=== PATIENT | female | born 1940 | race Caucasian/White ===

== ENCOUNTER 2019-08-03 05:24 | Emergency (ER) | payer OTHER ==
[2019-08-03 06:11] LABS: Absolute Lymphocytes (CBC) 0.9 K/uL (0.7-4.9); Basophils % 0.3 % (0-1.3); Hematocrit 34.4 % (36.0-45.0); Lymphocytes % 7.3 % (15.3-44.8); MPV 7.8 fL (7.6-11.3); RBC Red Blood Cell Count 3.55 M/uL (3.86-4.86)
[2019-08-03 06:25] LABS: ALT/SGPT 27 U/L (12-78); AST/SGOT 25 U/L (15-37); Albumin 3.3 g/dL (3.4-5.0); Alkaline Phosphatase 126 U/L (45-117); BUN Blood Urea Nitrogen 29 mg/dL (7-18); Bicarbonate 21 mmol/L (21-32); Bilirubin Direct < 0.1 mg/dL (0-0.2); Bilirubin Total 0.2 mg/dL (0.2-1.0); Glucose Level 163 mg/dL (74-106); Lipase 136 U/L (73-393); Potassium 4.7 mmol/L (3.5-5.1); Sodium Level 140 mmol/L (136-145)
[2019-08-03] MEDS ORDERED: FENTANYL CITR 100 MCG/2 ML ONE (06:35)
--- NOTE | 2019-08-03 07:41 | RAD REPORT ---
EXAM DESCRIPTION: CT - Abdomen Pelvis W Contrast - 08/03/2019 7:03 am CLINICAL HISTORY: ABD PAIN COMPARISON: CT ABD PELVIS W CONTRAST dated 02/18/2013 TECHNIQUE: Biphasic, helical CT imaging of the abdomen and pelvis was performed following 100 ml non -ionic IV contrast. No oral contrast given. All CT scans are performed using dose optimization technique as appropriate and may include automated exposure control or mA/KV adjustment according to patient size. FINDINGS: No suspicious findings in the lung bases. Liver shows a mild diffuse fatty infiltration pattern. No solid mass lesions seen. Multiple thin-wall ed homogeneous fluid attenuation cysts are scattered in the liver. These are similar to slightly larg er than 2013. No abnormal enhancement pattern. These are not regarded as suspicious. Spleen shows no suspicious finding. Small accessory splenic nodule present. Pancreatic tissue is homo geneous in attenuation and enhancement. Slightly lobulated contour in the body has not change from 20 13. A 16 millimeter gallstone is present near the neck. Additional smaller stones are also suspected. No wall thickening or edema. No biliary tree dilatation. No CT findings for active gallbladder disease. Symmetric renal function is seen with no hydronephrosis or suspicious renal mass. No pyelonephritis o r acute parenchymal process. No bladder abnormalities. No adrenal abnormalities. Uterus is absent. Ov cherie are absent or atrophic. No adnexal mass. A 5 centimeter diameter hiatal hernia is present. No acute stomach finding seen. No acute small bowel abnormality. Terminal ileum is normal. Appendix is not well visualized. No appendicitis findings. No dilation of the colon seen. Low-level mild enhancement of the colon carrion noted. No free air, free fluid or inflammatory stranding. No hernia, mass or bulky lymphadenopathy. Disc and bone degenerative changes are present. Hemangioma is present in the L3 body. Report was delayed due to technical delay in transfer of images to the PACs system. IMPRESSION: Mild nonspecific colitis pattern. No mass, free air, obstruction or other surgically yaa rgent finding. Fatty infiltration of the liver put multiple benign liver cysts identified.
[2019-08-03 08:13] LABS: Blood Morphology Comment NOT SEEN (NOT SEEN); Platelet Estimate ADEQ; Urine White Blood Cell Casts OK
[2019-08-03] MEDS ORDERED: CIPROFLOXACIN 400mg IV 400 MG/200 ML BAG IV ONE (08:20)
--- NOTE | 2019-08-03 08:59 | ER ---
Nurse's Notes [facility] Name: Maxine Elias Age: 79 yrs Sex: Female : 1940 Arrival Date: 08/03/2019 Time: 05:26 Bed 7 Private MD: Diagnosis: Infectious gastroenteritis and colitis, unspecified;Generalized abdominal pain Presentation: 08/02 05:40 Chief complaint: Patient states: she started having abdominal pain and diarrhea last bb night then this morning she noticed about 1/2 cup of bright red blood with her bowel movement abdominal pain is currently 9/10. Coronavirus screen: Proceed with normal triage. Ebola Screen: No symptoms or risks identified at this time. Initial Sepsis Screen: Does the patient meet any 2 criteria? No. Patient's initial sepsis screen is negative. Does the patient have a suspected source of infection? No. Patient's initial sepsis screen is negative. Risk Assessment: Do you want to hurt yourself or someone else? Patient reports no desire to harm self or others. Onset of symptoms was August 02, 2019. 05:40 Method Of Arrival: Wheelchair bb 05:40 Acuity: SWAPNIL 3 bb Historical: - Allergies: 05:44 No Known Allergies; bb - Home Meds: 05:44 Unable to obtain [Active]; bb - PMHx: 05:44 Bipolar disorder; Hypertension; bb - PSHx: 05:44 Hysterectomy; WRIST SURGERY; RIGHT KNEE SURGERY; Appendectomy; bb - Immunization history:: Adult Immunizations up to date. - Social history:: Smoking status: Patient denies any tobacco usage or history of. Patient/guardian denies using alcohol, street drugs. Screenin:42 Abuse screen: Denies threats or abuse. Nutritional screening: No deficits noted. jd3 Tuberculosis screening: No symptoms or risk factors identified. Fall Risk Ambulatory Aid- None/Bed Rest/Nurse Assist (0 pts). Gait- Normal/Bed Rest/Wheelchair (0 pts) Mental Status- Oriented to own ability (0 pts). Total Rodriguez Fall Scale indicates No Risk (0-24 pts). Assessment: 05:40 General: Appears uncomfortable, Behavior is calm, cooperative, appropriate for age. jd3 Pain: Complains of pain in right upper quadrant, left upper quadrant and left lower quadrant Quality of pain is described as sharp, tender. Neuro: Level of Consciousness is awake, alert, obeys commands, Oriented to person, place, time, situation. Cardiovascular: Denies chest pain, Capillary refill < 3 seconds Patient's skin is warm and dry. Respiratory: Airway is patent Respiratory effort is even, unlabored, Respiratory pattern is regular, symmetrical, Denies cough, shortness of breath. GI: Abdomen is round Bowel sounds present X 4 quads. Abd is soft X 4 quads Abdomen is tender to palpation in right upper quadrant, left upper quadrant and left lower quadrant Reports lower abdominal pain, upper abdominal pain, diarrhea, rectal bleeding, nausea. : No signs and/or symptoms were reported regarding the genitourinary system. EENT: No signs and/or symptoms were reported regarding the EENT system. Derm: Skin is intact, Skin is dry, Skin is normal, Skin temperature is warm. Musculoskeletal: Circulation, motion, and sensation intact. Range of motion: intact in all extremities. 06:38 Reassessment: No changes from previously documented assessment. Patient and/or family jd3 updated on plan of care and expected duration. Pain level reassessed. Patient is alert, oriented x 3, equal unlabored respirations, skin warm/dry/pink. 07:08 Reassessment: Report received from MARIAELENA Hdz. Awaiting CT results prior to ss disposition. 07:27 General: Appears in no apparent distress. uncomfortable, Behavior is calm, cooperative, ss appropriate for age, Denies fever, fatigue, chills. Pain: Complains of pain in left lower quadrant and left upper quadrant and right upper quadrant Pain currently is 2 out of 10 on a pain scale. Is continuous. Neuro: Level of Consciousness is awake, alert, obeys commands, Oriented to person, place, time, situation. Respiratory: Airway is patent Respiratory effort is even, unlabored, Respiratory pattern is regular, symmetrical, Breath sounds are clear bilaterally. Respiratory: Denies cough, shortness of breath. Derm: Skin is intact, is healthy with good turgor, Skin is dry, Skin is pink, warm \T\ dry. normal. Derm: Skin is intact, is healthy with good turgor, Skin is dry, Skin is pink, warm \T\ dry. normal. 08:26 Reassessment: Patient appears in no apparent distress at this time. Patient and/or ss family updated on plan of care and expected duration. Pain level reassessed. awaiting disposition. Vital Signs: 05:40 BP 153 / 74; Pulse 96; Resp 16 S; Temp 97.4(O); Pulse Ox 100% on R/A; Weight 92.99 kg bb (R); Height 5 ft. 6 in. (167.64 cm) (R); Pain 9/10; 05:58 BP 134 / 53 Supine; Pulse 93; Resp 18; Pulse Ox 99% on R/A; mg2 05:58 BP 112 / 96 Sitting; Pulse 95; Resp 18; Pulse Ox 99% on R/A; mg2 05:58 BP 116 / 53 Standing; Pulse 100; Resp 18; Pulse Ox 100% on R/A; mg2 06:38 BP 126 / 56; Pulse 93; Resp 17 S; Pulse Ox 99% on R/A; Pain 6/10; jd3 07:26 BP 123 / 42; Pulse 93; Resp 15; Pulse Ox 99% on R/A; Pain 2/10; ss 08:26 BP 150 / 81; Pulse 92; Resp 16; Pulse Ox 99% on R/A; Pain 4/10; ss 05:40 Body Mass Index 33.09 (92.99 kg, 167.64 cm) bb ED Course: 05:26 Patient arrived in ED. ds1 05:39 Spencer Rios MD is Attending Physician. tw4 05:40 Jaxson Loza, RN is Primary Nurse. jd3 05:40 Warm blanket given. jd3 05:42 Triage completed. bb 05:42 Patient has correct armband on for positive identification. Placed in gown. Bed in low jd3 position. Call light in reach. Side rails up X 1. Pulse ox on. NIBP on. 05:44 Arm band placed on Patient placed in an exam room, on a stretcher, on pulse oximetry. bb 05:48 Inserted saline lock: 20 gauge in right forearm, using aseptic technique. placed by cecil [facility]. 05:49 Initial lab(s) drawn, by ED staff, sent to lab. jd3 05:55 Type And Screen Sent. ds4 05:55 Ptt, Activated Sent. ds4 05:55 PT-INR Sent. ds4 05:55 Basic Metabolic Panel Sent. ds4 05:55 Lipase Sent. ds4 05:55 CBC with Diff Sent. ds4 05:56 Creatinine for Radiology Sent. ds4 05:56 Hepatic Function Sent. ds4 06:23 Gracy Kingston FNP-C [facility]. snw 06:23 Spencer Rios MD is Attending Physician. snw 07:04 CT Abd/Pelvis - IV Contrast Only In Process Unspecified. EDMS 08:17 Inserted saline lock: 18 gauge in right antecubital area, using aseptic technique. 3 Blood collected. 10:21 No provider procedures requiring assistance completed. IV discontinued, intact, ah bleeding controlled, No redness/swelling at site. Pressure dressing applied. Administered Medications: 06:37 Drug: fentaNYL (PF) 25 mcg Route: IVP; Site: right forearm; jd3 08:13 Follow up: Response: No adverse reaction; Pain is decreased 08:25 Drug: Cipro 400 mg Volume: 200 ml; Route: IVPB; Infused Over: 60 mins; Site: right ss forearm; Outcome: 08:59 Discharge ordered by . sn 10:21 Discharged to home via wheelchair. 10:21 Condition: good 10:21 Discharge instructions given to patient, Instructed on discharge instructions, follow up and referral plans. medication usage, Demonstrated understanding of instructions, follow-up care, medications. 10:21 Prescriptions given X 2. 10:21 Patient left the ED. Signatures: Dispatcher [employer] EDIN Gracy Kingston FNP-C PLANNING FEEDER-Csnw Miriam Contreras ds1 Brianne Brandon RN RN bb Lore Ramos RN RN Sherif Urban ds4 Rosalva Gonzalez 3 Jaxson Loza RN RN jd3 Wadley, Terrence, MD MD tw4 Pb Peralta RN RN mg2 Ashley Amado RN RN Corrections: (The following items were deleted from the chart) 06:07 05:40 GI: Abdomen is round Bowel sounds present X 4 quads. Abd is soft X 4 quads Abd is jd3 rigid in right upper quadrant, left upper quadrant and left lower quadrant Reports lower abdominal pain, upper abdominal pain, diarrhea, rectal bleeding, nausea, jd3 08:26 08:05 Reassessment: [facility]
--- NOTE | 2019-08-03 08:59 | EDPHYS ---
Physician Documentation [facility] Name: Maxine Elias Age: 79 yrs Sex: Female : 1940 Arrival Date: 08/03/2019 Time: 05:26 Bed 7 Private MD: ED Physician Spencer Rios HPI: 08/02 06:53 This 79 yrs old Female presents to ER via Wheelchair with complaints of snw Bloody Stools. 06:53 Onset: The symptoms/episode began/occurred acutely, 10 day(s) ago, and became worse snw this morning. Associated signs and symptoms: Pertinent positives: abdominal pain. Modifying factors: The patient symptoms are alleviated by nothing, the patient symptoms are aggravated by pressure. It is unknown whether or not the patient has had similar symptoms in the past. It is unknown whether or not the patient has recently seen a physician. Historical: - Allergies: 05:44 No Known Allergies; bb - Home Meds: 05:44 Unable to obtain [Active]; bb - PMHx: 05:44 Bipolar disorder; Hypertension; bb - PSHx: 05:44 Hysterectomy; WRIST SURGERY; RIGHT KNEE SURGERY; Appendectomy; bb - Immunization history:: Adult Immunizations up to date. - Social history:: Smoking status: Patient denies any tobacco usage or history of. Patient/guardian denies using alcohol, street drugs. ROS: 06:53 Constitutional: Negative for fever, chills, and weight loss, Eyes: Negative for injury, snw pain, redness, and discharge, ENT: Negative for injury, pain, and discharge, Neck: Negative for injury, pain, and swelling, Cardiovascular: Negative for chest pain, palpitations, and edema, Respiratory: Negative for shortness of breath, cough, wheezing, and pleuritic chest pain, Back: Negative for injury and pain, : Negative for injury, bleeding, discharge, and swelling, MS/Extremity: Negative for injury and deformity, Skin: Negative for injury, rash, and discoloration, Neuro: Negative for headache, weakness, numbness, tingling, and seizure, Psych: Negative for depression, anxiety, suicide ideation, homicidal ideation, and hallucinations. 06:53 Abdomen/GI: Positive for abdominal pain, of the right upper quadrant and left upper quadrant, pt states diarrhea today with 1/2-3/4 bright red blood in toilet.. Exam: 06:48 Head/Face: Normocephalic, atraumatic. Eyes: Pupils equal round and reactive to light, snw extra-ocular motions intact. Lids and lashes normal. Conjunctiva and sclera are non-icteric and not injected. Cornea within normal limits. Periorbital areas with no swelling, redness, or edema. ENT: Nares patent. No nasal discharge, no septal abnormalities noted. Tympanic membranes are normal and external auditory canals are clear. Oropharynx with no redness, swelling, or masses, exudates, or evidence of obstruction, uvula midline. Mucous membranes moist. Neck: Trachea midline, no thyromegaly or masses palpated, and no cervical lymphadenopathy. Supple, full range of motion without nuchal rigidity, or vertebral point tenderness. No Meningismus. Chest/axilla: Normal chest wall appearance and motion. Nontender with no deformity. No lesions are appreciated. Cardiovascular: Regular rate and rhythm with a normal S1 and S2. No gallops, murmurs, or rubs. Normal PMI, no JVD. No pulse deficits. Respiratory: Lungs have equal breath sounds bilaterally, clear to auscultation and percussion. No rales, rhonchi or wheezes noted. No increased work of breathing, no retractions or nasal flaring. Back: No spinal tenderness. No costovertebral tenderness. Full range of motion. MS/ Extremity: Pulses equal, no cyanosis. Neurovascular intact. Full, normal range of motion. Neuro: Awake and alert, GCS 15, oriented to person, place, time, and situation. Cranial nerves II-XII grossly intact. Motor strength 5/5 in all extremities. Sensory grossly intact. Cerebellar exam normal. Normal gait. Psych: Awake, alert, with orientation to person, place and time. Behavior, mood, and affect are within normal limits. 06:48 Constitutional: The patient appears alert, awake, pale. 06:48 Abdomen/GI: Inspection: abdomen appears normal, Bowel sounds: normal, Palpation: moderate abdominal tenderness, in the right upper quadrant and left upper quadrant, Rectal exam: rectal tone normal, Stool: reddish flecks but guaiac negative, hemorrhoid(s), are not appreciated. 06:48 Skin: Appearance: Color: pale, Temperature: normal temperature, Moisture: dry, contact dermatitis, dry, patchy, scabbed appearing almost petechiae like lesions to extremities, scaling at bony prominences of feet. Vital Signs: 05:40 BP 153 / 74; Pulse 96; Resp 16 S; Temp 97.4(O); Pulse Ox 100% on R/A; Weight 92.99 kg bb (R); Height 5 ft. 6 in. (167.64 cm) (R); Pain 9/10; 05:58 BP 134 / 53 Supine; Pulse 93; Resp 18; Pulse Ox 99% on R/A; mg2 05:58 BP 112 / 96 Sitting; Pulse 95; Resp 18; Pulse Ox 99% on R/A; mg2 05:58 BP 116 / 53 Standing; Pulse 100; Resp 18; Pulse Ox 100% on R/A; mg2 06:38 BP 126 / 56; Pulse 93; Resp 17 S; Pulse Ox 99% on R/A; Pain 6/10; jd3 07:26 BP 123 / 42; Pulse 93; Resp 15; Pulse Ox 99% on R/A; Pain 2/10; ss 08:26 BP 150 / 81; Pulse 92; Resp 16; Pulse Ox 99% on R/A; Pain 4/10; ss 05:40 Body Mass Index 33.09 (92.99 kg, 167.64 cm) bb MDM: 05:39 Patient medically screened. tw4 09:01 Data reviewed: vital signs, nurses notes. Data interpreted: Pulse oximetry: on room air snw is 99 %. Interpretation: normal. Counseling: I had a detailed discussion with the patient and/or guardian regarding: the historical points, exam findings, and any diagnostic results supporting the discharge/admit diagnosis, the presence of at least one elevated blood pressure reading (>120/80) during this emergency department visit, lab results, radiology results, the need for outpatient follow up, for definitive care, to return to the emergency department if symptoms worsen or persist or if there are any questions or concerns that arise at home. Special discussion: Based on the patient's Hx, exam, and Dx evaluation, there is no indication for emergent surgery or inpatient Tx. It is understood by the patient/guardian that if the Sx's persist or worsen they need to return immediately for re-evaluation. Based on the history and exam findings, there is no indication for further emergent testing or inpatient evaluation. I discussed with the patient/guardian the need to see the supervisor photoengraving for further evaluation of the symptoms. I discussed with the patient/guardian the need to see the primary care provider for further evaluation of the symptoms. 08/02 05:40 Order name: Basic Metabolic Panel; Complete Time: 06:26 tw4 08/02 05:40 Order name: CBC with Diff; Complete Time: 08:16 tw4 08/02 05:40 Order name: Creatinine for Radiology; Complete Time: 06:24 tw4 08/02 05:40 Order name: Hepatic Function; Complete Time: 06:26 tw4 08/02 05:40 Order name: Lipase; Complete Time: 06:26 tw4 08/02 05:40 Order name: PT-INR; Complete Time: 06:38 tw4 08/02 05:40 Order name: Ptt, Activated; Complete Time: 06:38 tw4 08/02 05:43 Order name: Type And Screen; Complete Time: 07:36 tw4 08/02 06:25 Order name: CT Abd/Pelvis - IV Contrast Only; Complete Time: 08:11 snw 08/02 06:39 Order name: Tegretol Level; Complete Time: 07:36 ar5 08/02 08:13 Order name: CBC Smear Scan; Complete Time: 08:16 EDMS 08/02 05:40 Order name: IV Saline Lock; Complete Time: 05:49 tw4 08/02 05:40 Order name: Labs collected and sent; Complete Time: 05:50 tw4 08/02 05:43 Order name: Orthostatics; Complete Time: 05:57 tw4 08/02 06:26 Order name: NPO; Complete Time: 06:28 snw Administered Medications: 06:37 Drug: fentaNYL (PF) 25 mcg Route: IVP; Site: right forearm; jd3 08:13 Follow up: Response: No adverse reaction; Pain is decreased ss 08:25 Drug: Cipro 400 mg Volume: 200 ml; Route: IVPB; Infused Over: 60 mins; Site: right ss forearm; Disposition: 08/03 10:04 Co-signature as Attending Physician, Spencer Rios MD I agree with the assessment and plan of care. Disposition: 08/03/19 08:59 Discharged to Home. Impression: Infectious gastroenteritis and colitis, unspecified, Generalized abdominal pain. - Condition is Stable. - Discharge Instructions: Abdominal Pain, Adult, Food Choices to Help Relieve Diarrhea, Adult, Rehydration, Elderly, Colitis. - Prescriptions for Cipro 500 mg Oral Tablet - take 1 tablet by ORAL route every 12 hours for 7 days; 14 tablet. promethazine 25 mg Oral Tablet - take 1 tablet by ORAL route every 8-12 hours As needed; 10 tablet. - Medication Reconciliation Form, Thank You Letter, Antibiotic Education, Prescription Opioid Use form. - Follow up: Private Physician; When: 1 - 2 days; Reason: Recheck today's complaints, Continuance of care, Re-evaluation by your physician. Follow up: Emergency Department; When: As needed; Reason: Worsening of condition. - Notes: Hold Tegretol x one day. Signatures: Dispatcher [employer] EDMS Gracy Kingston, BUD-C FORM BUILDER HELPER-Csnw Brianne Brandon RN RN bb Lore Ramos RN RN ss Jaxson Loza RN RN jd3 Spencer Rios MD MD tw4 Ashley Amado RN RN ah Corrections: (The following items were deleted from the chart) 08/02 10:21 08:59 08/03/2019 08:59 Discharged to Home. Impression: Infectious gastroenteritis and ah colitis, unspecified; Generalized abdominal pain. Condition is Stable. Discharge Instructions: Abdominal Pain, Adult, Food Choices to Help Relieve Diarrhea, Adult, Rehydration, Elderly, Colitis. Prescriptions for Cipro 500 mg Oral Tablet - take 1 tablet by ORAL route every 12 hours for 7 days; 14 tablet, promethazine 25 mg Oral Tablet - take 1 tablet by ORAL route every 8-12 hours As needed; 10 tablet. and Forms are Medication Reconciliation Form, Thank You Letter, Antibiotic Education, Prescription Opioid Use. Follow up: Private Physician; When: 1 - 2 days; Reason: Recheck today's complaints, Continuance of care, Re-evaluation by your physician. Follow up: Emergency Department; When: As needed; Reason: Worsening of condition. snw
[2019-08-03 10:30] VITALS: TEMP 97.4
[2019-08-03 10:34] VITALS: O2SAT 99
[2019-08-03 10:37] VITALS: BP 150/81
== END 2019-08-03 10:21 | disposition home or self-care (01) ==
LOC: ER 05:24
DX: A09 Infectious gastroenteritis and colitis, unspecified (principal); I10 Essential (primary) hypertension
CPT/HCPCS: 85025; 80048; 36415; 86900; 86850; 80156; 85610; 86901; 80076; 85730; 83690; 74177; Q9967; J3010; J0744

== ENCOUNTER 2019-10-05 19:48 | Inpatient (IN) | payer OTHER ==
[2019-10-05] MEDS ORDERED: ACETAMINOPHEN 500 MG TAB PO PRN (20:56)
[2019-10-05 21:19] LABS: Absolute Lymphocytes (CBC) 1.1 K/uL (0.7-4.9); Basophils % 0.3 % (0-1.3); Hematocrit 26.3 % (36.0-45.0); Lymphocytes % 12.1 % (15.3-44.8); MPV 6.9 fL (7.6-11.3); RBC Red Blood Cell Count 2.78 M/uL (3.86-4.86)
[2019-10-05 21:41] LABS: Albumin 3.2 g/dL (3.4-5.0); Bilirubin Total 0.2 mg/dL (0.2-1.0); Magnesium 2.2 mg/dL (1.8-2.4); Protein, Total 6.7 g/dL (6.4-8.2)
[2019-10-05 21:43] LABS: Thyroid Stimulating Hormone 7.6 uIU/mL (0.360-3.740)
[2019-10-05] MEDS: PIPER/TAZO/NS 3.375gm 3.375 GM/100 ML BAG IVPB SCH ×2 (22:00→23:52)
[2019-10-05 22:03] VITALS: BMI 37.0
--- NOTE | 2019-10-05 22:20 | RAD REPORT ---
EXAM DESCRIPTION: US - Extrem Venous W Compress Tomer - 10/05/2019 10:12 pm CLINICAL HISTORY: leg edema, r/o DVT Bilateral leg edema and swelling. COMPARISON: <Comparisons> TECHNIQUE: Real-time sonographic interrogation of the left and right lower extremity deep venous sys tems was performed. FINDINGS: Normal compressibility, flow augmentation, phasic flow and spontaneous flow is identified in both the left and right lower extremity deep venous systems. IMPRESSION: No sonographic evidence of left or right lower extremity deep venous thrombosis.
[2019-10-05] MEDS ORDERED: PIPER/TAZO/NS 3.375gm 6.750 GM/200 ML BAG ONE (23:34)
[2019-10-05] MEDS: carBAMazepine 200 MG TAB PO SCH (23:59)
[2019-10-06] MEDS ORDERED: NA CHLORIDE 0.9% 250 ML ONE
[2019-10-06] MEDS: QUETIAPINE 100MG TAB PO SCH ×2 (00:01→20:22)
[2019-10-06] MEDS: DIPHENHYDRAMINE 25 MG TAB/CAP PO PRN ×5 (00:02→20:24)
[2019-10-06] MEDS: lisinopriL 10 MG TAB PO SCH ×3 (00:03→20:23)
[2019-10-06] MEDS: METOPROLOL XL 50 MG TAB PO SCH ×2 (00:04→08:57)
[2019-10-06] MEDS: LORAZEPAM 1 MG TABLET PO SCH ×4 (00:37→20:22)
--- NOTE | 2019-10-06 03:02 | HP ---
Date of Admission: 10/05/2019 Chief Complaint: Leg swelling. History Of Present Illness: This is a 79-year-old female patient, who lives at home by herself, was brought in by her daughter today to office with almost 2 months history of worsening leg swelling. Patient did not seek any medical attention in last 2 months for this problem. Daughter brought her to my office today and after she was evaluated, she was admitted to the hospital. She has extensive swelling of both legs. She has rash over both lower extremity and also reports that she has rash over her multiple other body region, which obviously all examined when she is at the hospital in the [facility]. We also noted that she has cellulitis of both lower extremity and what she has is extensive area of dry skin on both lower extremity, worse on the left leg than right leg and what I am afraid of that this dry skin is probably covering underlying open wound on her both lower extremities. Skin is pink, warm. She has some [id number] colored purulent drainage coming out of her lower extremity, which was noted when she was sitting in wheelchair at the office. After she was evaluated, decision was made to admit her to the hospital. She has some pain and discomfort in her legs, but denied any fever or chills. Allergies: NEOMYCIN CAUSING RASH. Medications: 1. Amlodipine 5 mg daily. 2. Carbamazepine. 3. Escitalopram. 4. Fluticasone nasal spray. 5. Levothyroxine 112 mcg p.o. daily. 6. Lisinopril 10 mg p.o. 2 times a day. 7. Lorazepam. 8. Metoprolol tartrate 50 mg, takes 1-1/2 tablet by mouth 2 times a day. 9. Seroquel. Review of Systems: Musculoskeletal: As mentioned above. Dermatology: As mentioned above. Psychiatry: Has significant problem with anxiety and depression and she is under care of psychiatrist. All other systems reviewed and negative. Past Medical History: Seizure, allergic rhinitis, hypothyroidism, hypertension, hyperlipidemia, gastroesophageal reflux disease, depression, bipolar disorder. Past Surgical History: Exploratory laparotomy and hysterectomy, knee surgery. Family History: Father had coronary artery disease. Mother had colon cancer. Social History: Negative for smoking. Negative for alcohol use. Physical Examination: Vital Signs: Blood pressure 161/77, pulse 98, temperature 97.9, respiratory rate 16, height 66 inches. General: Awake, alert, oriented, not in distress. HEENT: Head atraumatic, normocephalic. Conjunctivae nonerythematous. Sclerae white. Mouth, no thrush or edema noted. Ears/Nose, no mass, lesion, discharge noted. Neck: Supple. No JVD, lymph nodes, bruit, thyromegaly noted. Lungs: Bilateral good equal air entry. Clear to auscultation. No rhonchi. No rales. Heart: Normal heart sounds, no murmur or gallop. Abdomen: Soft, bowel sounds normal. No guarding, rigidity, tenderness, mass, hepatosplenomegaly, distention, or bruit noted. Extremities: Patient has extensive bilateral leg edema about grade 3 to grade 4 involving entire both lower extremities. Skin: She has dry pink-colored rash over both lower extremities involving almost entire lower extremity, worse in the lateral thigh region and both lower leg region. Skin over both lower extremity is dry. Has some large area of dry skin with what appears to be underlying superficial open wound, worse on the left leg than the right leg, draining yellow to green colored purulent drainage. Lymphatics: No lymph node enlargement in neck, supraclavicular, infraclavicular region. Neuro: No focal neurological deficit. Chest: Unremarkable. External Genitalia: Deferred. Rectal: Deferred. Diagnostic Data: Chest x-ray no acute cardiopulmonary changes. WBC 9, hemoglobin 8.9, platelets 279. Sodium 140, potassium 4, chloride 107, bicarb 27, BUN 27, creatinine 0.93, glucose 148. Liver function tests unremarkable. Impression: 1. Cellulitis, bilateral legs. 2. Leg edema, bilateral. 3. Dermatitis. 4. Hypertension. 5. Hyperlipidemia. 6. Hypothyroidism. 7. Gastroesophageal reflux disease. 8. Bipolar disorder. 9. Depression. 10. Allergic rhinitis. 11. Seizure. Plan: We will admit patient to hospital for further evaluation and management of this problem. Patient is appropriate for inpatient and is expected to spend 2 midnights in the hospital. Details of plan of treatment discussed with the patient and her daughter. We will start empiric IV antibiotics Zosyn. We will go ahead and get a wound culture done. Venous Doppler of lower extremity will be done to rule out DVT. Home medications will be continued. I will see her tomorrow for followup. We will consult Dr. Marvin as she may need some debridement. Patient will likely need some wound care management and I will see her tomorrow for followup. Details of plan of treatment discussed with the patient and her daughter. SIMONE/JACKLYN Voice ID: [id number] MTDD
[2019-10-06] MEDS: PIPER/TAZO/NS 3.375gm 3.375 GM/100 ML BAG IVPB SCH ×3 (05:54→17:04)
[2019-10-06] MEDS: LEVOTHYROXINE SOD 0.112 MG TAB PO SCH (05:54)
--- NOTE | 2019-10-06 11:43 | CON ---
Date of Consultation: 10/06/2019 Reason For Consultation: Wounds, lower leg. History Of Present Illness: The patient is a 79-year-old female, presents with some bilateral swelli ng of her legs acutely. This problem has been getting worse for the last 2 months. She did not seek any medical attention during this time. Her daughter saw it yesterday and brought her to Dr. Ramos's office and he admitted her with cellulitis and wounds of the lower leg with acute swelling. She had a lot of skin on both lower extremities which was scrubbed last night by the nurses and some ye llowish to greenish purulent discharge. Cultures were done already. Noted no fever or chills. No so re throat, runny nose, cough, headaches, or dizziness. No chest pain. Review of Systems: Otherwise unremarkable. Past Medical History: Significant for bipolar depression, seizure disorder, hypothyroidism, hyperten raciel, hyperlipidemia, and GERD. Past Surgical History: Significant for knee surgery, hysterectomy, exploratory laparotomy. Allergies: INCLUDE NEOMYCIN. Social History: She does not smoke or drink. Family History: Significant for coronary artery disease in the father and mother with colon cancer. Physical Examination: Vital Signs: Stable. She is slightly tachycardic. She is afebrile. Neurological: She is awake, alert, orient x3. Head and Neck: Cranial nerves 2 through 12 grossly within normal limits. No neck masses. No JVD. Throat clear. Neck supple. Chest: Clear. Heart: S1 and S2. Abdomen: Soft, slightly distended. No tenderness. Positive bowel sounds. No discrete masses palpa pankaj. Extremities: Diminished dorsalis pedis and posterior tibialis artery present. There is a bark like s kin on both lower extremities, but easily come off with gentle manipulation. The dressing that was c hanged last night, does not have any bleeding, drainage this morning. Actually, there is very minima l drainage. There is erythema and marked swelling present, however, in both lower extremities. Laboratory Data: White count was 9.0 on admission with slight left shift. Her lactic acid is 1.9. Procalcitonin is less than 0.05. She had an extremity venous study for clots which is negative. Assessment: Lymphedema, cellulitis, wounds, lower extremity lymphedema being acute. Recommendation: The source of the swelling of the leg needs to be further elucidated with the echoca rdiogram and CT of the abdomen and pelvis. Empiric antibiotics right now and change the antibiotics b ased on the culture reports. For the dressing, we will do Lidex with gauze, Kerlix, and Jamey and elev ation of the extremities. We will follow this patient. The wounds may need to be eventually debride d, but it appears that was just a surgical brush last night. Majority of the skin was removed a nd hopefully the Lidex will help with that and I advised the nurses to go ahead and use a surgical br ush with every dressing changes to debride the flaky skin that is present. The plan of care discusse d in detail with the patient as well as Dr. Ramos. IVETTE/JACKLYN Voice ID: [id number] Report ID: [id number]
[2019-10-06] MEDS ORDERED: LORAZEPAM 1 MG TABLET PO SCH ×2 (14:00→20:00)
--- NOTE | 2019-10-06 14:41 | RAD REPORT ---
EXAM DESCRIPTION: CT - Abdomen Pelvis W Contrast - 10/06/2019 2:17 pm CLINICAL HISTORY: Abdominal pain. swelling COMPARISON: 07/2019 and 2012 TECHNIQUE: Computed axial tomography of the abdomen and pelvis was obtained. 100 cc Isovue-300 is ad ministered intravenously. Oral contrast was given. All CT scans are performed using dose optimization technique as appropriate and may include automated exposure control or mA/KV adjustment according to patient size. FINDINGS: Hepatic cysts are unchanged Small to moderate hiatal hernia. The Spleen, pancreas, adrenals and kidneys appear unremarkable. Cholelithiasis. Gallbladder wall thickening is not noted. There is no evidence of diverticulitis No abdominal mass visualized 23 millimeter low-density stippled lesion within the L3 vertebral body is unchanged from July 2019. It has developed since 2012 IMPRESSION: Cholelithiasis without evidence cholecystitis 23 millimeter lesion within the L3 vertebral body has the appearance of a hemangioma. It has develope d since 2012. It is unchanged from July 2019. A followup unenhanced MRI of the lumbar spine in 3 sat ths is recommended to assess stability
[2019-10-06] MEDS ORDERED: LORAZEPAM 2 MG PO SCH (20:00)
[2019-10-06] MEDS: carBAMazepine 200 MG TAB PO SCH (20:22)
[2019-10-06] MEDS: METOPROLOL TAR 50 MG TAB PO SCH (20:23)
[2019-10-06] MEDS ORDERED: lisinopriL 10 MG TAB PO SCH (21:00)
[2019-10-06] MEDS ORDERED: HOME MED 1 EA UNK (Quetiapine Fumarate [Seroquel] 600 MG) PO SCH (21:00)
[2019-10-06] MEDS ORDERED: carBAMazepine 200 MG TAB PO SCH (21:00)
[2019-10-07] MEDS: PIPER/TAZO/NS 3.375gm 3.375 GM/100 ML BAG IVPB SCH ×3 (00:04→16:08)
--- NOTE | 2019-10-07 00:22 | PN ---
Date of Progress Note: 10/06/2019 Subjective: Patient was seen this morning for followup. No new complaints or problems reported by patient. Lying in bed, not in distress. Objective: Vital Signs: Reviewed. HEENT: Unremarkable. Lungs: Clear to auscultation. Heart: Sounds normal. Abdomen: Soft. Bowel sounds normal. Abdomen appears to be obese. No definite mass, guarding, rigidity, tenderness. Extremities: Bilateral leg edema present, slightly better today than yesterday. Skin: Extensive area of rash over abdominal wall and both lower extremities. Impression: 1. Cellulitis, both legs. 2. Dermatophytosis. 3. Hypertension. 4. Bilateral leg edema. Plan: We will go ahead and continue current antibiotics. Details were discussed with Dr. Marvin. 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 I will see her tomorrow for followup. SIMONE/MODL Voice ID: [id number] Report ID: [id number] MTDMina
[2019-10-07] MEDS: DIPHENHYDRAMINE 25 MG TAB/CAP PO PRN ×5 (02:33→20:33)
[2019-10-07] MEDS ORDERED: LORAZEPAM 1 MG TABLET PO SCH (04:00)
[2019-10-07] MEDS: LORAZEPAM 1 MG TABLET PO SCH ×3 (04:00→20:00)
[2019-10-07 04:23] LABS: Absolute Lymphocytes (CBC) 1.3 K/uL (0.7-4.9); Basophils % 0.8 % (0-1.3); Hematocrit 24.5 % (36.0-45.0); Lymphocytes % 23.4 % (15.3-44.8)
[2019-10-07 05:01] LABS: Ferritin 11.5 ng/mL (8-388); Magnesium 2.3 mg/dL (1.8-2.4); Potassium 4.2 mmol/L (3.5-5.1)
[2019-10-07] MEDS: LEVOTHYROXINE SOD 0.112 MG TAB PO SCH (06:13)
[2019-10-07] MEDS ORDERED: LEVOTHYROXINE SOD 0.112 MG TAB PO SCH (06:30)
--- NOTE | 2019-10-07 07:55 | ECHO ---
HEIGHT: 5 ft 6 in WEIGHT: 229 lb 8 oz DATE OF STUDY: 10/06/[address]: Nick Ramos MD 2-DIMENSIONAL: YES M.MODE: YES DOPPLER: YES COLOR FLOW: YES TDS: NO PORTABLE: NO DEFINITY: NO BUBBLE STUDY: NO DIAGNOSIS: LEG EDEMA/ EVALUATE LEFT VENTRICULAR EJECTION FRACTION CARDIAC HISTORY: CATHERIZATION: NO SURGERY: NO PROSTHETIC VALVE: NO PACEMAKER: NO MEASUREMENTS (cm) DIASTOLIC (NORMALS) SYSTOLIC (NORMALS) IVSd 1.0 (0.6-1.2) LA Diam 4.1 (1.9-4.0) LVEF 66% LVIDd 4.5 (3.5-5.7) LVIDs 2.9 (2.0-3.5) %FS 36% LVPWd 1.0 (0.6-1.2) Ao Diam 2.7 (2.0-3.7) 2 DIMENSIONAL ASSESSMENT: RIGHT ATRIUM: NORMAL LEFT ATRIUM: NORMAL RIGHT VENTRICLE: NORMAL LEFT VENTRICLE: NORMAL TRICUSPID VALVE: NORMAL MITRAL VALVE: NORMAL PULMONIC VALVE: NORMAL AORTIC VALVE: NORMAL PERICARDIAL EFFUSION: NORMAL AORTIC ROOT: NORMAL LEFT VENTRICULAR WALL MOTION: NORMAL. DOPPLER/COLOR FLOW: NORMAL. COMMENTS: NORMAL LEFT VENTRICULAR SIZE AND FUNCTION. EJECTION FRACTION 66%. NO WALL MOTION ABNORMALITY. NO EFFUSION. TECHNOLOGIST: SHERIE HILL
[2019-10-07] MEDS: METOPROLOL TAR 50 MG TAB PO SCH ×2 (08:03→20:26)
[2019-10-07] MEDS: ESCITALOPRAM 20 MG TAB PO SCH (08:04)
[2019-10-07] MEDS: lisinopriL 10 MG TAB PO SCH ×2 (08:04→20:26)
[2019-10-07] MEDS ORDERED: FLUOCINONIDE 0.05% CREAM 30GM TOP SCH (09:00)
[2019-10-07] MEDS: CLOTRIMAZ/BETAMETH CREAM 15GM TOP SCH ×3 (09:00→21:00)
--- NOTE | 2019-10-07 12:05 | PN ---
Date of Progress Note: 10/07/2019 History: Patient is awake, alert. No new complaints. Bowel stable, afebrile. Physical Examination: Physical examination reveals still some redness and swelling of the feet. The redness in the leg has improved, there is some scaly skin, which easily is pulled off, , a lot of it was pulled o ut by me and the nurse will remove as much as they can with a scrub brush. The CT of the abdomen and pelvis shows gallstones, otherwise, unremarkable. An echo was within alpesh l limits. Assessment: Cellulitis and lymphedema in lower extremities. Recommendations: Continue IV antibiotics. Check cultures. Adjust antibiotics accordingly. Wound c are is ordered. Follow up in the wound healing center upon discharge. IVETTE/JACKLYN Voice ID: [id number] Report ID: [id number]
--- NOTE | 2019-10-07 14:13 | RAD REPORT ---
EXAM DESCRIPTION: RAD - Chest Single View - 10/05/2019 10:20 pm CLINICAL HISTORY: Cellulitis COMPARISON: None FINDINGS: Cardiac silhouette is within normal limits. There is no focal parenchymal or pleural disea se. There is no acute osseous process visualized. IMPRESSION: No evidence of acute cardiopulmonary disease. Electronically signed by: Chance Reyna MD 10/05/2019 10:28 PM CDT Due to temporary technical issues with the PACS/Fluency reporting system, reports are being signed by the in house radiologist without review as a courtesy to ensure prompt reporting. The interpreting r adiologist is fully responsible for the content of the report.
[2019-10-07] MEDS: carBAMazepine 200 MG TAB PO SCH (20:26)
[2019-10-07] MEDS: QUETIAPINE 100MG TAB PO SCH (21:30)
[2019-10-08] MEDS: PIPER/TAZO/NS 3.375gm 3.375 GM/100 ML BAG IVPB SCH ×3 (00:06→16:17)
[2019-10-08] MEDS: DIPHENHYDRAMINE 25 MG TAB/CAP PO PRN ×5 (00:17→21:44)
--- NOTE | 2019-10-08 00:24 | PN ---
Date of Progress Note: 10/07/2019 Subjective: Patient was seen this morning for followup. Sitting at bedside, not in distress. No ne w complaints, problems reported. Still continues to have generalized rash with itching. Objective: HEENT: Unremarkable. Lungs: Clear to auscultation. Cardiac: Heart sounds normal. Abdomen: Soft, bowel sounds normal. No guarding, rigidity, tenderness, or distention Extremities: Bilateral leg edema present better compared to what it was before, but still has edema involving both lower extremities. Skin: Diffuse generalized rash all over body which was unchanged. Laboratory Data: White count 5.4, hemoglobin 8, platelets 273. Sodium 141, potassium 4.2, chloride 110, bicarb 28, BUN 22, creatinine 1.09, glucose 106, ferritin 11.5, B12 478. Folic acid level pendi ng, serum iron 34, TIBC 326. Impression: 1.Cellulitis, bilateral legs. 2.Leg edema, bilateral legs. 3.Iron-deficiency anemia. 4.Hypertension. 5.Dermatitis. Plan: We will go ahead and apply Lotrisone cream 3 times a day and also start her on IV Diflucan as I am concerned that this could be due to fungus infection. In any case, we will continue her other c urrent antibiotics for cellulitis of leg. So far, cultures remains negative. We will follow iron de ficiency anemia. She will need to follow up with [facility] for [facility] workup to rule out any un derlying GI cause of blood loss and iron deficiency anemia. I will see her tomorrow for followup. SIMONE/MODL Voice ID: [id number] Report ID: [id number]
[2019-10-08] MEDS: LORAZEPAM 1 MG TABLET PO SCH ×3 (04:00→20:00)
[2019-10-08] MEDS: LEVOTHYROXINE SOD 0.112 MG TAB PO SCH (06:03)
[2019-10-08] MEDS: METOPROLOL TAR 50 MG TAB PO SCH ×2 (08:43→19:59)
[2019-10-08] MEDS: lisinopriL 10 MG TAB PO SCH ×2 (08:43→20:00)
[2019-10-08] MEDS: ESCITALOPRAM 20 MG TAB PO SCH (08:43)
[2019-10-08] MEDS: CLOTRIMAZ/BETAMETH CREAM 15GM TOP SCH ×3 (08:44→20:01)
[2019-10-08] MEDS: FUROSEMIDE 20 MG/ 2ML VIAL IV SCH (11:34)
--- NOTE | 2019-10-08 15:43 | PN ---
Date of Progress Note: 10/08/2019 Subjective: Patient is awake and alert. No new complaint. Still itching. Objective: Vital Signs: Stable. Afebrile. Integumentary: Cultures grew out normal skin luanne. Examination of both feet reveals still with red ness. The swelling is decreased. There is less dry skin present. The erythema is about the same as yesterday. Assessment: Bilateral lower extremity cellulitis, etiology may be fungal and secondary lymphedema. Recommendations: Patient is going to be started on diuretics. Continue antibiotics and antifungal. Benadryl for the itching. Discharge planning. Patient may need long-term antibiotics. /MODL Voice ID: [id number] Report ID: [id number]
[2019-10-08] MEDS: carBAMazepine 200 MG TAB PO SCH (19:59)
[2019-10-08] MEDS: QUETIAPINE 100MG TAB PO SCH (21:44)
[2019-10-09] MEDS: PIPER/TAZO/NS 3.375gm 3.375 GM/100 ML BAG IVPB SCH ×3 (00:15→17:11)
[2019-10-09] MEDS: DIPHENHYDRAMINE 25 MG TAB/CAP PO PRN ×5 (01:39→23:55)
[2019-10-09] MEDS: LORAZEPAM 1 MG TABLET PO SCH ×3 (03:46→21:02)
[2019-10-09] MEDS: LEVOTHYROXINE SOD 0.112 MG TAB PO SCH (05:38)
[2019-10-09] MEDS: lisinopriL 10 MG TAB PO SCH ×2 (08:54→21:04)
[2019-10-09] MEDS: ESCITALOPRAM 20 MG TAB PO SCH (08:54)
[2019-10-09] MEDS: FUROSEMIDE 20 MG/ 2ML VIAL IV SCH (08:54)
[2019-10-09] MEDS: METOPROLOL TAR 50 MG TAB PO SCH ×2 (08:54→21:03)
[2019-10-09] MEDS: CLOTRIMAZ/BETAMETH CREAM 15GM TOP SCH ×3 (08:55→21:05)
--- NOTE | 2019-10-09 15:01 | PN ---
Date of Progress Note: 10/09/2019 Subjective: Patient is awake, alert. No complaints. Objective: Vital Signs: Stable, afebrile. Skin: Decrease in the erythema and edema. There is present. Assessment: Bilateral lower extremity cellulitis with possible fungal infection, improving. Recommendations: Patient is cleared from surgical standpoint. Discharged on antibiotics. May benef it from couple of weeks of IV antibiotics. Wound care is ordered. Follow up with me as an outpatien t on a p.r.n. basis. /MODL Voice ID: [id number] Report ID: [id number]
--- NOTE | 2019-10-09 19:07 | PN ---
Date of Progress Note: 10/08/2019 Subjective: Patient was seen for followup. Denied any new complaints. Continues to have leg swelli ng, rash, and itching. No new complaints reported. Physical Examination: Vital Signs: Reviewed. HEENT: Unremarkable. Lungs: Clear to auscultation. Heart: Sounds normal. Abdomen: Soft. Bowel sounds normal. No guarding, rigidity, tenderness, distention. Extremities: Leg edema remains unchanged. Skin: Extensive area of rash remains unchanged. Laboratory Data: Reviewed. Impression: 1.Cellulitis, bilateral lower extremities. 2.Leg edema. 3.Dermatitis. 4.Bipolar disorder. 5.Depression. Plan: We will continue current medication. Continue IV Zosyn. Continue topical cream, which is donovan roid and antifungal cream. We will go ahead and start the patient on IV Lasix per order. I will see her tomorrow for followup. Continue to follow with Dr. Marvin. SIMONE/MODL Voice ID: [id number] Report ID: [id number]
--- NOTE | 2019-10-09 19:16 | PN ---
Date of Progress Note: 10/09/2019 Subjective: Patient was seen this morning for followup. She was lying in bed and soon as I walked into her room, she told me that she is not feeling good. Her bipolar disorder has started acting up. She continues to get her medications as she normally takes at home. Denies any new complaints. Rash and itching continues, but it is little bit better itching augustine, but she still requires Benadryl about every 3 to 4 hours. Rash has improved with use of medication as prescribed. Leg swelling has also improved once we started Lasix. Objective: Vital Signs: Reviewed. HEENT: Unremarkable. Lungs: Clear to auscultation. Heart: Sounds normal. Abdomen: Soft. Bowel sounds normal. No guarding, rigidity, tenderness, or distention. Extremities: Bilateral leg edema present, but it is better compared to what it was yesterday. Skin: Shows extensive area of rash all over body, but rash has started to show improvement now. Her extensive dermatitis changes on both lower legs and dorsum foot also shows improvement compared to before. Impression: 1. Cellulitis, bilateral legs. 2. Dermatitis. 3. Hypertension. 4. Bipolar disorder. 5. Leg edema. Plan: We will go ahead and continue current medications including antibiotics, topical steroid as well as antifungal and IV Lasix. We will see her tomorrow for follow up, extensive area of dermatitis, especially both lower legs is still present. There is no discharge or bleeding. Still some cellulitis in the both lower extremities. SIMONE/MODL Voice ID: [id number] Report ID: [id number] BROWN
[2019-10-09] MEDS: carBAMazepine 200 MG TAB PO SCH (21:03)
[2019-10-09] MEDS: QUETIAPINE 100MG TAB PO SCH (21:04)
[2019-10-10] MEDS: PIPER/TAZO/NS 3.375gm 3.375 GM/100 ML BAG IVPB SCH ×3 (00:09→17:27)
[2019-10-10] MEDS: DIPHENHYDRAMINE 25 MG TAB/CAP PO PRN ×4 (04:03→20:51)
[2019-10-10] MEDS: LORAZEPAM 1 MG TABLET PO SCH ×3 (04:03→20:49)
[2019-10-10] MEDS: LEVOTHYROXINE SOD 0.112 MG TAB PO SCH (05:31)
[2019-10-10] MEDS: lisinopriL 10 MG TAB PO SCH ×2 (09:45→20:49)
[2019-10-10] MEDS: FUROSEMIDE 20 MG/ 2ML VIAL IV SCH (09:45)
[2019-10-10] MEDS: METOPROLOL TAR 50 MG TAB PO SCH ×2 (09:45→20:48)
[2019-10-10] MEDS: ESCITALOPRAM 20 MG TAB PO SCH (09:45)
[2019-10-10] MEDS: CLOTRIMAZ/BETAMETH CREAM 15GM TOP SCH ×3 (09:47→20:52)
[2019-10-10 10:07] LABS: Absolute Lymphocytes (CBC) 1.5 K/uL (0.7-4.9); Basophils % 0.8 % (0-1.3); Hematocrit 27.6 % (36.0-45.0); Lymphocytes % 22.6 % (15.3-44.8); MPV 6.5 fL (7.6-11.3)
[2019-10-10 10:18] LABS: Magnesium 2.6 mg/dL (1.8-2.4); Potassium 3.7 mmol/L (3.5-5.1)
[2019-10-10] MEDS: POTASSIUM CL SA 10 MEQ TAB PO ONE ×2 (11:15→11:57)
[2019-10-10] MEDS ORDERED: POTASSIUM CL SA 10 MEQ TAB PO ONE (12:03)
--- NOTE | 2019-10-10 17:48 | PN ---
Date of Progress Note: 10/10/2019 Subjective: The patient was seen this morning for followup. No new complaints or problems reported by her except is having diarrhea. She still continues to have extensive area of rash, itching, and dry scaly skin unchanged. Objective: HEENT: Unremarkable. Lungs: Clear to auscultation. Heart: Sounds normal. Abdomen: Soft. Bowel sounds normal. No guarding, rigidity, tenderness, or distention. Extremities: Trace leg edema. Overall leg edema problem has improved significantly. Skin: She has significant area of rash in both lower extremities involving almost entire lower extremities. Has dry skin and lot of scaly skin, especially in the lower legs with some area of cellulitis type of pink warm skin around it. Lower leg skin does not appear much better in last 24-48 hours compared to before. Laboratory Data: Sodium 140, potassium 3.7, chloride 104, bicarb 30, BUN 14, creatinine 0.94, glucose 112, magnesium 2.6. White count 6.7, hemoglobin 9, platelets 310. Impression: 1. Cellulitis, legs. 2. Dermatitis. 3. Hypertension. 4. Bipolar disorder. 5. Depression. Plan: We will order stool test for C diff and culture, likely reason for diarrhea is her current antibiotics that she is taking. We will give her antidiarrheal medication and continue topical steroid and antifungal medication. We did entertain possibility of using IV Diflucan, but because of interaction with her citalopram, Seroquel, and Tegretol, it will not be safe to use it and this was discussed with her. Continue IV Lasix. Oral potassium will be given. Leg swelling is improving well. We may consider using prednisone to help with the dermatitis. I will be making that decision over this weekend. SIMONE/MODL Voice ID: [id number] Report ID: [id number] BROWN
[2019-10-10] MEDS: QUETIAPINE 100MG TAB PO SCH (20:49)
[2019-10-10] MEDS: carBAMazepine 200 MG TAB PO SCH (20:49)
[2019-10-10 22:37] VITALS: O2SAT 98
[2019-10-11] MEDS: DIPHENHYDRAMINE 25 MG TAB/CAP PO PRN ×6 (00:55→21:28)
[2019-10-11] MEDS: PIPER/TAZO/NS 3.375gm 3.375 GM/100 ML BAG IVPB SCH ×3 (00:55→17:33)
[2019-10-11] MEDS: LORAZEPAM 1 MG TABLET PO SCH ×3 (04:32→21:21)
[2019-10-11] MEDS: LEVOTHYROXINE SOD 0.112 MG TAB PO SCH (06:02)
[2019-10-11 06:12] LABS: Potassium 4.1 mmol/L (3.5-5.1)
[2019-10-11] MEDS: CLOTRIMAZ/BETAMETH CREAM 15GM TOP SCH ×3 (09:00→21:00)
[2019-10-11] MEDS: ESCITALOPRAM 20 MG TAB PO SCH (09:46)
[2019-10-11] MEDS: METOPROLOL TAR 50 MG TAB PO SCH ×2 (09:46→21:22)
[2019-10-11] MEDS: FUROSEMIDE 20 MG/ 2ML VIAL IV SCH (09:47)
[2019-10-11] MEDS: lisinopriL 10 MG TAB PO SCH ×2 (09:47→21:21)
[2019-10-11] MEDS: LOPERAMIDE HCL 2 MG CAPSULE PO PRN ×2 (10:13→17:27)
[2019-10-11 12:20] LABS: C.diff Antigen/Toxin Ag neg : Tox neg (NEG : NEG)
--- NOTE | 2019-10-11 17:31 | PN ---
Date of Progress Note: 10/11/2019 Subjective: The patient was seen this morning for followup. No new complaints or problems reported by patient. Lying in bed, reported that she slept very well last night, feels better today. She still has extensive rash all over her body, mostly both lower extremities, overall that also looks better today. Vital signs reviewed. Her diarrhea has improved. Has not had any diarrhea during nighttime or this morning. Objective: HEENT: Unremarkable. Lungs: Clear to auscultation. Heart: Sounds normal. Abdomen: Soft. Bowel sounds normal. No guarding, rigidity, tenderness, or distention. Extremities: Leg edema present, but trace leg edema, which is much better compared to before. Skin: Has an extensive rash involving both lower extremities, but it is less intense compared to how it was before. Area of cellulitis from both lower legs, but better as well. Laboratory Data: Labs done today: Sodium 141, potassium 4.1, chloride 107, bicarb 28, BUN 18, creatinine 0.92, glucose 93. Impression: 1. Cellulitis, legs. 2. Diarrhea, rule out Clostridium difficile colitis. 3. Dermatitis. 4. Hypertension. 5. Leg edema. Plan: We will continue current medications. Continue topical steroid and topical antifungal medication. Continue current antibiotics. Stool C diff result pending. I will see her tomorrow for followup. Possible discharge to go home tomorrow. Details were discussed with the patient. SIMONE/MODL Voice ID: [id number] Report ID: [id number] MTDMina
--- NOTE | 2019-10-11 17:52 | PN ---
SIMONE/JACKLYN Voice ID: [id number] Report ID: [id number] MTDMina
[2019-10-11] MEDS: QUETIAPINE 100MG TAB PO SCH (21:20)
[2019-10-11] MEDS: carBAMazepine 200 MG TAB PO SCH (21:21)
[2019-10-12] MEDS: PIPER/TAZO/NS 3.375gm 3.375 GM/100 ML BAG IVPB SCH ×2 (00:04→09:00)
[2019-10-12] MEDS: DIPHENHYDRAMINE 25 MG TAB/CAP PO PRN ×3 (01:00→13:26)
[2019-10-12] MEDS: LORAZEPAM 1 MG TABLET PO SCH ×2 (04:31→13:26)
[2019-10-12] MEDS: LEVOTHYROXINE SOD 0.112 MG TAB PO SCH (04:33)
[2019-10-12] MEDS: FUROSEMIDE 20 MG/ 2ML VIAL IV SCH (09:37)
[2019-10-12] MEDS: ESCITALOPRAM 20 MG TAB PO SCH (09:37)
[2019-10-12] MEDS: METOPROLOL TAR 50 MG TAB PO SCH (09:37)
[2019-10-12] MEDS: LOPERAMIDE HCL 2 MG CAPSULE PO PRN ×2 (09:38→13:26)
[2019-10-12] MEDS: CLOTRIMAZ/BETAMETH CREAM 15GM TOP SCH ×2 (09:38→13:50)
[2019-10-12] MEDS: lisinopriL 10 MG TAB PO SCH (09:38)
[2019-10-12 13:16] VITALS: BP 112/54; TEMP 97.8
--- NOTE | 2019-10-13 07:30 | DS ---
Date of Discharge: 10/12/2019 Patient was seen this morning for followup. No new complaints or problems reported by the patient, cliff aldrich in bed not in distress Physical Examination: Vital Signs: Reviewed. HEENT: Unremarkable. Lungs: Clear to auscultation. Cardiac: Heart sounds normal. Abdomen: Soft, bowel sounds normal. No guarding, rigidity, tenderness, distention. Extremities: Trace leg edema overall significantly better than before. Skin: Area of dry skin. Most of the rash from lower extremity has significantly improved compared t o before, but still has some dry skin. Very, very faint pink to brownish discoloration from the rash , but significantly better than before. Discharge Medications And Instructions: 1.Continue all prior home medications. 2.Take new medication as prescribed: a.Folbic 1 tablet by mouth daily. b.Augmentin 875 mg 2 times a day with food for 5 days. c.Lotrisone cream apply to affected body area or rash 3 times a day. d.Furosemide 20 mg p.o. daily for 1 week. 3.Follow up at my office in 1 week. Laboratory Data: Labs done during this hospitalization. Echocardiogram showed normal ejection fract ion of 55%, showed some aortic sclerosis without stenosis. WBC count up on 10/05/2019 was 9, hemoglo bin 8.9, platelets 279. On 10/10/2019, white count 6.7, hemoglobin 9, and platelets 310. Her vitami n B12 level normal at 478. Folate acid level low at 233. Procalcitonin less than 0.05. Last chemis try on 10/11/2019, sodium 141, potassium 4.1, chloride 107, bicarb 28, BUN 18, creatinine 0.92, gluco se 93. Ferritin level was 11.5, serum iron 34. Hospital Course: This is a 79-year-old female patient who came into my office with problem with her legs. Please see dictated H and P for more information. Patient had extensive bilateral leg swellin g and bilateral lower leg rash with dry skin and this was a dried skin coloring large area of lower l egs. Patient had some yellowish to greenish colored liquid draining from her lower legs. She was ad mitted to the hospital. After she was admitted, she was started on IV antibiotic, which was Zosyn. Dr. Marvin from General Surgery was consulted. Patient did not require any surgical debridement. The skin that she had over lower extremity area fell off over period of time. There was no open wou nd. She has extensive area of dermatitis involving both lower extremity and I believe it is combinat ion of fungus infection and allergic dermatitis idiopathic. She was started on Lotrisone cream 2-3 t imes a day and that has actually provided significant improvement. We entertain possibility of using IV Diflucan, but because of possible drug interaction, this medication was not prescribed and stacy jeffrey was made aware of that. She had some diarrhea and stool for C diff came back negative. She was gi ary IV Lasix for her leg swelling and that has actually helped to resolve the problem. Her bilateral venous doppler of leg did not show any DVT and echocardiogram showed normal ejection. 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 Overall, patient's condition has improved and now she is being discharged to go [facility] in stable condition with above-mentioned medication instructions. Final Diagnoses: 1.Cellulitis, bilateral legs. 2.Leg edema, bilateral. 3.Dermatitis. 4.Hypertension. 5.Hyperlipidemia. 6.Hypothyroidism. 7.Gastroesophageal reflux disease. 8.Bipolar disorder. 9.Depression. 10.Allergic rhinitis. 11.Seizure disorder. SIMONE/MODL Voice ID: [id number] Report ID: [id number]
== END 2019-10-12 15:45 | disposition home or self-care (01) | DRG 603 ==
LOC: 2ND 19:48
PROVIDERS: ADMIT Internal Medicine; ATTEND Internal Medicine
DX: L03.116 Cellulitis of left lower limb (principal); B49 Unspecified mycosis; L03.115 Cellulitis of right lower limb; F41.9 Anxiety disorder, unspecified; E03.9 Hypothyroidism, unspecified; I10 Essential (primary) hypertension; E78.5 Hyperlipidemia, unspecified; K21.9 Gastro-esophageal reflux disease without esophagitis; R60.9 Edema, unspecified; F31.9 Bipolar disorder, unspecified; J30.9 Allergic rhinitis, unspecified; R56.9 Unspecified convulsions; I89.0 Lymphedema, not elsewhere classified; D50.9 Iron deficiency anemia, unspecified; L23.9 Allergic contact dermatitis, unspecified cause; R19.7 Diarrhea, unspecified; Z20.828 Contact with and (suspected) exposure to other viral communicable diseases; Z60.2 Problems related to living alone; Z90.710 Acquired absence of both cervix and uterus; Z79.890 Hormone replacement therapy; Z79.899 Other long term (current) drug therapy; Z88.1 Allergy status to other antibiotic agents
CPT/HCPCS: 36415; 71045; 74177; 80048; 80053; 82607; 82728; 82747; 83540; 83605; 83735; 84145; 84439; 84443; 84466; 85025; 87045; 87046; 87070; 87205; 87324; 87449; 93306; 93970; J1940; J2543; J7030; Q9967; U0002

== ENCOUNTER 2021-05-07 16:51 | Emergency (ER) | payer OTHER ==
--- OUTSIDE RECORDS SUMMARY | 2021-05-07 16:54 | XMS REPORT | Continuity of Care Document ---
:1940 Author Organization [facility] Address [address] [place] [address] Care Team Providers Name Role Phone No Primary Care Physician Unavailable SANDY Attending Clinician Unavailable Vick FERRELL Attending Clinician Unavailable Payers Payer Name Policy Type Policy Number Effective Date Expiration Date S poli MEDICARE PART A [id number] 2007 AND B 00:00:00 Problems Condition Condition Condition Status Onset Resolution Last Treating Co mments Source Name Details Category Date Date Treatment Clinician Date Bipolar 1 Bipolar 1 Disease Active [facility] disorder disorder 05-13 [facility] 00:00: 00 Bipolar Bipolar Disease Active [facility] disorder disorder 11-05 Health current current 00:00: episode episode 00 depressed depressed Bipolar 1 Bipolar 1 Disease Active [facility] disorder, disorder, 5-21 [facility]al th manic, manic, 00:00: mild mild 00 Generalize Generalize Disease Active [facility] T d anxiety d anxiety 5-21 [facility]al th disorder disorder 00:00: 00 Sleep Sleep Disease Active [facility] disorder disorder 5-21 Health not due to not due to 00:00: a a 00 substance substance or known or known physiologi physiologi avery avery condition, condition, unspecifie unspecifie d d Hypothyroi Hypothyroi Disease Active 2016-04 U T dism dism 0-04 Health 00:00: 00 Allergies, Adverse Reactions, Alerts This patient has no known allergies or adverse reactions. Social History Social Habit Start Date Stop Date Quantity Comments Source Sex Assigned At [birth year] [place] [facility] 00:00:00 00:00:00 Smoking Status Start Date Stop Date Source Tobacco smoking consumption unknown [facility] Medications Ordered Filled Start Stop Current Ordering Indication Dosage Frequency Signature Comments Components Source Medication Medication Date Date Medication? Clinician (SIG) Name Name carBAMazepi 2020-04- Yes [id number] 600mg Take 3 UT ne 1-12 12-13 tablets Health (TEGretol) 00:00: 05:59 (600 mg 200 MG 00 :00 total) by tablet mouth every night. QUEtiapine 2020-04- Yes [id number] 600mg Take 1.5 UT (SEROquel) 04-26 tablets Healt h 400 MG 00:00: 05:59 (600 mg tablet 00 :00 total) by mouth every night. TAKE 1 AND 1/2 TABLETS BY MOUTH AT BEDTIME busPIRone 2020-04- Yes [id number] 30mg Q.5D Take 1 U T (Buspar) 30 04-26 tablet (30 H ealth MG tablet 00:00: 05:59 mg total) 00 :00 by mouth 2 (two) times a day. escitalopra 2020-04- Yes [id number] 20mg QD Take 1 UT m (Lexapro) 04-26 tablet (20 H ealth 20 MG 00:00: 05:59 mg total) tablet 00 :00 by mouth 1 (one) time each day. TAKE 1 TABLET BY MOUTH EVERY DAY LORazepam Yes [id number] Take 1/2 UT (Ativan) 2 9-13 tablet by Heal th MG tablet 00:00: mouth once 00 daily and I tablet every night at bed time busPIRone Yes [id number] 15mg Q.5D Take 1 UT (Buspar) 15 9-10 tablet (15 He alth MG tablet 00:00: mg total) 00 by mouth 2 (two) times a day. levothyroxi Yes 125ug QD Take 125 U T ne 5-20 mcg by Health (Synthroid, 00:00: mouth 1 Levoxyl) 00 (one) time 125 MCG each day. tablet Folbic Yes 1{tbl} QD Take 1 UT 2.5-25-2 MG 2-23 tablet by Hea lth tablet 00:00: mouth 1 00 (one) time each day. promethazin Yes 25mg Q.[id number] Take 25 mg UT e 2-23 [id number] by mouth 3 Hea lth (Phenergan) 00:00: 3D (three) 25 MG 00 times a tablet day if needed. gabapentin 2020-0 Yes UT (Neurontin) 2-04 Health 300 MG 00:00: capsule 00 triamcinolo 2019- Yes UT ne 2-01 Health (Kenalog) 00:00: 0.1 % cream 00 predniSONE 2019- Yes UT (Deltasone) 1-03 Health 10 MG 00:00: tablet 00 furosemide 2019- Yes TK 1 T PO UT (Lasix) 40 0-24 D Health MG tablet 00:00: 00 fluocinonid 2019-0 Yes MIKA TO UT e (Lidex) 8-21 AFFECTED Health 0.05 % 00:00: AREA OF cream 00 SKIN BID PRN famciclovir 2019-0 Yes TK 1 T PO U T (Famvir) 7- TID Health 500 MG 00:00: tablet 00 gabapentin 2019-0 Yes TK 1 C PO UT (Neurontin) 7-31 TID Health 100 MG 00:00: capsule 00 predniSONE 2019-0 Yes TK 1 T PO UT (Deltasone) 7-31 D WF Health 20 MG 00:00: tablet 00 furosemide 2019-0 Yes TK 1 T PO UT (Lasix) 20 7-15 D Health MG tablet 00:00: 00 amoxicillin 2020-0 Yes 1{each} 1 each. UT -clavulanat 6- Health e 00:00: (Augmentin) 00 875-125 MG tablet clotrimazol 2019-0 Yes THREE UT e-betametha 6-29 TIMES A Healt h sone 00:00: DAY (Lotrisone) 00 cream folic 2020-0 Yes 1{tbl} 1 tablet. UT acid-pyrido 6- Health xine-cyanoc 00:00: obalamin 00 (Folbic) 2.5-25-2 MG tablet furosemide 2019-0 Yes 20mg 20 mg. UT (Lasix) 20 6-29 Health MG tablet 00:00: 00 amLODIPine 2020-0 Yes 5mg 5 mg. UT (Norvasc) 5 6-22 Health MG tablet 00:00: 00 cholecalcif 2020-0 Yes 3000U 3,000 UT arun 6-22 Units. Health (Vitamin 00:00: D-3) 25 MCG 00 (1000 UT) capsule Coenzyme 2020-0 Yes 2000mg 2,000 mg. UT Q10 400 MG 6-22 Health capsule 00:00: 00 cyanocobala 2019-0 Yes 2000mg 2,000 mg. UT min 10-04 Health (Vitamin 00:00: B-12) 1000 00 MCG/ML injection diphenhydrA 0 Yes 25mg 25 mg. UT MINE 10-04 [facility] (Sominex) 00:00: 25 MG 00 tablet naproxen 0 Yes 2{capsu 2 UT sodium 10-04 le} capsules. Health (Aleve) 220 00:00: MG tablet 00 Cetirizine Yes UT HCl (ZyrTEC 09-24 [facility] ALLERGY) 10 00:00: MG capsule 00 fluticasone 0 Yes UT (Flonase 09-24 [facility] Allergy 00:00: Relief) 50 00 MCG/ACT nasal spray levothyroxi Yes TAKE 1 UT ne (Levo-T) 09-24 TABLET Health 112 MCG 00:00: DAILY tablet 00 DIRECTED. lisinopril Yes UT 10 MG 09-24 [facility] tablet 00:00: 00 metoprolol Yes UT tartrate 09-24 [facility] (Lopressor) 00:00: 50 MG 00 tablet Procedures This patient has no known procedures. Encounters Start End Encounter Admission Attending Care Care Encounter Source Date/Time Date/Time Type Type Clinicians Facility Department ID 2021-02-24 Outpatient SANDY [facility] [id number] [place] 16:40:48 [facility] 2021-01-27 Outpatient SANDY [facility] [id number] [place] 16:28:44 [facility] 2020-10-24 Outpatient SANDY [facility] [id number] [place] 15:29:38 [facility] 2020-10-21 Outpatient SANDY [facility] [id number] [place] 16:30:14 [facility] 2020-09-09 Outpatient SANDY [facility] [id number] [place] 16:40:45 [facility] 2020-08-20 Outpatient SANDY [facility] [id number] [place] 02:51:59 [facility] 2021-02-24 2021-02-24 Telephone Jessica Hickman [id number] [place] 00:00:00 00:00:00 Jessica Hickman [id number] [facility] [id number] [place] [id number] Results This patient has no known results.
[2021-05-07] MEDS ORDERED: NA CHLORIDE 0.9% 500 ML ONE (17:57)
[2021-05-07] MEDS ORDERED: KETOROLAC 30 MG/ML INJ ONE (17:57)
[2021-05-07] MEDS ORDERED: METOCLOPRAMIDE 10 MG/2mL INJ ONE (17:57)
[2021-05-07] MEDS ORDERED: DIPHENHYDRAMINE 50 MG/ML VIAL ONE (17:57)
[2021-05-07 18:44] LABS: Absolute Lymphocytes (CBC) 0.9 K/uL (0.7-4.9); Hematocrit 34.7 % (36.0-45.0); Lymphocytes % 18.6 % (15.3-44.8); MPV 6.9 fL (7.6-11.3); RBC Red Blood Cell Count 3.56 M/uL (3.86-4.86)
[2021-05-07 19:06] LABS: Thyroid Stimulating Hormone 1.88 uIU/mL (0.360-3.740)
[2021-05-07 19:47] LABS: SARS-COV-2 RT PCR NEGATIVE (NEGATIVE)
--- NOTE | 2021-05-07 20:35 | ER ---
Nurse's Notes [facility] Name: Maxine Elias Age: 81 yrs Sex: Female : 1940 Arrival Date: 05/07/2021 Time: 16:55 Bed 17 Private MD: Diagnosis: Headache Presentation: 05/07 16:59 Chief complaint: Patient states: multiple complaints sent by PCP dr. Ramos. headaches, stone vomiting , chills, no energy. Coronavirus screen: Vaccine status: Patient reports receiving the 2nd dose of the covid vaccine. Ebola Screen: Patient denies travel to an Ebola-affected area in the 21 days before illness onset. Initial Sepsis Screen: Does the patient meet any 2 criteria? No. Patient's initial sepsis screen is negative. Does the patient have a suspected source of infection? No. Patient's initial sepsis screen is negative. Risk Assessment: Do you want to hurt yourself or someone else? Patient reports no desire to harm self or others. Onset of symptoms was April 08, 2021. 16:59 Method Of Arrival: Ambulatory stone 16:59 Acuity: SWAPNIL 3 stone Triage Assessment: 17:07 General: Appears in no apparent distress. uncomfortable, Behavior is cooperative, bp appropriate for age, anxious. Pain: Complains of pain in head. EENT: No deficits noted. Neuro: Reports headache. Cardiovascular: No deficits noted. Respiratory: No deficits noted. GI: Reports nausea. : No signs and/or symptoms were reported regarding the genitourinary system. Derm: No deficits noted. Musculoskeletal: No deficits noted. Historical: - Allergies: 17:03 Neosporin ([id number]); stone - PMHx: 17:03 Bipolar disorder; Hypertension; stone - PSHx: 17:03 None; stone - Immunization history:: Adult Immunizations up to date. - Social history:: Smoking status: Patient denies any tobacco usage or history of. Screenin:07 Abuse screen: Denies threats or abuse. Denies injuries from another. Nutritional bp screening: No deficits noted. Tuberculosis screening: No symptoms or risk factors identified. Fall Risk None identified. Assessment: 17:07 General: SEE TRIAGE NOTE. bp 18:00 Reassessment: No changes from previously documented assessment. Patient and/or family bp updated on plan of care and expected duration. Pain level reassessed. ALL CURRENT ORDERS COMPLETE, RESULTS PENDING. 19:08 Reassessment: Patient appears in no apparent distress at this time. No changes from lg3 previously documented assessment. Patient and/or family updated on plan of care and expected duration. Pain level reassessed. Patient is alert, oriented x 3, equal unlabored respirations, skin warm/dry/pink. General: Appears in no apparent distress. comfortable, Behavior is calm, cooperative. Neuro: Level of Consciousness is awake, alert, obeys commands, Oriented to person, place, time. Cardiovascular: Capillary refill Patient's skin is warm and dry. Respiratory: Airway is patent Trachea midline Respiratory effort is even, unlabored, Respiratory pattern is regular, symmetrical. Vital Signs: 16:59 BP 166 / 73; Pulse 81; Resp 18; Temp 97.9; Pulse Ox 96% on R/A; Weight 102.06 kg; stone Height 5 ft. 6 in. (167.64 cm); 18:00 BP 154 / 72; Pulse 72; Resp 17; Pulse Ox 100% ; bp 20:08 BP 146 / 79; Pulse 73; Resp 14 S; Temp 98.1(O); Pulse Ox 99% on R/A; sv1 16:59 Body Mass Index 36.32 (102.06 kg, 167.64 cm) stone ED Course: 16:55 Patient arrived in ED. as 17:03 Triage completed. stone 17:04 Maximino Sue, MARIAELENA is Primary Nurse. bp 17:06 Suhas Mcgowan NP is PHCP. pm1 17:06 Francisco Rivera MD is Attending Physician. pm1 17:07 Arm band placed on. bp 17:07 Patient has correct armband on for positive identification. Bed in low position. Call bp light in reach. Side rails up X2. Adult w/ patient. 18:00 Inserted saline lock: 22 gauge in right antecubital area, using aseptic technique. bp Blood collected. 21:11 No provider procedures requiring assistance completed. IV discontinued. sv1 Administered Medications: 18:00 Drug: NS 0.9% 500 ml Route: IV; Rate: bolus; Site: right antecubital; bp 18:00 Drug: Ketorolac 15 mg Route: IVP; Site: right antecubital; bp 18:00 Drug: Reglan (metoCLOPramide) 10 mg Route: IVP; Site: right antecubital; bp 18:00 Drug: Benadryl (diphenhydrAMINE) 12.5 mg Route: IVP; Site: right antecubital; bp Outcome: 20:35 Discharge ordered by . pm1 21:11 Discharged to home via wheelchair, with family. sv1 21:11 Condition: good 21:11 Discharge instructions given to patient, family. 21:13 Patient left the ED. sv1 Signatures: Katia Meyer Patrick, NP HEEL BUILDER MACHINE pm1 Maximino Sue, MARIAELENA RN bp Rasheeda Camara RN RN lg3 Tommy De Jesus RN RN sv1 Elaine Ny RN RN stone
--- NOTE | 2021-05-07 20:35 | EDPHYS ---
Physician Documentation [facility] Name: Maxine Elias Age: 81 yrs Sex: Female : 1940 Arrival Date: 05/07/2021 Time: 16:55 Bed 17 Private MD: ED Physician Francisco Rivera HPI: 05/07 17:29 This 81 yrs old Female presents to ER via Ambulatory with complaints of Headache, pm1 Chills, Low energy. 17:29 The patient or guardian reports Headache, vomiting, chills, and low energy. Onset: The pm1 symptoms/episode began/occurred 04/08/2021. Severity of symptoms: in the emergency department the symptoms are unchanged. Modifying factors: The symptoms are alleviated by nothing, the symptoms are aggravated by nothing. Associated signs and symptoms: Pertinent positives: diarrhea, on and off for the past 1 month that has resolved, Pertinent negatives: chest pain, fever, cough, shortness of breath. The patient has not experienced similar symptoms in the past. The patient has been recently seen by a physician: the patient's primary care provider, Dr. Ramos 2 day(s) ago, with similar presenting complaints, and was sent to the [facility] Emergency Department for further evaluation, after telemedicine visit. 81-year-old female is presenting to the ER with multiple complaints over the past month. Possibly started due to stress related to holiday. Historical: - Allergies: 17:03 Neosporin ([id number]-[id number]); stone - PMHx: 17:03 Bipolar disorder; Hypertension; stone - PSHx: 17:03 None; stone - Immunization history:: Adult Immunizations up to date. - Social history:: Smoking status: Patient denies any tobacco usage or history of. ROS: 17:29 Eyes: Negative for injury, pain, redness, and discharge, ENT: Negative for injury, pm1 pain, and discharge, Cardiovascular: Negative for chest pain, palpitations, and edema, Respiratory: Negative for shortness of breath, cough, wheezing, and pleuritic chest pain. 17:29 Back: Negative for injury and pain, : Negative for injury, bleeding, discharge, and swelling. 17:29 Skin: Negative for injury, rash, and discoloration. 17:29 Constitutional: Positive for chills, poor PO intake, Negative for fever. 17:29 Abdomen/GI: Positive for nausea, vomiting, and diarrhea, Negative for abdominal pain, constipation. 17:29 MS/extremity: Positive for bilateral thigh cramps, Negative for decreased range of motion, deformity. 17:29 Neuro: Positive for headache, Negative for numbness, tingling, weakness. 17:29 All other systems are negative. Exam: 17:29 Constitutional: This is a well developed, well nourished patient who is awake, alert, pm1 and in no acute distress. Head/Face: Normocephalic, atraumatic. 17:29 Back: No spinal tenderness. No costovertebral tenderness. Full range of motion. Skin: Warm, dry with normal turgor. Normal color with no rashes, no lesions, and no evidence of cellulitis. MS/ Extremity: Pulses equal, no cyanosis. Neurovascular intact. Full, normal range of motion. 17:29 Eyes: Exam is negative for acute changes, Periorbital structures: no acute changes, Pupils: no acute changes, Extraocular movements: no acute changes, Conjunctiva: no acute changes, no injection, Sclera: no acute changes, icterus, is not appreciated. 17:29 ENT: Exam is negative for acute changes, Mouth: no acute changes, Lips: normal, moist, Oral mucosa: normal, pink and intact, moist. 17:29 Cardiovascular: Exam negative for acute changes, Rate: normal, Rhythm: regular, Pulses: no pulse deficits are appreciated, Heart sounds: normal, normal S1and S2. 17:29 Respiratory: Exam negative for acute changes, respiratory distress, shortness of breath, Breath sounds: are clear throughout. 17:29 Abdomen/GI: Inspection: obese Palpation: abdomen is soft and non-tender, in all quadrants. 17:29 Neuro: Exam negative for acute changes, Orientation: is normal, Mentation: is normal, Motor: is normal, moves all fours. Vital Signs: 16:59 BP 166 / 73; Pulse 81; Resp 18; Temp 97.9; Pulse Ox 96% on R/A; Weight 102.06 kg; stone Height 5 ft. 6 in. (167.64 cm); 18:00 BP 154 / 72; Pulse 72; Resp 17; Pulse Ox 100% ; bp 20:08 BP 146 / 79; Pulse 73; Resp 14 S; Temp 98.1(O); Pulse Ox 99% on R/A; sv1 16:59 Body Mass Index 36.32 (102.06 kg, 167.64 cm) stone MDM: 17:27 Patient medically screened. pm1 19:19 Data reviewed: vital signs. Data interpreted: Pulse oximetry: on room air is 100 %. pm1 Interpretation: normal. 19:19 ED course: Patient's headache relieved with medication given in the ER. 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 05/07 17:27 Order name: CBC with Diff; Complete Time: 18:54 pm1 05/07 17:27 Order name: BMP; Complete Time: 19:09 pm1 05/07 17:27 Order name: TSH; Complete Time: 19:09 pm1 05/07 17:27 Order name: COVID-19/FLU A+B (Document "Date of Onset" if Symptomatic); Complete Time: pm1 19:52 05/07 17:27 Order name: Strep; Complete Time: 19:05 pm1 05/07 19:03 Order name: Throat Culture [facility] 05/07 17:27 Order name: IV Saline Lock; Complete Time: 18:36 pm1 Administered Medications: 18:00 Drug: NS 0.9% 500 ml Route: IV; Rate: bolus; Site: right antecubital; bp 18:00 Drug: Ketorolac 15 mg Route: IVP; Site: right antecubital; bp 18:00 Drug: Reglan (metoCLOPramide) 10 mg Route: IVP; Site: right antecubital; bp 18:00 Drug: Benadryl (diphenhydrAMINE) 12.5 mg Route: IVP; Site: right antecubital; bp Disposition Summary: 05/07/21 20:35 Discharge Ordered Location: Home pm1 Problem: new pm1 Symptoms: have improved pm1 Condition: Stable pm1 Diagnosis - Headache pm1 Followup: pm1 - With: Emergency Department - When: As needed - Reason: Worsening of condition Followup: pm1 - With: Private Physician - When: 2 - 3 days - Reason: Recheck today's complaints, Continuance of care, Re-evaluation by your physician Discharge Instructions: - Discharge Summary Sheet pm1 - General Headache Without Cause pm1 - Managing Stress, Adult pm1 Forms: - Medication Reconciliation Form pm1 - Thank You Letter pm1 - Antibiotic Education pm1 - Prescription Opioid Use pm1 Addendum: 05/09/2021 19:02 Co-signature as Attending Physician, Francisco Rivera MD. r n Signatures: Dispatcher [employer] EDMS Francisco Rivera MD MD rn Suhas Mcgowan, PAYMENT ANALYST PAYMENT ANALYST pm1 Maximino Sue RN RN Elaine Ny RN RN stone
[2021-05-08 03:41] VITALS: BP 146/79; TEMP 98.1; O2SAT 99
== END 2021-05-07 21:13 | disposition home or self-care (01) ==
LOC: ER 16:51
DX: R51.9 Headache, unspecified (principal); I10 Essential (primary) hypertension; Z20.822 Contact with and (suspected) exposure to COVID-19
CPT/HCPCS: 87070; 85025; 80048; 36415; 87081; 84443; 0240U; J2765; J1200; J7040; 96374; 96375; 99283

== ENCOUNTER 2022-12-04 19:58 | Emergency (ER) | payer OTHER ==
--- OUTSIDE RECORDS SUMMARY | 2022-12-04 20:37 | XMS REPORT | Continuity of Care Document ---
:[address] [facility] t Address [address] [facility] [place] [address] Care Team Providers Name Role Phone No MD, Pcp Primary Care Physician Unavailable AUDIE DELGADO Attending Clinician Unavailable LANDON BULL Attending Clinician Unavailable VELASQUEZ NESS Attending Clinician Unavailable ERICH GARY Attending Clinician Unavailable ANDI GRAFF Attending Clinician Unavailable Vick RN, Jessica Attending Clinician Unavailable Payers Payer Name Policy Type Policy Number Effective Date Expiration Date S poli MEDICARE PART A [id number] 2007 AND B 00:00:00 Problems Condition Condition Condition Status Onset Resolution Last Treating Co mments Source Name Details Category Date Date Treatment Clinician Date Bipolar 1 Bipolar 1 Disease Active [facility] disorder disorder - [facility] 00:00: 00 Bipolar Bipolar Disease Active [facility] disorder disorder -24 [facility] current current 00:00: episode episode 00 [...] Comments Source Sex Assigned At [birth year] [facility] 00:00:00 00:00:00 Smoking Status Start Date Stop Date Source Tobacco smoking consumption unknown [facility] Medications Ordered Filled Start Stop Current Ordering Indication Dosage Frequency Signature Comments Components Source Medication Medication Date Date Medication? Clinician (SIG) Name Name Nadirazepi 2020-04- No [id number] 600mg Take 3 UT ne 04-26 tablets Health (TEGretol) 00:00: 05:59 (600 mg 200 MG 00 :00 total) by tablet mouth every night. QUEtiapine 2020-04- No [id number] 600mg Take 1.5 UT (SEROquel) 04-26 tablets Healt h 400 MG 00:00: 05:59 (600 mg tablet 00 :00 total) by mouth every night. TAKE 1 AND 1/2 TABLETS BY MOUTH AT BEDTIME busPIRone 2020-04- No [id number] 30mg Q.5D Take 1 U T (Buspar) 30 04-26 tablet (30 H ealth MG tablet 00:00: 05:59 mg total) 00 :00 by mouth 2 (two) times a day. escitalopra 2020-04- No [id number] 20mg QD Take 1 UT m (Lexapro) 04-26 tablet (20 H ealth 20 MG 00:00: 05:59 mg total) tablet 00 :00 by mouth 1 (one) time each day. TAKE 1 TABLET BY MOUTH EVERY DAY LORazepam Yes [id number] Take 1/2 UT (Ativan) 2 9-13 tablet by Heal th MG tablet 00:00: mouth once 00 daily and I tablet every night at bed time busPIRone Yes [id number] 15mg Q.5D Take 1 UT (Buspar) 15 9-10 tablet (15 He alth MG tablet 00:00: mg total) 00 by mouth 2 (two) times a day. levothyroxi Yes 125ug QD Take 125 U T ne 5-20 mcg [address] [facility] (Synthroid, 00:00: mouth 1 Levoxyl) 00 (one) time 125 MCG each day. tablet Folbic Yes 1{tbl} QD Take 1 UT 2.5-25-2 MG 2-23 tablet by a lth tablet 00:00: mouth 1 00 (one) time each day. promethazin Yes 25mg Q.[id number] Take 25 mg UT e 2 [id number] by mouth 3 Hea lth (Phenergan) 00:00: 3D (three) 25 MG 00 times a tablet day if needed. gabapentin Yes UT (Neurontin) 2-04 Health 300 MG 00:00: capsule 00 triamcinolo 2019-04 Yes UT ne 2- Health (Kenalog) 00:00: 0.1 % cream 00 predniSONE 2019-04 Yes UT (Deltasone) 1-03 Health 10 MG 00:00: tablet 00 furosemide 2019-04 Yes TK 1 T PO UT (Lasix) 40 0-24 D Health MG tablet 00:00: 00 fluocinonid 2019- Yes MIKA TO UT e (Lidex) 8-21 AFFECTED Health 0.05 % 00:00: AREA OF cream 00 SKIN BID PRN famciclovir 2019-0 Yes TK 1 T PO U T (Famvir) 7 TID Health 500 MG 00:00: tablet 00 [...] 00:00: (Augmentin) 00 875-125 MG tablet clotrimazol 2020-0 Yes THREE UT e-betametha 6-29 TIMES A Healt h sone 00:00: DAY (Lotrisone) 00 cream folic 2020-0 Yes 1{tbl} 1 tablet. UT acid-pyrido 6-29 Health xine-cyanoc 00:00: obalamin 00 (Folbic) 2.5-25-2 MG tablet furosemide 2019-0 Yes 20mg 20 mg. UT (Lasix) 20 6-29 Health MG tablet 00:00: 00 amLODIPine 2019-0 Yes 5mg 5 mg. UT (Norvasc) 5 6-22 Health MG tablet 00:00: 00 cholecalcif 2019-0 Yes 3000U 3,000 UT arun 10-04 Units. Health (Vitamin 00:00: D-3) 25 MCG 00 (1000 UT) capsule Coenzyme 2019-0 Yes 2000mg 2,000 mg. UT Q10 400 MG 10-04 Health capsule 00:00: 00 cyanocobala 2019-0 Yes 2000mg 2,000 mg. UT min 10-04 Health (Vitamin 00:00: B-12) 1000 00 MCG/ML injection diphenhydrA 2019-0 Yes 25mg 25 mg. UT MINE 10-04 Health (Sominex) 00:00: 25 MG 00 tablet naproxen 2019-0 Yes 2{capsu 2 UT sodium 10-04 le} capsules. Health (Aleve) 220 00:00: MG tablet 00 Cetirizine Yes UT HCl (ZyrTEC 09-24 Health ALLERGY) 10 00:00: MG capsule 00 fluticasone Yes UT (Flonase 09-[address] [facility] Allergy 00:00: Relief) 50 00 MCG/ACT nasal spray levothyroxi Yes TAKE 1 UT ne (Levo-T) 09-24 TABLET Health 112 MCG 00:00: DAILY tablet 00 DIRECTED. lisinopril Yes UT 10 MG 09-24 Health tablet 00:00: 00 metoprolol Yes UT tartrate 09-[address] [facility] (Lopressor) 00:00: 50 MG 00 tablet Procedures This patient has no known procedures. Encounters Start End Encounter Admission Attending Care Care Encounter Source Date/Time Date/Time Type Type Clinicians Facility Department ID 2022-11-14 Outpatient [facility] [id number] [place] 14:53:[id number] [facility] 2022-10-31 Outpatient [facility] [id number] 10:14:[id number] [facility] 2022-10-30 Outpatient [facility] [id number] 07:52:[id number] [facility] 2022-10-17 Outpatient [facility] [id number] 09:34:[id number] [facility] 2022-09-11 Outpatient [facility] [id number] UT 13:05:[id number] [facility] 2022-08-01 Outpatient [facility] [id number] UT 10:44:[id number] [facility] 2022-07-31 Outpatient [facility] [id number] 12:51:[id number] [facility] 2022-06-20 Outpatient [facility] [id number] UT 12:17:[id number] [facility] 2022-06-18 Outpatient [facility] [id number] UT 10:29:[id number] [facility] 2022-02-13 Outpatient [facility] [id number] 09:40:[id number] [facility] 2021-12-19 Outpatient [facility] [id number] UT 11:12:[id number] [facility] 2021-10-06 Outpatient SANDY [facility] [id number] UT 16:06:[id number] [facility] 2021-10-05 Outpatient [facility] [id number] 10:11:[id number] [facility] 2021-07-14 Outpatient SANDY [facility] [id number] UT 15:17:36 AUDIE [id number] [facility] 2021-07-13 Outpatient [facility] [id number] UT 08:58:[id number] [facility] 2021-06-29 Outpatient [facility] [id number] [facility] [id number] [facility] [id number] [facility]24 [facility] [id number] [facility]10[facility]21 [facility] [id number] [facility]-09 [facility] [id number] [facility]08-20 [facility] [id number] [facility]-02 2023-01-02 Outpatient REDDY DE LA [facility] [id number] UT 11:00:00 11:00:[address] [facility] LANDON 2022-11-21 2022-11-21 Outpatient REDDY DE LA [facility] [id number] UT 10:15:00 13:15:38 BUITRAGO, Health LANDON 2022-10-31 2022-10-31 Outpatient GROVER [facility] [id number] UT 10:15:00 10:15:00 VELASQUEZ Health 2022-10-31 2022-10-31 Outpatient REDDY DE ARMANI [facility] [id number] UT 10:15:00 10:15:00 BUITRAGO, Health LANDON 2022-09-12 2022-09-12 Outpatient ERICH GARY [facility] [id number] UT 11:00:00 11:52:50 Health 2022-08-01 2022-08-01 Outpatient ERICH GARY [facility] [id number] UT 11:00:00 14:49:47 Health 2022-06-20 2022-06-20 Outpatient ERICH GARY [facility] [id number] UT 11:00:00 12:53:01 Health 2022-05-16 2022-05-16 Outpatient ERICH GARY [facility] [id number] UT 10:15:00 14:46:57 Health 2022-04-18 2022-04-18 Outpatient ERICH GARY [facility] [id number] UT 11:00:00 11:00:23 Health 2022-04-11 2022-04-11 Outpatient ERICH GARY [facility] [id number] UT 11:00:00 11:00:00 Health 2022-02-14 2022-02-14 Outpatient ERICH GARY [facility] [id number] UT 11:00:00 15:07:30 Health 2021-12-20 2021-12-20 Outpatient PRERNA [facility] [id number] UT 11:00:00 14:26:09 ANDI Health 2021-02-24 2021-02-24 Telephone Jessica Hickman [id number] [place] 00:00:00 00:00:00 Jessica Hickman [id number] [facility] [id number] [place] [id number] 2016-05-21 2016-05-21 Outpatient MHIE MHIE [id number] [facility]oria 16:00:00 16:00:00 11 cliff Davis 2016-02-20 2016-02-20 Outpatient MHIE [facility] [id number] Memoria 16:00:00 16:00:00 10 cliff Davis 2015-10-31 2015-10-31 Outpatient MHIE MHIE [id number] [facility] 14:00:00 14:00:00 09 cliff Davis 2015-09-19 2015-09-19 Outpatient MHIE MHIE [id number] [facility] 15:00:00 15:00:00 08 cliff Davis 2015-09-19 2015-09-19 Outpatient MHIE MHIE [id number] [facility] 14:00:00 14:00:00 07 cliff Davis 2015-08-08 2015-08-08 Outpatient MHIE MHIE [id number] [facility] 16:30:00 16:30:00 06 cliff Davis 2015-06-06 2015-06-06 Outpatient MHIE MHIE [id number] [facility] 16:30:00 16:30:00 05 cliff Davis 2015-05-16 2015-05-16 Outpatient MHIE MHIE [id number] [facility] 16:30:00 16:30:00 04 cliff Davis 2015-04-04 2015-04-04 Outpatient MHIE MHIE [id number] [facility] 14:00:00 14:00:00 03 cliff Davis 2015-01-24 2015-01-24 Outpatient MHIE MHIE [id number] [facility] 16:30:00 16:30:00 02 cliff Davis 2014-11-22 2014-11-22 Outpatient MHIE MHIE [id number] [facility] 14:00:00 14:00:00 01 cliff Davis 2014-09-30 2014-09-30 Outpatient MHIE [facility]IE [id number] [facility] 14:00:00 14:00:00 00 cliff Davis Results This patient has no known results.
--- NOTE | 2022-12-04 20:46 | RAD REPORT ---
EXAM DESCRIPTION: CT - Head Brain Wo Cont - 12/04/2022 8:40 pm CLINICAL HISTORY: VISUAL DISTURBANCES Headache, drowsiness COMPARISON: No comparisons TECHNIQUE: All CT scans are performed using dose optimization technique as appropriate and may inclu de automated exposure control or mA/KV adjustment according to patient size. FINDINGS: No intracranial hemorrhage, hydrocephalus or extra-axial fluid collection.Moderate general ized brain atrophy is present with mild periventricular and deep white matter chronic microvascular i schemic changes.No areas of brain edema or evidence of midline shift. Chronic right maxillary sinusitis. The calvarium is intact. IMPRESSION: No acute intracranial abnormality.
--- NOTE | 2022-12-04 20:51 | RAD REPORT ---
EXAM DESCRIPTION: RAD - Chest Single View - 12/04/2022 8:46 pm CLINICAL HISTORY: MALAISE Chest pain. COMPARISON: <Comparisons> FINDINGS: Portable technique limits examination quality. Mild interstitial pulmonary edema. The heart is moderately enlarged. No displaced fractures. IMPRESSION: Mild CHF.
[2022-12-04 21:24] LABS: Specific Gravity 1.005 (1.005-1.030); Urine Bilirubin NEGATIVE (Negative); Urine Blood Negative (Negative); Urine Clarity Clear (Clear); Urine Color Colorless (Yellow); Urine Glucose NEGATIVE (Negative); Urine Protein NEGATIVE (Negative); Urine Urobilinogen Normal (Normal)
[2022-12-04 21:31] LABS: Protime INR 0.93
[2022-12-04 21:32] LABS: Absolute Lymphocytes (CBC) 1.6 K/uL (0.7-4.9); Hematocrit 35.5 % (36.0-45.0); MCV 108.4 fL (80-100); MPV 7.3 fL (7.6-11.3); Platelets 237 thou/uL (152-406); RBC Red Blood Cell Count 3.28 M/uL (3.86-4.86)
[2022-12-04 21:39] LABS: Albumin 3.8 g/dL (3.4-5.0); Bilirubin Direct 0.1 mg/dL (0-0.2); Bilirubin Indirect, Calculated 0.3 mg/dL (0.2-0.8); Bilirubin Total 0.4 mg/dL (0.2-1.0); Magnesium 2.4 mg/dL (1.6-2.4); Protein, Total 7.6 g/dL (6.4-8.2); Troponin High Sensitivity 11.7 pg/mL (<58.9)
--- NOTE | 2022-12-04 22:06 | EDPHYS ---
Physician Documentation [facility] Name: aMxine Elias Age: 82 yrs Sex: Female : 1940 Arrival Date: 12/04/2022 Time: 19:58 Bed 4 Private MD: ED Physician Nadeen Marie HPI: 12/04 20:48 This 82 yrs old Female presents to ER via Wheelchair with complaints of Blurred Vision, sp3 Urinary Incontinence. 20:48 82-year-old female with history of bipolar disease, hypertension, hypothyroidism, sp3 depression who now sees Dr. Kahn and was a prior patient of Dr. Ramos now presents to the ED with chief complaint urinary incontinence and secondary complaints of generalized malaise, episodic blurry vision, sinus pressure and general fatigue. Patient denies any fever, cough, congestion, shortness of breath, chest pain, abdominal pain, nausea, vomiting, diarrhea, back pain, new skin rash, urinary frequency, dysuria, gross hematuria, or any other signs or symptoms on ROS at this time. She also denies any travel history or known sick contacts.. Historical: - Allergies: 20:27 Neosporin ([id number]); nj1 - PMHx: 20:27 Bipolar disorder; Hypertension; Hypothyroidism; Depressive disorder; Anxiety; nj1 Hypercholesterolemia; - Immunization history:: Client reports receiving the 2nd dose of the Covid vaccine. - Social history:: Smoking status: Patient denies any tobacco usage or history of. ROS: 20:50 Eyes: Negative for injury, pain, redness, and discharge, Neck: Negative for injury, sp3 pain, and swelling, Cardiovascular: Negative for chest pain, palpitations, and edema, Respiratory: Negative for shortness of breath, cough, wheezing, and pleuritic chest pain, Abdomen/GI: Negative for abdominal pain, nausea, vomiting, diarrhea, and constipation, Back: Negative for injury and pain, MS/Extremity: Negative for injury and deformity, Skin: Negative for injury, rash, and discoloration, Neuro: Negative for headache, weakness, numbness, tingling, and seizure. 20:50 All other systems are negative. Exam: 20:50 Constitutional: This is a well developed, well nourished patient who is awake, alert, sp3 and in no acute distress. Head/Face: Normocephalic, atraumatic. Eyes: Pupils equal round and reactive to light, extra-ocular motions intact. Lids and lashes normal. Conjunctiva and sclera are non-icteric and not injected. Cornea within normal limits. Periorbital areas with no swelling, redness, or edema. ENT: Nares patent. No nasal discharge, no septal abnormalities noted. External auditory canals are clear. Oropharynx with no redness, swelling, or masses, exudates, or evidence of obstruction, uvula midline. Mucous membranes moist. Neck: Trachea midline, no thyromegaly or masses palpated, and no cervical lymphadenopathy. Supple, full range of motion without nuchal rigidity, or vertebral point tenderness. No Meningismus. Chest/axilla: Normal chest wall appearance and motion. Nontender with no deformity. No lesions are appreciated. Cardiovascular: Regular rate and rhythm with a normal S1 and S2. No gallops, murmurs, or rubs. Normal PMI, no JVD. No pulse deficits. Respiratory: Lungs have equal breath sounds bilaterally, clear to auscultation and percussion. No rales, rhonchi or wheezes noted. No increased work of breathing, no retractions or nasal flaring. Abdomen/GI: Soft, non-tender, with normal bowel sounds. No distension or tympany. No guarding or rebound. No evidence of tenderness throughout. Neuro: Awake and alert, GCS 15, oriented to person, place, time, and situation. Cranial nerves II-XII grossly intact. Motor strength 5/5 in all extremities. Sensory grossly intact. Cerebellar exam normal. Normal gait. Psych: Awake, alert, with orientation to person, place and time. Behavior, mood, and affect are within normal limits. 21:03 ECG was reviewed by the Attending Physician. EKG demonstrates normal sinus rhythm at 79 sp3 bpm with first-degree AV block with a CO interval of 208 and an incomplete left bundle branch block nonspecific diffuse ST/T changes without evidence of acute ischemia. Vital Signs: 20:23 BP 166 / 100; Pulse 81; Resp 16; Temp 98.4(O); Pulse Ox 98% on R/A; Weight 92.53 kg; nj1 Height 5 ft. 6 in. ; 21:41 BP 165 / 82; Pulse 77; Resp 18; Pulse Ox 98% on R/A; kd3 21:45 BP 172 / 77 Supine; Pulse 77; Resp 17; Pulse Ox 97% on R/A; rv 21:50 BP 172 / 76 Sitting; Pulse 77; Resp 19; Pulse Ox 97% ; rv 22:00 BP 158 / 83 Standing; Pulse 77; Resp 17; Pulse Ox 97% on R/A; rv 20:23 Body Mass Index 32.93 (92.53 kg, 167.64 cm) nj1 MDM: 20:35 Patient medically screened. sp3 20:50 Data reviewed: vital signs, nurses notes, lab test result(s), EKG, radiologic studies. sp3 ED course: 82-year-old female with multiple medical problems not here for urinary incontinence and generalized fatigue. Differential is broad and includes idiopathic urinary retention, UTI, pyelonephritis, viral syndrome, COVID-19, influenza, acute coronary syndrome, orthostatic hypotension, near syncope, among others. Will obtain EKG, CT scan of the head, laboratory values including troponin and urine analysis and general observation. Disposition pending work-up and patient course. Patient appears nontoxic and clinically is not septic or having any other critical findings at this time.. 22:04 ED course: All swabs and laboratory values are within normal limits. Potassium mildly sp3 decreased at 3.0. Patient is able to void and CT scan and other work-up is negative as well. We will safely discharge home with PCP follow-up with Dr. Kahn.. 12/04 20:26 Order name: Basic Metabolic Panel; Complete Time: 21:40 3 12/04 20:26 Order name: CBC with Diff; Complete Time: 21:53 3 12/04 20:26 Order name: Hepatic Function; Complete Time: 21:40 sp3 12/04 20:26 Order name: Magnesium; Complete Time: 21:40 3 12/04 20:26 Order name: Protime (+inr); Complete Time: 21:39 3 12/04 20:26 Order name: Troponin High Sensitivity; Complete Time: 21:40 3 12/04 20:26 Order name: Urinalysis w/ reflexes; Complete Time: 21:39 3 12/04 20:26 Order name: Troponin High Sensitivity 3 12/04 20:50 Order name: Flu; Complete Time: 22:03 3 12/04 20:50 Order name: SARS-COV-2 RT PCR; Complete Time: 21:53 sp3 12/04 20:26 Order name: CT Head Brain wo Cont; Complete Time: 21:02 sp3 12/04 20:26 Order name: Chest Single View XRAY; Complete Time: 21:02 sp3 12/04 20:26 Order name: EKG; Complete Time: 20:27 sp3 12/04 20:26 Order name: Cardiac monitoring; Complete Time: 21: sp3 12/04 20:26 Order name: EKG - Nurse/Tech; Complete Time: 21: sp3 12/04 20:26 Order name: IV Saline Lock; Complete Time: 21:16 sp3 12/04 20:26 Order name: Labs collected and sent; Complete Time: : sp3 12/04 20:26 Order name: NPO; Complete Time: 21:16 sp3 12/04 20:26 Order name: O2 Per Protocol; Complete Time: 21:16 sp3 12/04 20:26 Order name: O2 Sat Monitoring; Complete Time: : sp3 12/04 20:26 Order name: Orthostatics; Complete Time: 22:02 sp3 Administered Medications: 22:08 Drug: Potassium Chloride PO 40 mEq Route: PO; kd3 Disposition Summary: 12/04/22 22:05 Discharge Ordered Location: Home sp3 Condition: Stable sp3 Diagnosis - Hypokalemia, urinary retention now resolved, malaise sp3 Followup: sp3 - With: Private Physician - When: Upon discharge from the Emergency Department - Reason: Continuance of care Discharge Instructions: - Discharge Summary Sheet sp3 - Acute Urinary Retention, Female sp3 - Hypokalemia sp3 Forms: - Medication Reconciliation Form sp3 - Thank You Letter sp3 - Antibiotic Education sp3 - Prescription Opioid Use sp3 - Patient Portal Instructions sp3 - Leadership Thank You Letter sp3 Signatures: Dispatcher [employer] EDNadeen Kirkland MD MD sp3 Cherri Nelson RN RN kd3 Sherry Sanches RN RN nj1 Corrections: (The following items were deleted from the chart) 21:16 20:47 Salguero ordered. sp3 rv
--- NOTE | 2022-12-04 22:06 | ER ---
Nurse's Notes [facility] Name: Maxine Elias Age: 82 yrs Sex: Female : 1940 Arrival Date: 12/04/2022 Time: 19:58 Bed 4 Private MD: Diagnosis: Hypokalemia, urinary retention now resolved, malaise Presentation: 12/04 20:23 Chief complaint: Patient's son or daughter states: call her today to check on her and nj1 told her that she has not urinated in 4 days. Concerned about her feet. Generalized weakness and blurry vision on both eyes for about a week. Coronavirus screen: Vaccine status:. Ebola Screen: Patient denies travel to an Ebola-affected area in the 21 days before illness onset. Initial Sepsis Screen: Does the patient meet any 2 criteria? No. Patient's initial sepsis screen is negative. Does the patient have a suspected source of infection? No. Patient's initial sepsis screen is negative. Risk Assessment: Do you want to hurt yourself or someone else? Patient reports no desire to harm self or others. Onset of symptoms was November 27, 2022. 20:23 Method Of Arrival: Wheelchair nj 20:23 Acuity: SWAPNIL 3 nj1 Triage Assessment: 22:18 General: Behavior is calm, cooperative. rv Historical: - Allergies: 20:27 Neosporin ([id number]); nj1 - PMHx: 20:27 Bipolar disorder; Hypertension; Hypothyroidism; Depressive disorder; Anxiety; nj1 Hypercholesterolemia; - Immunization history:: Client reports receiving the 2nd dose of the Covid vaccine. - Social history:: Smoking status: Patient denies any tobacco usage or history of. Screenin:17 [facility] ED Fall Risk Assessment (Adult) History of falling in the last 3 months, rv including since admission No falls in past 3 months (0 pts) Confusion or Disorientation Yes (5 pts) Intoxicated or Sedated No (0 pts) Impaired Gait Yes (1 pt) Mobility Assist Device Used Yes (1 pt) Altered Elimination Yes (1 pt) Score/Fall Risk Level 3 or more points = High Risk Oriented to surroundings, Maintained a safe environment, Educated pt \T\ family on fall prevention, incl call for assistance when getting out of bed, Assessed \T\ reinforced patient's understanding of fall precautions, Provided non-skid footwear, Hourly rounding (assess needs \T\ fall precautionary measures) done, Used ambulatory aids as needed (educated on \T\ assisted with), Used gait belt as appropriate Implemented a Fall Risk Plan of Care, Apply high fall risk patient identification: yellow non skid footwear/ fall signage, Placed fall mat w/ non beveled edge next to bed, Activated bed/chair alarm, Remained w/in arm's length of patient and in sight while toileting, Offered frequent toileting (1:1 observation), Remained with patient while ambulating, Utilized family, sitter, or virtual nail sticker as indicated. Abuse screen: Denies threats or abuse. Denies injuries from another. Nutritional screening: No deficits noted. Tuberculosis screening: No symptoms or risk factors identified. Assessment: 21:16 General: Appears in no apparent distress. Pain: Denies pain. Neuro: Level of rv Consciousness is awake, alert, obeys commands, Oriented to person, place, time, situation. Cardiovascular: Capillary refill < 3 seconds Patient's skin is warm and dry. Respiratory: Airway is patent Respiratory effort is even, unlabored. Derm: Skin is intact. 22:18 Reassessment: PT IS ABLE TO URINATE ON HER OWN. rv Vital Signs: 20:23 BP 166 / 100; Pulse 81; Resp 16; Temp 98.4(O); Pulse Ox 98% on R/A; Weight 92.53 kg; nj1 Height 5 ft. 6 in. ; 21:41 BP 165 / 82; Pulse 77; Resp 18; Pulse Ox 98% on R/A; kd3 21:45 BP 172 / 77 Supine; Pulse 77; Resp 17; Pulse Ox 97% on R/A; rv 21:50 BP 172 / 76 Sitting; Pulse 77; Resp 19; Pulse Ox 97% ; rv 22:00 BP 158 / 83 Standing; Pulse 77; Resp 17; Pulse Ox 97% on R/A; rv 20:23 Body Mass Index 32.93 (92.53 kg, 167.64 cm) nj1 ED Course: 20:06 Patient arrived in ED. kj1 20:12 Nadeen Marie MD is Attending Physician. sp3 20:27 Triage completed. nj1 20:32 Arm band placed on right wrist. nj1 20:42 CT Head Brain wo Cont In Process Unspecified. EDMS 20:48 Chest Single View XRAY In Process Unspecified. EDMS 21:16 Inserted saline lock: 20 gauge in right antecubital area, using aseptic technique. rv Blood collected. Inserted saline lock: 20 gauge in right hand, using aseptic technique. Inserted saline lock: 22 gauge forearm, using aseptic technique. 21:17 Patient has correct armband on for positive identification. Placed in gown. Bed in low rv position. Call light in reach. Side rails up X 1. Adult w/ patient. Client placed on continuous cardiac and pulse oximetry monitoring. NIBP monitoring applied. school bus monitor on. 21:18 No provider procedures requiring assistance completed. rv 21:41 Rui Andres, RN is Primary Nurse. rv 22:18 IV discontinued, intact, bleeding controlled, No redness/swelling at site. Pressure rv dressing applied. 22:19 Provided Education on: BLADDER INFECTION. rv Administered Medications: 22:08 Drug: Potassium Chloride PO 40 mEq Route: PO; kd3 Medication: 22:18 VIS not applicable for this client. rv Outcome: 22:05 Discharge ordered by . sp3 22:18 Discharged to home ambulatory, with family. rv 22:18 Condition: improved 22:18 Discharge instructions given to patient, Instructed on discharge instructions, follow up and referral plans. Demonstrated understanding of instructions, follow-up care. 22:19 Patient left the ED. rv Signatures: Dispatcher [employer] EDGA Rui Andres, RN RN rv Shelia Freeman kj1 Nadeen Marie MD MD sp3 Cherri Nelson RN RN kd3 Sherry Sanches RN RN nj1 Corrections: (The following items were deleted from the chart) 20:32 20:23 Chief complaint: Patient's son or daughter states: call her today to check on her nj1 and told her that she has not urinated in 4 days. nj1
[2022-12-04] MEDS ORDERED: POTASSIUM CL SA 10 MEQ TAB PO ONE (22:16)
[2022-12-04 23:17] VITALS: TEMP 98.4
[2022-12-04 23:21] VITALS: O2SAT 97
[2022-12-04 23:25] VITALS: BP 158/83
--- NOTE | 2022-12-05 12:57 | EKG ---
Test Date: 2022-12-04 Test Time: 20:55:08 [facility] [employer]cker: RV MEASUREMENT RESULTS: Intervals: Rate: 79 VA: 208 QRSD: 128 QT: 404 QTc: 463 [place]: P: 53 VA: 208 QRS: -68 T: 86 INTERPRETIVE STATEMENTS: Sinus rhythm with occasional premature ventricular complexes Left axis deviation Nonspecific intraventricular block Cannot rule out Septal infarct, age undetermined Abnormal ECG Compared to ECG 02/18/2013 15:35:43 Ventricular premature complex(es) now present Myocardial infarct finding now present Left ventricular hypertrophy no longer present Electronically Signed On 12-05-22 12:55:46 CDT by Shar lAejo
== END 2022-12-04 22:19 | disposition home or self-care (01) ==
LOC: ER 19:58
DX: E87.6 Hypokalemia (principal); H53.8 Other visual disturbances; I10 Essential (primary) hypertension; F31.9 Bipolar disorder, unspecified; Z88.3 Allergy status to other anti-infective agents; Z20.822 Contact with and (suspected) exposure to COVID-19
CPT/HCPCS: 36415; 70450; 71045; 80048; 80076; 81003; 83735; 84484; 85025; 85610; 87635; 87804; 93005; 99284

== ENCOUNTER 2023-03-04 15:18 | Inpatient (IN) | payer OTHER ==
--- OUTSIDE RECORDS SUMMARY | 2023-03-04 15:21 | XMS REPORT | Continuity of Care Document ---
:1940 Author Organization [facility] t Address [address] [place] [address] Care Team Providers Name Role Phone No MD, Pcp Primary Care Physician Unavailable AUDIE DELGADO Attending Clinician Unavailable VELASQUEZ NESS Attending Clinician Unavailable LANDON BULL Attending Clinician Unavailable ERICH GARY Attending Clinician Unavailable ANDI GRAFF Attending Clinician Unavailable Vick RN, Jessica Attending Clinician Unavailable Payers Payer Name Policy Type Policy Number Effective Date Expiration Date S amaurice MEDICARE PART A [id number] 2007 AND B 00:00:00 Problems Condition Condition Condition Status Onset Resolution Last Treating Co mments Source Name Details Category Date Date Treatment Clinician Date Bipolar 1 Bipolar 1 Disease Active [facility] disorder disorder - [facility] 00:00: 00 Bipolar Bipolar Disease Active [facility] disorder disorder -24 [facility] current current 00:00: episode episode 00 depressed depressed Bipolar 1 Bipolar 1 Disease Active [facility] disorder, disorder, 5- Heal manic, manic, 00:00: mild mild 00 Generalize [...] Comments Source Sex Assigned At [birth year] [facility] 00:[facility] 00:00:00 Smoking Status Start Date Stop Date Source Tobacco smoking consumption unknown [place] [facility] Medications Ordered Filled Start Stop Current Ordering Indication Dosage Frequency Signature Comments Components Source Medication Medication Date Date Medication? Clinician (SIG) Name Name Nadirazepi 2020-04- No [id number] 600mg Take 3 [facility] ne 04-26 tablets Health (TEGretol) 00:00: 05:59 (600 mg 200 MG 00 :00 total) by tablet mouth every night. QUEtiapine 2020-04- No [id number] 600mg Take 1.5 [facility] (SEROquel) 04-26 tablets Healt h 400 MG 00:00: 05:59 (600 mg tablet 00 :00 total) by mouth every night. TAKE 1 AND 1/2 TABLETS BY MOUTH AT BEDTIME busPIRone 2020-04- No [id number] 30mg Q.5D Take 1 U T (Buspar) 30 04-26 tablet (30 H ealth MG tablet 00:00: 05:59 mg total) 00 :00 by mouth 2 (two) times a day. escitalopra 2020-04- No [id number] 20mg QD Take 1 UT m (Lexapro) 04-26 tablet (20 H ealth 20 MG 00:00: 05:59 mg total) tablet 00 :00 by mouth 1 (one) time each day. TAKE 1 TABLET BY MOUTH EVERY DAY LORazepam Yes [id number] Take 1/2 UT (Ativan) 2 9-13 tablet by Heal th MG tablet 00:00: mouth once 00 daily and I tablet every night at bed time busPIRone Yes [id number] 15mg Q.5D Take 1 [facility] (Buspar) 15 9-10 tablet (15 He alth MG tablet 00:00: mg total) 00 by mouth 2 (two) times a day. levothyroxi Yes 125ug QD Take 125 U T ne 5-20 mcg by [facility] (Synthroid, 00:00: mouth 1 Levoxyl) 00 (one) time 125 MCG each day. tablet Folbic Yes 1{tbl} QD Take 1 UT 2.5-25-2 MG 2-23 tablet by a lth tablet 00:00: mouth 1 00 (one) time each day. promethazin Yes 25mg Q.[id number] Take 25 mg UT e 2 [id number] by mouth 3 Hea lth (Phenergan) 00:00: 3D (three) 25 MG 00 times a tablet day if needed. gabapentin Yes [facility] (Neurontin) 2-04 Health 300 MG 00:00: capsule 00 triamcinolo 2019- Yes UT ne 2- Health (Kenalog) 00:00: [...] capsule 00 fluticasone Yes [facility] (Flonase 09-24 [facility] Allergy 00:00: Relief) 50 00 MCG/ACT nasal spray levothyroxi Yes TAKE 1 UT ne (Levo-T) 09-24 TABLET Health 112 MCG 00:00: DAILY tablet 00 DIRECTED. lisinopril Yes UT 10 MG 09-24 Health tablet 00:00: 00 metoprolol Yes UT tartrate 09-24 [facility] (Lopressor) 00:00: 50 MG 00 tablet Procedures This patient has no known procedures. Encounters Start End Encounter Admission Attending Care Care Encounter Source Date/Time Date/Time Type Type Clinicians Facility Department ID 2022-11-14 Outpatient [facility] [id number] [place] 14:53:54 [id number] [facility] 2022-10-31 Outpatient [facility] [id number] [place] 10:14:32 [id number] [facility] 2022-10-30 Outpatient [facility] [id number] [place] 07:52:33 [id number] [facility] 2022-10-17 Outpatient [facility] [id number] [place] 09:34:49 [id number] [facility] 2022-09-11 Outpatient [facility] [id number] [place] 13:05:42 [id number] [facility] 2022-08-01 Outpatient [facility] [id number] [place] 10:44:15 [id number] [facility] 2022-07-31 Outpatient [facility] [id number] [place] 12:51:57 [id number] [facility] 2022-06-20 Outpatient [facility] [id number] [place] 12:17:44 [id number] [facility] 2022-06-18 Outpatient [facility] [id number] [place] 10:29:57 [id number] [facility] 2022-02-13 Outpatient [facility] [id number] [place] 09:40:18 [id number] [facility] 2021-12-19 Outpatient [facility] [id number] [place] 11:12:11 [id number] [facility] 2021-10-06 Outpatient SANDY [facility] [id number] [place] 16:06:12 AUDIE [id number] [facility] 2021-10-05 Outpatient [facility] [id number] [place] 10:11:08 [id number] [facility] 2021-07-14 Outpatient SANDY [facility] [id number] [place] 15:17:36 AUDIE [id number] [facility] 2021-07-13 Outpatient [facility] [id number] [place] 08:58:09 [id number] [facility] 2021-06-29 Outpatient SANDY [facility] [id number] [place] [facility] [id number] [place] [facility]Y [facility] [id number] [place] [facility] [id number] [place] [facility] S[facility]Y [facility] [id number] [place] [facility]Y [facility] [id number] [place] [facility]Y [facility] [id number] [place] 02:[facility]23-[facility]13 2023-03-13 Outpatient GROVER, [facility] [id number] [place] 11:00:00 11:00:00 [facility] 2023-02-06 2023-02-06 Outpatient GROVER, [facility] [id number] [place] 11:00:00 11:00:00 [facility] 2023-01-02 2023-01-02 Outpatient GROVER, [facility] [id number] [place] 11:00:00 14:31:32 [facility] 2023-01-02 2023-01-02 Outpatient REDDY DE LA [facility] [id number] [place] 11:00:00 11:00:00 [facility], Health LANDON 2022-11-21 2022-11-21 Outpatient REDDY DE LA [facility] [id number] [place] 10:15:00 13:15:38 [facility]RAGO, Health LANDON 2022-10-31 2022-10-31 Outpatient GR[place], [facility] [id number] [place] 10:15:00 10:15:00 [facility] 2022-10-31 2022-10-31 Outpatient REDDY DE LA [facility] [id number] [place] 10:15:00 10:15:00 [facility]RAGO, Health L[place]ON 2022-09-12 2022-09-12 Outpatient ERICH GARY [facility] [id number] [place] 11:00:00 11:52:50 Health 2022-08-01 2022-08-01 Outpatient ERICH GARY [facility] [id number] [place] 11:00:00 14:49:47 Health 2022-06-20 2022-06-20 Outpatient ERICH GARY [facility] [id number] [place] 11:00:00 12:53:01 Health 2022-05-16 2022-05-16 Outpatient ERICH GARY [facility] [id number] [place] 10:15:00 14:46:57 Health 2022-04-18 2022-04-18 Outpatient ERICH GARY [facility] [id number] [place] 11:00:00 11:00:23 Health 2022-04-11 2022-04-11 Outpatient ERICH GARY [facility] [id number] [place] 11:00:00 11:00:00 Health 2022-02-14 2022-02-14 Outpatient ERICH GARY [facility] [id number] [place] 11:00:00 15:07:30 Health 2021-12-20 2021-12-20 Outpatient ACTOR, [facility] [id number] [place] 11:00:00 14:26:09 [facility] 2021-02-24 2021-02-24 Telephone Jessica Hickman [id number] [place] 00:00:00 00:00:00 Jessica Hickman [id number] [facility] [place] [id number] PERRY [id number] 2016-05-21 2016-05-21 Outpatient MHIE MHIE [id number] [facility] 16:00:00 16:00:00 11 cliff Davis 2016-05-21 2016-05-21 Outpatient MHIE MHIE [id number] [facility] 16:00:00 16:00:00 11 cliff Davis 2016-02-20 2016-02-20 Outpatient MHIE MHIE [id number] [facility] 16:00:00 16:00:00 10 cliff Davis 2016-02-20 2016-02-20 Outpatient MHIE MHIE [id number] [facility] 16:00:00 16:00:00 10 cliff Davis 2015-10-31 2015-10-31 Outpatient MHIE MHIE [id number] [facility] 14:00:00 14:00:00 09 cliff Davis 2015-10-31 2015-10-31 Outpatient MHIE MHIE [id number] [facility] 14:00:00 14:00:00 09 cliff Davis 2015-09-19 2015-09-19 Outpatient MHIE MHIE [id number] [facility] 15:00:00 15:00:00 08 cliff Davis 2015-09-19 2015-09-19 Outpatient MHIE MHIE [id number] [facility] 15:00:00 15:00:00 08 cliff Davis 2015-09-19 2015-09-19 Outpatient MHIE MHIE [id number] [facility] 14:00:00 14:00:00 07 cliff Davis 2015-09-19 2015-09-19 Outpatient MHIE MHIE [id number] [facility] 14:00:00 14:00:00 07 cliff Davis 2015-08-08 2015-08-08 Outpatient MHIE MHIE [id number] [facility] 16:30:00 16:30:00 06 cliff Davis 2015-08-08 2015-08-08 Outpatient MHIE MHIE [id number] [facility] 16:30:00 16:30:00 06 cliff Davis 2015-06-06 2015-06-06 Outpatient MHIE MHIE [id number] [facility] 16:30:00 16:30:00 05 cliff Davis 2015-06-06 2015-06-06 Outpatient MHIE MHIE [id number] [facility] 16:30:00 16:30:00 05 cliff Davis 2015-05-16 2015-05-16 Outpatient MHIE MHIE [id number] [facility] 16:30:00 16:30:00 04 cliff Davis 2015-05-16 2015-05-16 Outpatient MHIE MHIE [id number] [facility] 16:30:00 16:30:00 04 cliff Davis 2015-04-04 2015-04-04 Outpatient MHIE MHIE [id number] [facility] 14:00:00 14:00:00 03 cliff Davis 2015-04-04 2015-04-04 Outpatient MHIE MHIE [id number] [facility] 14:00:00 14:00:00 03 cliff Davis 2015-01-24 2015-01-24 Outpatient MHIE MHIE [id number] [facility] 16:30:00 16:30:00 02 cliff Davis 2015-01-24 2015-01-24 Outpatient MHIE MHIE [id number] [facility] 16:30:00 16:30:00 02 cliff Davis 2014-11-22 2014-11-22 Outpatient MHIE MHIE [id number] [facility] 14:00:00 14:00:00 01 cliff Davis 2014-11-22 2014-11-22 Outpatient MHIE MHIE [id number] [facility] 14:00:00 14:00:00 01 cliff Davis 2014-09-30 2014-09-30 Outpatient MHIE MHIE [id number] [facility] 14:00:00 14:00:00 00 cliff Davis 2014-09-30 2014-09-30 Outpatient MHIE MHIE [id number] [facility] 14:00:00 14:00:00 00 cliff Davis Results This patient has no known results.
[2023-03-04 17:04] LABS: SARS-CoV-2 Antigen Rapid Res Negative (Negative)
[2023-03-04] MEDS ORDERED: HEPARIN 5000 UNIT/ML 1 ML VIAL ONE (17:28)
[2023-03-04] MEDS ORDERED: HEPARIN/D5W 25,000 UNIT/500 ML BAG IV ONE (17:28)
[2023-03-04 17:29] LABS: Absolute Lymphocytes (CBC) 1.4 K/uL (0.7-4.9); Hematocrit 35.3 % (36.0-45.0); Lymphocytes % 29.1 % (15.3-44.8); MCV 109.1 fL (80-100); Platelets 260 thou/uL (152-406); RBC Red Blood Cell Count 3.24 M/uL (3.86-4.86)
[2023-03-04 17:50] LABS: Protime INR 0.99
[2023-03-04] MEDS ORDERED: MORPHINE 4 MG/ML SYR ONE (18:00)
[2023-03-04] MEDS ORDERED: PANTOPRAZOLE 40 MG INJ ONE (18:00)
--- NOTE | 2023-03-04 18:00 | RAD REPORT ---
EXAM DESCRIPTION: RAD - Chest Single View - 03/04/2023 5:40 pm CLINICAL HISTORY: CONGESTION Chest pain. COMPARISON: Chest Single View dated 12/04/2022; Chest Single View dated 10/05/2019; CHEST PA AND LAT 2 VIEW dated 01/21/2014; CHEST PA AND LAT 2 VIEW dated 02/18/2013 FINDINGS: Portable technique limits examination quality. Mild interstitial pulmonary edema. The heart is moderately enlarged in size. No displaced fractures. IMPRESSION: Mild CHF.
[2023-03-04 18:04] LABS: ALT/SGPT 36 U/L (13-56); AST/SGOT 41 U/L (15-37); Albumin 4.1 g/dL (3.4-5.0); Alkaline Phosphatase 88 U/L (45-117); BUN Blood Urea Nitrogen 11 mg/dL (7-18); Bicarbonate 27 mEq/L (21-32); Bilirubin Total 0.5 mg/dL (0.2-1.0); Glomerular Filtration Rate 52 ml/min (=/>90); Glucose Level 107 mg/dL (74-106); Magnesium 2.2 mg/dL (1.6-2.4); Phosphorus 2.8 mg/dL (2.5-4.9); Potassium 3.6 mEq/L (3.5-5.1); Protein, Total 7.6 g/dL (6.4-8.2); Sodium Level 138 mEq/L (136-145); Troponin High Sensitivity 12.3 pg/mL (<58.9); Uric Acid 4.4 mg/dL (2.6-6.0)
[2023-03-04 18:05] LABS: T3 Free < 0.50 pg/mL (2.18-3.98)
[2023-03-04] MEDS ORDERED: NA CHLORIDE 0.9% 500 ML ONE (18:14)
--- NOTE | 2023-03-04 18:32 | ER ---
Nurse's Notes [facility] Name: Maxine Elias Age: 83 yrs Sex: Female : 1940 Arrival Date: 03/04/2023 Time: 15:18 Bed 5 Private MD: Diagnosis: Myxedema coma Presentation: 03/04 15:56 Chief complaint: Chief complaint: Doesn't feel right. Pain all over, decreased hearing, hb and dizziness. Coronavirus screen: At this time, the client does not indicate any symptoms associated with coronavirus-19. Ebola Screen: No symptoms or risks identified at this time. Risk Assessment: Do you want to hurt yourself or someone else? Patient reports no desire to harm self or others. Onset of symptoms is unknown. 15:56 Method Of Arrival: Wheelchair hb 15:56 Acuity: SWAPNIL 2 hb 16:00 Initial Sepsis Screen: Does the patient meet any 2 criteria? No. Patient's initial rs5 sepsis screen is negative. Does the patient have a suspected source of infection? No. Patient's initial sepsis screen is negative. 16:06 Initial Sepsis Screen: Does the patient meet any 2 criteria?. rs5 Historical: - Allergies: 15:55 Neosporin ([id number]); hb - Home Meds: 17:41 quetiapine 400 mg oral tablet 1.5 tab once [Active]; carbamazepine 200 mg Oral tablet 3 aa5 tabs at bedtime [Active]; lorazepam 2 mg Oral tablet take 0.5 tab and 1 tab at bedtime [Active]; quetiapine 100 mg oral tablet 2 tabs every day at bedtime [Active]; buspirone 30 mg Oral tablet every evening [Active]; - PMHx: 15:55 Anxiety; Bipolar disorder; depressive disorder; Hypercholesterolemia; Hypertension; hb Hypothyroidism; - Immunization history:: Adult Immunizations unknown. - Social history:: Smoking status: Patient denies any tobacco usage or history of. Screenin:00 [facility] ED Fall Risk Assessment (Adult) History of falling in the last 3 months, rs5 including since admission No falls in past 3 months (0 pts) Confusion or Disorientation No (0 pts) Intoxicated or Sedated No (0 pts) Impaired Gait No (0 pts) Mobility Assist Device Used No (0 pt) Altered Elimination No (0 pt) Score/Fall Risk Level 0 - 2 = Low Risk Oriented to surroundings, Maintained a safe environment. Abuse screen: Denies threats or abuse. Nutritional screening: No deficits noted. Tuberculosis screening: No symptoms or risk factors identified. Assessment: 16:00 General: Appears in no apparent distress. uncomfortable, Behavior is calm, cooperative. rs5 Pain: Complains of pain in chest Pain does not radiate. Pain currently is 3 out of 10 on a pain scale. Quality of pain is described as aching, Pain began 2-3 days ago. Is continuous. 16:00 Neuro: Level of Consciousness is awake, alert, obeys commands, Oriented to person, rs5 place, time, situation, Body Care Manager are weak bilaterally Weakness Speech is normal, Facial symmetry appears normal, Pupils are PERRLA, Pupil Size: 3 mm Intact. Cardiovascular: Reports Heart tones S1 S2 present Rhythm is regular. Respiratory: Airway is patent Respiratory effort is even, unlabored, Respiratory pattern is regular, symmetrical, Breath sounds are clear bilaterally. GI: Bowel sounds present X 4 quads. Abd is soft and non tender X 4 quads. Reports upper abdominal pain, nausea. : No signs and/or symptoms were reported regarding the genitourinary system. EENT: No signs and/or symptoms were reported regarding the EENT system. Derm: Skin is intact, Skin is dry, Skin is pale, dry, flakey skin noted to lower extremities bilat, pt states "my legs have been like this for a very long time now, months proabably". Musculoskeletal: Range of motion: limited in all extremities, Pt can move all extremities but states "I just feel really weak". 16:35 Reassessment: Nurse at bedside for blood draw. rs5 17:30 Reassessment: Pt states "I have to pee" purwick applied, set to suction, 650 ml clear, rs5 yellow urine noted in urine collection container. Container emptied and new urine container applied. 17:34 Pain: Complains of pain in pelvis Pain does not radiate. Pain currently is 8 out of 10 rs5 on a pain scale. Quality of pain is described as aching, Pain began gradually, Pt states "pain comes and goes, it feels like I have to pee but I don't, also I'm having burning pain 8/10 below my sternum" provider notified. 17:50 Reassessment: To bedside for med adm. rs5 18:20 Reassessment: Provider notified pt is experiencing pain. Pt states "the burning pain rs5 that I was feeling below my sternum is gone". Pain: Complains of pain in pelvis Pain does not radiate. Pain currently is 7 out of 10 on a pain scale. Quality of pain is described as aching. 18:24 Reassessment: Patient and/or family updated on plan of care and expected duration. Pain rs5 level reassessed. Patient is alert, oriented x 3, equal unlabored respirations, skin warm/dry/pink. 18:45 Reassessment: 550 ml clear, yellow urine noted in urine collection container. Total rs5 output since arrival 1200 ml, pt states "I don't usually pee this much, I feel like I'm peeing a lot" Provider notified. 20:30 Reassessment: Pt states pain in bladder area and states that she feels a constant urge nw1 to urinate, even after urinating. Pt request bain catheter. Spoke with physician in regards to previous order of core temp bain. Per physician jacklyn Manuel to place core temp bain. 21:07 Reassessment: Unable to locate bladder scanner on unit. 16 FR core temp bain placed nw1 using sterile technique and pkaced to gravity. Patient tolerated well and stated immediate relief. Noted clear urine and 1000cc immediately drained out. 21:41 Reassessment: Report attempted. Nurse unavailable and was told she will call back in 5 nw1 min. Vital Signs: 15:56 BP 156 / 79; Pulse 77; Resp 16; Temp 97.4(TE); Pulse Ox 98% on R/A; hb 16:05 BP 159 / 82; Pulse 76; Resp 17; Temp 97.5(O); Pulse Ox 99% on R/A; rs5 17:06 Weight 97.98 kg (M); rs5 17:30 BP 178 / 89; Pulse 81; Resp 18; Pulse Ox 98% on R/A; rs5 18:26 BP 175 / 90; Pulse 80; Resp 18; Pulse Ox 99% on R/A; rs5 18:30 Temp 99.4(R); rs5 22:22 BP 148 / 83; Pulse 93; Pulse Ox 100% ; nw1 [place] Coma Score: 21:58 Eye Response: spontaneous(4). Motor Response: obeys commands(6). Verbal Response: nw1 confused(4). Total: 14. ED Course: 15:21 Patient arrived in ED. mg5 15:49 Gracy Manuel FNP-C is [facility]. snw 15:49 Cem Del Rosario MD is Attending Physician. snw 15:57 Ezequiel Preciado RN is Primary Nurse. rs5 15:58 Triage completed. hb 16:00 Patient has correct armband on for positive identification. Bed in low position. Call rs5 light in reach. Side rails up X2. 16:05 Inserted saline lock: 20 gauge in right hand, using aseptic technique. ,using aseptic rs5 technique. IV flushes well but does not draw blood. 16:05 Arm band placed on left wrist. rs5 16:15 Missed attempt(s): 22 gauge in right antecubital area. Bleeding controlled, band aid rs5 applied, catheter tip intact. 17:37 Initial lab(s) drawn, by me, sent to lab. Inserted saline lock: 24 gauge in left hand, iw using aseptic technique. Blood collected. 17:42 Chest Single View XRAY In Process Unspecified. EDMS 18:31 Suly Payne MD is Hospitalizing Provider. snw 18:32 No provider procedures requiring assistance completed. rs5 19:56 CT Head Brain wo Cont In Process Unspecified. EDMS 20:35 Hospitalizing Provider role handed off by Suly Payne MD snw 20:35 Krish Mayorga MD is Hospitalizing Provider. snw 21:10 Bain cath inserted, using sterile technique, 16 Fr., by me, balloon inflated, to nw1 gravity drainage, returned clear yellow urine. Patient tolerated well. Inserted saline lock: 20 gauge in right forearm, using aseptic technique. Blood collected. 21:52 Provided Education on: POC. nw1 22:24 Patient admitted, IV remains in place. nw1 Administered Medications: 19:43 Discontinued: Heparin (MT Drip) - ([id number] units, [id number] ml) 12 units/kg/hr IV at kl calculated rate Per protocol; Max initial rate 1000 units/hr 17:35 Drug: Heparin (MT-Bolus No thrombolytic) - HEParin IVP 60 units/kg IVP once; Max 5000 rs5 units {Co-Signature: justino (Lydia Bahena RN).} Route: IVP; Site: right hand; 17:50 Follow up: Response: No adverse reaction rs5 17:35 Drug: Heparin (MT Drip) 12 units/kg/[place] - ([place] [address] units, D5W IV 500 ml) IV at rs5 calculated rate Per protocol; Max initial rate 1000 units/hr {Co-Signature: aa5 (Lydia Bahena RN).} Route: IV; Rate: calculated rate; Site: right hand; 17:50 Follow up: Response: No adverse reaction rs5 19:43 Follow up: IV Status: Order to discontinue infusion kl 17:50 Drug: Pantoprazole IVP 40 mg IVP once Route: IVP; Site: left wrist; rs5 18:15 Follow up: Response: No adverse reaction; Pain is decreased rs5 17:50 Drug: morphine IVP or IV 4 mg IVP once over 4 mins Route: IVP; Infused Over: 4 mins; rs5 Site: left wrist; 18:15 Follow up: Response: No adverse reaction rs5 17:55 Drug: NS 0.9% IV 500 ml IV at bolus bolus Route: IV; Rate: bolus; Site: left wrist; rs5 18:15 Follow up: Response: No adverse reaction rs5 19:42 Drug: levothyroxine 150 mcg IV at calculated rate once Route: IV; Rate: calculated kl rate; Site: right forearm; Medication: 16:01 VIS not applicable for this client. rs5 Point of Care Testing: Blood Glucose: 17:50 Blood Glucose: 94 mg/dL; rs5 Ranges: Intake: 20:30 external catheter nw1 Output: 20:30 Urine: 800ml; Total: 800ml. nw1 22:15 Urine: 400ml (Bain); Total: 1200ml. nw1 20:30 external catheter nw1 Outcome: 18:32 Decision to Hospitalize by Provider. snw 21:52 Admitted to Med/surg accompanied by destinee, via stretcher, room 205, Report called to fox Coffman RN 21:52 Condition: stable nw1 21:52 Instructed on the need for admit, 22:53 Patient left the ED. nw1 Signatures: Dispatcher [facility] EDMS Cinthia Kirk, RN Gracy Ybarra, SENIOR PYTHON DEVELOPER-C SENIOR PYTHON DEVELOPER-Csnw Joi Davila, MARIAELENA RN Lydia Bahena RN RN aa5 Elaine Lewis RN RN Ezequiel Preciado, RN RN rs5 Lucila Delgado mg5 Sari Davila RN RN nw1 Lydia Bahena RN aa5 Corrections: (The following items were deleted from the chart) 15:58 15:55 Chief complaint: hb hb 15:58 15:56 Chief complaint: hb hb 18:31 17:34 Pain: Complains of pain in pelvis Pain does not radiate. Pain currently is 8 out rs5 of 10 on a pain scale. Quality of pain is described as aching, Pain began gradually, Pt states "pain comes and goes, it feels like I have to pee but I don't, also I'm having burning pain 8/10 below my sternum" provider notified Is intermittent, rs5 18:32 18:20 Reassessment: Provider notified pt is experiencing pain . rs5 rs5 18:32 18:31 Pain: rs5 rs5 19:14 17:30 Reassessment: Pt states "I have to pee" purwick applied, set to suction, 650 ml rs5 clear, yellow urine noted in urine collection container. rs5 22:24 22:22 Admitted to Med/surg accompanied by destinee, via stretcher, room 205, Report called nw1 to MARIAELENA Coffman nw1 : 22:23 Condition: stable nw nw1 :24 22:23 Instructed on the need for admit, nw1 nw1
--- NOTE | 2023-03-04 18:32 | EDPHYS ---
Physician Documentation [facility] Name: Maxine Elias Age: 83 yrs Sex: Female : 1940 Arrival Date: 03/04/2023 Time: 15:18 Bed 5 Private MD: ED Physician Cem Del Rosario HPI: 03/04 16:23 This 83 yrs old Female presents to ER via Wheelchair with complaints of Doesn't Feel snw Right. 16:23 Pt has not been taking her medications, not taking care of herself, getting out of bed snw or eating. Most history obtained by Daughter. PCP Dr. Kahn.. 18:22 Onset: The symptoms/episode began/occurred gradually. snw Historical: - Allergies: 15:55 Neosporin ([id number]); hb - Home Meds: 17:41 quetiapine 400 mg oral tablet 1.5 tab once [Active]; carbamazepine 200 mg Oral tablet 3 aa5 tabs at bedtime [Active]; lorazepam 2 mg Oral tablet take 0.5 tab and 1 tab at bedtime [Active]; quetiapine 100 mg oral tablet 2 tabs every day at bedtime [Active]; buspirone 30 mg Oral tablet every evening [Active]; - PMHx: 15:55 Anxiety; Bipolar disorder; depressive disorder; Hypercholesterolemia; Hypertension; hb Hypothyroidism; - Immunization history:: Adult Immunizations unknown. - Social history:: Smoking status: Patient denies any tobacco usage or history of. ROS: 16:22 Eyes: Negative for injury, pain, redness, and discharge, ENT: Negative for injury, snw pain, and discharge, Neck: Negative for injury, pain, and swelling, Cardiovascular: Negative for chest pain, palpitations, and edema, Respiratory: Negative for shortness of breath, cough, wheezing, and pleuritic chest pain, Back: Negative for injury and pain, 16:22 : Negative for injury, bleeding, discharge, and swelling, MS/Extremity: Negative for injury and deformity, Skin: Negative for injury, rash, and discoloration, Neuro: Negative for headache, weakness, numbness, tingling, and seizure, Psych: Negative for depression, anxiety, suicide ideation, homicidal ideation, and hallucinations, 16:22 Constitutional: Positive for body aches, fatigue, malaise, poor PO intake, 16:22 Abdomen/GI: Positive for abdominal pain, Exam: 16:14 Head/Face: Normocephalic, atraumatic. Eyes: Pupils equal round and reactive to light, snw extra-ocular motions intact. Lids and lashes normal. Conjunctiva and sclera are non-icteric and not injected. Cornea within normal limits. Periorbital areas with no swelling, redness, or edema. ENT: Nares patent. No nasal discharge, no septal abnormalities noted. Tympanic membranes are normal and external auditory canals are clear. Oropharynx with no redness, swelling, or masses, exudates, or evidence of obstruction, uvula midline. Mucous membranes moist. Neck: Trachea midline, no thyromegaly or masses palpated, and no cervical lymphadenopathy. Supple, full range of motion without nuchal rigidity, or vertebral point tenderness. No Meningismus. Chest/axilla: Normal chest wall appearance and motion. Nontender with no deformity. No lesions are appreciated. Cardiovascular: Regular rate and rhythm with a normal S1 and S2. No gallops, murmurs, or rubs. Normal PMI, no JVD. No pulse deficits. Respiratory: Lungs have equal breath sounds bilaterally, clear to auscultation and percussion. No rales, rhonchi or wheezes noted. No increased work of breathing, no retractions or nasal flaring. Abdomen/GI: Soft, non-tender, with normal bowel sounds. No distension or tympany. No guarding or rebound. No evidence of tenderness throughout. Back: No spinal tenderness. No costovertebral tenderness. Full range of motion. 16:14 MS/ Extremity: Pulses equal, no cyanosis. Neurovascular intact. Full, normal range of motion. Psych: Awake, alert, with orientation to person, place and time. Behavior, mood, and affect are within normal limits. 16:14 Constitutional: The patient appears lethargic, obese, uncomfortable, 16:14 Skin: Appearance: thickened, dry, cracked, white skin over dorsum of bilateral feet, 16:14 Neuro: Orientation: is normal, Mentation: slow to respond, Motor: slumped in wheelchair with eyes closed, answers questions, Vital Signs: 15:56 BP 156 / 79; Pulse 77; Resp 16; Temp 97.4(TE); Pulse Ox 98% on R/A; hb 16:05 BP 159 / 82; Pulse 76; Resp 17; Temp 97.5(O); Pulse Ox 99% on R/A; rs5 17:06 Weight 97.98 kg (M); rs5 17:30 BP 178 / 89; Pulse 81; Resp 18; Pulse Ox 98% on R/A; rs5 18:26 BP 175 / 90; Pulse 80; Resp 18; Pulse Ox 99% on R/A; rs5 18:30 Temp 99.4(R); rs5 22:22 BP 148 / 83; Pulse 93; Pulse Ox 100% ; nw1 [place] Coma Score: 21:58 Eye Response: spontaneous(4). Motor Response: obeys commands(6). Verbal Response: nw1 confused(4). Total: 14. MDM: 15:49 Patient medically screened. snw 17:01 ED course: EKG with new Left BBB, previous EKG 02/18/2013, will start heparin and await snw further lab results. 18:20 Differential Diagnosis altered mental status, sepsis, Myxedema coma, elect derangement. snw Data reviewed: vital signs, nurses notes, lab test result(s), EKG, radiologic studies. Management of patient was discussed with the following: Master Automotive Technician: Dr. Alejo. Historians other than the Patient: Daughter/Son: Daughter. Counseling: I had a detailed discussion with the patient and/or guardian regarding the historical points, exam findings, and any diagnostic results supporting the discharge/admit diagnosis, the presence of at least one elevated blood pressure reading (>120/80) during this emergency department visit, lab results, radiology results, the need for further work-up and treatment in the hospital. Response to treatment: There is no appreciated change of the patient's symptoms at this time. 19:26 ED course: no source for sepsis, IV fluids of 500ml given for lactate 2.2, pt with CHF snw and myxedema coma so will not give copious IVF. 20:35 Management of patient was discussed with the following: Hospitalist: Discussed case snw with Dr. Payne, Levothyroxine 150mcg IV given and heparin stopped per recommendations. 03/04 15:53 Order name: Urine W/Microscopic (UAM) snw 03/04 16:03 Order name: Blood Culture Adult (2) snw 03/04 16:03 Order name: CBC with Diff; Complete Time: 19:52 snw 03/04 18:24 Interpretation: Abnormal: H/H 12.1/35.3. snw 03/04 16:03 Order name: CMP; Complete Time: 18:11 snw 03/04 16:03 Order name: Lactate w/ 2H reflex if indic.; Complete Time: 17:51 snw 03/04 16:03 Order name: Protime (+inr); Complete Time: 17:51 snw 03/04 16:03 Order name: Ptt, Activated; Complete Time: 17:51 snw 03/04 16:03 Order name: Troponin High Sensitivity; Complete Time: 18:11 snw 03/04 16:03 Order name: TSH; Complete Time: 18:11 snw 03/04 16:03 Order name: T4 Free; Complete Time: 18:11 snw 03/04 16:03 Order name: T3 Free; Complete Time: 18:11 snw 03/04 16:03 Order name: Uric Acid; Complete Time: 18:11 snw 03/04 16:03 Order name: Phosphorus; Complete Time: 18:11 snw 03/04 16:03 Order name: Magnesium; Complete Time: 18:11 snw 03/04 16:03 Order name: Carbamazepine (tegretol); Complete Time: 18:11 snw 03/04 16:03 Order name: Urine Osmolality; Complete Time: 16:54 snw 03/04 16:03 Order name: Urine Sodium Random; Complete Time: 16:42 snw 03/04 16:03 Order name: Urine Potassium Random; Complete Time: 16:42 snw 03/04 16:03 Order name: Osmolality, Serum; Complete Time: 18:22 snw 03/04 18:22 Interpretation: Within normal limits. snw 03/04 16:03 Order name: Flu; Complete Time: 17:05 snw 03/04 16:03 Order name: SARS RAPID; Complete Time: 17:05 snw 03/04 16:23 Order name: Lipase; Complete Time: 18:11 snw 03/04 18:18 Order name: Glucose, Ancillary Testing; Complete Time: 18:22 EDMS 03/04 18:23 Interpretation: Within normal limits. snw 03/04 19:28 Order name: Troponin High Sensitivity; Complete Time: 21:14 snw 03/04 19:48 Order name: CBC Smear Scan; Complete Time: 19:52 EDMS 03/04 21:07 Order name: Lactate Sepsis 2 HR Follow-up; Complete Time: 21:14 EDMS 03/04 21:21 Order name: Urinalysis w/ reflexes EDMS 03/04 16:03 Order name: Chest Single View XRAY; Complete Time: 18:11 snw 03/04 18:59 Order name: CT Head Brain wo Cont; Complete Time: 20:17 snw 03/04 16:03 Order name: EKG; Complete Time: 16:04 snw 03/04 16:03 Order name: Salguero: criticore; Complete Time: 21:34 snw 03/04 16:03 Order name: Accucheck; Complete Time: 21:34 snw 03/04 16:03 Order name: Cardiac monitoring; Complete Time: 21:33 snw 03/04 16:03 Order name: EKG - Nurse/Tech snw 03/04 16:03 Order name: IV Saline Lock - Large Bore; Complete Time: 17:37 snw 03/04 16:03 Order name: Labs collected and sent; Complete Time: 17:37 snw 03/04 16:03 Order name: O2 Per Protocol; Complete Time: 16:31 snw 03/04 16:03 Order name: O2 Sat Monitoring; Complete Time: 16:31 snw 03/04 16:03 Order name: Vital Signs; Complete Time: 16:31 snw 03/04 17:10 Order name: FSBS; Complete Time: 18:10 snw 03/04 19:28 Order name: Misc. Order: dc heparin snw EC:56 Rate is 78 beats/min. Rhythm is regular. Left axis deviation noted. QRS is negative in snw leads II, III, aVF, V4, V5, V6. QRS interval is prolonged. Clinical impression: new LBBB. Administered Medications: 19:43 Discontinued: Heparin (IN Drip) - ([id number] units, [id number] ml) 12 units/kg/hr IV at kl calculated rate Per protocol; Max initial rate 1000 units/hr 17:35 Drug: Heparin (IN-Bolus No thrombolytic) - HEParin IVP 60 units/kg IVP once; Max 5000 rs5 units {Co-Signature: justino (Lydia Bahena RN).} Route: IVP; Site: right hand; 17:50 Follow up: Response: No adverse reaction rs5 17:35 Drug: Heparin (IN Drip) 12 units/kg/[place] - ([place] [address] units, D5W IV 500 ml) IV at rs5 calculated rate Per protocol; Max initial rate 1000 units/hr {Co-Signature: [email or web address] (Lydia Bahena RN).} Route: IV; Rate: calculated rate; Site: right hand; 17:50 Follow up: Response: No adverse reaction rs5 19:43 Follow up: IV Status: Order to discontinue infusion kl 17:50 Drug: Pantoprazole IVP 40 mg IVP once Route: IVP; Site: left wrist; rs5 18:15 Follow up: Response: No adverse reaction; Pain is decreased rs5 17:50 Drug: morphine IVP or IV 4 mg IVP once over 4 mins Route: IVP; Infused Over: 4 mins; rs5 Site: left wrist; 18:15 Follow up: Response: No adverse reaction rs5 17:55 Drug: NS 0.9% IV 500 ml IV at bolus bolus Route: IV; Rate: bolus; Site: left wrist; rs5 18:15 Follow up: Response: No adverse reaction rs5 19:42 Drug: levothyroxine 150 mcg IV at calculated rate once Route: IV; Rate: calculated kl rate; Site: right forearm; Point of Care Testing: Blood Glucose: 17:50 Blood Glucose: 94 mg/dL; rs5 Ranges: Critical Glucose Levels:Adult <50 mg/dl or >400 mg/dl <40 mg/dl or >180 mg/dl Disposition: 20:55 Co-signature as Attending Physician, Cem Del Rosario MD I reviewed the patient's care rt provided by the Advanced Practice Provider and agree with the diagnosis and treatment plan. Disposition Summary: 03/04/23 18:32 Hospitalization Ordered Notes: Hospitalization Status: Inpatient Admission snw [facility] snw Condition: Fair snw Problem: new snw Symptoms: are unchanged snw Bed/Room Type: Standard snw Provider: Krish Mayorga(03/04/23 20:35) snw Room Assignment: [facility](03/04/23 21:22) cg Diagnosis - Myxedema coma snw Forms: - Medication Reconciliation Form snw - SBAR form snw - Leadership Thank You Letter snw Signatures: Dispatcher [employer] Cinthia Schaeffer, Gracy Ybarra RN, ELECTRIC MOTOR TESTER ASSEMBLER-C ELECTRIC MOTOR TESTER ASSEMBLER-Csnw Lydia Bahena RN RN aa5 Keerthi Moreno RN RN cg Elaine Lewis RN RN Cem Del Rosario MD MD rt Ezequiel Preciado RN RN rs5 Lydia Bahena RN aa5 Corrections: (The following items were deleted from the chart) 20:35 18:32 Suly Payne snw snw 21:22 18:32 snw cg
[2023-03-04] MEDS ORDERED: LEVOTHYROXINE SODIUM 100 MCG VIAL IV ONE (19:41)
[2023-03-04 19:47] LABS: Platelet Estimate ADEQ; White Blood Cell Scan OK (OK)
[2023-03-04 19:48] LABS: Anisocytosis 1+; Blood Morphology Comment NOTED (NOT SEEN); Poikilocytosis 1+
--- NOTE | 2023-03-04 20:05 | RAD REPORT ---
EXAM DESCRIPTION: CT - Head Brain Wo Cont - 03/04/2023 7:54 pm CLINICAL HISTORY: DECLINING STATE Headache, drowsiness COMPARISON: Head Brain Wo Cont dated 12/04/2022 TECHNIQUE: All CT scans are performed using dose optimization technique as appropriate and may inclu de automated exposure control or mA/KV adjustment according to patient size. FINDINGS: No intracranial hemorrhage, hydrocephalus or extra-axial fluid collection.Mild generalized brain atrophy is present with mild periventricular and deep white matter chronic microvascular [place] changes.No areas of brain edema or evidence of midline shift. Chronic right maxillary sinusitis. The paranasal sinuses and mastoids are otherwise clear. The calvar ium is intact. IMPRESSION: No acute intracranial abnormality.
[2023-03-04] MEDS ORDERED: CEFTRIAXONE 1,000 MG in NA CHLORIDE 0.9% 50 ML IVPB ONE (21:27)
[2023-03-04] MEDS ORDERED: ACETAMINOPHEN 500 MG TAB PO PRN (21:29)
[2023-03-04] MEDS ORDERED: ONDANSETRON 4 MG/2 ML VIAL IV PRN (21:29)
--- NOTE | 2023-03-04 21:38 | P.HP ---
Certification for Inpatient Patient admitted to: Inpatient With expected LOS: <2 Midnights <Gold Castillo - Last Filed: 03/04/23 21:58> Patient History Date of Service: 03/04/23 Reason for admission: Myxedema coma, weakness, depression History of Present Illness: 83 year-old female with a history of anxiety, bipolar disorder, depressive disorder, hyperlipidemia, hypertension, hypothyroidism presented to ER via wheelchair with complaints of not feeling right. Patient has not been taking her home medications, not taking care of herself, not eating well. Patient is alert and oriented at this time. Patient denies any chest pain, palpitation or chest discomfort. Patient denies abdominal pain, nausea or vomiting. Patient denies fever chills or weight loss. Patient reports that she stopped her medications as she wanted to . Patient reports she do not have any suicidal thoughts or ideas at this time. ED course Vital signs BP 156/79, pulse 77, respirations 16, temperature 97.4, pulse ox 98% on room air EKG shows normal sinus rhythm. Initial lab works are significant for elevated TSH 106, T40.10, elevated lactic acid 2.4. Patient was given levothyroxine 200 mics IV x1 in the ER. We will admit the patient for the management of myxedema coma and depression. - Past Medical/Surgical History Diabetic: No -: seizure, HTN, Depression, Ulcers, anxiety, asthma, chronic diarrhea -: heart rhythm disorder. -: total hysterectomy -: Left knee sx -: left wrist tendon removed, - Social History Smoking Status: Never smoker Alcohol use: No CD- Drugs: No Caffeine use: Yes Place of Residence: Home <Gold Castillo - Last Filed: 03/04/23 21:58> Date of Service: 03/05/23 <Suly Payne - Last Filed: 03/05/23 06:43> Allergies neomycin [Neomycin] Allergy (Severe, Verified 10/05/19 21:19) swelling of ear latex Allergy (Intermediate, Verified 10/05/19 21:19) Hives Latex, Natural Rubber Allergy (Intermediate, Verified 10/05/19 21:19) Itching gluten Allergy (Verified 10/05/19 21:19) diarrhea Home Medications: Carbamazepine [Tegretol] 400 mg PO BEDTIME 10/05/19 Diphenhydramine HCl [Benadryl Allergy] 25 mg PO Q4H PRN 10/05/19 LORazepam [Lorazepam] 2 mg PO 2200 10/05/19 Buspirone HCl [Buspar] 30 mg PO BID 03/04/23 Quetiapine Fumarate [Seroquel] 400 mg PO BEDTIME 03/05/23 Review of Systems 10-point ROS is otherwise unremarkable <Gold Castillo - Last Filed: 03/04/23 21:58> Physical Examination - Physical Exam General: Alert, Oriented x3 HEENT: Atraumatic, Normocephalic Neck: Supple, 2+ carotid pulse no bruit Respiratory: Clear to auscultation bilaterally, Normal air movement Capillary refill: <2 Seconds Gastrointestinal: Normal bowel sounds, Soft and benign Musculoskeletal: No clubbing, No swelling Integumentary: Other (Extremely dry skin) Neurological: Normal speech, Normal tone, Normal affect - Studies Laboratory Data (last 24 hrs) 03/04/23 03/04/23 03/04/23 17:29 17:15 17:10 WBC 4.80 Hgb 12.1 Hct 35.3 L Plt Count 260 PT 10.9 INR 0.99 APTT 26.6 Sodium Potassium BUN Creatinine Glucose Uric Acid Phosphorus Magnesium Total Bilirubin AST ALT Alkaline Phosphatase Lipase 47 03/04/23 17:10 WBC Hgb Hct Plt Count PT INR APTT Sodium 138 Potassium 3.6 BUN 11 Creatinine 1.08 H Glucose 107 H Uric Acid 4.4 Phosphorus 2.8 Magnesium 2.2 Total Bilirubin 0.5 AST 41 H ALT 36 Alkaline Phosphatase 88 Lipase Microbiology Data (last 24 hrs): 03/04/23 16:23 Nasopharnyx Influenza Type A Antigen Screen - Final 03/04/23 16:23 Nasopharnyx Influenza Type B Antigen Screen - Final <Gold Castillo - Last Filed: 03/04/23 21:58> - Studies Laboratory Data (last 24 hrs) 03/04/23 03/04/23 03/04/23 17:29 17:15 17:10 WBC 4.80 Hgb 12.1 Hct 35.3 L Plt Count 260 PT 10.9 INR 0.99 APTT 26.6 Sodium Potassium BUN Creatinine Glucose Uric Acid Phosphorus Magnesium Total Bilirubin AST ALT Alkaline Phosphatase Lipase 47 03/04/23 17:10 WBC Hgb Hct Plt Count PT INR APTT Sodium 138 Potassium 3.6 BUN 11 Creatinine 1.08 H Glucose 107 H Uric Acid 4.4 Phosphorus 2.8 Magnesium 2.2 Total Bilirubin 0.5 AST 41 H ALT 36 Alkaline Phosphatase 88 Lipase Microbiology Data (last 24 hrs): 03/04/23 17:29 Blood - Blood Anaerobic Blood Culture - Final 03/04/23 16:23 Nasopharnyx Influenza Type A Antigen Screen - Final 03/04/23 16:23 Nasopharnyx Influenza Type B Antigen Screen - Final <Suly Payne - Last Filed: 03/05/23 06:43> Assessment and Plan - Problems (Diagnosis) (1) Myxedema Current Visit: Yes Status: Acute (2) Myxedema coma Current Visit: Yes Status: Acute (3) Hypothyroid Current Visit: Yes Status: Acute Qualifiers: Hypothyroidism type: acquired Qualified Code(s): E03.9 - Hypothyroidism, unspecified (4) Depression Current Visit: Yes Status: Chronic Qualifiers: Depression Type: major depressive disorder Major depression recurrence: recurrent Active/Remission status: currently active Major depression episode severity: severe Psychotic features: without psychotic features Qualified Code(s): F33.2 - Major depressive disorder, recurrent severe without psychotic features (5) Anxiety Current Visit: Yes Status: Chronic (6) Bipolar 1 disorder, depressed, moderate Current Visit: Yes Status: Chronic (7) HTN (hypertension) Current Visit: Yes Status: Chronic Qualifiers: Hypertension type: primary hypertension Qualified Code(s): I10 - Essential (primary) hypertension - Plan (1) Myxedema (2) Myxedema coma (3) Hypothyroid Current Visit: Yes Status: Acute * Patient came in with complaining of not feeling well, patient has not been taking her medication, not taking care of herself, getting out of the bed for eating or drinking. * TSH 106, T40.10. Admit the patient in the hospital for further management . levothyroxine 200 mcg IV x1 given in the ER, we will continue 200 mg p.o. daily and monitor TSH * Patient is alert and oriented x3, vital signs are stable no apparent distress at this time (4) Depression (5) Bipolar 1 disorder, depressed, moderate Current Visit: Yes Status: Chronic * Chronic, worsening. Patient reports that she stopped taking the medication because she wanted to * Patient denies any suicidal thoughts or ideas at this time * Will resume her home medications after reconciliation * Will continue to monitor her for worsening depression (6) Anxiety * Chronic, on Ativan scheduled * Will continue current anxiety anxiety medications * Closely monitoring for worsening symptoms (7) HTN (hypertension) Current Visit: Yes Status: Chronic * Chronic, controlled * Will continue to monitor closely and resume all the home meds CODE STATUS Full code full code DVT prophylaxis Heparin Diet Regular diet Discharge Plan: Home Plan to discharge in: 48 Hours - Advance Directives Does patient have a Living Will: No Does patient have a Durable POA for Healthcare: No - Code Status/Comfort Care Code Status Assessed: Yes (full code) Code Status: Full Code Physician Review: Patient Assessed, Agree with Above Assessment and Plan Critical Care: No Time Spent Managing Pts Care (In Minutes): 55 (minutes) <Gold Castillo - Last Filed: 03/04/23 21:58> Date of Service: 03/04/23 Spoke to nursing staff regarding patient's current clinical condition. TSH was elevated and T4 is low. However, patient is awake and alert and responsive. Patient's body temperature is normal. Patient's heart rate is stable. There was concern for a new left bundle branch block; however, on review of record patient has as in the past. Advised nursing staff to go ahead and give IV Synthroid. Patient was post to be given 200 mcg of IV Synthroid; however, on reviewing the records in the medication reconciliation this was not given. Patient has been started on oral Synthroid. We will continue monitoring closely. We will repeat troponins. Increased coagulopathy and severe hypothyroidism so I have advised the nursing staff since patient is not having chest pain or any new EKG findings to hold off on the heparin. Patient will be admitted to the hospital for further treatment. Echocardiogram pending. We will continue with Synthroid and will discuss with patient regarding why she has not been compliant. If she is severely depressed she may need eventual transfe r to [facility]. <Suly Payne - Last Filed: 03/05/23 06:43>
[2023-03-04] MEDS ORDERED: MAGNESIUM HYDROXIDE 8% 30 ML PO PRN (22:19)
[2023-03-04] MEDS ORDERED: DIPHENHYDRAMINE 25 MG TAB/CAP PO PRN (23:49)
[2023-03-05] MEDS: LORAZEPAM 1 MG TABLET PO SCH ×2 (00:41→22:07)
[2023-03-05] MEDS: carBAMazepine 200 MG TAB PO SCH ×2 (00:56→22:06)
[2023-03-05] MEDS: HEPARIN 5000 UNIT/ML 1 ML VIAL SQ SCH ×3 (01:08→16:44)
[2023-03-05 02:08] LABS: Absolute Lymphocytes (CBC) 1.5 K/uL (0.7-4.9); Hematocrit 34.5 % (36.0-45.0); Lymphocytes % 29.9 % (15.3-44.8); Platelets 229 thou/uL (152-406); RBC Red Blood Cell Count 3.15 M/uL (3.86-4.86)
[2023-03-05 02:19] LABS: MCV 109.5 fL (80-100)
[2023-03-05 02:22] LABS: Magnesium 2.3 mg/dL (1.6-2.4); Phosphorus 2.7 mg/dL (2.5-4.9); Potassium 2.8 mEq/L (3.5-5.1)
[2023-03-05] MEDS ORDERED: LORAZEPAM 1 MG TABLET PO SCH ×2 (04:00→14:00)
[2023-03-05] MEDS: LEVOTHYROXINE SOD 0.1 MG TAB PO SCH (06:14)
[2023-03-05] MEDS ORDERED: POTASSIUM 25 MEQ EFFERV TAB PO ONE (06:20)
[2023-03-05] MEDS: ONDANSETRON 4 MG/2 ML VIAL IV PRN ×3 (06:51→18:40)
[2023-03-05 07:16] LABS: Specific Gravity 1.027 (1.005-1.030); Urine Bacteria None Seen /HPF (<20); Urine Bilirubin NEGATIVE (Negative); Urine Blood Negative (Negative); Urine Clarity Clear (Clear); Urine Color Yellow (Yellow); Urine Glucose NEGATIVE (Negative); Urine Mucus 4+ /HPF (None Seen); Urine Protein 1+ (Negative); Urine RBC <5 /HPF (None Seen); Urine Urobilinogen Normal (Normal)
[2023-03-05] MEDS ORDERED: INFLUENZA VACCINE (for 6+ mo) 0.5 ML DOSE IMVAC ONE (08:00)
[2023-03-05] MEDS ORDERED: ENOXAPARIN 40 MG/0.4 ML SQ SCH (09:00)
[2023-03-05] MEDS ORDERED: BUSPIRONE HCL 15 MG TABLET PO SCH (09:00)
[2023-03-05] MEDS: ESCITALOPRAM 20 MG TAB PO SCH (09:19)
[2023-03-05] MEDS: BUSPIRONE HCL 15 MG TABLET PO SCH ×2 (09:19→22:06)
[2023-03-05] MEDS: PHENAZOPYRIDINE 100MG TAB PO PRN ×2 (11:40→18:45)
[2023-03-05] MEDS: HYDROCORTISONE SUC 100 MG INJ IV SCH ×2 (11:40→20:38)
--- NOTE | 2023-03-05 16:41 | P.PN ---
Subjective Date of Service: 03/05/23 Chief Complaint: Myxedema coma, weakness, depression Subjective: No new changes, Improving Physical Examination - Vital Signs Temperature: 98.3 F Blood Pressure: 159/81 Pulse: 71 Respirations: 16 Pulse Ox (%): 93 - Physical Exam General: Alert, Oriented x3 HEENT: Atraumatic, Normocephalic Neck: Supple Respiratory: Normal air movement Cardiovascular: Regular rate/rhythm, Normal S1 S2 Gastrointestinal: Soft and benign Musculoskeletal: No swelling Neurological: Normal speech - Studies Laboratory Data (last 24 hrs) 03/04/23 03/04/23 03/04/23 17:29 17:15 17:10 WBC 4.80 Hgb 12.1 Hct 35.3 L Plt Count 260 PT 10.9 INR 0.99 APTT 26.6 Sodium Potassium BUN Creatinine Glucose Uric Acid Phosphorus Magnesium Total Bilirubin AST ALT Alkaline Phosphatase Lipase 47 03/04/23 17:10 WBC Hgb Hct Plt Count PT INR APTT Sodium 138 Potassium 3.6 BUN 11 Creatinine 1.08 H Glucose 107 H Uric Acid 4.4 Phosphorus 2.8 Magnesium 2.2 Total Bilirubin 0.5 AST 41 H ALT 36 Alkaline Phosphatase 88 Lipase Microbiology Data (last 24 hrs): 03/04/23 17:29 Blood - Blood Anaerobic Blood Culture - Final 03/04/23 16:23 Nasopharnyx Influenza Type A Antigen Screen - Final 03/04/23 16:23 Nasopharnyx Influenza Type B Antigen Screen - Final Assessment And Plan - Plan Assessment and Plan - Problems (Diagnosis) (1) Myxedema Current Visit: Yes Status: Acute (2) Myxedema coma Current Visit: Yes Status: Acute (3) Hypothyroid Current Visit: Yes Status: Acute Qualifiers: Hypothyroidism type: acquired Qualified Code(s): E03.9 - Hypothyroidism, unspecified (4) Depression Current Visit: Yes Status: Chronic Qualifiers: Depression Type: major depressive disorder Major depression recurrence: recurrent Active/Remission status: currently active Major depression episode severity: severe Psychotic features: without psychotic features Qualified Code(s): F33.2 - Major depressive disorder, recurrent severe without psychotic features (5) Anxiety Current Visit: Yes Status: Chronic (6) Bipolar 1 disorder, depressed, moderate Current Visit: Yes Status: Chronic (7) HTN (hypertension) Current Visit: Yes Status: Chronic Qualifiers: Hypertension type: primary hypertension Qualified Code(s): I10 - Essential (primary) hypertension - Plan (1) Myxedema (2) Myxedema coma (3) Hypothyroid Current Visit: Yes Status: Acute No new development. Tolerating p.o. levothyroxine well. More alert and communicative. Has been severely noncompliant with levothyroxine dose. We will follow clinical symptoms and start patient on IV hydrocortisone for further management. (4) Depression (5) Bipolar 1 disorder, depressed, moderate Current Visit: Yes Status: Chronic We will continue on antidepressant medication and monitor response (6) Anxiety * Chronic, on Ativan as needed while admitted. * Will continue current anxiety anxiety medications * Closely monitoring for worsening symptoms (7) HTN (hypertension) Current Visit: Yes Status: Chronic * Chronic, controlled. We will follow vitals per unit protocol * Will continue home antihypertensive medications. CODE STATUS Full code full code DVT prophylaxis Heparin for DVT. Diet Regular diet. Discharge Plan: Home Plan to discharge in: 48 Hours - Advance Directives Does patient have a Living Will: No Does patient have a Durable POA for Healthcare: No - Code Status/Comfort Care Code Status Assessed: Yes (full code) Code Status: Full Code Critical Care: No Time Spent Managing Pts Care (In Minutes): 35 (minutes) Physician Review: Patient Assessed, Agree with Above Assessment and Plan
[2023-03-05] MEDS ORDERED: POTASSIUM CL SA 10 MEQ TAB PO ONE (21:00)
[2023-03-05] MEDS ORDERED: HOME MED 1 EA UNK (Quetiapine Fumarate [Seroquel] 300 MG Tablet) PO SCH (21:00)
[2023-03-06] MEDS: QUETIAPINE 100MG TAB PO SCH (00:06)
[2023-03-06] MEDS: HEPARIN 5000 UNIT/ML 1 ML VIAL SQ SCH ×3 (00:09→15:59)
[2023-03-06 02:47] LABS: Absolute Lymphocytes (CBC) 0.8 K/uL (0.7-4.9); Hematocrit 32.2 % (36.0-45.0); Lymphocytes % 15.2 % (15.3-44.8); MPV 6.9 fL (7.6-11.3); Platelets 239 thou/uL (152-406); RBC Red Blood Cell Count 2.92 M/uL (3.86-4.86)
[2023-03-06 03:05] LABS: Magnesium 2.1 mg/dL (1.6-2.4); Phosphorus 3.5 mg/dL (2.5-4.9); Potassium 3.2 mEq/L (3.5-5.1)
[2023-03-06] MEDS ORDERED: POTASSIUM 25 MEQ EFFERV TAB PO ONE ×3 (06:00→16:00)
[2023-03-06] MEDS: LEVOTHYROXINE SOD 0.1 MG TAB PO SCH (06:26)
[2023-03-06] MEDS: ESCITALOPRAM 20 MG TAB PO SCH (09:18)
[2023-03-06] MEDS: BUSPIRONE HCL 15 MG TABLET PO SCH ×2 (09:18→22:08)
[2023-03-06] MEDS: HYDROCORTISONE SUC 100 MG INJ IV SCH ×2 (09:23→22:07)
[2023-03-06 14:32] LABS: Potassium 3.5 mEq/L (3.5-5.1)
[2023-03-06] MEDS: ACETAMINOPHEN 500 MG TAB PO PRN ×2 (16:01→21:36)
[2023-03-06] MEDS: ONDANSETRON 4 MG/2 ML VIAL IV PRN (16:02)
--- NOTE | 2023-03-06 16:14 | P.PN ---
Subjective Date of Service: 03/06/23 Chief Complaint: Myxedema coma, weakness, depression Subjective: No new changes, Improving Physical Examination - Vital Signs Temperature: 98.2 F Blood Pressure: 163/82 Pulse: 76 Respirations: 16 Pulse Ox (%): 92 - Physical Exam General: Alert HEENT: Atraumatic Neck: Supple Respiratory: Normal air movement Cardiovascular: Regular rate/rhythm, Normal S1 S2 Gastrointestinal: Soft and benign Musculoskeletal: No swelling Neurological: Normal speech - Studies Microbiology Data (last 24 hrs): 03/04/23 17:29 Blood - Blood Anaerobic Blood Culture - Final Assessment And Plan - Plan Assessment and Plan - Problems (Diagnosis) (1) Myxedema Current Visit: Yes Status: Acute (2) Myxedema coma Current Visit: Yes Status: Acute (3) Hypothyroid Current Visit: Yes Status: Acute Qualifiers: Hypothyroidism type: acquired Qualified Code(s): E03.9 - Hypothyroidism, unspecified (4) Depression Current Visit: Yes Status: Chronic Qualifiers: Depression Type: major depressive disorder Major depression recurrence: recurrent Active/Remission status: currently active Major depression episode severity: severe Psychotic features: without psychotic features Qualified Code(s): F33.2 - Major depressive disorder, recurrent severe without psychotic features (5) Anxiety Current Visit: Yes Status: Chronic (6) Bipolar 1 disorder, depressed, moderate Current Visit: Yes Status: Chronic (7) HTN (hypertension) Current Visit: Yes Status: Chronic Qualifiers: Hypertension type: primary hypertension Qualified Code(s): I10 - Essential (primary) hypertension - Plan (1) Myxedema (2) Myxedema coma (3) Hypothyroid Current Visit: Yes Status: Acute No new development. Tolerating p.o. levothyroxine well. More alert and communicative. Has been severely noncompliant with levothyroxine dose. We will follow clinical symptoms and continue patient on IV hydrocortisone for further management. (4) Depression (5) Bipolar 1 disorder, depressed, moderate Current Visit: Yes Status: Chronic We will continue on antidepressant medication and monitor response (6) Anxiety * Chronic, on Ativan as needed while admitted. * Will continue current anxiety anxiety medications * Closely monitoring for worsening symptoms (7) HTN (hypertension) Current Visit: Yes Status: Chronic * Chronic, controlled. We will follow vitals per unit protocol * Will continue home antihypertensive medications. CODE STATUS Full code full code DVT prophylaxis Heparin for DVT. Diet Regular diet. Discharge Plan: Home Plan to discharge in: 24 Hours - Advance Directives Does patient have a Living Will: No Does patient have a Durable POA for Healthcare: No - Code Status/Comfort Care Code Status Assessed: Yes (full code) Code Status: Full Code Critical Care: No Time Spent Managing Pts Care (In Minutes): 35 (minutes) Physician Review: Patient Assessed, Agree with Above Assessment and Plan
[2023-03-06] MEDS: ATORVASTATIN 40 MG TAB PO SCH (20:03)
[2023-03-06] MEDS ORDERED: QUETIAPINE 100MG TAB PO SCH (21:00)
[2023-03-06] MEDS: carBAMazepine 200 MG TAB PO SCH (22:08)
[2023-03-06] MEDS: LORAZEPAM 1 MG TABLET PO SCH (22:08)
[2023-03-07] MEDS: QUETIAPINE 100MG TAB PO SCH ×2 (00:01→21:30)
[2023-03-07] MEDS: HEPARIN 5000 UNIT/ML 1 ML VIAL SQ SCH ×3 (00:05→16:18)
[2023-03-07 03:34] LABS: Absolute Lymphocytes (CBC) 0.9 K/uL (0.7-4.9); Hematocrit 31.3 % (36.0-45.0); Lymphocytes % 16.7 % (15.3-44.8); MPV 6.9 fL (7.6-11.3); Platelets 224 thou/uL (152-406); RBC Red Blood Cell Count 2.81 M/uL (3.86-4.86)
[2023-03-07 04:01] LABS: MCV 111.3 fL (80-100)
[2023-03-07 04:10] LABS: Magnesium 2.4 mg/dL (1.6-2.4); Phosphorus 3.3 mg/dL (2.5-4.9); Potassium 3.6 mEq/L (3.5-5.1)
[2023-03-07] MEDS: LEVOTHYROXINE SOD 0.1 MG TAB PO SCH (05:36)
[2023-03-07] MEDS ORDERED: POTASSIUM CL SA 10 MEQ TAB PO ONE (06:30)
[2023-03-07] MEDS: ESCITALOPRAM 20 MG TAB PO SCH (08:55)
[2023-03-07] MEDS: BUSPIRONE HCL 15 MG TABLET PO SCH ×2 (08:56→21:30)
[2023-03-07] MEDS: HYDROCORTISONE SUC 100 MG INJ IV SCH ×2 (09:03→21:29)
--- NOTE | 2023-03-07 12:18 | P.DS ---
Admission Date: 03/04/23 Discharge Date: 03/07/23 Disposition: ROUTINE DISCHARGE Discharge Condition: GOOD Reason for Admission: Myxedema coma, weakness, depression Brief History of Present Illness: 83 year-old female with a history of anxiety, bipolar disorder, depressive disorder, hyperlipidemia, hypertension, hypothyroidism presented to ER via wheelchair with complaints of not feeling right. Patient has not been taking her home medications, not taking care of herself, not eating well. Patient is alert and oriented at this time. Patient denies any chest pain, palpitation or chest discomfort. Patient denies abdominal pain, nausea or vomiting. Patient denies fever chills or weight loss. Patient reports that she stopped her medications as she wanted to . Patient reports she do not have any suicidal thoughts or ideas at this time. ED course Vital signs BP 156/79, pulse 77, respirations 16, temperature 97.4, pulse ox 98% on room air EKG shows normal sinus rhythm. Initial lab works are significant for elevated TSH 106, T40.10, elevated lactic acid 2.4. Patient was given levothyroxine 200 mics IV x1 in the ER. We will admit the patient for the management of myxedema coma and depression. Hospital Course: She was found to have severely depleted thyroid status with free T4 level of 0.1. Her TSH was elevated and she was found to have significant myxedema. She was started on oral levothyroxine with improvement in symptoms and was given hydrocortisone doses. She was deemed stable for discharge as her symptoms improved and she was sent home with a prescription of levothyroxine lipid panel was done which showed elevated cholesterol for which she was given atorvastatin and she was discharged and to follow-up with commissioned sales associate Dr. Mcguire within 2 weeks of hospital disch arge. Vital Signs/Physical Exam: Temp Pulse Resp BP Pulse Ox 99.4 F 79 17 168/74 H 92 03/07/23 11:59 03/07/23 11:59 03/07/23 11:59 03/07/23 11:59 03/07/23 11:59 General: Alert HEENT: Atraumatic, Normocephalic Neck: Supple Respiratory: Normal air movement Cardiovascular: Regular rate/rhythm, Normal S1 S2 Gastrointestinal: Soft and benign Musculoskeletal: No swelling Neurological: Normal speech Laboratory Data at Discharge: WBC 5.20 thou/uL (4.3-10.9) 03/07/23 03:09 Hgb 10.8 g/dL (12.0-15.0) L 03/07/23 03:09 Hct 31.3 % (36.0-45.0) L 03/07/23 03:09 Plt Count 224 thou/uL (152-406) 03/07/23 03:09 PT 10.9 SECONDS (9.5-12.5) 03/04/23 17:29 INR 0.99 03/04/23 17:29 APTT 26.6 SECONDS (24.3-36.9) 03/04/23 17:29 Sodium Cancelled 03/07/23 Unknown Potassium Cancelled 03/07/23 Unknown BUN Cancelled 03/07/23 Unknown Creatinine Cancelled 03/07/23 Unknown Glucose Cancelled 03/07/23 Unknown Uric Acid 4.4 mg/dL (2.6-6.0) 03/04/23 17:10 Phosphorus 3.3 mg/dL (2.5-4.9) 03/07/23 03:09 Magnesium 2.4 mg/dL (1.6-2.4) 03/07/23 03:09 Total Bilirubin 0.5 mg/dL (0.2-1.0) 03/04/23 17:10 AST 41 U/L (15-37) H 03/04/23 17:10 ALT 36 U/L (13-56) 03/04/23 17:10 Alkaline Phosphatase 88 U/L (45-117) 03/04/23 17:10 Triglycerides 275 mg/dL (<150) H 03/05/23 01:27 Cholesterol 330 mg/dL (<200) H 03/05/23 01:27 HDL Cholesterol 63 mg/dL (40-60) H 03/05/23 01:27 Cholesterol/HDL Ratio 5.24 03/05/23 01:27 Lipase 47 U/L (13-75) 03/04/23 17:10 Home Medications: Carbamazepine [Tegretol] 400 mg PO BEDTIME 10/05/19 Diphenhydramine HCl [Benadryl Allergy] 25 mg PO Q4H PRN 10/05/19 LORazepam [Lorazepam] 2 mg PO 2200 10/05/19 Buspirone HCl [Buspar] 30 mg PO BID 03/04/23 Quetiapine Fumarate [Seroquel] 400 mg PO BEDTIME 03/05/23 Atorvastatin Calcium [Lipitor] 40 mg PO BEDTIME #30 tab 03/07/23 Escitalopram [Lexapro*] 10 mg PO DAILY #30 tab 03/07/23 Levothyroxine [Synthroid*] 0.2 mg PO DAILYAC #60 tab 03/07/23 New Medications: Escitalopram [Lexapro*] 10 mg PO DAILY #30 tab Atorvastatin Calcium [Lipitor] 40 mg PO BEDTIME #30 tab Levothyroxine [Synthroid*] 0.2 mg PO DAILYAC #60 tab Diet: AHA Followup: Ray Kahn MD [Primary Care Provider] -
[2023-03-07] MEDS: ONDANSETRON 4 MG/2 ML VIAL IV PRN (16:12)
[2023-03-07] MEDS: ATORVASTATIN 40 MG TAB PO SCH (21:29)
[2023-03-07] MEDS: carBAMazepine 200 MG TAB PO SCH (21:29)
[2023-03-07] MEDS: LORAZEPAM 1 MG TABLET PO SCH (21:30)
[2023-03-08 00:43] VITALS: BMI 35.6
[2023-03-08] MEDS: HEPARIN 5000 UNIT/ML 1 ML VIAL SQ SCH ×3 (02:08→16:57)
[2023-03-08] MEDS: LEVOTHYROXINE SOD 0.1 MG TAB PO SCH (06:44)
[2023-03-08] MEDS: ESCITALOPRAM 20 MG TAB PO SCH (10:17)
[2023-03-08] MEDS: HYDROCORTISONE SUC 100 MG INJ IV SCH ×2 (10:18→20:30)
[2023-03-08 10:59] LABS: Potassium 3.6 mEq/L (3.5-5.1)
[2023-03-08] MEDS: BUSPIRONE HCL 15 MG TABLET PO SCH ×2 (12:39→20:26)
[2023-03-08] MEDS ORDERED: POTASSIUM CL SA 10 MEQ TAB PO ONE (13:00)
[2023-03-08] MEDS ORDERED: CETIRIZINE HCL 5 MG TABLET PO PRN (15:19)
--- NOTE | 2023-03-08 15:24 | P.PN ---
Subjective Date of Service: 03/08/23 Chief Complaint: Myxedema coma, weakness, depression Subjective: No new changes, Improving Physical Examination - Vital Signs Temperature: 97.3 F Blood Pressure: 144/69 Pulse: 78 Respirations: 18 Pulse Ox (%): 96 - Physical Exam General: Alert HEENT: Atraumatic Neck: Supple Respiratory: Normal air movement Cardiovascular: Regular rate/rhythm, Normal S1 S2 Gastrointestinal: Soft and benign Neurological: Normal speech Assessment And Plan - Plan Assessment and Plan - Problems (Diagnosis) (1) Myxedema Current Visit: Yes Status: Acute (2) Myxedema coma Current Visit: Yes Status: Acute (3) Hypothyroid Current Visit: Yes Status: Acute Qualifiers: Hypothyroidism type: acquired Qualified Code(s): E03.9 - Hypothyroidism, unspecified (4) Depression Current Visit: Yes Status: Chronic Qualifiers: Depression Type: major depressive disorder Major depression recurrence: recurrent Active/Remission status: currently active Major depression episode severity: severe Psychotic features: without psychotic features Qualified Code(s): F33.2 - Major depressive disorder, recurrent severe without psychotic features (5) Anxiety Current Visit: Yes Status: Chronic (6) Bipolar 1 disorder, depressed, moderate Current Visit: Yes Status: Chronic (7) HTN (hypertension) Current Visit: Yes Status: Chronic Qualifiers: Hypertension type: primary hypertension Qualified Code(s): I10 - Essential (primary) hypertension - Plan (1) Myxedema (2) Myxedema coma (3) Hypothyroid Current Visit: Yes Status: Acute No new development. Tolerating p.o. levothyroxine well. More alert and communicative. Has been severely noncompliant with levothyroxine dose. We will follow clinical symptoms and continue patient on IV hydrocortisone for further management. (4) Depression (5) Bipolar 1 disorder, depressed, moderate Current Visit: Yes Status: Chronic We will continue on antidepressant medication and monitor response (6) Anxiety * Chronic, on Ativan as needed while admitted. * Will continue current anxiety anxiety medications * Closely monitoring for worsening symptoms (7) HTN (hypertension) Current Visit: Yes Status: Chronic * Chronic, controlled. We will follow vitals per unit protocol * Will continue home antihypertensive medications. CODE STATUS Full code full code DVT prophylaxis Heparin for DVT. Diet Regular diet. Discharge Plan: Home Plan to discharge in: 24 Hours - Advance Directives Does patient have a Living Will: No Does patient have a Durable POA for Healthcare: No - Code Status/Comfort Care Code Status Assessed: Yes (full code) Code Status: Full Code Critical Care: No Time Spent Managing Pts Care (In Minutes): 35 (minutes) Physician Review: Patient Assessed, Agree with Above Assessment and Plan
[2023-03-08] MEDS: ACETAMINOPHEN 500 MG TAB PO PRN (16:57)
[2023-03-08] MEDS: ONDANSETRON 4 MG/2 ML VIAL IV PRN (16:57)
[2023-03-08] MEDS: ATORVASTATIN 40 MG TAB PO SCH (20:28)
[2023-03-08] MEDS: QUETIAPINE 100MG TAB PO SCH (20:29)
[2023-03-08] MEDS: carBAMazepine 200 MG TAB PO SCH (20:29)
[2023-03-08] MEDS: LORAZEPAM 1 MG TABLET PO SCH (22:24)
[2023-03-09] MEDS: HEPARIN 5000 UNIT/ML 1 ML VIAL SQ SCH ×3 (00:30→17:12)
[2023-03-09] MEDS: LEVOTHYROXINE SOD 0.1 MG TAB PO SCH (05:40)
--- NOTE | 2023-03-09 08:09 | RAD REPORT ---
EXAM DESCRIPTION: RAD - Chest Single View - 03/09/2023 6:46 am CLINICAL HISTORY: eval of sob. Chest pain. COMPARISON: Chest Single View dated 03/04/2023; Chest Single View dated 12/04/2022; Chest Single View dated 10/05/2019; CHEST PA AND LAT 2 VIEW dated 01/21/2014 FINDINGS: Portable technique limits examination quality. Mild bilateral pulmonary opacities are noted favored to represent mild interstitial pulmonary edema. The heart is moderately enlarged in size. Mild atelectasis suspected medial right lung base.No fractu re seen. IMPRESSION: Mild CHF is suspected.
[2023-03-09] MEDS: HYDROCORTISONE SUC 100 MG INJ IV SCH ×2 (08:10→20:23)
[2023-03-09] MEDS: ESCITALOPRAM 20 MG TAB PO SCH (08:10)
[2023-03-09] MEDS: BUSPIRONE HCL 15 MG TABLET PO SCH ×2 (08:14→20:23)
--- NOTE | 2023-03-09 13:25 | P.PN ---
Subjective Date of Service: 03/09/23 Chief Complaint: Myxedema coma, weakness, depression Subjective: Improving Patient seen at bedside. Patient denies any signs and symptoms of distress. Continue supportive care. Review of Systems General: Weakness Eyes: Unremarkable ENT: Unremarkable Respiratory: SOB with Excertion Cardiovascular: Unremarkable Gastrointestinal: Unremarkable Genitourinary: Unremarkable Musculoskeletal: Unremarkable Integumentary: Unremarkable Neurological: Weakness Lymphatics: Unremarkable Physical Examination - Vital Signs Temperature: 97.9 F Blood Pressure: 175/80 Pulse: 76 Respirations: 14 Pulse Ox (%): 94 - Physical Exam General: Alert, In no apparent distress, Oriented x3, Cooperative HEENT: Atraumatic, PERRLA, EOMI Neck: Supple, JVD not distended Respiratory: Normal air movement, Diminished Cardiovascular: Regular rate/rhythm, Normal S1 S2, Edema Capillary refill: <2 Seconds Gastrointestinal: Normal bowel sounds, No tenderness Musculoskeletal: No tenderness Integumentary: No rashes Neurological: Normal speech, Normal tone, Normal affect Lymphatics: No axilla or inguinal lymphadenopathy Assessment And Plan - Plan Interval history. 03/09/2023. Patient seen at bedside. Patient tolerating physical therapy. Patient reports improvement in generalized weakness. Nurse instructed to start voiding trials with the hope of discontinue Salguero catheter. Patient on O2 therapy. We will try to wean patient off O2. Continue supportive care. (1) Myxedema (2) Myxedema coma (3) Hypothyroid Current Visit: Yes Status: Acute No new development. Tolerating p.o. levothyroxine well. More alert and communicative. Has been severely noncompliant with levothyroxine dose. We will follow clinical symptoms and continue patient on IV hydrocortisone for further management. (4) Depression (5) Bipolar 1 disorder, depressed, moderate Current Visit: Yes Status: Chronic We will continue on antidepressant medication and monitor response (6) Anxiety * Chronic, on Ativan as needed while admitted. * Will continue current anxiety anxiety medications * Closely monitoring for worsening symptoms (7) HTN (hypertension) Current Visit: Yes Status: Chronic * Chronic, controlled. We will follow vitals per unit protocol * Will continue home antihypertensive medications. CODE STATUS Full code full code DVT prophylaxis Heparin for DVT. Discharge Plan: Home Plan to discharge in: 48 Hours - Code Status/Comfort Care Code Status Assessed: Yes Physician Review: Patient Assessed, Agree with Above Assessment and Plan Critical Care: No
[2023-03-09] MEDS: carBAMazepine 200 MG TAB PO SCH (20:23)
[2023-03-09] MEDS: QUETIAPINE 100MG TAB PO SCH (20:23)
[2023-03-09] MEDS: ATORVASTATIN 40 MG TAB PO SCH (20:23)
[2023-03-09] MEDS: LORAZEPAM 1 MG TABLET PO SCH (22:15)
[2023-03-10] MEDS: HEPARIN 5000 UNIT/ML 1 ML VIAL SQ SCH ×3 (00:04→17:53)
[2023-03-10 02:41] LABS: Absolute Lymphocytes (CBC) 0.8 K/uL (0.7-4.9); Lymphocytes % 11.6 % (15.3-44.8); MCV 110.6 fL (80-100); MPV 7.2 fL (7.6-11.3); Platelets 250 thou/uL (152-406)
[2023-03-10 03:05] LABS: Potassium 3.5 mEq/L (3.5-5.1)
[2023-03-10] MEDS: LEVOTHYROXINE SOD 0.1 MG TAB PO SCH (06:09)
--- NOTE | 2023-03-10 08:04 | P.PN ---
Subjective Date of Service: 03/10/23 (Hospitalist) Chief Complaint: Hypothyroidism Subjective: Improving (Patient is improving no complaints alert responsive cooperative) Review of Systems Unremarkable Physical Examination - Vital Signs Temperature: 97.5 F Blood Pressure: 135/65 Pulse: 75 Respirations: 16 Pulse Ox (%): 96 - Physical Exam General: Alert, Oriented x3 Respiratory: Clear to auscultation bilaterally Cardiovascular: No edema, Regular rate/rhythm, Normal S1 S2 Gastrointestinal: Normal bowel sounds, Soft and benign - Studies Microbiology Data (last 24 hrs): 03/04/23 17:29 Blood - Blood Aerobic Blood Culture - Final No growth in 5 days. 03/04/23 17:29 Blood - Blood Anaerobic Blood Culture - Final Assessment And Plan - Current Problems (Diagnosis) (1) Hypothyroid Current Visit: Yes Status: Acute Plan: Patient is 83 years of age admitted with severe hypothyroidism elevated TSH she is doing much better vital signs are stable plan to ambulate discharge planning DC steroid CT scan shows chronic maxillary sinusitis oxygenation satisfactory Qualifiers: Hypothyroidism type: acquired Qualified Code(s): E03.9 - Hypothyroidism, unspecified Physician Review: Patient Assessed, Agree with Above Assessment and Plan
[2023-03-10] MEDS ORDERED: POTASSIUM 25 MEQ EFFERV TAB PO ONE (09:00)
[2023-03-10] MEDS: ESCITALOPRAM 20 MG TAB PO SCH (09:57)
[2023-03-10] MEDS: HYDROCORTISONE SUC 100 MG INJ IV SCH ×2 (09:57→20:50)
[2023-03-10] MEDS: BUSPIRONE HCL 15 MG TABLET PO SCH ×2 (09:58→20:50)
[2023-03-10] MEDS: PHENAZOPYRIDINE 100MG TAB PO PRN (11:36)
[2023-03-10] MEDS: ONDANSETRON 4 MG/2 ML VIAL IV PRN (17:25)
[2023-03-10] MEDS: QUETIAPINE 100MG TAB PO SCH (20:49)
[2023-03-10] MEDS: carBAMazepine 200 MG TAB PO SCH (20:50)
[2023-03-10] MEDS: ATORVASTATIN 40 MG TAB PO SCH (20:50)
[2023-03-10] MEDS: LORAZEPAM 1 MG TABLET PO SCH (22:19)
[2023-03-11 00:26] VITALS: O2SAT 94
[2023-03-11] MEDS: HEPARIN 5000 UNIT/ML 1 ML VIAL SQ SCH ×2 (00:34→09:44)
[2023-03-11] MEDS: LEVOTHYROXINE SOD 0.1 MG TAB PO SCH (05:34)
--- NOTE | 2023-03-11 05:45 | P.PN ---
Date of Service: 03/11/23 Subjective: Physical Exam: Vitals: reviewed GEN: Alert, oriented, NAD HEENT: Normal conjunctiva, sclera anicteric CV: Regular rate & rhythm, no edema Pulm: Nonlabored respiraitons, clear bilaterally ABD: Soft, nontender, nondistended MSK: No joint tenderness Integumentary: No rashes Neuro: Normal speech, normal affect Problem List: Myxedema myxedema coma Hypothyroidism Depression Bipolar disorder Depression / anxiety Hypertension Plan: Tolerating p.o. levothyroxine well. More alert and communicative. Has been severely noncompliant with levothyroxine dose. continue IV hydrocortisone Continue antidepressants continue ativan at bedtime DVT prophylaxis with heparin sq
[2023-03-11 06:48] LABS: Potassium 3.4 mEq/L (3.5-5.1)
--- NOTE | 2023-03-11 07:11 | ECHO ---
HEIGHT: 5 ft 6 in WEIGHT: 221 lb 0 oz DATE OF STUDY: 03/06/[address]: Gold Castillo NP 2-DIMENSIONAL: YES M.MODE: YES DOPPLER: YES COLOR FLOW: YES TDS: NO PORTABLE: YES DEFINITY: NO BUBBLE STUDY: NO DIAGNOSIS: HYPERTENSION CARDIAC HISTORY: CATHERIZATION: NO SURGERY: NO PROSTHETIC VALVE: NO PACEMAKER: NO MEASUREMENTS (cm) DIASTOLIC (NORMALS) SYSTOLIC (NORMALS) IVSd 1.4 (0.6-1.2) LA Diam 2.7 (1.9-4.0) LVEF 57% LVIDd 4.0 (3.5-5.7) LVIDs 2.9 (2.0-3.5) %FS 29% LVPWd 1.4 (0.6-1.2) Ao Diam 2.2 (2.0-3.7) 2 DIMENSIONAL ASSESSMENT: RIGHT ATRIUM: NORMAL LEFT ATRIUM: NORMAL RIGHT VENTRICLE: NORMAL LEFT VENTRICLE: LEFT VENTRICULAR HYPERTROPHY TRICUSPID VALVE: NORMAL MITRAL VALVE: MILD MITRAL REGURGITATION PULMONIC VALVE: NORMAL AORTIC VALVE: MILD AORTIC REGURGITATION PERICARDIAL EFFUSION: TRACE AORTIC ROOT: NORMAL LEFT VENTRICULAR WALL MOTION: NORMAL DOPPLER/COLOR FLOW: SEE BELOW. COMMENTS: 1. NORMAL LEFT VENTRICULAR EJECTION FRACTION 55-60%. 2. NORMAL WALL MOTION. 3. GRADE I DIASTOLIC DYSFUNCTION. 4. MILD TO MODERATE CONCENTRIC LEFT VENTRICULAR HYPERTROPHY. 5. MILD AORTIC REGURGITATION. 6. MILD MITRAL REGURGITATION. TECHNOLOGIST: Yuniel ROJAS
[2023-03-11] MEDS ORDERED: POTASSIUM 25 MEQ EFFERV TAB PO ONE (09:00)
[2023-03-11] MEDS: HYDROCORTISONE SUC 100 MG INJ IV SCH (09:43)
[2023-03-11] MEDS: BUSPIRONE HCL 15 MG TABLET PO SCH (09:44)
[2023-03-11] MEDS: ESCITALOPRAM 20 MG TAB PO SCH (09:44)
[2023-03-11 12:47] VITALS: BP 170/77; TEMP 99.9
--- NOTE | 2023-03-11 17:01 | EKG ---
Test Date: 2023-03-04 Test Time: 16:37:21 Last Dipper: SETH MEASUREMENT RESULTS: Intervals: Rate: 78 VT: QRSD: 132 QT: 406 QTc: 462 Sandwich: P: VT: QRS: -68 T: 72 INTERPRETIVE STATEMENTS: Sinus rhythm Left axis deviation Left bundle branch block Abnormal ECG Compared to ECG 12/04/2022 20:55:08 Left bundle-branch block now present Ventricular premature complex(es) no longer present Myocardial infarct finding no longer present Electronically Signed On 03-11-23 16:54:58 [employer] by Shar Alejo
== END 2023-03-11 17:30 | disposition home or self-care (01) | DRG 81 ==
LOC: ER 15:18 → ERHOLD 21:17 → 2ND 22:02
PROVIDERS: ADMIT Internal Medicine Nephrology; ATTEND Hospitalist
DX: E03.5 Myxedema coma (principal); F33.2 Major depressive disorder, recurrent severe without psychotic features; I10 Essential (primary) hypertension; F41.9 Anxiety disorder, unspecified; E03.9 Hypothyroidism, unspecified; E78.00 Pure hypercholesterolemia, unspecified; Z23 Encounter for immunization; Z88.8 Allergy status to other drugs, medicaments and biological substances; Z11.52 Encounter for screening for COVID-19; Z91.148 Patient's other noncompliance with medication regimen for other reason; Z79.899 Other long term (current) drug therapy; Z79.890 Hormone replacement therapy; Z90.710 Acquired absence of both cervix and uterus; Z91.040 Latex allergy status
CPT/HCPCS: 36415; 51702; 70450; 71045; 80048; 80053; 80061; 80156; 81001; 82533; 82947; 83605; 83690; 83735; 83930; 83935; 84100; 84132; 84300; 84439; 84443; 84481; 84484; 84550; 85025; 85610; 85730; 87040; 87804; 87811; 90471; 93005; 93306; 97116; 97161; 97530; 99285; C9113; J0696; J1644; J1720; J2405; J7040; Q2035

== ENCOUNTER 2023-03-14 17:23 | Inpatient (IN) | payer OTHER ==
--- OUTSIDE RECORDS SUMMARY | 2023-03-14 17:26 | XMS REPORT | Continuity of Care Document ---
:[address] [facility] t Address [address] [place] [address] Care Team Providers Name Role Phone No MD, Pcp Primary Care Physician Unavailable AUDIE DELGADO Attending Clinician Unavailable VELASQUEZ NESS Attending Clinician Unavailable LANDON BULL Attending Clinician Unavailable ERICH GARY Attending Clinician Unavailable ANDI GRAFF Attending Clinician Unavailable Vick RN, Jessica Attending Clinician Unavailable Payers Payer Name Policy Type Policy Number Effective Date Expiration Date S amaurice MEDICARE PART A [id number] 2007 AND B 00:00:00 Problems Condition Condition Condition Status Onset Resolution Last Treating Co mments Source Name Details Category Date Date Treatment Clinician Date Bipolar 1 Bipolar 1 Disease Active [facility] disorder disorder 1- Health 00:00: 00 Bipolar Bipolar Disease Active [...] Stop Date Source Tobacco smoking consumption unknown IN Health Medications Ordered Filled Start Stop Current Ordering Indication Dosage Frequency Signature Comments Components Source Medication Medication Date Date Medication? Clinician (SIG) Name Name Nadriazepi 2020-04- No [id number] 600mg Take 3 UT ne 04-26 tablets Health (TEGretol) 00:00: 05:59 (600 mg 200 MG 00 :00 total) by tablet mouth every night. QUEtiapine 2020-04- No [id number] 600mg Take 1.5 [facility] (SEROquel) 04-26 tablets Healt h 400 MG 00:00: 05:59 (600 mg tablet 00 :00 total) by mouth every night. TAKE 1 AND 1/2 TABLETS BY MOUTH AT BEDTIME busPIRone 2020-04- No [id number] 30mg Q.5D Take 1 U T (Buspar) 30 04-26 tablet (30 H ealth MG tablet 00:00: 05:59 mg total) 00 :00 by mouth 2 (two) times a day. escitalopra 2020-04- No [id number] 20mg QD Take 1 UT m (Lexapro) 04-26 tablet (20 H ealth 20 MG 00:00: 05:59 mg total) tablet 00 :00 by mouth 1 (one) time each day. TAKE 1 TABLET BY MOUTH EVERY DAY LORazepam Yes [id number] Take 1/2 UT (Ativan) 2 9-13 tablet by Heal th MG tablet 00:00: mouth once 00 daily and I tablet every night at bed time busPIRone Yes [id number] 15mg Q.5D Take 1 UT (Buspar) 15 9-10 tablet (15 He alth MG tablet 00:00: mg total) 00 by mouth 2 (two) times a day. levothyroxi Yes 125ug QD Take 125 U T ne 5-20 mcg by [facility] (Synthroid, 00:00: mouth 1 Levoxyl) 00 (one) time 125 MCG each day. tablet Folbic Yes 1{tbl} QD Take 1 UT 2.5-25-2 MG 2-23 tablet by a lth tablet 00:00: mouth 1 00 (one) time each day. promethazin Yes 25mg Q.[id number] Take 25 mg UT e 2 [id number] by mouth 3 Hea lth (Phenergan) 00:00: [...] capsule 00 fluticasone Yes UT (Flonase 09-24 [facility] Allergy 00:00: Relief) 50 00 MCG/ACT nasal spray levothyroxi Yes TAKE 1 UT ne (Levo-T) 09-24 TABLET Health 112 MCG 00:00: DAILY tablet 00 DIRECTED. lisinopril Yes UT 10 MG 09-24 Health tablet 00:00: 00 metoprolol Yes UT tartrate 09-24 [facility] (Lopressor) 00:00: 50 MG 00 tablet Procedures This patient has no known procedures. Encounters Start End Encounter Admission Attending Care Care Encounter Source Date/Time Date/Time Type Type Clinicians Facility Department ID 2022-11-14 Outpatient [facility] [id number] [place] 14:53:54 [id number] [facility] 2022-10-31 Outpatient [facility] [id number] [place] 10:14:32 [id number] [facility] 2022-10-30 Outpatient [facility] [id number] [place] 07:52:33 [id number] [facility] 2022-10-17 Outpatient [facility] [id number] [place] 09:34:49 [id number] [facility] 2022-09-11 Outpatient [facility] [id number] [place] 13:05:42 [id number] [facility] 2022-08-01 Outpatient [facility] [id number] [place] 10:44:15 [id number] [facility] 2022-07-31 Outpatient [facility] [id number] [place] 12:51:57 [id number] [facility] 2022-06-20 Outpatient [facility] [id number] [place] 12:17:44 [id number] [facility] 2022-06-18 Outpatient [facility] [id number] [place] 10:29:57 [id number] [facility] 2022-02-13 Outpatient [facility] [id number] [place] 09:40:18 [id number] [facility] 2021-12-19 Outpatient [facility] [id number] 11:12:11 [id number] [facility] 2021-10-06 Outpatient SANDY [facility] [id number] [place] 16:06:12 AUDIE [id number] [facility] 2021-10-05 Outpatient [facility] [id number] [place] 10:11:08 [id number] [facility] 2021-07-14 Outpatient SANDY [facility] [id number] [place] 15:17:36 AUDIE [id number] [facility] 2021-07-13 Outpatient [facility] [id number] [place] 08:58:09 [id number] [facility] 2021-06-29 Outpatient SANDY [facility] [id number] [facility] [id number] [place] [facility]01[facility]Y [facility] [id number] [place] [facility]10[facility] S[facility]Y [facility] [id number] [place] [facility]10[facility] [id number] [place] [facility]09[facility]Y [facility] [id number] [place] [facility]08[facility] [id number] [place] [facility]23-03-13 2023-03-13 Outpatient GROVER, [facility] [id number] [place] 11:00:00 11:00:00 [facility] 2023-02-06 2023-02-06 Outpatient GROVER, [facility] [id number] [place] 11:00:00 11:00:00 [facility] 2023-01-02 2023-01-02 Outpatient GROVER, [facility] [id number] [place] 11:00:00 14:31:32 [facility] 2023-01-02 2023-01-02 Outpatient REDDY DE LA [facility] [id number] [place] 11:00:00 11:00:00 BUITRAGO, Health LANDON 2022-11-21 2022-11-21 Outpatient REDDY DE LA [facility] [id number] [place] 10:15:00 13:15:38 BUITRAGO, Health LANDON 2022-10-31 2022-10-31 Outpatient GROVER, [facility] [id number] [place] 10:15:00 10:15:00 [facility] 2022-10-31 2022-10-31 Outpatient REDDY DE LA [facility] [id number] [place] 10:15:00 10:15:00 BUITRAGO, Health LANDON 2022-09-12 2022-09-12 Outpatient ERICH GARY [facility] [id number] [place] 11:00:00 11:52:50 Health 2022-08-01 2022-08-01 Outpatient ERICH GARY [facility] [id number] [place] 11:00:00 14:49:47 Health 2022-06-20 2022-06-20 Outpatient ERICH GARY [facility] [id number] [place] 11:00:00 12:53:01 Health 2022-05-16 2022-05-16 Outpatient ERICH GARY [facility] [id number] [place] 10:15:00 14:46:57 Health 2022-04-18 2022-04-18 Outpatient ERICH GARY [facility] [id number] 11:00:00 11:00:23 Health 2022-04-11 2022-04-11 Outpatient ERICH GARY [facility] [id number] [place] 11:00:00 11:00:00 Health 2022-02-14 2022-02-14 Outpatient ERICH GARY [facility] [id number] [place] 11:00:00 15:07:30 Health 2021-12-20 2021-12-20 Outpatient ACTOR, [facility] [id number] [place] 11:00:00 14:26:09 [facility] 2021-02-24 2021-02-24 Telephone Jessica Hickman [id number] [place] 00:00:00 00:00:00 Jessica Hickman [id number] [facility] [id number] [place] [id number] 2016-05-21 2016-05-21 Outpatient MHIE MHIE [id number] [facility] 16:00:00 16:00:00 11 cliff Davis 2016-05-21 2016-05-21 Outpatient MHIE MHIE [id number] [facility] 16:00:00 16:00:00 11 cliff Davis 2016-02-20 2016-02-20 Outpatient MHIE MHIE [id number] [facility] 16:00:00 16:00:00 10 cliff Davis 2016-02-20 2016-02-20 Outpatient MHIE MHIE [id number] [facility] 16:00:00 16:00:00 10 cliff Davis 2015-10-31 2015-10-31 Outpatient MHIE MHIE [id number] [facility] 14:00:00 14:00:00 09 cliff Davis 2015-10-31 2015-10-31 Outpatient MHIE MHIE [id number] [facility] 14:00:00 14:00:00 09 cliff Davsi 2015-09-19 2015-09-19 Outpatient MHIE MHIE [id number] [facility] 15:00:00 15:00:00 08 cliff Davis 2015-09-19 2015-09-19 Outpatient MHIE MHIE [id number] [facility] 15:00:00 15:00:00 08 cliff Davis 2015-09-19 2015-09-19 Outpatient MHIE MHIE [id number] [facility] 14:00:00 14:00:00 07 cliff Davis 2015-09-19 2015-09-19 Outpatient MHIE MHIE [id number] [facility] 14:00:00 14:00:00 07 cliff Davis 2015-08-08 2015-08-08 Outpatient MHIE MHIE [id number] [facility] 16:30:00 16:30:00 06 cliff Davis 2015-08-08 2015-08-08 Outpatient MHIE MHIE [id number] [facility] 16:30:00 16:30:00 06 cliff Davis 2015-06-06 2015-06-06 Outpatient MHIE MHIE [id number] [facility] 16:30:00 16:30:00 05 cliff Davis 2015-06-06 2015-06-06 Outpatient MHIE MHIE [id number] [facility] 16:30:00 16:30:00 05 cliff Davis 2015-05-16 2015-05-16 Outpatient MHIE MHIE [id number] [facility] 16:30:00 16:30:00 04 cliff Davis 2015-05-16 2015-05-16 Outpatient MHIE MHIE [id number] [facility] 16:30:00 16:30:00 04 cliff Davis 2015-04-04 2015-04-04 Outpatient MHIE MHIE [id number] [facility] 14:00:00 14:00:00 03 cliff Davis 2015-04-04 2015-04-04 Outpatient MHIE MHIE [id number] [facility] 14:00:00 14:00:00 03 cliff Davis 2015-01-24 2015-01-24 Outpatient MHIE MHIE [id number] [facility] 16:30:00 16:30:00 02 cliff Davis 2015-01-24 2015-01-24 Outpatient MHIE MHIE [id number] [facility] 16:30:00 16:30:00 02 cliff Davis 2014-11-22 2014-11-22 Outpatient MHIE MHIE [id number] [facility] 14:00:00 14:00:00 01 cliff Davis 2014-11-22 2014-11-22 Outpatient MHIE MHIE [id number] [facility] 14:00:00 14:00:00 01 cliff Davis 2014-09-30 2014-09-30 Outpatient MHIE MHIE [id number] [facility] 14:00:00 14:00:00 00 cliff Davis 2014-09-30 2014-09-30 Outpatient MHIE MHIE [id number] [facility] 14:00:00 14:00:00 00 cliff Davis Results This patient has no known results.
[2023-03-14] MEDS ORDERED: HYDROCORTISONE SUC 100 MG INJ ONE (18:12)
[2023-03-14] MEDS ORDERED: CEFTRIAXONE 1000 MG/VIAL ONE (18:12)
[2023-03-14] MEDS ORDERED: NA CHLORIDE 0.9% 1,000 ML ONE (18:13)
[2023-03-14] MEDS ORDERED: FAMOTIDINE 20 MG/2 ML VIAL IV ONE (18:13)
[2023-03-14] MEDS ORDERED: NA CHLORIDE 0.9% 500 ML ONE (18:13)
--- NOTE | 2023-03-14 18:25 | RAD REPORT ---
EXAM DESCRIPTION: CT - Head C Spine Cap Wo Con - 03/14/2023 6:07 pm CLINICAL HISTORY: Trauma, head and neck injury. Chest, abdomen and pelvis pain. DIZZINESS COMPARISON: <Comparisons> TECHNIQUE: CT head without contrast. CT cervical spine without contrast with coronal and sagittal reformatted images. CT chest, abdomen and pelvis without contrast with coronal and sagittal reformatted images of the [facility] ne. All CT scans are performed using dose optimization technique as appropriate and may include automated exposure control or mA/KV adjustment according to patient size. FINDINGS: CT HEAD WITHOUT CONTRAST: No intracranial hemorrhage, hydrocephalus or extra-axial fluid collection. Moderate generalized brain atrophy. No areas of brain edema or midline shift. Mild chronic right maxillary sinusitis. The paranasal sinuses and mastoids are otherwise clear. The c alvarium is intact. CT CERVICAL SPINE WITHOUT CONTRAST: No fracture or subluxation. Mild mid and lower cervical degenerative changes are present. The prevert ebral soft tissues are normal in thickness. CT CHEST, ABDOMEN, PELVIS WITHOUT CONTRAST: NOTE: Lack of contrast is a significant limitation in the assessment of trauma related findings. Spec ifically, solid organ, vascular and bowel evaluation is significantly limited. The lungs are clear.No pneumothorax or pericardial/pleural fluid. No evidence of intra-abdominal visceral injury, free fluid or free air is seen within the above detai led limitations. Cholelithiasis. No concerning pelvic findings. No fractures. IMPRESSION: Negative for acute traumatic findings within the above detailed limitations.
[2023-03-14 18:34] LABS: Absolute Lymphocytes (CBC) 1.4 K/uL (0.7-4.9); Hematocrit 31.1 % (36.0-45.0); Lymphocytes % 25.8 % (15.3-44.8); MCV 109.6 fL (80-100); MPV 7.2 fL (7.6-11.3); Platelets 242 thou/uL (152-406); RBC Red Blood Cell Count 2.84 M/uL (3.86-4.86)
[2023-03-14 18:36] LABS: Protime INR 1.11
--- NOTE | 2023-03-14 18:37 | RAD REPORT ---
EXAM DESCRIPTION: RAD - Chest Single View - 03/14/2023 6:21 pm CLINICAL HISTORY: COUGH Chest pain. COMPARISON: <Comparisons> FINDINGS: Portable technique limits examination quality. The lungs are grossly clear. The heart is moderately enlarged in size. No displaced fractures. IMPRESSION: No acute intrathoracic process suspected.
[2023-03-14 18:47] LABS: SARS-CoV-2 Antigen Rapid Res Negative (Negative)
[2023-03-14 18:59] LABS: Albumin 3.5 g/dL (3.4-5.0); Bilirubin Direct 0.2 mg/dL (0-0.2); Bilirubin Indirect, Calculated 0.5 mg/dL (0.2-0.8); Bilirubin Total 0.7 mg/dL (0.2-1.0); Magnesium 2.5 mg/dL (1.6-2.4); Potassium 2.8 mEq/L (3.5-5.1); Thyroid Stimulating Hormone 52.9 uIU/mL (0.358-3.740); Troponin High Sensitivity 18.1 pg/mL (<58.9)
--- NOTE | 2023-03-14 19:22 | EDPHYS ---
Physician Documentation [facility] Name: Maxine Elias Age: 83 yrs Sex: Female : 1940 Arrival Date: 03/14/2023 Time: 17:23 Bed 20 Private MD: ED Physician Justin Ayoub HPI: 03/14 17:39 This 83 yrs old Female presents to ER via Unassigned with complaints of jael Dizziness, Weakness, Blurred Vision. 17:39 The patient presents with dizziness, generalized weakness. Onset: The symptoms/episode jael began/occurred 2 day(s) ago. Context: occurred at home, occurred while the patient was sitting. Modifying factors: The symptoms are alleviated by nothing, the symptoms are aggravated by nothing. Associated signs and symptoms: Pertinent positives: near-syncope. Severity of symptoms: At their worst the symptoms were. Patient's baseline: Neuro: alert and fully oriented. The patient has not experienced similar symptoms in the past. Historical: - Allergies: 17:40 Neosporin ([id number]); tm6 - PMHx: 17:40 Anxiety; Bipolar disorder; depressive disorder; Hypercholesterolemia; Hypertension; tm6 Hypothyroidism; - Immunization history:: Adult Immunizations not up to date. - Social history:: Smoking status: Patient denies any tobacco usage or history of. ROS: 17:41 Constitutional: Negative for fever, chills, and weight loss, Eyes: Negative for injury, jael pain, redness, and discharge, ENT: Negative for injury, pain, and discharge, Neck: Negative for injury, pain, and swelling, Cardiovascular: Negative for chest pain, palpitations, and edema, Respiratory: Negative for shortness of breath, cough, wheezing, and pleuritic chest pain, Abdomen/GI: Negative for abdominal pain, nausea, vomiting, diarrhea, and constipation, Back: Negative for injury and pain, : Negative for injury, bleeding, discharge, and swelling, MS/Extremity: Negative for injury and deformity, Skin: Negative for injury, rash, and discoloration, Psych: Negative for depression, anxiety, suicide ideation, homicidal ideation, and hallucinations, Allergy/Immunology: Negative for hives, rash, and allergies, Endocrine: Negative for neck swelling, polydipsia, polyuria, polyphagia, and marked weight changes, Hematologic/Lymphatic: Negative for swollen nodes, abnormal bleeding, and unusual bruising, 17:41 Neuro: Positive for dizziness, weakness, Exam: 17:41 Constitutional: This is a well developed, well nourished patient who is awake, alert, jael and in no acute distress. Head/Face: Normocephalic, atraumatic. Eyes: Pupils equal round and reactive to light, extra-ocular motions intact. Lids and lashes normal. Conjunctiva and sclera are non-icteric and not injected. Cornea within normal limits. Periorbital areas with no swelling, redness, or edema. ENT: Nares patent. No nasal discharge, no septal abnormalities noted. Tympanic membranes are normal and external auditory canals are clear. Oropharynx with no redness, swelling, or masses, exudates, or evidence of obstruction, uvula midline. Mucous membranes moist. Neck: Trachea midline, no thyromegaly or masses palpated, and no cervical lymphadenopathy. Supple, full range of motion without nuchal rigidity, or vertebral point tenderness. No Meningismus. Chest/axilla: Normal chest wall appearance and motion. Nontender with no deformity. No lesions are appreciated. Cardiovascular: Regular rate and rhythm with a normal S1 and S2. No gallops, murmurs, or rubs. Normal PMI, no JVD. No pulse deficits. Respiratory: Lungs have equal breath sounds bilaterally, clear to auscultation and percussion. No rales, rhonchi or wheezes noted. No increased work of breathing, no retractions or nasal flaring. Abdomen/GI: Soft, non-tender, with normal bowel sounds. No distension or tympany. No guarding or rebound. No evidence of tenderness throughout. Back: No spinal tenderness. No costovertebral tenderness. Full range of motion. Skin: Warm, dry with normal turgor. Normal color with no rashes, no lesions, and no evidence of cellulitis. MS/ Extremity: Pulses equal, no cyanosis. Neurovascular intact. Full, normal range of motion. Neuro: Awake and alert, GCS 15, oriented to person, place, time, and situation. Cranial nerves II-XII grossly intact. Motor strength 5/5 in all extremities. Sensory grossly intact. Cerebellar exam normal. Normal gait. Psych: Awake, alert, with orientation to person, place and time. Behavior, mood, and affect are within normal limits. 18:01 ECG was reviewed by the Attending Physician. [facility] Vital Signs: 17:36 BP 163 / 77; Pulse 75; Resp 17; Temp 97.5(TE); Pulse Ox 98% on R/A; Pain 0/10; tm6 18:58 BP 161 / 71; Pulse 73; Resp 15; Temp 97.5(TE); Pulse Ox 99% on R/A; Weight 98.88 kg; tm6 Height 5 ft. 7 in. ; Pain 0/10; 23:30 BP 137 / 74; Pulse 72; Resp 16; Temp 97.9(O); Pulse Ox 98% ; nw1 12 01:05 BP 116 / 43; Pulse 79; Resp 17; Pulse Ox 93% on R/A; nw1 02:38 BP 124 / 71; Pulse 73; Resp 15; Pulse Ox 96% on R/A; nw1 03/14 18:58 Body Mass Index 34.14 (98.88 kg, 170.18 cm) tm6 03/14 17:36 Pain Scale: Adult tm6 18:58 Pain Scale: Adult tm6 01:05 sleeping nw1 NIH Stroke Scale Scores: 00:00 NIHSS Score: 0 nw1 [place] Coma Score: 03/14 19:45 Eye Response: spontaneous(4). Motor Response: obeys commands(6). Verbal Response: nw1 confused(4). Total: 14. MDM: 17:28 Patient medically screened. jael 17:42 Differential Diagnosis altered mental status, sepsis, flu. Differential diagnosis: jael cardiac arrhythmia, CVA, generalized weakness, GI bleed, head injury, hypovolemia, idiopathic dizziness, near-syncope, sepsis, syncope, TIA, vertigo. Data reviewed: vital signs, nurses notes, EMS record, lab test result(s), EKG, radiologic studies, CT scan. Consideration of Admission/Observation Patient was admitted/placed on observation. Escalation of care including admission/observation considered. I considered the following discharge prescriptions or medication management in the emergency department Medications were administered in the Emergency Department. See MAR. Independent interpretation of the following test(s) in the Emergency Department EKG: See my EKG interpretation above. Test considered but Not performed: MRI: no mri brain. Historians other than the Patient: EMS: ems well informed. Care significantly affected by the following chronic conditions: Hypertension, Obesity, bipolar, hypercholesterol, anxiety. Counseling: I had a detailed discussion with the patient and/or guardian regarding the historical points, exam findings, and any diagnostic results supporting the discharge/admit diagnosis, lab results, radiology results, the need for further work-up and treatment in the hospital. 03/14 17:39 Order name: Basic Metabolic Panel; Complete Time: 19:14 [facility] 03/14 17:39 Order name: CBC with Diff [facility] 03/14 17:39 Order name: LFT's; Complete Time: 19:14 [facility] 03/14 17:39 Order name: Magnesium; Complete Time: 19:14 [facility] 03/14 17:39 Order name: NT PRO-BNP; Complete Time: 19:14 [facility] 03/14 17:39 Order name: PT-INR; Complete Time: 19:14 [facility] 03/14 17:39 Order name: Troponin HS; Complete Time: 19:14 [facility] 03/14 17:39 Order name: Lipase; Complete Time: 19:14 [facility] 03/14 17:39 Order name: TSH; Complete Time: 19:14 [facility] 03/14 17:39 Order name: Urinalysis w/ reflexes [facility] 03/14 17:39 Order name: Blood Culture Adult (2) [facility] 03/14 17:39 Order name: Lactate w/ 2H reflex if indic.; Complete Time: 19:14 [facility] 03/14 17:46 Order name: SARS RAPID; Complete Time: 19:14 [facility] 03/14 17:46 Order name: Flu; Complete Time: 19:14 [facility] 03/14 19:01 Order name: T4 Free; Complete Time: 19:14 [facility] 03/14 19:16 Order name: Phosphorus [facility] 03/14 19:47 Order name: CBC Smear Scan [facility] 03/14 23:43 Order name: Urinalysis w/ reflexes [facility] 03/14 17:39 Order name: XRAY Chest (1 view); Complete Time: 19:14 [facility] 03/14 17:39 Order name: CT Traumagram (Head C Spine CAP wo con); Complete Time: 19:14 [facility] 03/14 17:39 Order name: EKG; Complete Time: 17:40 03/14 17:39 Order name: Cardiac monitoring; Complete Time: 17:45 [facility] 03/14 17:39 Order name: EKG - Nurse/Tech; Complete Time: 17:44 [facility] 03/14 17:39 Order name: IV Saline Lock; Complete Time: 18:06 [facility] 03/14 17:39 Order name: Labs collected and sent; Complete Time: 18:06 jael 03/14 17:39 Order name: O2 Per Protocol; Complete Time: 17:45 jael 03/14 17:39 Order name: O2 Sat Monitoring; Complete Time: 17:45 [facility] 03/14 18:24 Order name: Jose M; Complete Time: 18:57 jael EC:01 Rate is 78 beats/min. Rhythm is regular. QRS [place] is Normal. [place] interval is normal. QRS jael interval is normal. QT interval is normal. No Q waves. T waves are Normal. No ST changes noted. Clinical impression: NSR w/ Non-specific ST/T Changes and No evidence of ischemia. Interpreted by me. Reviewed by me. Administered Medications: 18:57 Drug: NS 0.9% IV 500 ml IV at bolus once Route: IV; Rate: bolus; Site: right hand; tm6 20:22 Follow up: IV Status: Completed infusion tm6 18:57 Drug: Famotidine IVP 20 mg IVP once; dilute with 10 mL 0.9% NaCl; give over 2 minutes tm6 Route: IVP; Site: right hand; 20:22 Follow up: Response: No adverse reaction tm6 18:58 Drug: Solu-CORTEF IVP 100 mg IVP once Route: IVP; Site: right hand; tm6 20:22 Follow up: Response: No adverse reaction tm6 18:58 Drug: Rocephin IV 1 grams IV at per protocol once; Given slow IV push per pharmacy tm6 instructions Route: IV; Rate: per protocol; Site: right hand; 20:22 Follow up: Response: No adverse reaction; IV Status: Completed infusion tm6 19:16 Not Given (Duplicate Order): ns 0.9% 1000 ml IV at 125 ml/hr continuous jael 22:05 Drug: Potassium PO Effervescent Tablet 50 mEq PO once; dissolve in 4 ounces of water or tm6 juice Route: PO; 22:05 Drug: Potassium Chloride IV 20 mEq IV at per protocol once; administer over 1-2 hours tm6 Route: IV; Rate: per protocol; Site: right antecubital; 22:05 Drug: NS 0.9% with KCl IV 20 mEq/L 1000 ml IV at 125 ml/hr continuous Route: IV; Rate: tm6 125 ml/hr; Site: right antecubital; 22:05 Drug: Potassium PO Effervescent Tablet 50 mEq PO once; dissolve in 4 ounces of water or tm6 juice repeat at 830pm. Route: PO; 03/15 00:10 Drug: Synthroid PO 200 mcg PO once Route: PO; nw1 Disposition Summary: 03/14/23 19:21 Hospitalization Ordered Notes: Hospitalization Status: Observation jael Provider: Ramy Allen cha Location: Telemetry/MedSurg (observation) jael Condition: Fair jael Problem: new jael Symptoms: have improved jael Bed/Room Type: Standard jael Room Assignment: 401(03/14/23 23:51) rv1 Diagnosis - Syncope Near jael - Weakness jael - Anemia, unspecified jael - Hypokalemia - 2.8 jael - Obesity, unspecified jael - Hypothyroidism, unspecified jael Forms: - Medication Reconciliation Form jael - SBAR form jael - Leadership Thank You Letter [facility] NIH Stroke Scale - NIH Stroke Score Date: 03/15/2023 Time: 00:00 Total Score = 0 10. Dysarthria (speech clarity - read or repeat words) - 0(Normal) 11. Extinction and Inattention (visual/tactile/auditory/spatial/personal) - 0(No abnormality) 1a. Level of Consciousness (LOC) - 0(Alert) 1b. Level of Consciousness (LOC) (Month \T\ Age) - 0(Both) 1c. LOC Commands (Open \T\ Closes Eyes/Medical Sociologist) - 0(Both) 2. Best Gaze (Lateral Gaze Paresis) - 0(Normal) 3. Visual Field Loss - 0(No visual loss) 4. Facial Palsy - 0(Normal) 5a. Left Arm: Motor (10-second hold) - 0(No drift) 5b. Right Arm: Motor (10-second hold) - 0(No drift) 6a. Left Leg: Motor (5-second hold - always test supine) - 0(No drift) 6b. Right Leg: Motor (5-second hold - always test supine) - 0(No drift) 7. Limb Ataxia (finger/nose \T\ heel/braxton - test with eyes open) - 0(Absent) 8. Sensory Loss (pinprick arms/legs/face) - 0(Normal) 9. Best Language: Aphasia (description/naming/reading) - 0(No aphasia) Initials: nw1 Signatures: Dispatcher [employer] Justin Bailey MD MD cha Villegas, Rebecca rv1 Akbar Adkins RN RN tm6 Sari Davila RN RN nw1 Corrections: (The following items were deleted from the chart) 03/14 23:51 19:21 jael rushing1
--- NOTE | 2023-03-14 19:22 | ER ---
Nurse's Notes [facility] Name: Maxine Elias Age: 83 yrs Sex: Female : 1940 Arrival Date: 03/14/2023 Time: 17:23 Bed 20 Private MD: Diagnosis: Syncope Near;Weakness;Anemia, unspecified;Hypokalemia-2.8;Obesity, unspecified;Hypothyroidism, unspecified Presentation: 03/14 17:36 Chief complaint: EMS states: toned out for dizziness, blurred vision, weakness. tm6 Coronavirus screen: Client denies travel out of the [place] in the last 14 days. Ebola Screen: Patient negative for fever greater than or equal to 101.5 degrees Fahrenheit, and additional compatible Ebola Virus Disease symptoms Patient denies exposure to infectious person. Patient denies travel to an Ebola-affected area in the 21 days before illness onset. No symptoms or risks identified at this time. Initial Sepsis Screen: Does the patient meet any 2 criteria? No. Patient's initial sepsis screen is negative. Does the patient have a suspected source of infection? No. Patient's initial sepsis screen is negative. Risk Assessment: Do you want to hurt yourself or someone else? Patient reports no desire to harm self or others. Onset of symptoms is unknown. 17:36 Method Of Arrival: EMS: [facility] tm6 17:36 Acuity: SWAPNIL 3 tm6 Triage Assessment: 17:41 The onset of the patients symptoms was at an unknown time. The onset of the patients tm6 symptoms was. General: Appears in no apparent distress. Behavior is calm, cooperative. Pain: Denies pain. EENT: No signs and/or symptoms were reported regarding the EENT system. Neuro: Level of Consciousness is awake, alert, obeys commands, Oriented to person, place, time, Reports blurred vision dizziness, since "I'm dizzy all the time.". Cardiovascular: Capillary refill < 3 seconds Patient's skin is warm and dry. Rhythm is sinus rhythm. Respiratory: Airway is patent Respiratory effort is even, unlabored, Respiratory pattern is regular, symmetrical. GI: Abdomen is round non-distended. : No signs and/or symptoms were reported regarding the genitourinary system. Derm: No signs and/or symptoms reported regarding the dermatologic system. Musculoskeletal: No signs and/or symptoms reported regarding the musculoskeletal system. Historical: - Allergies: 17:40 Neosporin ([id number]); tm6 - PMHx: 17:40 Anxiety; Bipolar disorder; depressive disorder; Hypercholesterolemia; Hypertension; tm6 Hypothyroidism; - Immunization history:: Adult Immunizations not up to date. - Social history:: Smoking status: Patient denies any tobacco usage or history of. Screenin:44 [facility] ED Fall Risk Assessment (Adult) History of falling in the last 3 months, tm6 including since admission No falls in past 3 months (0 pts). Abuse screen: Denies threats or abuse. Denies injuries from another. Nutritional screening: No deficits noted. Tuberculosis screening: No symptoms or risk factors identified. Assessment: 17:43 Reassessment: see triage assessment. tm6 18:58 Reassessment: Patient appears in no apparent distress at this time. No changes from tm6 previously documented assessment. Patient and/or family updated on plan of care and expected duration. Pain level reassessed. Patient is alert, oriented x 3, equal unlabored respirations, skin warm/dry/pink. 19:45 Reassessment: Report received. Introductions made. Pt noted in bed with daughter at nw1 bedside. Pt denies any pain and or distress. Call light at bedside. 0 needs/wants. 0 s/s of acute distress noted at this time. Will continue to monitor. 19:45 General: Appears in no apparent distress. comfortable, Behavior is calm, cooperative. nw1 19:45 Pain: Denies pain. Neuro: Reports blurred vision dizziness, weakness. Cardiovascular: nw1 Heart tones present Patient's skin is warm and dry. Respiratory: Breath sounds are clear bilaterally. Derm: Skin is intact, BLE abnormal Skin is dry, BLE Skin is pale. Musculoskeletal: Reports weakness in right arm, left arm, right leg and left leg Generalized weakness. 03/15 00:57 Reassessment: Report attempted by calling 4th floor charge and loan secretary line with no nw1 answer. 01:30 Reassessment: Reassessment: Report attempted. Jordon, receiving nurse, is currently on nw1 break. Jordon to call back once back from his break per CN. 02:37 Reassessment: Report attempted. Called both CN and loan secretary line, no answer. CN made nw1 aware. Vital Signs: 03/14 17:36 BP 163 / 77; Pulse 75; Resp 17; Temp 97.5(TE); Pulse Ox 98% on R/A; Pain 0/10; tm6 18:58 BP 161 / 71; Pulse 73; Resp 15; Temp 97.5(TE); Pulse Ox 99% on R/A; Weight 98.88 kg; tm6 Height 5 ft. 7 in. ; Pain 0/10; 23:30 BP 137 / 74; Pulse 72; Resp 16; Temp 97.9(O); Pulse Ox 98% ; nw1 03/15 01:05 BP 116 / 43; Pulse 79; Resp 17; Pulse Ox 93% on R/A; nw1 02:38 BP 124 / 71; Pulse 73; Resp 15; Pulse Ox 96% on R/A; nw1 03/14 18:58 Body Mass Index 34.14 (98.88 kg, 170.18 cm) tm6 03/14 17:36 Pain Scale: Adult tm6 18:58 Pain Scale: Adult tm6 01:05 sleeping nw1 [place] Coma Score: 03/14 19:45 Eye Response: spontaneous(4). Motor Response: obeys commands(6). Verbal Response: nw1 confused(4). Total: 14. NIH Stroke Scale Scores: 03/15 00:00 NIHSS Score: 0 nw1 ED Course: 03/14 17:25 Patient arrived in ED. ld1 17:28 Justin Ayoub MD is Attending Physician. [facility] 17:33 Akbar Adkins, MARIAELENA is Primary Nurse. tm6 17:39 Triage completed. tm6 17:41 Arm band placed on right wrist. EKG completed in triage. Results shown to MD. tm6 17:44 Patient has correct armband on for positive identification. Placed in gown. Bed in low tm6 position. Call light in reach. Side rails up X2. Adult w/ patient. Provided Education on: need for cardiac monitoring. Client placed on continuous cardiac and pulse oximetry monitoring. NIBP monitoring applied. media monitor on. Door closed. Warm blanket given. 18:06 Flu Sent. tm6 18:06 SARS RAPID Sent. tm6 18:06 Lactate w/ 2H reflex if indic. Sent. tm6 18:06 Inserted saline lock: 20 gauge in right hand, using aseptic technique. tm6 18:09 CT Traumagram (Head C Spine CAP wo con) In Process Unspecified. EDMS 18:23 XRAY Chest (1 view) In Process Unspecified. EDMS 19:19 Ramy Allen is Hospitalizing Provider. jael 19:45 Client placed on continuous cardiac and pulse oximetry monitoring. NIBP monitoring nw1 applied. media monitor on. Pulse ox on. NIBP on. 19:45 No provider procedures requiring assistance completed. IV is patent, is intact, with nw1 fluids infusing freely, with good blood return. 12 00:42 Urinalysis w/ reflexes Sent. nw1 02:45 Patient admitted, IV remains in place. nw1 Administered Medications: 03/14 18:57 Drug: NS 0.9% IV 500 ml IV at bolus once Route: IV; Rate: bolus; Site: right hand; tm6 20:22 Follow up: IV Status: Completed infusion tm6 18:57 Drug: Famotidine IVP 20 mg IVP once; dilute with 10 mL 0.9% NaCl; give over 2 minutes tm6 Route: IVP; Site: right hand; 20:22 Follow up: Response: No adverse reaction tm6 18:58 Drug: Solu-CORTEF IVP 100 mg IVP once Route: IVP; Site: right hand; tm6 20:22 Follow up: Response: No adverse reaction tm6 18:58 Drug: Rocephin IV 1 grams IV at per protocol once; Given slow IV push per pharmacy tm6 instructions Route: IV; Rate: per protocol; Site: right hand; 20:22 Follow up: Response: No adverse reaction; IV Status: Completed infusion tm6 19:16 Not Given (Duplicate Order): ns 0.9% 1000 ml IV at 125 ml/hr continuous jael 22:05 Drug: Potassium PO Effervescent Tablet 50 mEq PO once; dissolve in 4 ounces of water or tm6 juice Route: PO; 22:05 Drug: Potassium Chloride IV 20 mEq IV at per protocol once; administer over 1-2 hours tm6 Route: IV; Rate: per protocol; Site: right antecubital; 22:05 Drug: NS 0.9% with KCl IV 20 mEq/L 1000 ml IV at 125 ml/hr continuous Route: IV; Rate: tm6 125 ml/hr; Site: right antecubital; 22:05 Drug: Potassium PO Effervescent Tablet 50 mEq PO once; dissolve in 4 ounces of water or tm6 juice repeat at 830pm. Route: PO; 03/15 00:10 Drug: Synthroid PO 200 mcg PO once Route: PO; nw Medication: 03/14 19:45 VIS not applicable for this client. nw1 Outcome: 19:21 Decision to Hospitalize by Provider. [facility] 03/15 02:45 Admitted to Tele room 401, Report called to Keerthi charge nurse nw1 Condition: stable Instructed on the need for admit, 03:57 Patient left the ED. nw1 NIH Stroke Scale - NIH Stroke Score Date: 03/15/2023 Time: 00:00 Total Score = 0 10. Dysarthria (speech clarity - read or repeat words) - 0(Normal) 11. Extinction and Inattention (visual/tactile/auditory/spatial/personal) - 0(No abnormality) 1a. Level of Consciousness (LOC) - 0(Alert) 1b. Level of Consciousness (LOC) (Month \\T\\ Age) - 0(Both) 1c. LOC Commands (Open \\T\\ Closes Eyes/Supervisor Twisting Department) - 0(Both) 2. Best Gaze (Lateral Gaze Paresis) - 0(Normal) 3. Visual Field Loss - 0(No visual loss) 4. Facial Palsy - 0(Normal) 5a. Left Arm: Motor (10-second hold) - 0(No drift) 5b. Right Arm: Motor (10-second hold) - 0(No drift) 6a. Left Leg: Motor (5-second hold - always test supine) - 0(No drift) 6b. Right Leg: Motor (5-second hold - always test supine) - 0(No drift) 7. Limb Ataxia (finger/nose \\T\\ heel/braxton - test with eyes open) - 0(Absent) 8. Sensory Loss (pinprick arms/legs/face) - 0(Normal) 9. Best Language: Aphasia (description/naming/reading) - 0(No aphasia) Initials: nw1 Signatures: Dispatcher [employer] EDJustin Girard MD MD cha Sims, Lauren, RN RN ld1 Akbar Adkins RN MARIAELENA tm6 Sari Davila RN RN nw1 Corrections: (The following items were deleted from the chart) 01:33 01:30 Reassessment: nw1 nw1
[2023-03-14 19:46] LABS: Blood Morphology Comment NOTED (NOT SEEN); Platelet Estimate ADEQ; White Blood Cell Scan OK (OK)
[2023-03-14 19:47] LABS: Macrocytosis 1+
[2023-03-14 19:56] LABS: Specific Gravity 1.015 (1.005-1.030); Urine Bilirubin NEGATIVE (Negative); Urine Blood Negative (Negative); Urine Clarity Clear (Clear); Urine Color Light-Yellow (Yellow); Urine Glucose NEGATIVE (Negative); Urine Protein NEGATIVE (Negative); Urine Urobilinogen Normal (Normal)
--- NOTE | 2023-03-14 21:17 | P.HP ---
Certification for Inpatient Patient admitted to: Inpatient With expected LOS: >2 Midnights Practitioner: I am a practitioner with admitting privileges, knowledge of patient current condition, hospital course, and medical plan of care. Services: Services provided to patient in accordance with Admission requirements found in Title 42 Section 412.3 of the Code of Federal Regulations Patient History Date of Service: 03/15/23 Reason for admission: Syncopal episode. 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 She was sent home on oral levothyroxine dose and she came back today with complaint of feeling weak and lethargic. She was felt to have a suspected syncopal episode at home. There was no acute x-ray finding on imaging and lab work done revealed low thyroid level of 0.67. She was given IV levothyroxine dose she was also found to have a low potassium level of 2.8 and was given repletion. She was admitted for inpatient care. Allergies neomycin [Neomycin] Allergy (Severe, Verified 10/05/19 21:19) swelling of ear latex Allergy (Intermediate, Verified 10/05/19 21:19) Hives Latex, Natural Rubber Allergy (Intermediate, Verified 10/05/19 21:19) Itching gluten Allergy (Verified 10/05/19 21:19) diarrhea Home Medications: Carbamazepine [Tegretol] 600 mg PO BEDTIME 10/05/19 Diphenhydramine HCl [Benadryl Allergy] 25 mg PO Q4H PRN 10/05/19 LORazepam [Lorazepam] 1 mg PO BID 10/05/19 Buspirone HCl [Buspar] 30 mg PO BID 03/04/23 Quetiapine Fumarate [Seroquel] 200 mg PO BEDTIME 03/05/23 Atorvastatin Calcium [Lipitor] 40 mg PO BEDTIME #30 tab 03/07/23 Levothyroxine [Synthroid*] 0.2 mg PO DAILYAC #60 tab 03/07/23 Metoprolol Tartrate [Lopressor] 25 mg PO BID #60 tab 03/11/23 Escitalopram [Lexapro*] 20 mg PO DAILY 03/15/23 - Past Medical/Surgical History Diabetic: No -: seizure, HTN, Depression, Ulcers, anxiety, asthma, chronic diarrhea -: heart rhythm disorder. -: total hysterectomy -: Left knee sx -: left wrist tendon removed, - Social History Alcohol use: No CD- Drugs: No Caffeine use: Yes Review of Systems General: Weakness, Malaise Eyes: Unremarkable ENT: Unremarkable Respiratory: Unremarkable Cardiovascular: Unremarkable Gastrointestinal: Unremarkable Genitourinary: Unremarkable Musculoskeletal: Unremarkable Neurological: Weakness Physical Examination - Physical Exam General: Alert, Oriented x3 HEENT: Atraumatic Neck: Supple Respiratory: Normal air movement Cardiovascular: Regular rate/rhythm, Normal S1 S2 Gastrointestinal: Soft and benign Musculoskeletal: No swelling Neurological: Normal speech - Studies Laboratory Data (last 24 hrs) 03/14/23 03/14/23 03/14/23 18:01 18:01 18:01 WBC 5.60 Hgb 10.8 L Hct 31.1 L Plt Count 242 PT 12.2 INR 1.11 Sodium Potassium BUN Creatinine Glucose Phosphorus 2.9 Magnesium Total Bilirubin AST ALT Alkaline Phosphatase Lipase 03/14/23 18:01 WBC Hgb Hct Plt Count PT INR Sodium 138 Potassium 2.8 L BUN 11 Creatinine 0.87 Glucose 100 Phosphorus Magnesium 2.5 H Total Bilirubin 0.7 AST 20 ALT 27 Alkaline Phosphatase 84 Lipase 57 Microbiology Data (last 24 hrs): 03/14/23 17:53 Nasopharnyx Influenza Type A Antigen Screen - Final 03/14/23 17:53 Nasopharnyx Influenza Type B Antigen Screen - Final Assessment and Plan - Plan Syncope: Etiology yet to be fully determined. Perhaps secondary to electrolyte abnormality and hypothyroid state. Will monitor on telemetry. Hypokalemia: Potassium is low at 2.8. Replace and monitor level on daily labs. Hypothyroidism: Low thyroid level noted with a T4 level of 0.67. Will continue oral levothyroxine dose at 200 mcg daily. Hypertension: Monitor vital signs per unit protocol and continue outpatient antihypertensive medications. Depression: Will continue antidepressant medication Prophylaxis: Lovenox for DVT prophylaxis CODE STATUS: Full code Disposition: We will treat her multiple endocrine issues, workup syncope and discharge her when she is deemed clinically stable. - Advance Directives Does patient have a Living Will: No Does patient have a Durable POA for Healthcare: No
[2023-03-14] MEDS ORDERED: POTASSIUM 25 MEQ EFFERV TAB ONE (21:57)
[2023-03-14] MEDS ORDERED: KCL 20 MEQ/100 mL IVPB 100 ML IV ONE (21:58)
[2023-03-14] MEDS ORDERED: ACETAMINOPHEN 325 MG TABLET PO PRN (23:37)
[2023-03-14] MEDS ORDERED: LEVOTHYROXINE SOD 0.1 MG TAB ONE (23:43)
[2023-03-15 06:03] LABS: C.diff Antigen/Toxin Ag neg : Tox neg (NEG : NEG)
[2023-03-15 09:00] LABS: Potassium 3.8 mEq/L (3.5-5.1)
[2023-03-15] MEDS: ENOXAPARIN 40 MG/0.4 ML SQ SCH (09:34)
[2023-03-15] MEDS: NA CHLORIDE 0.9% 1,000 ML IV SCH ×2 (09:37→19:45)
--- NOTE | 2023-03-15 14:49 | EKG ---
Test Date: 2023-03-14 Test Time: 17:29:55 Veneer Sander: SONIYA MEASUREMENT RESULTS: Intervals: Rate: 78 ME: 204 QRSD: 130 QT: 394 QTc: 449 Hospers: P: 48 ME: 204 QRS: -67 T: 69 INTERPRETIVE STATEMENTS: Normal sinus rhythm Left axis deviation Nonspecific intraventricular block Abnormal ECG Compared to ECG 03/04/2023 16:37:21 Left bundle-branch block no longer present Electronically Signed On 03-15-23 14:45:38 [employer] MA[employer] by Shar Alejo
--- NOTE | 2023-03-15 15:10 | P.PN ---
Subjective Date of Service: 03/15/23 Chief Complaint: Syncopal episode. Patient is complaining of generalized weakness and dizziness. Physical Examination - Vital Signs Temperature: 97.4 F Blood Pressure: 131/67 Pulse: 80 Respirations: 17 Pulse Ox (%): 96 - Studies Laboratory Data (last 24 hrs) 03/14/23 03/14/23 03/14/23 18:01 18:01 18:01 WBC 5.60 Hgb 10.8 L Hct 31.1 L Plt Count 242 PT 12.2 INR 1.11 Sodium Potassium BUN Creatinine Glucose Phosphorus 2.9 Magnesium Total Bilirubin AST ALT Alkaline Phosphatase Lipase 03/14/23 18:01 WBC Hgb Hct Plt Count PT INR Sodium 138 Potassium 2.8 L BUN 11 Creatinine 0.87 Glucose 100 Phosphorus Magnesium 2.5 H Total Bilirubin 0.7 AST 20 ALT 27 Alkaline Phosphatase 84 Lipase 57 Microbiology Data (last 24 hrs): 03/14/23 17:53 Nasopharnyx Influenza Type A Antigen Screen - Final 03/14/23 17:53 Nasopharnyx Influenza Type B Antigen Screen - Final Assessment And Plan - Plan Physical Exam General: Alert, Oriented x3 Neck: Supple, no elevated JVD. Respiratory: Normal air movement, clear to auscultation bilaterally Cardiovascular: Regular rate/rhythm, Normal S1 S2 Gastrointestinal: Soft and benign Musculoskeletal: No swelling Neurological: Normal speech, no focal motor deficit. Assessment and plan Dizziness/generalized weakness Likely secondary to hypothyroidism and hypokalemia Monitor on telemetry. Continue PT assessments to help determine disposition. Hypokalemia Replace and monitor level on daily labs. Acquired hypothyroidism: Continue oral levothyroxine dose at 200 mcg daily. Repeat TSH in 8 weeks. Endocrinology follow-up as outpatient. Hypertension Monitor vital signs per unit protocol and continue home antihypertensives. Depression Continue antidepressant medications DVT prophylaxis: Lovenox. CODE STATUS: Full code
[2023-03-15] MEDS: ONDANSETRON 4 MG/2 ML VIAL IV PRN (17:18)
[2023-03-15] MEDS: carBAMazepine 200 MG TAB PO SCH (19:58)
[2023-03-15] MEDS: QUETIAPINE 100MG TAB PO SCH (19:58)
[2023-03-15] MEDS: METOPROLOL TAR 25 MG TAB PO SCH (19:59)
[2023-03-15] MEDS: LORAZEPAM 1 MG TABLET PO SCH (19:59)
[2023-03-15] MEDS: BUSPIRONE HCL 15 MG TABLET PO SCH (19:59)
[2023-03-15] MEDS: ATORVASTATIN 40 MG TAB PO SCH (19:59)
[2023-03-16] MEDS: NA CHLORIDE 0.9% 1,000 ML IV SCH (05:32)
[2023-03-16] MEDS: LEVOTHYROXINE SOD 0.1 MG TAB PO SCH (05:32)
[2023-03-16] MEDS: ESCITALOPRAM 20 MG TAB PO SCH (08:39)
[2023-03-16] MEDS: METOPROLOL TAR 25 MG TAB PO SCH ×2 (08:39→20:19)
[2023-03-16] MEDS: ENOXAPARIN 40 MG/0.4 ML SQ SCH (08:39)
[2023-03-16] MEDS: BUSPIRONE HCL 15 MG TABLET PO SCH ×2 (08:41→21:00)
[2023-03-16] MEDS: LORAZEPAM 1 MG TABLET PO SCH ×2 (08:41→20:21)
--- NOTE | 2023-03-16 12:56 | P.PN ---
Date of Service: 03/16/23 Mckenzie Goodman reported a depressive episode last night. Feeling better this morning. She needs more time with therapy to increase her strength. ROS 10 point ROS as noted above, otherwise negative Physical Exam General: Alert, Oriented x3 Neck: Supple, no elevated JVD. Respiratory: Normal air movement, clear to auscultation bilaterally Cardiovascular: Regular rate/rhythm, Normal S1 S2 Gastrointestinal: Soft and benign Musculoskeletal: No swelling Neurological: Normal speech, no focal motor deficit. Vitals reviewed Assessment and plan Dizziness/generalized weakness Likely secondary to hypothyroidism and hypokalemia Monitor on telemetry. Continue PT assessments to help determine disposition. Hypokalemia Replace and monitor level on daily labs. Acquired hypothyroidism: Continue oral levothyroxine dose at 200 mcg daily. Repeat TSH in 8 weeks. Endocrinology follow-up as outpatient. Hypertension Monitor vital signs per unit protocol and continue home antihypertensives. Depression Continue antidepressant medications DVT prophylaxis: Lovenox. CODE STATUS: Full code
[2023-03-16] MEDS: ONDANSETRON 4 MG/2 ML VIAL IV PRN (13:57)
[2023-03-16] MEDS: carBAMazepine 200 MG TAB PO SCH (20:19)
[2023-03-16] MEDS: ATORVASTATIN 40 MG TAB PO SCH (20:20)
[2023-03-16] MEDS: QUETIAPINE 100MG TAB PO SCH (20:20)
[2023-03-17] MEDS: NA CHLORIDE 0.9% 1,000 ML IV SCH ×2 (02:00→20:41)
[2023-03-17] MEDS: LEVOTHYROXINE SOD 0.1 MG TAB PO SCH (06:37)
[2023-03-17] MEDS: ESCITALOPRAM 20 MG TAB PO SCH (08:47)
[2023-03-17] MEDS: METOPROLOL TAR 25 MG TAB PO SCH ×2 (08:47→20:42)
[2023-03-17] MEDS: BUSPIRONE HCL 15 MG TABLET PO SCH ×2 (08:48→21:00)
[2023-03-17] MEDS: ENOXAPARIN 40 MG/0.4 ML SQ SCH (08:50)
[2023-03-17] MEDS: LORAZEPAM 1 MG TABLET PO SCH ×2 (08:50→21:00)
--- NOTE | 2023-03-17 13:58 | P.PN ---
Date of Service: 03/17/23 Mckenzie Goodman reports struggling with anxety while she is awake. Walked with therapy yesterday (03/16) 150ft. She needs more time with therapy to increase her strength. ROS 10 point ROS as noted above, otherwise negative Physical Exam General: Alert, Oriented x3 Neck: Supple, no elevated JVD. Respiratory: Normal air movement, clear to auscultation bilaterally Cardiovascular: Regular rate/rhythm, Normal S1 S2 Gastrointestinal: Soft and benign Musculoskeletal: No swelling Neurological: Normal speech, no focal motor deficit. Vitals reviewed Assessment and plan Dizziness/generalized weakness Likely secondary to hypothyroidism and hypokalemia Monitor on telemetry. Continue PT assessments to help determine disposition. Hypokalemia Replace and monitor level on daily labs. Acquired hypothyroidism: Continue oral levothyroxine dose at 200 mcg daily. Repeat TSH in 8 weeks. Endocrinology follow-up as outpatient. Hypertension Monitor vital signs per unit protocol and continue home antihypertensives. Depression Continue antidepressant medications DVT prophylaxis: Lovenox. CODE STATUS: Full code HH at discharge for nursing and PT
[2023-03-17] MEDS: ONDANSETRON 4 MG/2 ML VIAL IV PRN (14:42)
[2023-03-17] MEDS: ATORVASTATIN 40 MG TAB PO SCH (20:42)
[2023-03-17] MEDS: QUETIAPINE 100MG TAB PO SCH (20:45)
[2023-03-17] MEDS: carBAMazepine 200 MG TAB PO SCH (21:00)
[2023-03-18] MEDS: DIPHENHYDRAMINE 25 MG TAB/CAP PO PRN (01:50)
[2023-03-18 04:38] VITALS: BMI 34.1
[2023-03-18] MEDS: LEVOTHYROXINE SOD 0.1 MG TAB PO SCH (05:35)
[2023-03-18] MEDS: BUSPIRONE HCL 15 MG TABLET PO SCH ×2 (08:03→21:03)
[2023-03-18] MEDS: ENOXAPARIN 40 MG/0.4 ML SQ SCH (08:03)
[2023-03-18] MEDS: METOPROLOL TAR 25 MG TAB PO SCH ×2 (08:04→20:06)
[2023-03-18] MEDS: ESCITALOPRAM 20 MG TAB PO SCH (08:04)
[2023-03-18] MEDS: LORAZEPAM 1 MG TABLET PO SCH ×2 (08:04→20:08)
[2023-03-18] MEDS: NA CHLORIDE 0.9% 1,000 ML IV SCH (14:36)
--- NOTE | 2023-03-18 16:49 | P.PN ---
Subjective Date of Service: 03/18/23 Chief Complaint: Syncopal episode. Patient complaining of poor sleep last night. Patient did not continue with therapy today due to nausea and dizziness. She vomited once. Physical Examination - Vital Signs Temperature: 97.2 F Blood Pressure: 165/58 Pulse: 67 Respirations: 14 Pulse Ox (%): 95 Assessment And Plan - Plan Physical Exam General: Alert, Oriented x3 Neck: Supple, no elevated JVD. Respiratory: Normal air movement, clear to auscultation bilaterally Cardiovascular: Regular rate/rhythm, Normal S1 S2 Gastrointestinal: Soft and benign Musculoskeletal: No swelling Neurological: Normal speech, no focal motor deficit. Assessment and plan Dizziness/generalized weakness Likely secondary to hypothyroidism and hypokalemia. Monitor on telemetry. Continue current dose synthroid. . Hypokalemia Replace and monitor level on daily labs. Acquired hypothyroidism: Continue oral levothyroxine dose at 200 mcg daily. Repeat TSH in 8 weeks. Endocrinology follow-up as outpatient. Hypertension Monitor vital signs per unit protocol and continue home antihypertensives. Depression/anxiety disorder Continue antidepressant and antianxiety medications. DVT prophylaxis: Lovenox. CODE STATUS: Full code Disposition: Patient prefers to go home with home health.
[2023-03-18] MEDS: ATORVASTATIN 40 MG TAB PO SCH (20:06)
[2023-03-18] MEDS: carBAMazepine 200 MG TAB PO SCH (20:07)
[2023-03-18] MEDS: QUETIAPINE 100MG TAB PO SCH (20:08)
[2023-03-19] MEDS: NA CHLORIDE 0.9% 1,000 ML IV SCH ×3 (03:45→23:45)
[2023-03-19] MEDS: LEVOTHYROXINE SOD 0.1 MG TAB PO SCH (05:28)
[2023-03-19 07:20] LABS: Absolute Lymphocytes (CBC) 1.1 K/uL (0.7-4.9); Hematocrit 33.1 % (36.0-45.0); Lymphocytes % 19.7 % (15.3-44.8); MCV 111.1 fL (80-100); MPV 7.4 fL (7.6-11.3); Platelets 212 thou/uL (152-406); RBC Red Blood Cell Count 2.98 M/uL (3.86-4.86)
[2023-03-19 07:38] LABS: Potassium 3.1 mEq/L (3.5-5.1)
[2023-03-19 08:01] LABS: White Blood Cell Scan OK (OK)
[2023-03-19 08:02] LABS: Anisocytosis 1+; Blood Morphology Comment NOTED (NOT SEEN); Macrocytosis 1+
[2023-03-19 08:03] LABS: Platelet Estimate ADEQ
[2023-03-19] MEDS: BUSPIRONE HCL 15 MG TABLET PO SCH ×2 (08:07→20:54)
[2023-03-19] MEDS: ESCITALOPRAM 20 MG TAB PO SCH (08:07)
[2023-03-19] MEDS: METOPROLOL TAR 25 MG TAB PO SCH ×2 (08:08→20:55)
[2023-03-19] MEDS: LORAZEPAM 1 MG TABLET PO SCH ×2 (08:08→20:54)
[2023-03-19] MEDS: ENOXAPARIN 40 MG/0.4 ML SQ SCH (08:09)
[2023-03-19] MEDS ORDERED: POTASSIUM CL SA 10 MEQ TAB PO ONE ×2 (08:18→21:00)
[2023-03-19] MEDS: carBAMazepine 200 MG TAB PO SCH (20:54)
[2023-03-19] MEDS: QUETIAPINE 100MG TAB PO SCH (20:54)
[2023-03-19] MEDS: ATORVASTATIN 40 MG TAB PO SCH (20:54)
--- NOTE | 2023-03-19 21:04 | P.PN ---
Subjective Date of Service: 03/19/23 Chief Complaint: WEAKNESS Subjective: Improving ER CALLED IN WRONG DOCTOR AND TODAY I HAD A CALL FROM DR. CHILDRESS TO TAKE OVER HER HCARE SHE IS Y PATIENT. SHE QUIT TAKING THYROID MEDICINGE IT MAKES HER NAUSEATED. SHE IS COMFORTABLE, BACK TO BASELINE BUT DOES NOT WANT TO GO HOME SHE WILL BE ALONE TODAY. SHE WILL GO HOME IN AM. THERE ARE NO ACUTE ISSUES. Review of Systems 10-point ROS is otherwise unremarkable General: Weakness Physical Examination - Vital Signs Temperature: 97.2 F Blood Pressure: 185/78 Pulse: 72 Respirations: 17 Pulse Ox (%): 91 - Physical Exam General: Alert, In no apparent distress, Obese HEENT: Atraumatic, PERRLA, EOMI Neck: Supple, JVD not distended Respiratory: Clear to auscultation bilaterally, Normal air movement Cardiovascular: Regular rate/rhythm, Normal S1 S2 Gastrointestinal: Normal bowel sounds, No tenderness Musculoskeletal: No tenderness Integumentary: No rashes Neurological: Normal speech, Normal tone, Normal affect Lymphatics: No axilla or inguinal lymphadenopathy - Studies Microbiology Data (last 24 hrs): 03/14/23 18:29 Blood - Blood Aerobic Blood Culture - Final No growth in 5 days. 03/14/23 18:29 Blood - Blood Anaerobic Blood Culture - Final No growth in 5 days. 03/14/23 18:01 Blood - Blood Aerobic Blood Culture - Final No growth in 5 days. 03/14/23 18:01 Blood - Blood Anaerobic Blood Culture - Final No growth in 5 days. Medications List Reviewed: Yes Assessment And Plan - Current Problems (Diagnosis) (1) General weakness Current Visit: Yes Status: Acute Plan: SHE CAME FOR QUESTIONABLE SYNCOP[E. HER K WAS AND THAT WILL BUY HER ONE DAY HERE. SHE IS STILL HEREE 4 DAYG S (2) Hypothyroid Current Visit: No Status: Chronic Plan: CHANGE FROM SYNHT TO NATURAL THYROID SHE DOES NOT LIKE IT BEC OF NAUSEA. Qualifiers: Hypothyroidism type: acquired Qualified Code(s): E03.9 - Hypothyroidism, unspecified
[2023-03-19 22:52] VITALS: O2SAT 97
[2023-03-20] MEDS: LEVOTHYROXINE SOD 0.1 MG TAB PO SCH (06:39)
[2023-03-20] MEDS: ENOXAPARIN 40 MG/0.4 ML SQ SCH (09:14)
[2023-03-20] MEDS: LORAZEPAM 1 MG TABLET PO SCH (09:14)
[2023-03-20] MEDS: ESCITALOPRAM 20 MG TAB PO SCH (09:54)
[2023-03-20] MEDS: BUSPIRONE HCL 15 MG TABLET PO SCH (09:54)
[2023-03-20] MEDS: METOPROLOL TAR 25 MG TAB PO SCH (09:55)
[2023-03-20 10:38] LABS: Potassium 3.5 mEq/L (3.5-5.1)
[2023-03-20] MEDS: DIPHENHYDRAMINE 25 MG TAB/CAP PO PRN (13:45)
[2023-03-20 18:05] VITALS: BP 172/85; TEMP 97
--- NOTE | 2023-03-20 21:09 | P.DS ---
Admission Date: 03/16/23 Discharge Date: 03/20/23 Disposition: DC HOME/HOME HEALTH CARE Discharge Condition: FAIR Reason for Admission: WEAKNESS - Problems (1) General weakness Status: Acute (2) Hypothyroid Status: Chronic Qualifiers: Hypothyroidism type: acquired Qualified Code(s): E03.9 - Hypothyroidism, u nspecified Hospital Course: MARVIN COMES IN WITH GEN WEAKNESS. HER THYROID IS LOW BUT LOT BETTER THAN BEFORE. SHE STILL DOES NOT TAKE THYROID DAILY SHE SAYS IT MAKES HER NAUSEOUS. SHE WAS PLACED IN HOSPITALIST SERVICE. THERE IS NOT MUCH TO BE DONE INPATIENT FOR HER. AFTER 5 DAYS THEY CALLED ME THAT SHE WAS WRONGLY ADMITTED TO THEM. I ASKED FOR DISCHARGE AND SHE DID NOT WANT TO LEAVE WITH SOME EXCUSES. SHE IS STABLE. SHE HAS NO ACUTE SYMPTOMS. SHE AT LAST LEFT. CALLED IN SENIOR MAINTENANCE MACHINIST THYROID FROM OFFICE SHE WILL NOT TAKE SYNTHETIC WITH SE. Vital Signs/Physical Exam: Temp Pulse Resp BP Pulse Ox 97 F 74 16 172/85 H 98 03/20/23 16:00 03/20/23 16:00 03/20/23 16:00 03/20/23 16:00 03/20/23 16:00 Laboratory Data at Discharge: WBC 5.50 thou/uL (4.3-10.9) 03/19/23 06:57 Hgb 11.5 g/dL (12.0-15.0) L 03/19/23 06:57 Hct 33.1 % (36.0-45.0) L 03/19/23 06:57 Plt Count 212 thou/uL (152-406) 03/19/23 06:57 PT 12.2 SECONDS (9.5-12.5) 03/14/23 18:01 INR 1.11 03/14/23 18:01 Sodium 140 mEq/L (136-145) 03/20/23 10:00 Potassium 3.5 mEq/L (3.5-5.1) 03/20/23 10:00 BUN 13 mg/dL (7-18) 03/20/23 10:00 Creatinine 0.81 mg/dL (0.55-1.02) 03/20/23 10:00 Glucose 106 mg/dL (74-106) 03/20/23 10:00 Phosphorus 2.9 mg/dL (2.5-4.9) 03/14/23 18:01 Magnesium 2.5 mg/dL (1.6-2.4) H 03/14/23 18:01 Total Bilirubin 0.7 mg/dL (0.2-1.0) 03/14/23 18:01 AST 20 U/L (15-37) 03/14/23 18:01 ALT 27 U/L (13-56) 03/14/23 18:01 Alkaline Phosphatase 84 U/L (45-117) 03/14/23 18:01 Lipase 57 U/L (13-75) 03/14/23 18:01 Home Medications: Carbamazepine [Tegretol] 600 mg PO BEDTIME 10/05/19 Diphenhydramine HCl [Benadryl Allergy] 25 mg PO Q4H PRN 10/05/19 LORazepam [Lorazepam] 1 mg PO BID 10/05/19 Buspirone HCl [Buspar] 30 mg PO BID 03/04/23 Quetiapine Fumarate [Seroquel] 200 mg PO BEDTIME 03/05/23 Atorvastatin Calcium [Lipitor] 40 mg PO BEDTIME #30 tab 03/07/23 Metoprolol Tartrate [Lopressor*] 25 mg PO BID #60 tab 03/11/23 Escitalopram [Lexapro*] 20 mg PO DAILY 03/15/23 Physician Discharge Instructions: Increase activity as Tolerated Followup: NONE,NONE [Primary Care Provider] -
== END 2023-03-20 18:10 | disposition home or self-care (01) | DRG 641 ==
LOC: ER 17:23 → OBSVTOIN 03-15 03:24 → INTOOBSV 03-15 03:24 → 4TH 03-15 03:24 → UNDOADMOB 03-15 03:24 → 4TH 03-16 16:30 → OBSVTOIN 03-16 16:30
PROVIDERS: ADMIT Internal Medicine Nephrology; ATTEND Internal Medicine
DX: E87.6 Hypokalemia (principal); E03.9 Hypothyroidism, unspecified; E78.00 Pure hypercholesterolemia, unspecified; I10 Essential (primary) hypertension; F41.9 Anxiety disorder, unspecified; D64.9 Anemia, unspecified; F32.A Depression, unspecified; J45.909 Unspecified asthma, uncomplicated; Z88.8 Allergy status to other drugs, medicaments and biological substances; Z11.52 Encounter for screening for COVID-19; Z91.040 Latex allergy status; Z79.890 Hormone replacement therapy; Z79.899 Other long term (current) drug therapy; Z90.710 Acquired absence of both cervix and uterus
CPT/HCPCS: 36415; 70450; 71045; 71250; 72125; 80048; 80076; 81003; 82947; 83605; 83690; 83735; 83880; 84100; 84132; 84439; 84443; 84484; 85025; 85610; 87040; 87324; 87804; 87811; 93005; 97110; 97116; 97161; 97530; 99285; J0696; J1650; J1720; J2405; J3480; J7030; J7040

== ENCOUNTER 2024-11-26 14:48 | Inpatient (IN) | payer OTHER ==
--- OUTSIDE RECORDS SUMMARY | 2024-11-26 14:51 | XMS REPORT | Continuity of Care Document ---
Author Name Unknown Address [address] [facility] [address] [place] [address] [facility] [place] Address [address] [facility]. [address] [place] [address] Support Name Relationship Address Phone TOM ODONNELL Daughter [address] [place] [address] Unavailable SHELLEY HERNANDEZ David FAIRA DA NESPERIER A CONDOMINIO DO GOLF II, BLOCO 1, NO. 1.3 VILAMOURA, Unavailable Care Team Providers Care Nail Sticker Name Role Phone No , Pcp Primary Care Physician Unavailab AUDIE Aaron Attending Clinician Unavailable MONICA GALINDO Attending Clinician UnavailOMARI Ramos Attending Clinician Unavailable VELASQUEZ NESS Attending Clinician Unavailable ELIEZER CORTEZ Attending Clinician Unavailab LANDON England Attending Clinician Un available ERICH GARY Attending Clinician Unavailable ANDI GRAFF Attending Clinician Unavailable Vick RN, Jessica Attending Clinician Unavailable Payers Payer Name Policy Type Policy Number Effective Date Expirati on Date Source MEDICARE PART A AND B [id number] 2007 00:00:00 Problems Condition Name Condition Details Condition Category Status Onset Date Resolution Date Last Treatment Date Treating Clinician Comments Source Bipolar 1 disorder Bipolar 1 disorder Disease Active 05-13 00:00: 00 [facility] Bipolar disorder current episode depressed Bipolar disorder current episode depressed Disease Active 11-05 00:00: 00 [facility] Bipolar 1 disorder, manic, mild Bipolar 1 disorder, manic, mild Disease Active 09-02 00:00: 00 [facility] Generalize d anxiety disorder Generalize d anxiety disorder Disease Active 09-02 00:00: 00 [facility] 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, unspecifie d 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, unspecifie d Disease Active 09-02 00:00: 00 [facility] Hypothyroi dism Hypothyroi dism Disease Active 2016-04 0 00:00: 00 [facility] Social History Social Habit Start Date Stop Date Quantity Comments Source Sex Assigned At 1940 00:00:00 1940 00:00:00 [facility] Smoking Status Start Date Stop Date Source Tobacco smoking consumption unknown [facility] Medications Ordered Medication Name Filled Medication Name Start Date Stop Date Current Medication? Ordering Clinician Indication Dosage Frequency Signature (SIG) Comments Components Source carBAMazepi ne (TEGretol) 200 MG tablet 2020-04 00:00: 00 03-27 05:59 :00 No [id number] 600mg Take 3 tablets (600 mg total) by mouth every night. [facility] QUEtiapine (SEROquel) 400 MG tablet 2020-04 00:00: 00 03-27 05:59 :00 No [id number] 600mg Take 1.5 tablets (600 mg total) by mouth every night. TAKE 1 AND 1/2 TABLETS BY MOUTH AT BEDTIME [facility] busPIRone (Buspar) 30 MG tablet 2020-04 00:00: 00 03-27 05:59 :00 No [id number] 30mg Q.5D Take 1 tablet (30 mg total) by mouth 2 (two) times a day. [facility] escitalopra m (Lexapro) 20 MG tablet 2020-04 00:00: 00 03-27 05:59 :00 No [id number] 20mg QD Take 1 tablet (20 mg total) by mouth 1 (one) time each day. TAKE 1 TABLET BY MOUTH EVERY DAY [facility] LORazepam (Ativan) 2 MG tablet 12-26 00:00: 00 Yes [id number] Take 1/2 tablet by mouth once daily and I tablet every night at bed time [facility] busPIRone (Buspar) 15 MG tablet 12-23 00:00: 00 Yes [id number] 15mg Q.5D Take 1 tablet (15 mg total) by mouth 2 (two) times a day. [facility] levothyroxi ne (Synthroid, Levoxyl) 125 MCG tablet 09-01 00:00: 00 Yes 125ug QD Take 125 mcg by mouth 1 (one) time each day. [facility] promethazin e (Phenergan) 25 MG tablet 06-07 00:00: 00 Yes 25mg [id number] 3D Take 25 mg by mouth 3 (three) times a day if needed. [facility] Folbic 2.5-25-2 MG tablet 06-07 00:00: 00 Yes 1{tbl} QD Take 1 tablet by mouth 1 (one) time each day. [facility] gabapentin (Neurontin) 300 MG capsule 05-19 00:00: 00 Yes [facility] triamcinolo ne (Kenalog) 0.1 % cream 2019-04 00:00: 00 Yes [facility] predniSONE (Deltasone) 10 MG tablet 2019-04 1 00:00: 00 Yes [facility] furosemide (Lasix) 40 MG tablet 2019-04 00:00: 00 Yes TK 1 T PO D [facility] fluocinonid e (Lidex) 0.05 % cream 12-03 00:00: 00 Yes MIKA TO AFFECTED AREA OF SKIN BID PRN [facility] famciclovir (Famvir) 500 MG tablet 11-12 00:00: 00 Yes TK 1 T PO TID [facility] gabapentin (Neurontin) 100 MG capsule 11-12 00:00: 00 Yes TK 1 C PO TID [facility] predniSONE (Deltasone) 20 MG tablet 11-12 00:00: 00 Yes TK 1 T PO D WF [facility] furosemide (Lasix) 20 MG tablet 10-27 00:00: 00 Yes TK 1 T PO D [facility] amoxicillin -clavulanat e (Augmentin) 875-125 MG tablet 10-11 00:00: 00 Yes 1{each} 1 each. [facility] clotrimazol e-betametha sone (Lotrisone) cream 10-11 00:00: 00 Yes THREE TIMES A DAY [facility] folic acid-pyrido xine-cyanoc obalamin (Folbic) 2.5-25-2 MG tablet 10-11 00:00: 00 Yes 1{tbl} 1 tablet. [facility] furosemide (Lasix) 20 MG tablet 10-11 00:00: 00 Yes 20mg 20 mg. [facility] amLODIPine (Norvasc) 5 MG tablet 10-04 00:00: 00 Yes 5mg 5 mg. [facility] cholecalcif arun (Vitamin D-3) 25 MCG (1000 UT) capsule 10-04 00:00: 00 Yes 3000U 3,000 Units. [facility] Coenzyme Q10 400 MG capsule 10-04 00:00: 00 Yes 2000mg 2,000 mg. [facility] cyanocobala min (Vitamin B-12) 1000 MCG/ML injection 10-04 00:00: 00 Yes 2000mg 2,000 mg. [facility] diphenhydrA MINE (Sominex) 25 MG tablet 10-04 00:00: 00 Yes 25mg 25 mg. [facility] naproxen sodium (Aleve) 220 MG tablet 10-04 00:00: 00 Yes 2{capsu le} 2 capsules. [facility] Cetirizine HCl (ZyrTEC ALLERGY) 10 MG capsule 09-24 00:00: 00 Yes [facility] fluticasone (Flonase Allergy Relief) 50 MCG/ACT nasal spray 09-24 00:00: 00 Yes [facility] levothyroxi ne (Levo-T) 112 MCG tablet 09-24 00:00: 00 Yes TAKE 1 TABLET DAILY DIRECTED. [facility] lisinopril 10 MG tablet 09-24 00:00: 00 Yes [facility] metoprolol tartrate (Lopressor) 50 MG tablet 09-24 00:00: 00 Yes [facility] Encounters Start Date/Time End Date/Time Encounter Type Admission Type Attending Clinicians Care Facility Care Department Encounter ID Source 2022-11-14 14:53:54 Outpatient [facility] [id number] [facility] 2022-10-31 10:14:32 Outpatient [facility] [id number] [facility] 2022-10-30 07:52:33 Outpatient [facility] [id number] [facility] 2022-10-17 09:34:49 Outpatient [facility] [id number] [facility] 2022-09-11 13:05:42 Outpatient [facility] [id number] [facility] 2022-08-01 10:44:15 Outpatient [facility] [id number] [facility] 2022-07-31 12:51:57 Outpatient [facility] [id number] [facility] 2022-06-20 12:17:44 Outpatient [facility] [id number] [facility] 2022-06-18 10:29:57 Outpatient [facility] [id number] [facility] 2022-02-13 09:40:18 Outpatient [facility] [id number] [facility] 2021-12-19 11:12:11 Outpatient [facility] [id number] [facility] 2021-10-06 16:06:12 Outpatient AUDIE DELGADO [facility] [id number] [facility] 2021-10-05 10:11:08 Outpatient [facility] [id number] [facility] 2021-07-14 15:17:36 Outpatient AUDIE DELGADO [facility] [id number] [facility] 2021-07-13 08:58:09 Outpatient [facility] [id number] [facility] 2021-06-29 15:31:07 Outpatient AUDIE DELGADO [facility] [id number] [facility] 2021-02-24 16:40:48 Outpatient SANDY AUDIE [facility] [id number] [facility] 2021-01-27 16:28:44 Outpatient SANDY AUDIE [facility] [id number] [facility] 2020-10-24 15:29:38 Outpatient NEENA DELGADOEETH [facility] [id number] [facility] 2020-10-21 16:30:14 Outpatient NEENA DELGADOEETH [facility] [id number] [facility] 2020-09-09 16:40:45 Outpatient AUDIE DELGADO [facility] [id number] [facility] 2020-08-20 02:51:59 Outpatient AUDIE DELGADO [facility] [id number] [facility] 2025-03-24 10:30:00 2025-03-24 10:30:00 Outpatient MONICA GALINDO [facility] [id number] [facility] 2024-09-30 11:00:00 2024-09-30 11:22:23 Outpatient OMARI PIRES [facility] [id number] [facility] 2024-07-15 11:00:00 2024-07-15 11:00:00 Outpatient OMARI PIRES [facility] [id number] [facility] 2023-10-09 09:30:00 2023-10-09 09:55:07 Outpatient GROVERVELASQUEZ [facility] [id number] [facility] 2023-09-04 11:00:00 2023-09-04 12:01:03 Outpatient ELIEZER CORTEZ [facility] [id number] [facility] 2023-07-31 11:00:00 2023-07-31 11:34:41 Outpatient GROVER, VELASQUEZ [facility] [id number] [facility] 2023-06-12 11:00:00 2023-06-12 11:53:37 Outpatient GROVER, VELASQUEZ [facility] [id number] [facility] 2023-03-13 11:00:00 2023-03-13 11:00:00 Outpatient GROVER, VELASQUEZ [facility] [id number] [facility] 2023-02-06 11:00:00 2023-02-06 11:00:00 Outpatient GROVER, VELASQUEZ [facility] [id number] [facility] 2023-01-02 11:00:00 2023-01-02 14:31:32 Outpatient GROVER, VELASQUEZ [facility] [id number] [facility] 2023-01-02 11:00:00 2023-01-02 11:00:00 Outpatient REDDY JENNI, LANDON [facility] [id number] [facility] 2022-11-21 10:15:00 2022-11-21 13:15:38 Outpatient REDDY JENNI, LANDON [facility] [id number] [facility] 2022-10-31 10:15:00 2022-10-31 10:15:00 Outpatient VELASQUEZ NESS [facility] [id number] [facility] 2022-10-31 10:15:00 2022-10-31 10:15:00 Outpatient BARRY JENNILANDON BESS [facility] [id number] [facility] 2022-09-12 11:00:00 2022-09-12 11:52:50 Outpatient ERICH GARY [facility] [id number] [facility] 2022-08-01 11:00:00 2022-08-01 14:49:47 Outpatient ERICH GARY [facility] [id number] [facility] 2022-06-20 11:00:00 2022-06-20 12:53:01 Outpatient ERICH GARY [facility] [id number] [facility] 2022-05-16 10:15:00 2022-05-16 14:46:57 Outpatient ERICH GARY [facility] [id number] [facility] 2022-04-18 11:00:00 2022-04-18 11:00:23 Outpatient ERICH GARY [facility] [id number] [facility] 2022-04-11 11:00:00 2022-04-11 11:00:00 Outpatient ERICH GARY [facility] [id number] [facility] 2022-02-14 11:00:00 2022-02-14 15:07:30 Outpatient ERICH GARY [facility] [id number] [facility] 2021-12-20 11:00:00 2021-12-20 14:26:09 Outpatient PRERNAANDI [facility] [id number] [facility] 2021-02-24 00:00:00 2021-02-24 00:00:00 Telephone Jessica Hickman Cora [facility] [id number] [facility] 2016-05-21 16:00:00 2016-05-21 16:00:00 Outpatient [facility] [id number] David Davis 2016-02-20 16:00:00 2016-02-20 16:00:00 Outpatient [facility] [id number] David coronado Ryan 2015-10-31 14:00:00 2015-10-31 14:00:00 Outpatient [facility] [id number] David coronado Ryan 2015-09-19 15:00:00 2015-09-19 15:00:00 Outpatient [facility] [id number] David coronado Ryan 2015-09-19 14:00:00 2015-09-19 14:00:00 Outpatient [facility] [id number] David coronado Ryan 2015-08-08 16:30:00 2015-08-08 16:30:00 Outpatient [facility] [id number] David coronado Ryan 2015-06-06 16:30:00 2015-06-06 16:30:00 Outpatient [facility] [id number] David coronado Ryan 2015-05-16 16:30:00 2015-05-16 16:30:00 Outpatient [facility] [id number] Briandasuellen coronado Ryan 2015-04-04 14:00:00 2015-04-04 14:00:00 Outpatient [facility] [id number] David coronado Ryan 2015-01-24 16:30:00 2015-01-24 16:30:00 Outpatient [facility] [id number] Briandasuellen cliff Davis 2014-11-22 14:00:00 2014-11-22 14:00:00 Outpatient [facility] [id number] Briandasuellen cliff Davis 2014-09-30 14:00:00 2014-09-30 14:00:00 Outpatient [facility] [id number] David Davis
--- NOTE | 2024-11-26 15:35 | RAD REPORT ---
EXAM: CT brain without contrast HISTORY: tremor COMPARISON: 03/04/2023 TECHNIQUE: Multiple contiguous axial images were obtained and a CT of the brain without contrast. Sag ittal and coronal reformats were performed. One or more of the following dose reduction techniques were used: Automated exposure control, adjust ment of the mA and/or kV according to patient size, and/or iterative reconstruction. FINDINGS: No evidence of hydrocephalus, intracranial hemorrhage, or extra-axial fluid collection. Moderate brain atrophy with moderate periventricular and deep white matter chronic microvascular isc hemic changes present. No evidence of midline shift or areas of brain edema. The calvarium is intact. Chronic right maxillary sinusitis. Paranasal sinuses and mastoids are otherw ise clear. IMPRESSION: No evidence of acute intracranial abnormality.
[2024-11-26 15:38] LABS: Absolute Lymphocytes (CBC) 1.2 K/uL (0.7-4.9); Hematocrit 37.4 % (36.0-45.0); Hemoglobin 12.9 g/dL (12.0-15.0); MCH 35.5 pg (27.0-35.0); MCHC 34.6 g/dL (32.0-36.0); MCV 102.6 fL (80-100); MPV 7.9 fL (7.6-11.3); Nucleated RBC Absolute Count 0.0 (0-0); Nucleated Red Blood Cells % 0.1 % (0-0); RBC Red Blood Cell Count 3.64 M/uL (3.86-4.86); White Blood Count 6.60 thou/uL (4.3-10.9)
[2024-11-26 15:50] LABS: PT Prothrombin Time 14.1 SECONDS (10-13.0); Protime INR 1.26
[2024-11-26] MEDS ORDERED: NA CHLORIDE 0.9% 1,000 ML ONE (16:31)
[2024-11-26 16:40] LABS: Sqamous Epithelial <5 /HPF (None Seen); Urine Crystals Unidentified Few /HPF (None Seen); Urine Culture Reflex Order NOT NEEDED; Urine Microscopic Reflex YN ORDER UMIC; Urine WBC Clump Rare /HPF (None Seen); Urine Yeast (Budding) Trace /HPF (None Seen)
[2024-11-26 16:47] LABS: Influenza A Ag Negative; Influenza B Ag Negative; SARS-CoV-2 Antigen Rapid Res Negative (Negative)
[2024-11-26] MEDS ORDERED: LORAZEPAM 1 MG TABLET ONE (17:02)
[2024-11-26 17:04] LABS: ALT/SGPT 44 U/L (13-56); AST/SGOT 34 U/L (15-37); Albumin 3.4 g/dL (3.4-5.0); Albumin/Globulin Ratio 0.9 (1.1-1.8); Alkaline Phosphatase 100 U/L (45-117); Anion Gap 10.7 mEq/L (5.0-15.0); BUN Blood Urea Nitrogen 14 mg/dL (7-18); Globulin 3.7 g/dL (2.3-3.5); Glucose Level 104 mg/dL (74-106); Magnesium 2.0 mg/dL (1.6-2.4); Potassium 3.7 mEq/L (3.5-5.1); Troponin High Sensitivity 8.8 pg/mL (<58.9)
[2024-11-26 17:05] LABS: Bilirubin Indirect, Calculated 0.1 mg/dL (0.2-0.8)
--- NOTE | 2024-11-26 17:13 | RAD REPORT ---
EXAMINATION: ONE VIEW CHEST XR CLINICAL INDICATION: tremor TECHNIQUE: Frontal chest projection is submitted. Examination is limited by patient positioning and t echnique. COMPARISON: No prior exam. FINDINGS: Mild interstitial pulmonary edema suspected. The heart is mildly enlarged in size. No displaced fract ures identified. IMPRESSION: Mild CHF versus volume overload pattern is suspected.
[2024-11-26] MEDS ORDERED: NA CHLORIDE 0.9% 100 ML ONE (17:47)
[2024-11-26] MEDS ORDERED: CEFTRIAXONE 1000 MG/VIAL ONE (17:47)
--- NOTE | 2024-11-26 18:47 | RAD REPORT ---
EXAMINATION: CT ABDOMEN AND PELVIS WITH CONTRAST CLINICAL INDICATION: ABD PAIN TECHNIQUE: CT abdomen and pelvis was performed, after the administration of IV contrast, as [facility]. Axial, sagittal and coronal reconstructions were obtained. One or more of the following dose reduction techniques were used: Automated exposure control, adjustment of the mA and k V according to patient size, and iterative reconstruction. Unless otherwise specified, incidental findings do not require dedicated imaging follow-up. COMPARISON: 10/06/2019 FINDINGS: LOWER CHEST: The visualized lung bases are clear. Small hiatal hernia with mild distal esophageal thi ckening. LIVER: Significant fatty liver with hepatomegaly present. Several low-density lesions are seen presum ably cysts. No biliary dilatation. Gallstones likely present in the gallbladder. SPLEEN: Normal size. No focal lesion. PANCREAS: No mass, ductal dilation, or shira-pancreatic fluid. ADRENALS: Normal; no mass. KIDNEYS: Normal size and contour. No hydronephrosis. GASTROINTESTINAL TRACT: No evidence of free air, significant intra-abdominal free fluid, bowel obstru ction or abscess. APPENDIX: Normal appendix. LYMPH NODES: No lymphadenopathy. MUSCULOSKELETAL: Moderate multilevel lumbar spondylosis. IMPRESSION: Advanced fatty liver. Cholelithiasis. Distal esophageal thickening and wall thickening.
--- NOTE | 2024-11-26 19:10 | ER ---
Nurse's Notes [facility] Name: Maxine Elias Age: 84 yrs Sex: Female : 1940 Arrival Date: 11/26/2024 Time: 14:48 Bed 8 Private MD: Diagnosis: UTI/ Urinary tract infection, site not specified;Other cholelithiasis without obstruction;Tremor, unspecified Presentation: 11/26 14:51 Chief complaint: EMS states: GENERALIZED "SHAKING" SINCE WAKING. Coronavirus screen: At bp this time, the client does not indicate any symptoms associated with coronavirus-19. Ebola Screen: No symptoms or risks identified at this time. Initial Sepsis Screen: Does the patient meet any 2 criteria? No. Patient's initial sepsis screen is negative. Does the patient have a suspected source of infection? No. Patient's initial sepsis screen is negative. Risk Assessment: Do you want to hurt yourself or someone else? Patient reports no desire to harm self or others. Onset of symptoms was November 26, 2024 at 10:00. Care prior to arrival: Glucose check: 118. 14:51 Method Of Arrival: EMS: [facility] bp 14:51 Acuity: SWAPNIL 3 bp Triage Assessment: 14:53 General: Appears in no apparent distress. Behavior is cooperative, appropriate for age, bp anxious. Pain: Denies pain. EENT: No deficits noted. Neuro: Level of Consciousness is awake, alert, obeys commands, Oriented to Appropriate for age Reports SHAKING. Cardiovascular: Rhythm is sinus rhythm. Respiratory: No deficits noted. GI: No signs and/or symptoms were reported involving the gastrointestinal system. : No signs and/or symptoms were reported regarding the genitourinary system. Derm: No deficits noted. Musculoskeletal: No deficits noted. Historical: - Allergies: 14:53 Neosporin ([id number]); bp - PMHx: 14:53 Anxiety; Bipolar disorder; depressive disorder; Hypercholesterolemia; Hypertension; bp Hypothyroidism; - Immunization history:: Adult Immunizations up to date. - Infectious Disease History:: Denies. - Social history:: Smoking status: Patient denies any tobacco usage or history of. Screenin:56 [facility] ED Fall Risk Assessment (Adult) History of falling in the last 3 months, bp including since admission No falls in past 3 months (0 pts) Confusion or Disorientation No (0 pts) Intoxicated or Sedated No (0 pts) Impaired Gait No (0 pts) Mobility Assist Device Used No (0 pt) Altered Elimination No (0 pt) Score/Fall Risk Level 0 - 2 = Low Risk Oriented to surroundings. Abuse screen: Denies threats or abuse. Denies injuries from another. Nutritional screening: No deficits noted. Tuberculosis screening: No symptoms or risk factors identified. Assessment: 14:56 General: SEE TRIAGE. bp 18:30 Reassessment: No changes from previously documented assessment. Patient is alert, bp oriented x 3, equal unlabored respirations, skin warm/dry/pink. 19:09 Reassessment: Pt states, "I can't go home like this, I'm to sick to take care of vc1 myself" Informed patient the provider will come speak with her about plan of care. 19:09 General: Appears in no apparent distress. uncomfortable, obese, Behavior is vc1 cooperative, anxious. Pain: Denies pain. Neuro: Level of Consciousness is awake, alert, obeys commands, Oriented to person, place, time, situation, Appropriate for age. Neuro: Reports "shaking and weakness". Cardiovascular: Heart tones S1 S2 present Capillary refill < 3 seconds Patient's skin is warm and dry. Respiratory: Airway is patent Respiratory effort is even, unlabored, Respiratory pattern is regular, symmetrical, Breath sounds are clear bilaterally. GI: No deficits noted. No signs and/or symptoms were reported involving the gastrointestinal system. : No deficits noted. No signs and/or symptoms were reported regarding the genitourinary system. EENT: No deficits noted. No signs and/or symptoms were reported regarding the EENT system. Derm: Skin is intact, is healthy with good turgor, Skin is dry, Skin is normal, Skin temperature is warm. Musculoskeletal: Circulation, motion, and sensation intact. Range of motion: intact in all extremities. 22:36 Reassessment: Patient appears in no apparent distress at this time. Patient and/or bm8 family updated on plan of care and expected duration. Pain level reassessed. Patient is alert, oriented x 3, equal unlabored respirations, skin warm/dry/pink. Patient states feeling better. Patient states symptoms have improved. Vital Signs: 14:51 BP 128 / 67; Pulse 92; Resp 18; Temp 98.8; Pulse Ox 98% ; bp 16:00 BP 152 / 78; Pulse 78; Resp 18; Pulse Ox 98% on R/A; ph 17:00 BP 142 / 72; Pulse 88; Resp 19; Pulse Ox 98% on R/A; ph 19:09 BP 185 / 76; Pulse 91; Resp 20; Pulse Ox 98% ; vc1 20:12 BP 180 / 82; Pulse 89; Resp 17; Temp 98.8; Pulse Ox 99% ; Pain 3/10; vc1 21:52 BP 169 / 72; Pulse 87; Resp 18; Pulse Ox 97% ; vc1 20:12 Pain Scale: Adult vc1 [place] Coma Score: 20:07 Eye Response: spontaneous(4). Motor Response: obeys commands(6). Verbal Response: bm8 oriented(5). Total: 15. 22:36 Eye Response: spontaneous(4). Motor Response: obeys commands(6). Verbal Response: bm8 oriented(5). Total: 15. ED Course: 14:51 Patient arrived in ED. bp 14:53 Triage completed. bp 14:55 Arm band placed on. bp 14:56 Patient has correct armband on for positive identification. bp 14:57 Maximino Sue, MARIAELENA is Primary Nurse. bp 14:57 Justin Staton PA is PHCP. cp 14:57 Lv Morrissey DO is Attending Physician. cp 15:15 Initial lab(s) drawn, by ok, sent to lab. Inserted saline lock: 22 gauge in right bp forearm, using aseptic technique. Blood collected. Flushed with 10 mL NS. 15:31 CT Head Brain wo Cont In Process Unspecified. EDMS 16:50 XRAY Chest (1 view) In Process Unspecified. EDMS 18:45 CT Abd/Pelvis - IV Contrast Only In Process Unspecified. EDMS 19:08 Momo Hale, MARIAELENA is Hospitalizing Provider. cp 20:07 Inserted saline lock: 22 gauge in right antecubital area, using aseptic technique. bm8 Blood collected. Flushed with 10 mL NS IV discontinued, intact, bleeding controlled, No redness/swelling at site. Pressure dressing applied, right forearm dc'ed. 22:36 Provided Education on: need for admission. bm8 22:36 No provider procedures requiring assistance completed. bm8 Administered Medications: 16:04 CANCELLED (Physician Discretion): lorazepam1 mg PO once cp 16:34 Drug: NS 0.9% IV 1000 ml IV at 1 bolus Per protocol; to be given as a bolus over 60 bp minutes Route: IV; Rate: 1 bolus; Site: right forearm; 18:56 Follow up: Response: No adverse reaction; IV Status: Completed infusion; IV Intake: ph 1000ml 17:35 Drug: LORazepam PO 1 mg PO once Route: PO; ph 18:56 Follow up: Response: No adverse reaction ph 18:24 Drug: Rocephin IV 1 grams IV at calculated rate once; Given slow IV push per pharmacy bp instructions Route: IV; Rate: calculated rate; Site: right forearm; 18:56 Follow up: Response: No adverse reaction; IV Status: Completed infusion ph Medication: 14:56 VIS not applicable for this client. bp Intake: 18:56 IV: 1000ml; Total: 1000ml. ph Outcome: 19:09 Decision to Hospitalize by Provider. cp 22:36 Discharged to home ambulatory, bm8 22:36 Admitted to Med/surg accompanied by tech, via stretcher, room 202, with chart, 22:36 Condition: stable 22:36 Instructed on follow up and referral plans. the need for admit, Demonstrated understanding of instructions, follow-up care, medications, 22:37 Patient left the ED. bm8 Signatures: Dispatcher [employer] EDLashaun Ely, RN RN ph Justin Staton, NANDINI DELATORRE cp Maximino Sue, RN RN bp Amanda Allen RN RN vc1 Prateek Lackey, RN RN bm8
--- NOTE | 2024-11-26 19:10 | EDPHYS ---
Physician Documentation [facility] Name: Maxine Elias Age: 84 yrs Sex: Female : 1940 Arrival Date: 11/26/2024 Time: 14:48 Bed 8 Private MD: ED Physician Lv Morrissey HPI: 11/26 15:00 This 84 yrs old Female presents to ER via EMS with complaints of GENERAL SHAKING. cp 15:00 The patient's problem is reported as weakness, that is generalized, tremor. cp 15:00 Onset: The symptoms/episode began/occurred this morning. Duration: The episode is cp continuous. Associated signs and symptoms: Pertinent negatives: abdominal pain, chest pain, confusion, fever. Severity of symptoms: in the emergency department the symptoms are unchanged despite home interventions. Historical: - Allergies: 14:53 Neosporin ([id number]); bp - PMHx: 14:53 Anxiety; Bipolar disorder; depressive disorder; Hypercholesterolemia; Hypertension; bp Hypothyroidism; - Immunization history:: Adult Immunizations up to date. - Infectious Disease History:: Denies. - Social history:: Smoking status: Patient denies any tobacco usage or history of. ROS: 15:05 Constitutional: Negative for body aches, chills, fever, poor PO intake, cp 15:05 Cardiovascular: Negative for chest pain, palpitations, cp 15:05 Respiratory: Negative for cough, shortness of breath, wheezing, 15:05 Abdomen/GI: Negative for abdominal pain, vomiting, diarrhea, constipation, 15:05 Neuro: Positive for tremor, weakness, Negative for altered mental status, dizziness, headache, syncope, 15:05 All other systems are negative, Exam: 15:10 Constitutional: The patient appears in no acute distress, alert, awake, cp non-diaphoretic, non-toxic, well developed, well nourished, obese, 15:10 Head/Face: Normocephalic, atraumatic. cp 15:10 Eyes: Periorbital structures: appear normal, Pupils: equal, round, and reactive to light and accomodation, Extraocular movements: intact throughout, Conjunctiva: normal, no exudate, no injection, 15:10 ENT: External ear(s): are unremarkable, Nose: is normal, Mouth: Lips: moist, Oral mucosa: moist, Posterior pharynx: Airway: no evidence of obstruction, patent, 15:10 Neck: ROM/movement: is normal, is supple, without pain, no range of motions limitations, 15:10 Chest/axilla: Inspection: normal, 15:10 Cardiovascular: Rate: normal, Rhythm: regular, Edema: is not appreciated, 15:10 Respiratory: the patient does not display signs of respiratory distress, Respirations: labored breathing, is not present, intercostal retractions, are absent, Breath sounds: are clear throughout, no decreased breath sounds, no stridor, no wheezing, 15:10 Abdomen/GI: Inspection: obese Bowel sounds: active, all quadrants, Palpation: abdomen is soft and non-tender, in all quadrants, 15:10 Skin: cellulitis, is not appreciated, no rash present. 15:10 Neuro: Orientation: to person, place \T\ time. Mentation: is normal, Motor: moves all fours, no focal deficits, 15:45 ECG was reviewed by the Attending Physician. cp 16:05 Radiologist reports: no acute findings cp Vital Signs: 14:51 BP 128 / 67; Pulse 92; Resp 18; Temp 98.8; Pulse Ox 98% ; bp 16:00 BP 152 / 78; Pulse 78; Resp 18; Pulse Ox 98% on R/A; ph 17:00 BP 142 / 72; Pulse 88; Resp 19; Pulse Ox 98% on R/A; ph 19:09 BP 185 / 76; Pulse 91; Resp 20; Pulse Ox 98% ; vc1 20:12 BP 180 / 82; Pulse 89; Resp 17; Temp 98.8; Pulse Ox 99% ; Pain 3/10; vc1 21:52 BP 169 / 72; Pulse 87; Resp 18; Pulse Ox 97% ; vc1 20:12 Pain Scale: Adult vc1 [place] Coma Score: 20:07 Eye Response: spontaneous(4). Motor Response: obeys commands(6). Verbal Response: bm8 oriented(5). Total: 15. 22:36 Eye Response: spontaneous(4). Motor Response: obeys commands(6). Verbal Response: bm8 oriented(5). Total: 15. MDM: 14:57 Medical Screening Exam initiated cp 19:10 Data reviewed: vital signs, nurses notes, lab test result(s), EKG, radiologic studies, cp CT scan, plain films. 19:10 Differential diagnosis: CVA, TIA, metabolic disorder, drug effects, uti. Management of cp patient was discussed with the following: Hospitalist: MR Hale will admit after discussion. I considered the following discharge prescriptions or medication management in the emergency department Medications were administered in the Emergency Department. See MAR. Independent interpretation of the following test(s) in the Emergency Department EKG: See my EKG interpretation above. Care significantly affected by the following chronic conditions: Hypertension. Counseling: I had a detailed discussion with the patient and/or guardian regarding the historical points, exam findings, and any diagnostic results supporting the discharge/admit diagnosis, the presence of at least one elevated blood pressure reading (>120/80) during this emergency department visit, lab results, radiology results, the need for further work-up and treatment in the hospital. Response to treatment: the patient's symptoms have mildly improved after treatment. 11/26 14:58 Order name: Basic Metabolic Panel; Complete Time: 17:21 11/26 17:21 Interpretation: Normal except: CL 110; GFR 65. 11/26 14:58 Order name: CBC with Diff; Complete Time: 16:01 cp 11/26 16:02 Interpretation: Normal except: RBC 3.64; MCV 102.6; MCH 35.5. cp 11/26 14:58 Order name: LFT's; Complete Time: 17:21 11/26 17:22 Interpretation: Normal except: IBILI, CALC 0.1; GLOB 3.7; A/G 0.9. 11/26 14:58 Order name: Magnesium; Complete Time: 17:21 cp 11/26 14:58 Order name: PT-INR; Complete Time: 16:01 cp 11/26 14:58 Order name: Troponin HS; Complete Time: 17:21 cp 11/26 17:22 Interpretation: Reviewed. 11/26 14:58 Order name: UA Rfx Cole Cult if indicated; Complete Time: 16:40 11/26 16:40 Interpretation: Normal except: [facility] Extremely Turbid; UKET 1+; UPH 8.5; UNIT 2+; URBC cp 5-10; BYST Trace. 11/26 14:58 Order name: Lactate w/ 2H reflex if indic.; Complete Time: 16:19 cp 11/26 16:19 Interpretation: Reviewed. 11/26 16:05 Order name: COVID-19 Ag + Flu A+B Ag; Complete Time: 17:21 11/26 16:06 Order name: Ghost Lactate-NO COLLECT Timer; Complete Time: 18:48 EDMS 11/26 16:42 Order name: Blood Culture Adult (2); Complete Time: 22:36 11/26 16:42 Order name: Ptt, Activated; Complete Time: 20:42 11/26 20:42 Interpretation: Reviewed. 11/26 20:40 Order name: Lactate Sepsis 2 HR Follow-up; Complete Time: 20:42 EDMS 11/26 14:58 Order name: XRAY Chest (1 view); Complete Time: 17:21 11/26 14:58 Order name: CT Head Brain wo Cont; Complete Time: 16:01 11/26 16:02 Interpretation: Report reviewed. 11/26 17:27 Order name: CT Abd/Pelvis - IV Contrast Only; Complete Time: 18:48 11/26 21:35 Order name: Echo with Doppler EDWI 11/26 21:35 Order name: Echo with Doppler EDWI 11/26 21:36 Order name: Abdomen Exam Complete EDMS 11/26 21:36 Order name: Abdomen Exam Complete EDMS 11/26 22:20 Order name: US; Complete Time: 22:36 EDMS 11/26 14:58 Order name: EKG; Complete Time: 14:59 11/26 14:58 Order name: Cardiac monitoring; Complete Time: 14:59 11/26 14:58 Order name: EKG - Nurse/Tech; Complete Time: 15:45 11/26 14:58 Order name: IV Saline Lock; Complete Time: 15:45 11/26 14:58 Order name: Labs collected and sent; Complete Time: 15:45 11/26 14:58 Order name: O2 Per Protocol; Complete Time: 14:59 11/26 14:58 Order name: O2 Sat Monitoring; Complete Time: 14:59 11/26 15:50 Order name: Labs - recollect needed: recollect light green; Complete Time: 16:22 ss 11/26 16:04 Order name: Cath; Complete Time: 16:22 11/26 16:42 Order name: Accucheck; Complete Time: 16:54 11/26 16:42 Order name: Vital Signs; Complete Time: 16:54 cp EC:45 Rate is 84 beats/min. Rhythm is regular. MT interval is prolonged at 202 msec. QRS cp interval is prolonged at 126 msec. QT interval is normal. T waves are Inverted in lead aVR. Interpreted by me. Reviewed by me. Administered Medications: 16:04 CANCELLED (Physician Discretion): lorazepam1 mg PO once cp 16:34 Drug: NS 0.9% IV 1000 ml IV at 1 bolus Per protocol; to be given as a bolus over 60 bp minutes Route: IV; Rate: 1 bolus; Site: right forearm; 18:56 Follow up: Response: No adverse reaction; IV Status: Completed infusion; IV Intake: ph 1000ml 17:35 Drug: LORazepam PO 1 mg PO once Route: PO; ph 18:56 Follow up: Response: No adverse reaction ph 18:24 Drug: Rocephin IV 1 grams IV at calculated rate once; Given slow IV push per pharmacy bp instructions Route: IV; Rate: calculated rate; Site: right forearm; 18:56 Follow up: Response: No adverse reaction; IV Status: Completed infusion ph Disposition: 19:11 I was immediately available on-site in the Emergency Department for consultation in the ms3 care of the patient. 11/27 22:37 Chart complete. cp Disposition Summary: 11/26/24 19:09 Hospitalization Ordered Notes: Hospitalization Status: Inpatient Admission cp Provider: Momo Hale cp Location: Telemetry/MedSurg (Inpatient) cp Condition: Stable cp Problem: new cp Symptoms: have improved cp Bed/Room Type: Standard cp Room Assignment: 202(11/26/24 21:38) vk Diagnosis - UTI/ Urinary tract infection, site not specified cp - Other cholelithiasis without obstruction cp - Tremor, unspecified cp Forms: - Medication Reconciliation Form cp - SBAR form cp - Leadership Thank You Letter cp Signatures: Dispatcher [employer] Lore Wright RN RN Lashaun Velásquez RN RN ph Justin Staton PA PA cp Maximino Sue RN RN Lv Menard DO DO ms3 Rosa Alaniz Corrections: (The following items were deleted from the chart) 11/26 16:04 16:04 LORazepam PO 1 mg PO once ordered. cp cp 21:37 19:09 cp vk 21: 21:37 401 vk vk 11/27 22:32 22:21 Neuro: Positive for tremor, cp cp
[2024-11-26] MEDS ORDERED: ALBUTEROL 2.5 MG/3 ML NEB SOL NEB PRN (21:35)
--- NOTE | 2024-11-26 21:41 | P.HP ---
Certification for Inpatient Patient admitted to: Inpatient With expected LOS: >2 Midnights Patient will require the following post-hospital care: None Practitioner: I am a practitioner with admitting privileges, knowledge of patient current condition, hospital course, and medical plan of care. Services: Services provided to patient in accordance with Admission requirements found in Title 42 Section 412.3 of the Code of Federal Regulations Patient History Date of Service: 11/26/24 Reason for admission: UTI, abdominal pain, possible new onset CHF. History of Present Illness: Patient is a 84-year-old female with multiple past medical history including anxiety, bipolar disorder, depressive disorder, hypercholesteremia, hypertension, hypothyroidism, who presents to the ER today complaining of chills, and tremors which started at 10 AM today. Patient states around 10 AM today she started having some tremors which appears to have been chills on both arms, with no associated fever, chest pain, shortness of breath, nausea or vomiting. Patient also states she has been having some abdominal pain, CT abdomen/pelvis impression of cholelithiasis, with normal LFTs. On admission assessment, no tremors noted, patient have equal strength on bilateral upper and lower extremities, patient is afebrile, initial lactic acid 3.6 repeat of 2.0. Patient has 1+ pitting edema bilateral lower extremities, with multiple small abrasions on bilateral lower extremities and very poor hygiene. Course in ER: (1)CT abdomen/pelvis. Impression: Advanced fatty liver, Cholelithiasis, distal esophageal thickening and wall thickening. (2) head CT. Impression: No evidence of acute intracranial abnormality. (3) chest x-ray. Impression: Mild CHF versus volume overload pattern is suspected. Allergies neomycin [Neomycin] Allergy (Severe, Verified 10/05/19 21:19) swelling of ear latex Allergy (Intermediate, Verified 10/05/19 21:19) Hives Latex, Natural Rubber Allergy (Intermediate, Verified 10/05/19 21:19) Itching gluten Allergy (Verified 10/05/19 21:19) diarrhea Home Medications: Carbamazepine [Tegretol] 600 mg PO BEDTIME 10/05/19 Diphenhydramine HCl [Benadryl Allergy] 25 mg PO Q4H PRN 10/05/19 LORazepam [Lorazepam] 1 mg PO BID 10/05/19 Buspirone HCl [Buspar] 30 mg PO BID 03/04/23 Quetiapine Fumarate [Seroquel] 200 mg PO BEDTIME 03/05/23 Atorvastatin Calcium [Lipitor] 40 mg PO BEDTIME #30 tab 03/07/23 Metoprolol Tartrate [Lopressor*] 25 mg PO BID #60 tab 03/11/23 Escitalopram [Lexapro*] 20 mg PO DAILY 03/15/23 - Past Medical/Surgical History Diabetic: No -: seizure, HTN, Depression, Ulcers, anxiety, asthma, chronic diarrhea -: heart rhythm disorder. -: Hypercholesteremia. -: total hysterectomy -: Left knee sx -: left wrist tendon removed, - Family History Family History: Reviewed- Non-Contributory - Social History Smoking Status: Never smoker Alcohol use: No CD- Drugs: No Caffeine use: Yes Place of Residence: Home Review of Systems 10-point ROS is otherwise unremarkable Gastrointestinal: Nausea, Abdominal Pain Integumentary: Lesions (Multiple small lesions bilateral lower extremities, very poor hygiene.) Neurological: Weakness Physical Examination - Physical Exam General: Alert, In no apparent distress, Oriented x3 HEENT: Atraumatic, Normocephalic, PERRLA, Mucous membr. moist/pink, Sclerae nonicteric Neck: Supple, 2+ carotid pulse no bruit, No LAD, Without JVD or thyroid abnormality Respiratory: Clear to auscultation bilaterally, Normal air movement Cardiovascular: Edema (Mild bilateral lower extremities edema.) Capillary refill: <2 Seconds Gastrointestinal: Normal bowel sounds, Non-distended, No ascites, No masses, No rebound, No guarding, Hepatomegaly, Tenderness Musculoskeletal: No clubbing, No contractures, Tenderness (Bilateral lower extremities.), Other (Multiple small abrasions bilateral lower extremities with very poor hygiene.) Integumentary: No cyanosis, Skin lesion (Bilateral lower extremities.), Tenderness/swelling (Bilateral lower extremities.) Neurological: Normal speech, Normal strength at 5/5 x4 extr, Normal tone, Sensation intact, Cranial nerves 3-12 intact, Normal reflexes 2+, Normal affect Lymphatics: No axilla or inguinal lymphadenopathy - Studies Laboratory Data (last 24 hrs) 11/26/24 11/26/24 11/26/24 20:20 16:20 15:26 WBC Hgb Hct Plt Count PT 14.1 H INR 1.26 APTT 24.5 L Sodium 141 Potassium 3.7 BUN 14 Creatinine 0.89 Glucose 104 Magnesium 2.0 Total Bilirubin 0.3 AST 34 ALT 44 Alkaline Phosphatase 100 11/26/24 15:26 WBC 6.60 Hgb 12.9 Hct 37.4 Plt Count 227 PT INR APTT Sodium Potassium BUN Creatinine Glucose Magnesium Total Bilirubin AST ALT Alkaline Phosphatase Female Exam - Breasts Breasts: Normal configuration Assessment and Plan - Plan Patient is an 84-year-old female admitted inpatient with diagnosis of UTI, abdo thuan pain, possible new onset CHF with initial BNP of 564, chest x-ray impression-mild CHF versus volume overload patterns is suspected. (1) UTI. -Rocephin 1 g IV daily. -Order urine culture. -Lactic acid 3.6, follow up repeat of 2.0. (2)Abdominal pain with nausea but no vomiting. Patient CT abdomen/pelvis impression of cholelithiasis, patient with normal liver enzymes. -Order follow-up abdominal ultrasound to further evaluate patient gallbladder. Based on the result of patient ultrasound, surgery may need to be consulted. -Zofran 4 mg IV as needed every 6 hours. - Morphine 4 mg IV as needed every 6 hours. (3)Possible new onset CHF. Patient chest x-ray impression: Mild CHF versus volume overload pattern is suspected. Patient denies of any prior history of CHF. -Order initial BNP and it is 564. -Order daily BNP. -Order echocardiogram.- -Lasix 20 mg IV x 1. (4)Patient home meds to be continued after his reconciled. Explained the entire treatment plan to the patient, solicit questions answered and voiced understanding. Discharge Plan: Home Plan to discharge in: Greater than 2 days - Advance Directives Does patient have a Living Will: No Does patient have a Durable POA for Healthcare: No - Code Status/Comfort Care Code Status Assessed: Yes Code Status: Full Code Critical Care: No Time Spent Managing Pts Care (In Minutes): 55
--- NOTE | 2024-11-26 22:20 | RAD REPORT ---
EXAM: Right upper quadrant ultrasound. CLINICAL HISTORY: Abdomen pain/ Cholelithiasis on CT COMPARISON: 11/26/2024 CT study FINDINGS: Gallbladder: Limited assessment due to fatty liver. Stone detected on recent CT in the gallbladder ne ck not well seen. Bile ducts: No intrahepatic or extrahepatic biliary dilatation. Common bile duct measures 5 mm. Limited imaging of the liver shows diffuse fatty infiltration. Several liver cysts. IMPRESSION: Advanced fatty liver. Gallbladder calculus seen on recent CT not well appreciated on ultrasound due to limited sonographic penetrance.
[2024-11-26] MEDS: FUROSEMIDE 20 MG/ 2ML VIAL IV ONE (23:31)
[2024-11-26] MEDS: ONDANSETRON 4 MG/2 ML VIAL IV PRN (23:36)
[2024-11-27] MEDS: MORPHINE 4 MG/ML SYR IV ONE (01:31)
[2024-11-27] MEDS: MORPHINE 4 MG/ML SYR IV PRN (04:25)
[2024-11-27 04:37] LABS: Absolute Lymphocytes (CBC) 1.8 K/uL (0.7-4.9); Hematocrit 38.3 % (36.0-45.0); Hemoglobin 13.3 g/dL (12.0-15.0); MCH 35.5 pg (27.0-35.0); MCHC 34.6 g/dL (32.0-36.0); MCV 102.4 fL (80-100); MPV 7.5 fL (7.6-11.3); Nucleated RBC Absolute Count 0.0 (0-0); Nucleated Red Blood Cells % 0.1 % (0-0); RBC Red Blood Cell Count 3.74 M/uL (3.86-4.86); White Blood Count 7.60 thou/uL (4.3-10.9)
[2024-11-27 04:57] LABS: ALT/SGPT 42.0 U/L (13-56); AST/SGOT 27.0 U/L (15-37); Albumin 3.4 g/dL (3.4-5.0); Albumin/Globulin Ratio 0.9 (1.1-1.8); Alkaline Phosphatase 93.0 U/L (45-117); Anion Gap 9.3 mEq/L (5.0-15.0); BUN Blood Urea Nitrogen 11.0 mg/dL (7-18); Globulin 3.7 g/dL (2.3-3.5); Glucose Level 136.0 mg/dL (74-106); Magnesium 2.0 mg/dL (1.6-2.4); NT PRO-BNP 564.0 pg/mL (<450); Potassium 3.3 mEq/L (3.5-5.1)
--- NOTE | 2024-11-27 07:10 | P.PN ---
Date of Service: 11/27/24 Subjective: hasn't been able to sleep since arrival reports ongoing intermittent abdominal pain for 1 week, tender some nausea this morning after pushing on her stomach. Also dealing with nausea at home. Denies chest pain or pressure right now had another episode of tremulousness this morning Physical Exam: GEN: Alert, oriented, NAD CV: Regular rate and rhythm, Lower extremity edema Pulm: Nonlabored respirations on room air, clear bilaterally ABD: moderate RUQ Tenderness, epigastric tenderness Neuro: Normal speech, normal affect Problem List: Abdominal pain, Nausea Cholelithiasis Lactic acidosis, resolved Diffuse Fatty liver NSTEMI Mild pulmonary edema Hypothyroidism Hypertension Hyperlipidemia Anxiety/Depression/Bipolar Disorder GERD Abdominal pain, Nausea Cholelithiasis Lactic acidosis, resolved Diffuse Fatty liver on admission, presents with abdominal pain associated with nausea, chills, generalized body shaking. No chest pain or SOB. CT head (11/26): No acute findings. Chronic right maxillary sinusitis. Moderate brain atrophy and chronic microvascular ischemic changes. CT abd/pelvis (11/26): Advanced Fatty Liver. Cholelithiasis. Distal esophageal thickening and wall thickening. Small hiatal hernia. Abdominal u/s (11/26): Diffuse fatty liver. Several liver cysts. Gallstone seen on CT not well visualized. She reports intermittent RUQ pain/tenderness for 1 week associated with nausea Surgical consult; NPO for now until seen by surgery / still nauseated LFTs normal Unclear etiology, possible symptomatic cholelithiasis vs cholecystitis- no definitive imaging findings Urine not that suspicious for UTI. Flu/COVID negative Continue empiric rocephin for now; started on admission Follow blood cultures IV PPI daily NSTEMI Troponins elevated 8 -> 358 Trend troponins until peak, Monitor on telemetry Start heparin drip Cardiology consulted Check EKG denies cardiac history, no chest pain currently this morning Mild pulmonary edema Associated with mild lower extremity edema. Concerning for new onset CHF. CXR (11/26): Mild interstitial pulmonary edema Denies any prior history of CHF Echo ordered to eval EF / stenosis Echo in 2022 showed 57% EF, grade 1 diastolic dysfunction, mild-mod concentric LVH, mild MR s/p IV lasix 20mg x1 BNP 564 Hypothyroidism Levels improved compared to 2022. Hx Myxedema coma in 2022. Has history of medication noncompliance TSH 37.8, Free t4 0.51 confirm home synthroid dose Hypertension Hyperlipidemia Anxiety/Depression/Bipolar Disorder GERD confirm home meds, restart as appropriate resume home kathleen townsend Code: Full Dispo: Home, ~2-3 days Time Spent Managing Pts Care (In Minutes): 55
[2024-11-27 07:31] LABS: Thyroid Stimulating Hormone 37.8 uIU/mL (0.358-3.740)
[2024-11-27 07:34] LABS: Troponin High Sensitivity 357.9 pg/mL (<58.9)
[2024-11-27] MEDS ORDERED: SODIUM CHLORIDE 0.9% 10ML INJ IV PRN (07:54)
[2024-11-27 08:35] LABS: PT Prothrombin Time 13.2 SECONDS (10-13.0); PTT, Activated Partial Thromb 25.3 SECONDS (27.2-37.4); Protime INR 1.17
[2024-11-27] MEDS: LEVOTHYROXINE SOD 0.1 MG TAB PO SCH (09:14)
[2024-11-27] MEDS: POTASSIUM CL SA 10 MEQ TAB PO ONE (09:15)
[2024-11-27] MEDS: HEPARIN 5000 UNIT/ML 1 ML VIAL IV ONE (09:15)
[2024-11-27] MEDS: ESCITALOPRAM 20 MG TAB PO SCH (09:15)
[2024-11-27] MEDS: BUSPIRONE HCL 15 MG TABLET PO SCH (09:15)
[2024-11-27] MEDS: PANTOPRAZOLE 40 MG INJ IVP SCH (09:16)
[2024-11-27] MEDS: HEPARIN/D5W 25,000 UNIT/500 ML BAG IV PRN (09:32)
[2024-11-27] MEDS ORDERED: VERAPAMIL HCL 10 MG/4 ML VIAL IV ONE (12:40)
[2024-11-27] MEDS ORDERED: HEPA 1000U/500MLS 0 UNIT/0 ML BAG IV ONE (12:40)
[2024-11-27] MEDS ORDERED: HEPARIN 10,000 UNIT/10 ML VIAL IV ONE (12:40)
[2024-11-27] MEDS ORDERED: ASPIRIN 325 MG TAB ONE (12:41)
[2024-11-27] MEDS ORDERED: HEPARIN 5000 UNIT/ML 1 ML VIAL ONE (12:41)
[2024-11-27] MEDS ORDERED: TICAGRELOR 90 MG TABLET PO ONE (12:41)
[2024-11-27] MEDS ORDERED: CLOPIDOGREL 75 MG TABLET ONE (12:41)
[2024-11-27] MEDS ORDERED: ATROPINE SULF 1 MG/10 ML SYR IV ONE (12:41)
[2024-11-27] MEDS ORDERED: LIDOCAINE 1% 20 ML MDV ONE (12:43)
[2024-11-27] MEDS: LORazepam 2 MG/ML VIAL IV ONE (14:56)
--- NOTE | 2024-11-27 16:32 | CON ---
Date of Consultation: 11/27/2024 Reason For Consultation: Questionable CHF and positive troponin. History Of Present Illness: 84-year-old female, history of anxiety disorder, bipolar disorder, dysli pidemia, hypertension, hypothyroidism, presented to the emergency room with tremors and chills. Robin ed having any chest pain and no shortness of breath, but she started getting nausea and dry heaving l ater on and she has been having diarrhea for quite some time as per her report. Denies having any ac tive chest pain at the present time. No known history of cardiac disease. Past Medical History: As outlined above in the HPI. Medications: Refer to reconciliation sheet for detailed list. Allergies: NEOMYCIN, LATEX. Family History: No premature coronary artery disease or cancer. Social History: She does not smoke or drink. Does not use any drugs. Review of Systems: All systems were reviewed and they were negative except as mentioned in HPI. Physical Examination: Vital Signs: Reviewed. Head and Neck: Pupils are equal, reactive to light. Intact eye movements. No JVD. No cervical lym phadenopathy. Neck is supple. Thyroid is not enlarged. Lungs: Clear to auscultation bilaterally. No rhonchi, wheezing, or crackles. No accessory muscle u se. Heart: Regular rate and rhythm. No extra sounds. Abdomen: Soft, nontender. Bowel sounds positive. No organomegaly. No masses or hernia. No rigidi ty or rebound. Extremities: No edema, clubbing, or cyanosis. Intact pulses. Skin: No rash. No nodules. Neurologic: Alert, awake, and oriented x3. No acute focal deficits appreciated. Investigations: Hemoglobin is 13.3. White blood cell count is 7.6 and BUN is 11, creatinine 0.89. Troponin peaked at 357, and down to 200. Assessment And Recommendations: 1. Elevated troponin, mild, and there is no chest pain. However, due to the nausea and vomiting, dec ided to investigate the coronary arteries further and I recommended left heart cath today. However, she refused to proceed as she is very anxious, and she cannot stay still and she is having no chest p ain. So, at this point, I recommend baby aspirin and high-dose statin and plan for Lexiscan to be do ne early next week and obtain an echo. 2. Nausea, vomiting, and diarrhea with hypokalemia. Replace potassium and gentle IV hydration. 3. Dyslipidemia. Continue atorvastatin. SR/MODL Voice ID: [id number] Report ID: [id number]
[2024-11-27 18:11] LABS: Potassium 4.0 mEq/L (3.5-5.1)
[2024-11-27 18:15] LABS: Troponin High Sensitivity 165.5 pg/mL (<58.9)
[2024-11-27] MEDS: QUETIAPINE 100MG TAB PO SCH (19:48)
[2024-11-27] MEDS: ATORVASTATIN 40 MG TAB PO SCH (19:48)
[2024-11-27] MEDS: LORAZEPAM 1 MG TABLET PO SCH (19:48)
[2024-11-27] MEDS: CEFTRIAXONE 1,000 MG in NA CHLORIDE 0.9% 50 ML IVPB SCH (19:48)
[2024-11-27] MEDS: carBAMazepine 200 MG TAB PO SCH (19:48)
[2024-11-28 07:13] LABS: Absolute Lymphocytes (CBC) 1.8 K/uL (0.7-4.9); Hematocrit 36.9 % (36.0-45.0); Hemoglobin 12.4 g/dL (12.0-15.0); MCH 34.9 pg (27.0-35.0); MCHC 33.6 g/dL (32.0-36.0); MCV 103.6 fL (80-100); MPV 8.0 fL (7.6-11.3); Nucleated RBC Absolute Count 0.0 (0-0); Nucleated Red Blood Cells % 0.0 % (0-0); RBC Red Blood Cell Count 3.56 M/uL (3.86-4.86); White Blood Count 6.50 thou/uL (4.3-10.9)
[2024-11-28 07:40] LABS: ALT/SGPT 40.0 U/L (13-56); AST/SGOT 30.0 U/L (15-37); Albumin 3.1 g/dL (3.4-5.0); Albumin/Globulin Ratio 0.8 (1.1-1.8); Alkaline Phosphatase 86.0 U/L (45-117); Anion Gap 10.6 mEq/L (5.0-15.0); BUN Blood Urea Nitrogen 17.0 mg/dL (7-18); Globulin 3.7 g/dL (2.3-3.5); Glucose Level 117.0 mg/dL (74-106); Magnesium 2.3 mg/dL (1.6-2.4); Potassium 3.6 mEq/L (3.5-5.1)
--- NOTE | 2024-11-28 09:11 | P.PN ---
Date of Service: 11/28/24 Subjective: Randolph really nauseated yesterday which has improved this morning abdomen feels less tender Was too anxious to get heart cath yesterday / tremulous Urine appear dark in color no further tremors/shaking per patient - feels much better Physical Exam: GEN: Alert, oriented, NAD CV: Regular rate and rhythm, trace lower extremity edema Pulm: Nonlabored respirations on room air, clear bilaterally ABD: mild RUQ/epigastric tenderness Neuro: Normal speech, normal affect Problem List: Abdominal pain, Nausea Cholelithiasis Lactic acidosis, resolved Diffuse Fatty liver NSTEMI Mild pulmonary edema Hypothyroidism Hypertension Hyperlipidemia Anxiety/Depression/Bipolar Disorder GERD Abdominal pain, Nausea Cholelithiasis Lactic acidosis, resolved Diffuse Fatty liver on admission, presents with abdominal pain associated with nausea, chills, generalized body shaking. No chest pain or SOB. CT head (11/26): No acute findings. Chronic right maxillary sinusitis. Moderate brain atrophy and chronic microvascular ischemic changes. CT abd/pelvis (11/26): Advanced Fatty Liver. Cholelithiasis. Distal esophageal thickening and wall thickening. Small hiatal hernia. Abdominal u/s (11/26): Diffuse fatty liver. Several liver cysts. Gallstone seen on CT not well visualized. She reports intermittent RUQ pain/tenderness for [address] Meyer, general surgeon consulted LFTs normal Advance to clear liquids Unclear etiology, possible symptomatic cholelithiasis vs cholecystitis vs medication side effect Now reports she has been taking a ton of Benadryl at home for allergies during the springtime and fall only. Has been taking for > 1 month now. Most days she takes it 2-3 times a day. Benadryl could be contributing to symptoms. Possible some adverse side effect. Urine not that suspicious for UTI. Flu/COVID negative Continue empiric rocephin for now; started on admission Blood cx: NGTD IV PPI daily NSTEMI Troponins mildly elevated but trended down. Peaked 357 denies cardiac history, no chest pain michael muhammad dc'd Cardiology consulted Dr. Alejo was planning for [facility] however patient was too anxious, unable to stay still for procedure and was cancelled. Tentative plan for Echo and stress test Saturday Mild pulmonary edema Associated with mild lower extremity edema. Concerning for new onset CHF. CXR (11/26): Mild interstitial pulmonary edema Denies any prior history of CHF Echo in 2022 showed 57% EF, grade 1 diastolic dysfunction, mild-mod concentric LVH, mild MR Echo done, pending report s/p IV lasix 20mg x1 Hypothyroidism Levels improved compared to 2022. Hx Myxedema coma in 2022. Has history of medication noncompliance TSH 37.8, Free t4 0.51 resume home synthroid Hypertension Hyperlipidemia Anxiety/Depression/Bipolar Disorder GERD confirm home meds, restart as appropriate resume home lexapro, buspar, statin, tegretol, ativan, seroquel VTE: Lovenox Code: Full Dispo: Home, ~2-3 days Time Spent Managing Pts Care (In Minutes): 55
--- NOTE | 2024-11-28 12:48 | P.PN ---
Subjective Date of Service: 11/28/24 Chief Complaint: UTI, abdominal pain, possible new onset CHF. Subjective: Ambulating, Improving Review of Systems General: Unremarkable Respiratory: Unremarkable Gastrointestinal: Abdominal Pain (better), No Distention Genitourinary: Frequency Physical Examination - Vital Signs Temperature: 98.0 F Blood Pressure: 132/67 Pulse: 69 Respirations: 19 Pulse Ox (%): 95 - Physical Exam General: Alert, In no apparent distress, Oriented x3, Cooperative HEENT: PERRLA, EOMI Neck: Supple Cardiovascular: No edema Gastrointestinal: Soft and benign, No rebound, No guarding, Tenderness (flank and upper ventral area) Integumentary: No erythema, No warmth, No cyanosis Neurological: Normal speech Assessment And Plan - Plan cont abx full liqid ambulate
--- NOTE | 2024-11-28 13:32 | P.CNS ---
Date of Consult: 11/27/24 Chief Complaint: UTI, abdominal pain, possible new onset CHF. tremors History of Present Illness: 84 y/o admitted to hospital with UTI, came to hospital with at least 3 dayd with " tremor', of unknown origin. They wer not present at admission. During the work up she mentioned occasional abd pain. Imaging showed cholelithiasis and a surgical consult done for evaluation. Allergies neomycin [Neomycin] Allergy (Severe, Verified 10/05/19 21:19) swelling of ear latex Allergy (Intermediate, Verified 10/05/19 21:19) Hives Latex, Natural Rubber Allergy (Intermediate, Verified 10/05/19 21:19) Itching gluten Allergy (Verified 10/05/19 21:19) diarrhea Home Medications: Carbamazepine [Tegretol] 600 mg PO BEDTIME 10/05/19 LORazepam [Lorazepam] 1 mg PO BID 10/05/19 Buspirone HCl [Buspar] 30 mg PO BID 03/04/23 Quetiapine Fumarate [Seroquel] 200 mg PO BEDTIME 03/05/23 Atorvastatin Calcium [Lipitor] 40 mg PO BEDTIME #30 tab 03/07/23 Metoprolol Tartrate [Lopressor*] 25 mg PO BID #60 tab 03/11/23 Escitalopram [Lexapro*] 20 mg PO DAILY 03/15/23 - Past Medical/Surgical History Diabetic: No -: seizure, HTN, Depression, Ulcers, anxiety, asthma, chronic diarrhea -: heart rhythm disorder. -: Hypercholesteremia. -: total hysterectomy -: Left knee sx -: left wrist tendon removed, - Social History Smoking Status: Former smoker Alcohol use: No CD- Drugs: No Caffeine use: Yes Place of Residence: Home Review of Systems General: Malaise Eyes: Unremarkable ENT: Unremarkable Respiratory: Unremarkable Cardiovascular: Unremarkable Gastrointestinal: Abdominal Pain (mild generalized abdomen), No Distention Genitourinary: Frequency, Urgency Physical Examination Temp Pulse Resp BP Pulse Ox 98.0 F 69 19 132/67 95 11/28/24 12:48 11/28/24 12:48 11/28/24 12:48 11/28/24 12:48 11/28/24 12:48 General: Alert, In no apparent distress, Oriented x3, Cooperative HEENT: PERRLA, EOMI Neck: Supple Respiratory: Normal air movement Cardiovascular: Normal pulses Gastrointestinal: Soft and benign, No rebound, No guarding, Tenderness (mild generalized) Musculoskeletal: No erythema, No tenderness, No warmth Integumentary: No rashes, No breakdown, No erythema, No warmth, No cyanosis Neurological: Normal speech reviewed with patient Imagings Data: reviewed with patient Conclusions/Impression: cont abx low fat diet we explained options of cholecystectomy electively with BAR
[2024-11-28] MEDS: ENOXAPARIN 40 MG/0.4 ML SQ SCH (17:32)
[2024-11-28] MEDS: ACETAMINOPHEN 325 MG TABLET PO PRN (19:46)
[2024-11-29 07:03] LABS: ALT/SGPT 41.0 U/L (13-56); AST/SGOT 36.0 U/L (15-37); Albumin 3.3 g/dL (3.4-5.0); Albumin/Globulin Ratio 0.9 (1.1-1.8); Alkaline Phosphatase 90.0 U/L (45-117); Anion Gap 11.6 mEq/L (5.0-15.0); BUN Blood Urea Nitrogen 14.0 mg/dL (7-18); Globulin 3.8 g/dL (2.3-3.5); Glucose Level 99.0 mg/dL (74-106); Magnesium 2.3 mg/dL (1.6-2.4); Potassium 3.6 mEq/L (3.5-5.1)
[2024-11-29] MEDS: POTASSIUM CL SA 10 MEQ TAB PO ONE (08:43)
[2024-11-29] MEDS: METOPROLOL TAR 25 MG TAB PO SCH (08:45)
--- NOTE | 2024-11-29 09:13 | P.PN ---
Date of Service: 11/29/24 Subjective: slept well overnight. no further tremors or uncontrollable shaking in > 24 hours abdominal pain and nausea improving but not resolved no new issues Physical Exam: GEN: Alert, oriented, NAD CV: Regular rate and rhythm, trace lower extremity edema Pulm: Nonlabored respirations on room air, clear bilaterally ABD: mild RUQ/epigastric soreness Neuro: Normal speech, normal affect Problem List: Abdominal pain, Nausea Cholelithiasis Lactic acidosis, resolved Diffuse Fatty liver NSTEMI Mild pulmonary edema Hypothyroidism Hypertension Hyperlipidemia Anxiety/Depression/Bipolar Disorder GERD Abdominal pain, Nausea Cholelithiasis Lactic acidosis, resolved Diffuse Fatty liver on admission, presents with abdominal pain associated with nausea, chills, generalized body shaking. No chest pain or SOB. Unclear etiology, possible symptomatic cholelithiasis vs cholecystitis vs medication side effect Reports she has been taking a ton of Benadryl at home for allergies during the springtime and fall only. Has been taking benadryl for > 1 month now. Most days she takes it 2-3 times a day. Benadryl could be contributing to symptoms. Possible some adverse side effect. CT head (11/26): No acute findings. Chronic right maxillary sinusitis. Moderate brain atrophy and chronic microvascular ischemic changes. CT abd/pelvis (11/26): Advanced Fatty Liver. Cholelithiasis. Distal esophageal thickening and wall thickening. Small hiatal hernia. Abdominal u/s (11/26): Diffuse fatty liver. Several liver cysts. Gallstone seen on CT not well visualized. No evidence of ongoing active infection. UA not suggestive of UTI. Flu/COVID negative Dr. Meyer recommending medical management for now IV abx, IV PPI daily Full liquid diet add stool softener Tremors resolved. Abdominal pain and nausea slowly improving. suspect could have been secondary to taking benadryl q4h in addition to her other psych meds NSTEMI Troponins mildly elevated but trended down. Peaked 357 denies cardiac history, no chest pain Dr. Alejo was planning for [facility] however patient was too anxious, unable to stay still for procedure and was cancelled. Echo done, pending report Tentative plan for stress test tomorrow Mild pulmonary edema Associated with mild lower extremity edema. Concerning for new onset CHF. CXR (11/26): Mild interstitial pulmonary edema Denies any prior history of CHF Echo in 2022 showed 57% EF, grade 1 diastolic dysfunction, mild-mod concentric LVH, mild MR Echo done, pending report s/p IV lasix 20mg x1 Hypothyroidism Levels improved compared to 2022. Hx Myxedema coma in 2022. Has history of medication noncompliance TSH 37.8, Free t4 0.51 resume home synthroid Hypertension Hyperlipidemia Anxiety/Depression/Bipolar Disorder GERD confirm home meds, restart as appropriate resume home lexapro, buspar, statin, tegretol, ativan, seroquel VTE: Lovenox Code: Full Dispo: Home, ~2-3 days Pending abdominal pain and nausea improve, tolerating diet Stress test tomorrow Time Spent Managing Pts Care (In Minutes): 45
[2024-11-29 10:34] LABS: Absolute Lymphocytes (CBC) 1.2 K/uL (0.7-4.9); Hematocrit 34.5 % (36.0-45.0); Hemoglobin 11.9 g/dL (12.0-15.0); MCH 35.3 pg (27.0-35.0); MCHC 34.3 g/dL (32.0-36.0); MCV 102.9 fL (80-100); MPV 7.2 fL (7.6-11.3); Nucleated RBC Absolute Count 0.0 (0-0); Nucleated Red Blood Cells % 0.0 % (0-0); RBC Red Blood Cell Count 3.36 M/uL (3.86-4.86); White Blood Count 5.30 thou/uL (4.3-10.9)
[2024-11-29] MEDS: LOPERAMIDE HCL 2 MG CAPSULE PO PRN (15:58)
[2024-11-29] MEDS: DOCUSATE NA 100 MG CAP PO SCH (20:15)
[2024-11-30 04:34] LABS: Hematocrit 34.5 % (36.0-45.0); Hemoglobin 11.8 g/dL (12.0-15.0); MCH 35.1 pg (27.0-35.0); MCHC 34.0 g/dL (32.0-36.0); MCV 103.0 fL (80-100); MPV 7.5 fL (7.6-11.3); RBC Red Blood Cell Count 3.35 M/uL (3.86-4.86); White Blood Count 5.20 thou/uL (4.3-10.9)
[2024-11-30 05:09] LABS: ALT/SGPT 33.0 U/L (13-56); AST/SGOT 25.0 U/L (15-37); Albumin 3.0 g/dL (3.4-5.0); Albumin/Globulin Ratio 0.9 (1.1-1.8); Alkaline Phosphatase 82.0 U/L (45-117); Anion Gap 9.8 mEq/L (5.0-15.0); BUN Blood Urea Nitrogen 12.0 mg/dL (7-18); Globulin 3.3 g/dL (2.3-3.5); Glucose Level 102.0 mg/dL (74-106); Magnesium 2.2 mg/dL (1.6-2.4); Potassium 3.8 mEq/L (3.5-5.1)
[2024-11-30] MEDS ORDERED: ONDANSETRON 4 MG/2 ML VIAL ONE (08:44)
[2024-11-30] MEDS ORDERED: REGADENOSON 0.4 MG/5 ML SYR IV ONE (08:46)
--- NOTE | 2024-11-30 09:07 | ECHO ---
HEIGHT: 5 ft 6 in WEIGHT: 256 lb 1.6 oz DATE OF STUDY: 11/27/[address]: Momo Hale NP 2-DIMENSIONAL: YES M.MODE: YES DOPPLER: YES COLOR FLOW: YES TDS: PORTABLE: YES DEFINITY: BUBBLE STUDY: DIAGNOSIS: NEW ONSET CONGESTIVE HEART FAILURE CARDIAC HISTORY: CATHERIZATION: SURGERY: PROSTHETIC VALVE: PACEMAKER: MEASUREMENTS (cm) DIASTOLIC (NORMALS) SYSTOLIC (NORMALS) IVSd 1.3 (0.6-1.2) LA Diam 3.2 (1.9-4.0) LVEF 60-65% LVIDd 4.5 (3.5-5.7) LVIDs 2.9 (2.0-3.5) %FS 36% LVPWd 1.5 (0.6-1.2) Ao Diam 2.9 (2.0-3.7) 2 DIMENSIONAL ASSESSMENT: RIGHT ATRIUM: NORMAL LEFT ATRIUM: NORMAL RIGHT VENTRICLE: NORMAL LEFT VENTRICLE: NORMAL TRICUSPID VALVE: MILD TRICUSPID REGURGITATION MITRAL VALVE: MILD TRICUSPID REGURGITATION PULMONIC VALVE: NORMAL AORTIC VALVE: NORMAL PERICARDIAL EFFUSION: NONE AORTIC ROOT: NORMAL LEFT VENTRICULAR WALL MOTION: NORMAL DOPPLER/COLOR FLOW: SEE BELOW COMMENTS: 1. NORMAL LEFT VENTRICULAR EJECTION FRACTION 60-65% WITH NORMAL WALL MOTION 2. GRADE I DIASTOLIC DYSFUNCTION 3. MILD MITRAL REGURGITATION/ TRICUSPID REGURGITATION TECHNOLOGIST: SERGIO AGGARWAL
--- NOTE | 2024-11-30 09:12 | TREADPHA ---
DX: CHEST PAIN Date of Study: 11/30/2024 Ht: 5' 6 " Wt: 256 lb 1.6 oz Consulting Physician: JORGE MEDICATIONS: TYLENOL, PROVENTIL, LIPITOR, BUSPIRONE Hcl, TEGRETOL, CEFTRIAXONE, COLACE, LOVENOX, LEXAPRO, SYNTHROID, IMODIUM, ATIVAN, LOPRESSOR, MORPHINE, ZOFRAN, PROTONIX, SEROQUEL HISTORY: 84 YEAR OLD FEMALE WITH COMPLANTS OF CHEST PAIN. HISTORY OF BIPOLAR DISORDER, THYROID AND ACID REFLUX PHYSICIAL EXAMINATION: RESTING B.P.: 154/73 RESTING H.R.: 63 RESTING EKG: NORMAL SINUS RHYTHM, LEFT BUNDLE BRANCH BLOCK PROTOCOL: PHARMACOLOGIC EXERCISE TIME: 3:30 B.P. AT PEAK STRESS: 140/51 IMPRESSION: LEXISCAN INJECTED. CARDIOLITE INJECTED - SEE NUCLEAR MEDICINE REPORT. PATIENT DENIED CHEST PAIN, NO ARRHYTHMIAS. NO VENTRICULAR TACHYCARDIA, SUPRAVENTRICULAR TACHYCARDIA. NO PREMATURE VENTRICULAR COMPLEXES OR PREMATURE ATRIAL COMPLEXES. FINAL VITALS 135/58, HEART RATE 69 BEATS PER MINUTE. PATIENT IN NO DISTRESS.
--- NOTE | 2024-11-30 11:00 | P.PN ---
Date of Service: 11/30/24 Subjective: multiple bowel movements yesterday -- reports normally at home has loose stool chronically no events overnight vital stable Physical Exam: GEN: Alert, oriented, NAD CV: Regular rate and rhythm, trace lower extremity edema Pulm: Nonlabored respirations on 2L NC, clear bilaterally ABD: mild RUQ/epigastric soreness Neuro: Normal speech, normal affect Problem List: Abdominal pain, Nausea Cholelithiasis Lactic acidosis, resolved Diffuse Fatty liver NSTEMI Mild pulmonary edema Hypothyroidism Hypertension Hyperlipidemia Anxiety/Depression/Bipolar Disorder GERD Abdominal pain, Nausea Cholelithiasis Lactic acidosis, resolved Diffuse Fatty liver on admission, presents with abdominal pain associated with nausea, chills, generalized body shaking. No chest pain or SOB. Unclear etiology, possible symptomatic cholelithiasis vs cholecystitis vs medication side effect Reports she has been taking a ton of Benadryl at home for allergies 2-3 times a day during the springtime and fall only. CT abd/pelvis (11/26): Advanced Fatty Liver. Cholelithiasis. Distal esophageal thickening and wall thickening. Small hiatal hernia. No evidence of ongoing active infection. UA not suggestive of UTI. Flu/COVID negative Dr. Meyer recommending medical management RUQ pain slightly worse today check HIDA IV abx, IV PPI daily Diet per surgery Tremors resolved. Abdominal pain and nausea slowly improving. suspect could have been secondary to taking benadryl q4h in addition to her other psych meds NSTEMI Troponins mildly elevated but trended down. Peaked 357 denies cardiac history, no chest pain Dr. Alejo was planning for [facility] however patient was too anxious, unable to stay still for procedure and was cancelled. Echo showed normal EF and wall motion, grade 1 diastolic dysfunction, mild MR/TR Stress test done, pending report Mild pulmonary edema Associated with mild lower extremity edema. Concerning for new onset CHF. CXR (11/26): Mild interstitial pulmonary edema Denies any prior history of CHF Echo in 2022 showed 57% EF, grade 1 diastolic dysfunction, mild-mod concentric LVH, mild MR Echo done, pending report s/p IV lasix 20mg x1 Hypothyroidism Levels improved compared to 2022. Hx Myxedema coma in 2022. Has history of medication noncompliance TSH 37.8, Free t4 0.51 resume home synthroid Hypertension Hyperlipidemia Anxiety/Depression/Bipolar Disorder GERD confirm home meds, restart as appropriate resume home lexapro, buspar, statin, tegretol, ativan, seroquel VTE: Lovenox Code: Full Dispo: Home, ~ 2 days Pending abdominal pain and nausea improve, tolerating diet check HIDA scan Time Spent Managing Pts Care (In Minutes): 45
[2024-11-30] MEDS: POTASSIUM CL SA 10 MEQ TAB PO ONE (11:33)
--- NOTE | 2024-11-30 12:51 | RAD REPORT ---
EXAM :Rest Stress Cardiac Imaging CLINICAL HISTORY: Chest pain TECHNIQUE: Rest images: 10.1 mCi technetium 99m sestamibi administered intravenously. Stress images: 30.2 mCi of technetium 99m sestamibi administered intravenously. Cardiac SPECT images obtained COMPARISON: None. FINDINGS: Stress images demonstrate moderate diminished radiotracer activity apical and septal left ventricular myocardium. Rest images demonstrate persistence of these areas. Left ventricular ejection fraction equals 55% IMPRESSION: Moderate apparent fixed perfusion defects apical and septal left ventricular myocardium may indicate infarct. No evidence of stress-induced ischemia
--- NOTE | 2024-11-30 17:07 | P.PN ---
Subjective Date of Service: 11/30/24 Chief Complaint: UTI, abdominal pain, possible new onset CHF. tremors Subjective: No new changes, No C/O voiced, Tolerating diet, Ambulating, Improving Review of Systems 10-point ROS is otherwise unremarkable Physical Examination - Vital Signs Temperature: 98.4 F Blood Pressure: 143/63 Pulse: 68 Respirations: 16 Pulse Ox (%): 95 - Physical Exam General: Alert, In no apparent distress HEENT: Atraumatic, PERRLA, EOMI Neck: Supple, JVD not distended Respiratory: Clear to auscultation bilaterally, Normal air movement Cardiovascular: Regular rate/rhythm, Normal S1 S2 Gastrointestinal: Normal bowel sounds, No tenderness Musculoskeletal: No tenderness Integumentary: No rashes Neurological: Normal speech, Normal tone, Normal affect Lymphatics: No axilla or inguinal lymphadenopathy - Studies Medications List Reviewed: Yes Assessment And Plan - Current Problems (Diagnosis) (1) Type 2 DE (myocardial infarction) Current Visit: Yes Status: Acute Plan: patient troponin were mild elevated and down trended echo shown normal EF, carrion motion Stress test shown fixed apical and septal carrion perfusion defect, no reversible ischemia continue ASA 81 mg daily continue lipitor 40 mg daily continue lopressor 25 mg po BID Outpatient follow up with cardiology no further inpatient cardiac work up needed. (2) HLD (hyperlipidemia) Current Visit: Yes Status: Acute Plan: continue lipitor 40 mg daily (3) HTN (hypertension) Current Visit: No Status: Chronic Plan: continue metoprolol 25 mg po BID Cardiology will sign off, please call with any questions. Qualifiers: Hypertension type: primary hypertension Qualified Code(s): I10 - Essential (primary) hypertension
[2024-12-01 05:06] LABS: ALT/SGPT 33.0 U/L (13-56); AST/SGOT 23.0 U/L (15-37); Albumin 2.9 g/dL (3.4-5.0); Albumin/Globulin Ratio 0.9 (1.1-1.8); Alkaline Phosphatase 78.0 U/L (45-117); Anion Gap 8.7 mEq/L (5.0-15.0); BUN Blood Urea Nitrogen 13.0 mg/dL (7-18); Globulin 3.4 g/dL (2.3-3.5); Glucose Level 101.0 mg/dL (74-106); Magnesium 2.1 mg/dL (1.6-2.4); Potassium 3.7 mEq/L (3.5-5.1)
[2024-12-01] MEDS: POTASSIUM CL SA 10 MEQ TAB PO ONE (09:19)
--- NOTE | 2024-12-01 10:23 | P.PN ---
Subjective Date of Service: 12/01/24 Chief Complaint: UTI, abdominal pain, possible new onset CHF. tremors Subjective: Tolerating diet Review of Systems Respiratory: Unremarkable Cardiovascular: Unremarkable Gastrointestinal: Abdominal Pain (on /off) Physical Examination - Vital Signs Temperature: 98.2 F Blood Pressure: 158/67 Pulse: 62 Respirations: 12 Pulse Ox (%): 99 - Physical Exam General: Alert, Oriented x3, Cooperative HEENT: PERRLA, EOMI Neck: Supple Respiratory: Normal air movement Gastrointestinal: Soft and benign, No rebound, No guarding Musculoskeletal: No erythema, No tenderness, No warmth Integumentary: No rashes, No breakdown, No erythema, No warmth, No cyanosis - Studies Medications List Reviewed: Yes Assessment And Plan - Plan cont abx diet as tolerated HIDA scan pending ambulate
--- NOTE | 2024-12-01 13:11 | P.DS ---
Admission Date: 11/26/24 Discharge Date: 12/01/24 Disposition: DC HOME/HOME HEALTH CARE Discharge Condition: FAIR Reason for Admission: UTI, abdominal pain, possible new onset CHF. tremors Hospital Course: MARVIN COMES WITH CHILLS. SHE LOOKS GREAT NOW. SHE MAY HAVE HAD UTI. CULTURE WAS NOT DONE ON ADMISSION. I WAS OUT OF TOWN UNTIL THIS AM.I TALKED TO DR COOPER, HE CLEARED HER FOR DC WITH OUTPATIENT WORK UP. MARVIN HAS BEEN VERY NON COMPLIANT. SHE IS SUPPOSED TO COME TO OFFICE EVERY 3 MTHS FO RLAB AND FU. SHE AT TIMES HAS STOPPED TAKING HER THYROID MEDICINE FORA YEAR OR LONGER. PROGNOSIS IS GUARDED. I CALLED IN CIPRO FROM OFFICE FOR UTI. Vital Signs/Physical Exam: Temp Pulse Resp BP Pulse Ox 98.3 F 67 12 136/60 96 12/01/24 12:00 12/01/24 12:00 12/01/24 12:00 12/01/24 12:00 12/01/24 12:00 Laboratory Data at Discharge: WBC 5.20 thou/uL (4.3-10.9) 11/30/24 04:14 Hgb 11.8 g/dL (12.0-15.0) L 11/30/24 04:14 Hct 34.5 % (36.0-45.0) L 11/30/24 04:14 Plt Count 200 thou/uL (152-406) 11/30/24 04:14 PT 13.2 SECONDS (10-13.0) H 11/27/24 08:09 INR 1.17 11/27/24 08:09 APTT 78.1 SECONDS (27.2-37.4) H 11/28/24 06:37 Sodium 140 mEq/L (136-145) 12/01/24 04:19 Potassium 3.7 mEq/L (3.5-5.1) 12/01/24 04:19 BUN 13 mg/dL (7-18) 12/01/24 04:19 Creatinine 0.74 mg/dL (0.55-1.02) 12/01/24 04:19 Glucose 101 mg/dL (74-106) 12/01/24 04:19 Magnesium 2.1 mg/dL (1.6-2.4) 12/01/24 04:19 Total Bilirubin 0.2 mg/dL (0.2-1.0) 12/01/24 04:19 AST 23 U/L (15-37) 12/01/24 04:19 ALT 33 U/L (13-56) 12/01/24 04:19 Alkaline Phosphatase 78 U/L (45-117) 12/01/24 04:19 Home Medications: Carbamazepine [Tegretol] 600 mg PO BEDTIME 10/05/19 LORazepam [Lorazepam] 1 mg PO BID 10/05/19 Buspirone HCl [Buspar] 30 mg PO BID 03/04/23 Quetiapine Fumarate [Seroquel] 200 mg PO BEDTIME 03/05/23 Atorvastatin Calcium [Lipitor] 40 mg PO BEDTIME #30 tab 03/07/23 Metoprolol Tartrate [Lopressor*] 25 mg PO BID #60 tab 03/11/23 Escitalopram [Lexapro*] 20 mg PO DAILY 03/15/23 Followup: Naomi Cardenas [Primary Care Provider] -
[2024-12-01] MEDS ORDERED: ALBUTEROL 2.5 MG/3 ML NEB SOL NEB PRN (16:45)
[2024-12-02 05:01] LABS: Anion Gap 7.6 mEq/L (5.0-15.0); BUN Blood Urea Nitrogen 20.0 mg/dL (7-18); Glucose Level 106.0 mg/dL (74-106); Potassium 3.6 mEq/L (3.5-5.1)
--- NOTE | 2024-12-02 13:06 | RAD REPORT ---
EXAMINATION: NUCLEAR MEDICINE HIDA SCAN WITH GALLBLADDER EJECTION FRACTION CLINICAL INDICATION: Female, 84 years old. RUQ pain, eval gallbladder TECHNIQUE: Hepatobiliary imaging was acquired over the abdomen for 60 minutes following intravenous a dministration of radiotracer. Slow intravenous administration of CCK. 2.3 mcg Kinevac. Additional imaging was acquired over the abdomen for 30 minutes. Gallbladder ejection fraction was then calculat ed. [id number]. RADIOPHARMACEUTICAL: 6.2 mCi Technetium 99m Mebrofenin. COMPARISON: CT and ultrasound 11/26/2024 FINDINGS: There is prompt accumulation of the radiopharmaceutical in the liver and excretion into the biliary d uctal system, gallbladder, and small bowel. Gallbladder ejection fraction was calculated at 50% (normal range >35%). Additional symptoms were not duplicated. IMPRESSION: Normal hepatobiliary scan with normal gallbladder ejection fraction.
[2024-12-02] MEDS: POTASSIUM CL SA 10 MEQ TAB PO ONE ×2 (14:02→14:10)
[2024-12-02] MEDS: CHOLESTYRAMINE/ASP 4 GM/PKT PO SCH (17:41)
[2024-12-02] MEDS ORDERED: TRAMADOL HCL 50 MG TAB PO PRN (18:28)
[2024-12-02] MEDS ORDERED: CODEINE 30MG/APAP 300MG TAB PO PRN (18:48)
[2024-12-02 20:02] LABS: CDIFF INTERNAL NEG CONTROL White Background (WHITE BKGD)
[2024-12-02 20:03] LABS: C.diff Antigen/Toxin Ag neg : Tox neg (NEG : NEG); STOOL CONSISTENCY Liquid/Semi-Solid
[2024-12-02] MEDS: CODEINE 30MG/APAP 300MG TAB PO PRN (20:27)
--- NOTE | 2024-12-02 21:05 | RAD REPORT ---
EXAMINATION: US Abdomen Exam Limited CLINICAL HISTORY: [facility] MAIN N abdomen pain,gallbladder area,right upper quad COMPARISON: None. TECHNIQUE: Limited upper abdominal grayscale and color flow sonographic images. FINDINGS: Technically challenging exam, with motion limiting evaluation. Gallbladder: Echogenic 1.4 cm calculus near the neck. Suboptimally distended gallbladder which limits evaluation, with upper limit of normal thickness of the wall at the fundus measuring 3 to 4 mm. No pericholecystic fluid or wall hyperemia. Bile ducts: No intrahepatic or extrahepatic biliary dilatation. Common bile duct measures 3 mm. Liver: Visualized portions of the liver demonstrate diffuse parenchymal echogenicity suggesting steat osis. Ill-defined anechoic subcapsular lesion at the level of the gallbladder bed along the liver margin, not well evaluated, but appears stable. Fluid: No ascites. IMPRESSION: Cholelithiasis. Contracted gallbladder limits evaluation, however without other suspicious abnormalities.
--- NOTE | 2024-12-02 21:32 | P.PN ---
Subjective Date of Service: 12/02/24 Chief Complaint: UTI, abdominal pain, possible new onset CHF. tremors Subjective: No new changes SHE COMPLAINS OF PAIN RUQ AFTER FOOD. I ORDERED HIDA SCAN IN AM. DR. ZUNIGA TRIED IT BEFORE AND COULD NOT BE DONE SHE HAS HAD HEART SCAN. SHE IS MODERATE RISK BUT HIDA WILL TELL US IF SHE NEEDS SURGERY. SHE LIVES ALONE, BARELY WALKS, REFUSES TO GO TO [place]. SHE NEED STO GO TO [place]. I SHOULD REFER HER TO APS SON IS IN [place]. DAUGHTER LIVES HERE BUT SHE IS NOT IN CONTACT WITH HER. SHE DOES NOT TAKE HER MEDS. SHE HAS NOT TAKEN A BATH OR SHOWER FOR YEARS. Review of Systems 10-point ROS is otherwise unremarkable General: Weakness, As per HPI Physical Examination - Vital Signs Temperature: 98.6 F Blood Pressure: 147/68 Pulse: 62 Respirations: 16 Pulse Ox (%): 98 - Physical Exam General: Mild distress HEENT: Atraumatic, PERRLA, EOMI Neck: Supple, JVD not distended Respiratory: Clear to auscultation bilaterally, Normal air movement Cardiovascular: Regular rate/rhythm, Normal S1 S2 Gastrointestinal: Normal bowel sounds, No tenderness Musculoskeletal: No tenderness Integumentary: No rashes Neurological: Normal speech, Normal tone, Normal affect Lymphatics: No axilla or inguinal lymphadenopathy - Studies Microbiology Data (last 24 hrs): 11/26/24 18:25 Blood - Blood Aerobic Blood Culture - Final No growth in 5 days. 11/26/24 18:25 Blood - Blood Anaerobic Blood Culture - Final No growth in 5 days. 11/26/24 18:15 Blood - Blood Aerobic Blood Culture - Final No growth in 5 days. 11/26/24 18:15 Blood - Blood Anaerobic Blood Culture - Final No growth in 5 days. Medications List Reviewed: Yes Assessment And Plan - Current Problems (Diagnosis) (1) Abdominal pain, RUQ Current Visit: Yes Status: Acute Plan: NOT CLEAR ABOUT ORIGIN. GALL STONES POS HIDA IN AM. DISCUSSED WITH DR. Durán HE IS NOT SURE ABOUT HER RELIABILITY. MOD RISK FOR SURGERY. DR COOPER HAS BEEN INVOLVED. (2) General weakness Current Visit: No Status: Chronic (3) Bipolar 1 disorder, depressed, moderate Current Visit: No Status: Chronic (4) Primary hypothyroidism Current Visit: Yes Status: Chronic Plan: DOES NOT TAKE MEDS DAILY.
[2024-12-03 07:28] LABS: Anion Gap 8.6 mEq/L (5.0-15.0); BUN Blood Urea Nitrogen 16.0 mg/dL (7-18); Glucose Level 102.0 mg/dL (74-106); Potassium 3.6 mEq/L (3.5-5.1)
--- NOTE | 2024-12-03 21:48 | P.PN ---
Subjective Date of Service: 12/03/24 Chief Complaint: UTI, abdominal pain, possible new onset CHF. tremors Subjective: No new changes SHE COMPLAINS OF PAIN RUQ AFTER FOOD. I ORDERED HIDA SCAN IN AM. DR. ZUNIGA TRIED IT BEFORE AND COULD NOT BE DONE SHE HAS HAD HEART SCAN. SHE IS MODERATE RISK BUT HIDA WILL TELL US IF SHE NEEDS SURGERY. SHE LIVES ALONE, BARELY WALKS, REFUSES TO GO TO [place]. SHE NEED STO GO TO [place]. I SHOULD REFER HER TO APS SON IS IN [place]. DAUGHTER LIVES HERE BUT SHE IS NOT IN CONTACT WITH HER. SHE DOES NOT TAKE HER MEDS. SHE HAS NOT TAKEN A BATH OR SHOWER FOR YEARS. SHE REFUSES TO GO TO [place]. SHE HAS ABDOMNEN PAIN BUT SHE POINTS TO ALL OVER ABDOMEN. HIDA SCAN DONE TODAY. Review of Systems 10-point ROS is otherwise unremarkable General: As per HPI Physical Examination - Vital Signs Temperature: 98.3 F Blood Pressure: 172/70 Pulse: 68 Respirations: 20 Pulse Ox (%): 93 - Physical Exam General: Mild distress, Obese HEENT: Atraumatic, PERRLA, EOMI Neck: Supple, JVD not distended Respiratory: Clear to auscultation bilaterally, Normal air movement Cardiovascular: Regular rate/rhythm, Normal S1 S2 Gastrointestinal: Normal bowel sounds, No tenderness Musculoskeletal: No tenderness Integumentary: No rashes Neurological: Normal speech, Normal tone, Normal affect Lymphatics: No axilla or inguinal lymphadenopathy - Studies Medications List Reviewed: Yes Assessment And Plan - Current Problems (Diagnosis) (1) Abdominal pain, RUQ Current Visit: Yes Status: Acute Plan: NOT CLEAR ABOUT ORIGIN. GALL STONES POS HIDA IN AM. DISCUSSED WITH DR. Morel. HE IS NOT SURE ABOUT HER RELIABILITY. MOD RISK FOR SURGERY. DR COOPER HAS BEEN INVOLVED. HIDA SCAN NORMAL. SONOGRAM SHOWS GALL STONES. DR. ZUNIGA IS ON THE CASE. (2) General weakness Current Visit: No Status: Chronic (3) Bipolar 1 disorder, depressed, moderate Current Visit: No Status: Chronic (4) Primary hypothyroidism Current Visit: Yes Status: Chronic Plan: DOES NOT TAKE MEDS DAILY.
[2024-12-04 05:48] LABS: Anion Gap 7.7 mEq/L (5.0-15.0); BUN Blood Urea Nitrogen 14.0 mg/dL (7-18); Glucose Level 106.0 mg/dL (74-106); Potassium 3.7 mEq/L (3.5-5.1)
[2024-12-04 06:08] VITALS: BMI 41.0
--- NOTE | 2024-12-04 08:14 | P.DS ---
Admission Date: 11/26/24 Discharge Date: 12/04/24 Disposition: DC HOME/HOME HEALTH CARE Discharge Condition: FAIR Reason for Admission: UTI, abdominal pain, possible new onset CHF. tremors - Problems (1) Abdominal pain, RUQ Current Visit: Yes Status: Acute (2) General weakness Current Visit: No Status: Chronic (3) Bipolar 1 disorder, depressed, moderate Current Visit: No Status: Chronic (4) Primary hypothyroidism Current Visit: Yes Status: Chronic Hospital Course: MARVIN COMES WITH CHILLS. SHE LOOKS GREAT NOW. SHE MAY HAVE HAD UTI. CULTURE WAS NOT DONE ON ADMISSION. I WAS OUT OF TOWN UNTIL THIS AM.I TALKED TO DR COOPER, HE CLEARED HER FOR DC WITH OUTPATIENT WORK UP. MARVIN HAS BEEN VERY NON COMPLIANT. SHE IS SUPPOSED TO COME TO OFFICE EVERY 3 MTHS FO RLAB AND FU. SHE AT TIMES HAS STOPPED TAKING HER THYROID MEDICINE FORA YEAR OR LONGER. PROGNOSIS IS GUARDED. I CALLED IN CIPRO FROM OFFICE FOR UTI. MARVIN HAS NOTHING ACUTE GOING ON AT PRESENT TO STAY IN HOSPITAL. SHE DOES NOT COOPERATE WITH PT. SHE DOES NOT WANT TO GO TO [place]. FAMILY IS NOW INVOLVED. YAMINI IS TALKING TO THE DAUGHTER FOR PLAN AT HOME. WE WILL GET HOME HEALTH. SHE HAS DIARRHEA BUT NO C DIFF. SHE NEEDS OUTPATIENT COLONOSCOPY. I DOUBT SHE WILL GO TO A GI DOCTOR. SHE HARDLY COMES TO OFFICE AND NEVER LEAVES HOME OTHERWISE. I TOLD THE SON BEFORE THAT SHE MUST TAKE A BATH OR SHOWER AT LEAST TWICE A WEEK. SHE HAS NOT DONE THAT FOR YEARS. Vital Signs/Physical Exam: Temp Pulse Resp BP Pulse Ox 98.2 F 67 18 136/60 97 12/04/24 04:00 12/04/24 04:00 12/04/24 04:00 12/04/24 04:50 12/04/24 04:00 Laboratory Data at Discharge: WBC 5.20 thou/uL (4.3-10.9) 11/30/24 04:14 Hgb 11.8 g/dL (12.0-15.0) L 11/30/24 04:14 Hct 34.5 % (36.0-45.0) L 11/30/24 04:14 Plt Count 200 thou/uL (152-406) 11/30/24 04:14 PT 13.2 SECONDS (10-13.0) H 11/27/24 08:09 INR 1.17 11/27/24 08:09 APTT 78.1 SECONDS (27.2-37.4) H 11/28/24 06:37 Sodium 140 mEq/L (136-145) 12/04/24 05:02 Potassium 3.7 mEq/L (3.5-5.1) 12/04/24 05:02 BUN 14 mg/dL (7-18) 12/04/24 05:02 Creatinine 0.93 mg/dL (0.55-1.02) 12/04/24 05:02 Glucose 106 mg/dL (74-106) 12/04/24 05:02 Magnesium 2.1 mg/dL (1.6-2.4) 12/01/24 04:19 Total Bilirubin 0.2 mg/dL (0.2-1.0) 12/01/24 04:19 AST 23 U/L (15-37) 12/01/24 04:19 ALT 33 U/L (13-56) 12/01/24 04:19 Alkaline Phosphatase 78 U/L (45-117) 12/01/24 04:19 Home Medications: Carbamazepine [Tegretol] 600 mg PO BEDTIME 10/05/19 LORazepam [Lorazepam] 1 mg PO BID 10/05/19 Buspirone HCl [Buspar] 30 mg PO BID 03/04/23 Quetiapine Fumarate [Seroquel] 200 mg PO BEDTIME 03/05/23 Atorvastatin Calcium [Lipitor] 40 mg PO BEDTIME #30 tab 03/07/23 Metoprolol Tartrate [Lopressor*] 25 mg PO BID #60 tab 03/11/23 Escitalopram [Lexapro*] 20 mg PO DAILY 03/15/23 Followup: Ray Kahn MD [ACTIVE - CAN ADMIT] - 1 Week Chinmay Cooper MD [ACTIVE - CAN ADMIT] - 1 Week
[2024-12-04] MEDS: LOSARTAN POTASSIUM 50 MG TABLET PO SCH (09:00)
[2024-12-04] MEDS: KCL 20 MEQ/100 mL IVPB 20 MEQ/100 ML BAG IV SCH (10:00)
[2024-12-04] MEDS: NA CHLORIDE 0.9% 250 ML ONE (11:59)
[2024-12-04] MEDS ORDERED: GLYCOPYRROLATE 0.2 MG/ML SYR ONE (12:26)
[2024-12-04] MEDS ORDERED: FENTANYL CITR 100 MCG/2 ML ONE ×2 (12:26→13:56)
[2024-12-04] MEDS ORDERED: ONDANSETRON 4 MG/2 ML VIAL ONE (12:26)
[2024-12-04] MEDS ORDERED: NEOSTIGMINE 1 MG/ML -10 ML VIAL ONE (12:26)
[2024-12-04] MEDS ORDERED: ROCURONIUM 50 MG/5 ML VIAL IV ONE ×2 (12:27→14:24)
[2024-12-04] MEDS ORDERED: LIDOCAINE 2% MPF 5 ML VIAL ONE (12:28)
[2024-12-04] MEDS ORDERED: EPHEDRINE SULF 50 MG/ML VIAL ONE (12:33)
[2024-12-04] MEDS: Ringers Lactate 1,000 ML IV ONE (12:37)
[2024-12-04] MEDS: CIPROFLOXACIN 400mg IV 400 MG/200 ML BAG IV ONE (13:25)
--- NOTE | 2024-12-04 14:43 | P.BOP ---
Preoperative diagnosis: acute cholecystitis, recurrent intractable RUQ abd pain, sympt cholelithias Postoperative diagnosis: same Primary procedure: Laparoscopic cholecystectomy Estimated blood loss: <10c Specimen: gb Findings: inflammed edematous gallbladder Anesthesia: General Complications: None Drain(s): LORI drain Transferred to: Recovery Room Condition: Good
[2024-12-04] MEDS: HYDROMORPHONE HCL 1 MG/ML INJ ONE (15:03)
--- NOTE | 2024-12-04 15:47 | PN ---
Date of Progress Note: 12/04/2024 This is a case of an 84-year-old patient seen by us for at least the entire week. We noticed her inricardo schmitt 11/28/2024. She came with multiple diagnoses that include abdominal pain, epigastric pain, po stprandial, but also she has other source of infection, though. She also came at one point with some chest pain and she had also cardiology consult. She is still having on and off pain on diet. We we re able to slowly advance diet as we were looking into other pathology, but after that, she is on and off complaining once again postprandial epigastric, right upper quadrant pain radiating to the back and very tender when you palpate on that area. So, I discussed the case. I had been talking to Dr. Rivrea who was initially there. Dr. Kahn came to the case once again a few days ago and noticed her once again and once again questioned the deep pain in that area. So ultrasound was reviewed once aga in. HIDA scan was done once again. The ultrasound shows gallstones with contracted gallbladder and then there are also some abnormalities on the wall of the gallbladder wall including a thickening of the fundus that also may be part of her cholecystitis due to the Weaver sign when she came initially. We discussed the HIDA scan with her. She has an ejection fraction of 50%, which is not the ideal. Since at 47, we are already doing surgery. So, even though it is there, not only that she has some bloating and some nausea when the procedure was done, not as severe as the first time, but there are some duplication of some of the symptoms. So we put all that together and we discussed with the linda ent and say "well, you have a contracted gallbladder, you have cholelithiasis. You have epigastric, right upper quadrant pain, and every time you eat, you have pain in the epigastric area, once again." Cardiology evaluated the patient from the chest standpoint. So I discussed with her the disease o f the gallbladder with benefits, alternatives, and risks of laparoscopic possible open cholecystectom y which include, but not limited to, infection, bleeding, damage to adjacent structures, anesthesia c omplication, choledocholithiasis, bile leak, pancreatitis, [place], and even . She also understand t his may not relieve any symptoms, she might need more than one surgical intervention. We discussed a ll the options which include change her diet, but since she is having the pain every time she eats, s he does not see how she is going to do so since I was trying to do this electively. The patient want s surgery done during this admission. I talked to her last night. I talked to her today. She still wants the surgery done. She does not want to live like this. So, in that case, I discussed the joey e with the Primary. We discussed once again the pros and cons. She is already being evaluated by ca rdiac, so I agree and then we will put the patient in OR for laparoscopic, possible open cholecystect michelle. MEE/JACKLYN Voice ID: [id number] Report ID: [id number]
[2024-12-04] MEDS: MORPHINE 2 MG/ML SYR IV PRN (16:22)
--- NOTE | 2024-12-04 17:16 | OP ---
Date of Procedure: 12/04/2024 Surgeon: Candido Meyer MD Preoperative Diagnoses: Acute cholecystitis, recurrent intractable right upper quadrant abdominal pa in, symptomatic cholelithiasis. Postoperative Diagnoses: Acute cholecystitis, recurrent intractable right upper quadrant abdominal p ain, symptomatic cholelithiasis. Procedure: Laparoscopic cholecystectomy. Estimated Blood Loss: Less than 10 cc. Findings: Inflamed edematous gallbladder. Anesthesia: General plus local. Drains: LORI #10. Indications: This is a case of an 84-year-old patient who came to us with multiple problems at the s nate time. One of them, it is acute cholecystitis. She was trying to do it conservatively than do an elective cholecystectomy, but it does not get better and she eats and then she get sick once again. She has been back and forth, trying to decide about the gallbladder. Finally, today she had enough and she wants the gallbladder to be done. Multiple stories shows contracted gallbladder with cholecy stitis and the typical symptoms of epigastric, right upper quadrant pain, postprandial. The benefits , alternatives, and risks of laparoscopic possible open cholecystectomy fully explained, which includ e, but not limited to, infection, bleeding, damage to adjacent structures, anesthesia complication, c holedocholithiasis, bile leak, pancreatitis, [place], and even . She also understands this may not r elieve any symptoms, she may need more than one surgical intervention. She understood, signed a cons ent. Description Of Procedure: The patient was brought to the operating room, placed in supine position. Anesthesia was induced without complication. Abdominal area was prepped and draped in sterile fashi on. Marcaine 0.5% was injected for local anesthetic followed by sharp incision of the skin in the in fraumbilical region. Incision was carried down to fascia, which was opened under direct vision. Per itoneum was encountered opened under direct vision. Vicryl #1 placed inside the fascia. Leti troc ar was carefully introduced. Pneumoperitoneum was obtained. I placed 3 more trocars, each one of th em 1 in the epigastric area, 2 in the right upper quadrant, 5 mm each one of them under direct visual ization. There were multiple omental adhesions to the gallbladder. We needed to use the LigaSure ju st to get those omental adhesions to the gallbladder from this chronic cholecystitis. So, we did mari t in a way that we were able to identify the fundus of the gallbladder. We put a grasper in the fund us of the gallbladder, continued our dissection, then put a grasper in the infundibulum, and retracte d the gallbladder in the inferolateral fashion exposing the triangle of Calot and obtaining critical view. Cystic duct and cystic artery were clearly isolated and freed circumferentially and a connecti on between those and the gallbladder were clearly identified. I proceeded to ligate those by using a t least 2 clips proximal, 1 clip distal, ligation in the middle. Same was done with the cystic arter y. A small little branch of the cystic artery was ligated using the same technique. Hepatic arterie s and common bile duct were protected at all times. At that moment, I proceeded to remove the gallbl adder from liver using Bovie cauterizer and removed it from abdominal cavity using EndoCatch through umbilical incision. No bile leak. No bleeding. The gallbladder fossa was examined. No bleeding. There was some inflammation of that region consistent with acute cholecystitis. So, I left a LORI kaya in there exiting to one of the trocar sites and secured it in place with 3-0 nylon. We checked the a chvaez of lysis of adhesions with no bleeding. So, at that moment, I proceeded to remove the trocars un adriana direct vision, deflated pneumoperitoneum, closed the fascia with #1 Vicryl, irrigated subcutaneou s tissue, closed that with 3-0 chromic, and then the skin with eugene. LORI was connected to wall suc tion. The patient tolerated the procedure well. Patient was on her way to recovery in stable condit ion. MEE/JACKLYN Voice ID: [id number] Report ID: [id number]
[2024-12-04] MEDS ORDERED: CEFOXITIN 1 GM in NA CHLORIDE 0.9% 50 ML IVPB SCH (18:00)
[2024-12-04] MEDS: CEFOXITIN 1 GM in NA CHLORIDE 0.9% 50 ML IVPB SCH (18:15)
[2024-12-04] MEDS: HYDROCODONE/APAP 5/325 MG TAB PO PRN (18:20)
[2024-12-05 07:39] LABS: Anion Gap 10.8 mEq/L (5.0-15.0); BUN Blood Urea Nitrogen 13.0 mg/dL (7-18); Glucose Level 106.0 mg/dL (74-106)
[2024-12-05 07:46] LABS: Potassium 3.8 mEq/L (3.5-5.1)
[2024-12-05] MEDS: POTASSIUM 25 MEQ EFFERV TAB ONE (12:40)
[2024-12-05] MEDS: POTASSIUM 25 MEQ EFFERV TAB PO ONE (12:42)
[2024-12-06] MEDS: ONDANSETRON 4 MG/2 ML VIAL IV PRN (00:45)
[2024-12-06 18:47] LABS: Absolute Lymphocytes (CBC) 1.3 K/uL (0.7-4.9); Hematocrit 39.2 % (36.0-45.0); Hemoglobin 13.3 g/dL (12.0-15.0); MCH 35.1 pg (27.0-35.0); MCHC 33.9 g/dL (32.0-36.0); MCV 103.4 fL (80-100); MPV 7.5 fL (7.6-11.3); Nucleated RBC Absolute Count 0.0 (0-0); Nucleated Red Blood Cells % 0.2 % (0-0); RBC Red Blood Cell Count 3.79 M/uL (3.86-4.86); White Blood Count 9.50 thou/uL (4.3-10.9)
[2024-12-06 18:58] LABS: ALT/SGPT 46.0 U/L (13-56); AST/SGOT 26.0 U/L (15-37); Albumin 3.0 g/dL (3.4-5.0); Albumin/Globulin Ratio 0.7 (1.1-1.8); Alkaline Phosphatase 83.0 U/L (45-117); Anion Gap 7.7 mEq/L (5.0-15.0); BUN Blood Urea Nitrogen 12.0 mg/dL (7-18); Globulin 4.2 g/dL (2.3-3.5); Glucose Level 112.0 mg/dL (74-106); Potassium 3.7 mEq/L (3.5-5.1)
[2024-12-06] MEDS: MORPHINE 2 MG/ML SYR IV PRN (19:40)
[2024-12-07 04:46] LABS: Magnesium 2.1 mg/dL (1.6-2.4); Potassium 3.7 mEq/L (3.5-5.1)
--- NOTE | 2024-12-07 07:29 | P.PN ---
Date of Service: 12/05/24 Subjective: Chart reviewed. Events last 24 hours noted. Patient status post laparoscopic cholecystectomy. Having a lot of pain and discharge held as she does not have a lot of help at home. Encouraging physical therapy and out of bed and to the chair. LORI drain with minimal output. Surgery following along. Physical Examination: Vitals: Afebrile vital signs are stable Physical exam: Cardiovascular: Regular rate and rhythm with no murmurs Lungs: Lungs clear bilaterally Abdomen: LORI drain in place; soft/nontender/nondistended Neuro: Awake, alert, oriented to person place and time Assessment: 1. Acute cholecystitis status post laparoscopic cholecystectomy; 2. Seizure disorder 3. Hypertension 4. Hyperlipidemia Plan: 1. Continue with IV antibiotics and IV hydration 2. Continue with pain control 3. Monitor LORI drain output 4. Continue with IV antibiotics 5. Strict blood pressure control 6. Continue with antiepileptics
--- NOTE | 2024-12-07 07:32 | P.PN ---
Date of Service: 12/06/24 Subjective: No new complaints. Still having pain. Tolerating diet. Not really doing much and she may need [facility] facility placement if she is not willing to get out of bed and ambulate much. She has not wanting to smith home as she reiterates this repeatedly. I did tell her that most people get to go home the following day for laparoscopic cholecystectomy. However, she does not have any help at home and her weakness and her pain level she may benefit from SNF placement. Continue with current plan of care at this time and continue with aggressive physical therapy prior to discharging. Primary care provider should be able to take over care in the morning. Physical Examination: Vitals: Afebrile vital signs are stable Physical exam: Cardiovascular: Regular rate and rhythm with no murmurs Lungs: Lungs clear bilaterally Abdomen: LORI drain in place; soft/nontender/nondistended Neuro: Awake, alert, oriented to person place and time Assessment: 1. Acute cholecystitis status post laparoscopic cholecystectomy; 2. Seizure disorder 3. Hypertension 4. Hyperlipidemia Plan: 1. Continue with IV antibiotics and IV hydration 2. Continue with pain control 3. Monitor LORI drain output 4. Continue with IV antibiotics 5. Strict blood pressure control 6. Continue with antiepileptics 7. Continue with aggressive physical therapy. Work on try to get patient out of bed and ambulate. 8. GI DVT prophylaxis
[2024-12-07 08:53] VITALS: O2SAT 97
[2024-12-07] MEDS ORDERED: ESCITALOPRAM 20 MG TAB PO SCH (09:00)
[2024-12-07] MEDS ORDERED: BUSPIRONE HCL 15 MG TABLET PO SCH (09:00)
[2024-12-07] MEDS: POTASSIUM 25 MEQ EFFERV TAB PO ONE (09:01)
[2024-12-07 12:14] VITALS: BP 153/56; TEMP 98
--- NOTE | 2024-12-07 19:14 | PN ---
Date of Progress Note: 12/07/2024 Diagnosis: History of cholecystectomy. Subjective: The patient is doing well. She came here initially with multiple diagnoses, one of them was cholecystectomy. That was the part I am involved and she is doing good from that area. She is tolerating diet. Chest is clear. Abdomen is soft and depressible. LORI drain is clear. Extremities with good capillary refill. No calf tenderness. Plan: From the surgical standpoint, she can be discharged home. Follow up at my office, this Saturday , so we can remove the LORI drain. We explained to her how to take care of LORI drain, how to empty the output q.24 hours. She was also prescribed pain medication and also antibiotics and the pharmacy ___ she was advised not to do heavy lifting. She can take a shower with the dressings off as mike n as she put the bandage once again over the surgical areas. MEE/JACKLYN Voice ID: [id number] Report ID: [id number]
== END 2024-12-07 17:28 | disposition home health service (06) | DRG 417 ==
LOC: ER 14:48 → ERHOLD 21:31 → 2ND 22:22
PROVIDERS: ADMIT Hospitalist; ATTEND Internal Medicine
PROC: 0FT44ZZ Resection of Gallbladder, Percutaneous Endoscopic Approach (ICD-10-PCS; principal; 2024-12-04 14:00)
DX: K80.12 Calculus of gallbladder with acute and chronic cholecystitis without obstruction (principal); I21.4 Non-ST elevation (NSTEMI) myocardial infarction; F41.9 Anxiety disorder, unspecified; F31.9 Bipolar disorder, unspecified; Z11.52 Encounter for screening for COVID-19; J32.0 Chronic maxillary sinusitis; F32.A Depression, unspecified; E03.9 Hypothyroidism, unspecified; Z88.8 Allergy status to other drugs, medicaments and biological substances; Z88.1 Allergy status to other antibiotic agents; Z91.040 Latex allergy status; Z79.899 Other long term (current) drug therapy; J45.909 Unspecified asthma, uncomplicated; Z90.710 Acquired absence of both cervix and uterus; Z98.890 Other specified postprocedural states; I11.0 Hypertensive heart disease with heart failure; I50.9 Heart failure, unspecified; K76.0 Fatty (change of) liver, not elsewhere classified; E78.5 Hyperlipidemia, unspecified; Z23 Encounter for immunization; R25.1 Tremor, unspecified; K21.9 Gastro-esophageal reflux disease without esophagitis; Z87.891 Personal history of nicotine dependence; Z90.49 Acquired absence of other specified parts of digestive tract; Z91.148 Patient's other noncompliance with medication regimen for other reason; G40.909 Epilepsy, unspecified, not intractable, without status epilepticus
CPT/HCPCS: 36415; 70450; 71045; 74177; 76705; 78227; 78452; 80048; 80053; 80076; 81001; 82947; 83605; 83735; 83880; 84100; 84132; 84439; 84443; 84484; 85025; 85027; 85610; 85730; 87040; 87324; 87428; 88304; 93005; 93017; 93306; 94010; 96361; 96365; 97110; 97161; 97530; 99285; A9500; A9537; J0461; J0694; J0696; J0744; J1100; J1171; J1644; J1650; J1938; J2003; J2270; J2405; J2470; J2704; J2710; J2785; J2805; J3010; J3480; J7030; J7050; J7120; Q9967

== ENCOUNTER 2025-01-03 07:54 | Emergency (ER) | payer OTHER ==
--- OUTSIDE RECORDS SUMMARY | 2025-01-03 07:58 | XMS REPORT | Continuity of Care Document ---
Author Name Unknown Address [address] [facility] [address] [place] [address] [facility] [place] Address [address] [facility] [address] [place] [address] Support Name Relationship Address Phone TOM ODONNELL Daughter [address] [place] [address] Unavailable SHELLEY HERNANDEZ David FAIRA DA NESPERIER A CONDOMINIO DO GOLF II, BLOCO 1, NO. 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 Name Role Phone No MD, Pcp Primary Care Physician Unavailab AUDIE Aaron Attending Clinician Unavailable MONICA GALINDO Attending Clinician UnavailOMARI Ramos Attending Clinician Unavailable VELASQUEZ NESS Attending Clinician Unavailable ELIEZER CORTEZ Attending Clinician Unavailab LANDON England Attending Clinician Un available ERICH GARY Attending Clinician Unavailable ANDI GRAFF Attending Clinician Unavailable Jessica Hickman RN Attending Clinician Unavailable Payers Payer Name Policy Type Policy Number Effective Date Expirati on Date Source MEDICARE PART A AND B [id number] 2007 00:00:00 Problems Condition Name Condition Details Condition Category Status Onset Date Resolution Date Last Treatment Date Treating Clinician Comments Source Bipolar 1 disorder Bipolar 1 disorder Disease Active 05-13 00:00: 00 [facility] Bipolar disorder current episode depressed Bipolar disorder current episode depressed Disease Active 11-05 00:00: 00 [facility] Bipolar 1 disorder, manic, mild Bipolar 1 disorder, manic, mild Disease Active 09-02 00:00: 00 [facility] Generalize d anxiety disorder Generalize d anxiety disorder Disease Active 09-02 00:00: 00 [facility] 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, unspecifie d 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, unspecifie d Disease Active 09-02 00:00: 00 [facility] Hypothyroi dism Hypothyroi dism Disease Active 2016-04 0 00:00: 00 [facility] Social History Social Habit Start Date Stop Date Quantity Comments Source Sex Ass[birth year] At 1940 00:00:00 1940 00:00:00 [facility] Smoking Status Start Date Stop Date Source Tobacco smoking consumption unknown [facility] Medications Ordered Medication Name Filled Medication Name Start Date Stop Date Current Medication? Ordering Clinician Indication Dosage Frequency Signature (SIG) Comments Components Source carBAMazepi ne (TEGretol) 200 MG tablet 2020-04 00:00: 00 03-27 05:59 :00 No [id number] 600mg Take 3 tablets (600 mg total) by mouth every night. [facility] QUEtiapine (SEROquel) 400 MG tablet 2020-04 00:00: 00 03-27 05:59 :00 No [id number] 600mg Take 1.5 tablets (600 mg total) by mouth every night. TAKE 1 AND 1/2 TABLETS BY MOUTH AT BEDTIME [facility] busPIRone (Buspar) 30 MG tablet 2020-04 00:00: 00 03-27 05:59 :00 No [id number] 30mg Q.5D Take 1 tablet (30 mg total) by mouth 2 (two) times a day. [facility] escitalopra m (Lexapro) 20 MG tablet 2020-04 00:00: 00 03-27 05:59 :00 No [id number] 20mg QD Take 1 tablet (20 mg total) by mouth 1 (one) time each day. TAKE 1 TABLET BY MOUTH EVERY DAY [facility] LORazepam (Ativan) 2 MG tablet 12-26 00:00: 00 Yes [id number] Take 1/2 tablet by mouth once daily and I tablet every night at bed time [facility] busPIRone (Buspar) 15 MG tablet 12-23 00:00: 00 Yes [id number] 15mg Q.5D Take 1 tablet (15 mg total) by mouth 2 (two) times a day. [facility] levothyroxi ne (Synthroid, Levoxyl) 125 MCG tablet 20 00:00: 00 Yes 125ug QD Take 125 mcg by mouth 1 (one) time each day. [facility] promethazin e (Phenergan) 25 MG tablet 06-07 00:00: 00 Yes 25mg Q.[id number] 3D Take 25 mg by mouth 3 (three) times a day if needed. [facility] Folbic 2.5-25-2 MG tablet 06-07 00:00: 00 Yes 1{tbl} QD Take 1 tablet by mouth 1 (one) time each day. [facility] gabapentin (Neurontin) 300 MG capsule 05-19 00:00: 00 Yes [facility] triamcinolo ne (Kenalog) 0.1 % cream 2019-04 00:00: 00 Yes [facility] predniSONE (Deltasone) 10 MG tablet 2019-04 1 00:00: 00 Yes [facility] furosemide (Lasix) 40 MG tablet 2019-04 00:00: 00 Yes TK 1 T PO D [facility] fluocinonid e (Lidex) 0.05 % cream 12-03 00:00: 00 Yes MIKA TO AFFECTED AREA OF SKIN BID PRN [facility] famciclovir (Famvir) 500 MG tablet 11-12 00:00: 00 Yes TK 1 T PO TID [facility] gabapentin (Neurontin) 100 MG capsule 11-12 00:00: 00 Yes TK 1 C PO TID [facility] predniSONE (Deltasone) 20 MG tablet 11-12 00:00: 00 Yes TK 1 T PO D WF [facility] furosemide (Lasix) 20 MG tablet 10-27 00:00: 00 Yes TK 1 T PO D [facility] amoxicillin -clavulanat e (Augmentin) 875-125 MG tablet 10-11 00:00: 00 Yes 1{each} 1 each. [facility] clotrimazol e-betametha sone (Lotrisone) cream 10-11 00:00: 00 Yes THREE TIMES A DAY [facility] folic acid-pyrido xine-cyanoc obalamin (Folbic) 2.5-25-2 MG tablet 10-11 00:00: 00 Yes 1{tbl} 1 tablet. [facility] furosemide (Lasix) 20 MG tablet 10-11 00:00: 00 Yes 20mg 20 mg. [facility] amLODIPine (Norvasc) 5 MG tablet 10-04 00:00: 00 Yes 5mg 5 mg. [facility] cholecalcif arun (Vitamin D-3) 25 MCG (1000 UT) capsule 10-04 00:00: 00 Yes 3000U 3,000 Units. [facility] Coenzyme Q10 400 MG capsule 10-04 00:00: 00 Yes 2000mg 2,000 mg. [facility] cyanocobala min (Vitamin B-12) 1000 MCG/ML injection 10-04 00:00: 00 Yes 2000mg 2,000 mg. [facility] diphenhydrA MINE (Sominex) 25 MG tablet 10-04 00:00: 00 Yes 25mg 25 mg. [facility] naproxen sodium (Aleve) 220 MG tablet 10-04 00:00: 00 Yes 2{capsu le} 2 capsules. [facility] Cetirizine HCl (ZyrTEC ALLERGY) 10 MG capsule 09-24 00:00: 00 Yes [facility] fluticasone (Flonase Allergy Relief) 50 MCG/ACT nasal spray 09-24 00:00: 00 Yes [facility] levothyroxi ne (Levo-T) 112 MCG tablet 09-24 00:00: 00 Yes TAKE 1 TABLET DAILY DIRECTED. [facility] lisinopril 10 MG tablet 09-24 00:00: 00 Yes [facility] metoprolol tartrate (Lopressor) 50 MG tablet 09-24 00:00: 00 Yes [facility] Encounters Start Date/Time End Date/Time Encounter Type Admission Type Attending Clinicians Care Facility Care Department Encounter ID Source 2022-11-14 14:53:54 Outpatient [facility] [id number] [facility] 2022-10-31 10:14:32 Outpatient [facility] [id number] [facility] 2022-10-30 07:52:33 Outpatient [facility] [id number] [facility] 2022-10-17 09:34:49 Outpatient [facility] [id number] [facility] 2022-09-11 13:05:42 Outpatient [facility] [id number] [facility] 2022-08-01 10:44:15 Outpatient [facility] [id number] [facility] 2022-07-31 12:51:57 Outpatient [facility] [id number] [facility] 2022-06-20 12:17:44 Outpatient [facility] [id number] [facility] 2022-06-18 10:29:57 Outpatient [facility] [id number] [facility] 2022-02-13 09:40:18 Outpatient [facility] [id number] [facility] 2021-12-19 11:12:11 Outpatient [facility] [id number] [facility] 2021-10-06 16:06:12 Outpatient SANDY AUDIE [facility] [id number] [facility] 2021-10-05 10:11:08 Outpatient [facility] [id number] [facility] 2021-07-14 15:17:36 Outpatient SANDY AUDIE [facility] [id number] [facility] 2021-07-13 08:58:09 Outpatient [facility] [id number] [facility] 2021-06-29 15:31:07 Outpatient SANDY AUDIE [facility] [id number] [facility] 2021-02-24 16:40:48 Outpatient SANDY AUDIE [facility] [id number] [facility] 2021-01-27 16:28:44 Outpatient SANDY AUDIE [facility] [id number] [facility] 2020-10-24 15:29:38 Outpatient SANDY AUDIE [facility] [id number] [facility] 2020-10-21 16:30:14 Outpatient SANDY AUDIE [facility] [id number] [facility] 2020-09-09 16:40:45 Outpatient SANDY AUDIE [facility] [id number] [facility] 2020-08-20 02:51:59 Outpatient SANDY AUDIE [facility] [id number] [facility] 2025-03-24 10:30:00 2025-03-24 10:30:00 Outpatient MONICA GALINDO [facility] [id number] [facility] 2024-09-30 11:00:00 2024-09-30 11:22:23 Outpatient OMARI PIRES [facility] [id number] [facility] 2024-07-15 11:00:00 2024-07-15 11:00:00 Outpatient OMARI PIRES [facility] [id number] [facility] 2023-10-09 09:30:00 2023-10-09 09:55:07 Outpatient GROVER, VELASQUEZ [facility] [id number] [facility] 2023-09-04 11:00:00 2023-09-04 12:01:03 Outpatient ELIEZER CORTEZ [facility] [id number] [facility] 2023-07-31 11:00:00 2023-07-31 11:34:41 Outpatient GROVER, VELASQUEZ [facility] [id number] [facility] 2023-06-12 11:00:00 2023-06-12 11:53:37 Outpatient GROVER, VELASQUEZ [facility] [id number] [facility] 2023-03-13 11:00:00 2023-03-13 11:00:00 Outpatient GROVER, VELASQUEZ [facility] [id number] [facility] 2023-02-06 11:00:00 2023-02-06 11:00:00 Outpatient GROVER, VELASQUEZ [facility] [id number] [facility] 2023-01-02 11:00:00 2023-01-02 14:31:32 Outpatient GROVER, VELASQUEZ [facility] [id number] [facility] 2023-01-02 11:00:00 2023-01-02 11:00:00 Outpatient REDDY JENNI, LANDON [facility] [id number] [facility] 2022-11-21 10:15:00 2022-11-21 13:15:38 Outpatient REDDY JENNI, LANDON [facility] [id number] [facility] 2022-10-31 10:15:00 2022-10-31 10:15:00 Outpatient GROVER, VELASQUEZ [facility] [id number] [facility] 2022-10-31 10:15:00 2022-10-31 10:15:00 Outpatient BARRY JENNILANDON BESS [facility] [id number] [facility] 2022-09-12 11:00:00 2022-09-12 11:52:50 Outpatient ERICH GARY [facility] [id number] [facility] 2022-08-01 11:00:00 2022-08-01 14:49:47 Outpatient ERICH GARY [facility] [id number] [facility] 2022-06-20 11:00:00 2022-06-20 12:53:01 Outpatient ERICH GARY [facility] [id number] [facility] 2022-05-16 10:15:00 2022-05-16 14:46:57 Outpatient ERICH GARY [facility] [id number] [facility] 2022-04-18 11:00:00 2022-04-18 11:00:23 Outpatient ERICH GARY [facility] [id number] [facility] 2022-04-11 11:00:00 2022-04-11 11:00:00 Outpatient ERICH GARY [facility] [id number] [facility] 2022-02-14 11:00:00 2022-02-14 15:07:30 Outpatient ERICH GARY [facility] [id number] [facility] 2021-12-20 11:00:00 2021-12-20 14:26:09 Outpatient PRERNAANDI [facility] [id number] [facility] 2021-02-24 00:00:00 2021-02-24 00:00:00 Telephone Jessica Hickman, Jessica [facility] [id number] [facility] 2016-05-21 16:00:00 2016-05-21 16:00:00 Outpatient [facility] [id number] David Davis 2016-02-20 16:00:00 2016-02-20 16:00:00 Outpatient [facility] [id number] David Davis 2015-10-31 14:00:00 2015-10-31 14:00:00 Outpatient [facility] [id number] David coronado Ryan 2015-09-19 15:00:00 2015-09-19 15:00:00 Outpatient [facility] [id number] David coronado Ryan 2015-09-19 14:00:00 2015-09-19 14:00:00 Outpatient [facility]IE [facility] [id number] David coronado Ryan 2015-08-08 16:30:00 2015-08-08 16:30:00 Outpatient [facility] [id number] David coronado Ryan 2015-06-06 16:30:00 2015-06-06 16:30:00 Outpatient [facility] [id number] David coronado Ryan 2015-05-16 16:30:00 2015-05-16 16:30:00 Outpatient [facility] [id number] Briandasuellen cliff Davis 2015-04-04 14:00:00 2015-04-04 14:00:00 Outpatient [facility] [id number] Briandasuellen cliff Davis 2015-01-24 16:30:00 2015-01-24 16:30:00 Outpatient [facility] [id number] Briandasuellen cliff Davis 2014-11-22 14:00:00 2014-11-22 14:00:00 Outpatient [facility] [id number] David Davis 2014-09-30 14:00:00 2014-09-30 14:00:00 Outpatient [facility] [id number] David Davis
[2025-01-03] MEDS ORDERED: NA CHLORIDE 0.9% 1,000 ML ONE (08:44)
[2025-01-03 09:09] LABS: Absolute Lymphocytes (CBC) 1.5 K/uL (0.7-4.9); Hematocrit 36.7 % (36.0-45.0); Hemoglobin 12.6 g/dL (12.0-15.0); MCH 34.7 pg (27.0-35.0); MCHC 34.2 g/dL (32.0-36.0); MCV 101.4 fL (80-100); MPV 7.6 fL (7.6-11.3); Nucleated RBC Absolute Count 0.0 (0-0); Nucleated Red Blood Cells % 0.0 % (0-0); RBC Red Blood Cell Count 3.62 M/uL (3.86-4.86); White Blood Count 4.30 thou/uL (4.3-10.9)
[2025-01-03 09:15] LABS: Influenza A Ag Negative; Influenza B Ag Negative; SARS-CoV-2 Antigen Rapid Res Negative (Negative)
[2025-01-03 09:51] LABS: ALT/SGPT 15 U/L (13-56); AST/SGOT 18 U/L (15-37); Albumin 3.1 g/dL (3.4-5.0); Albumin/Globulin Ratio 0.9 (1.1-1.8); Alkaline Phosphatase 85 U/L (45-117); Anion Gap 9.5 mEq/L (5.0-15.0); BUN Blood Urea Nitrogen 14 mg/dL (7-18); Globulin 3.4 g/dL (2.3-3.5); Glucose Level 101 mg/dL (74-106); Potassium 3.5 mEq/L (3.5-5.1)
[2025-01-03 10:48] LABS: Urine Microscopic Reflex YN NO UMIC
[2025-01-03 11:08] LABS: Thyroid Stimulating Hormone 130.000 uIU/mL (0.358-3.740)
--- NOTE | 2025-01-03 11:41 | EDPHYS ---
Physician Documentation [facility] Name: Maxine Elias Age: 84 yrs Sex: Female : 1940 Arrival Date: 01/03/2025 Time: 07:54 Bed 7 Private MD: ED Physician Francisco Rivera HPI: 01/03 08:22 This 84 yrs old Female presents to ER via Ambulatory with complaints of Low Blood Sugar.sb4 08:22 Patient states that she is not feeling well and feels that her blood sugar has been sb4 running low. She states that she has a history of hypoglycemia. Is not on any diabetic medications. Denies any changes in medicines recently. Denies any associated symptoms -no abdominal pain, chest pain, shortness of breath, nausea, vomiting. She is also requesting we remove her LORI drain from her cholecystectomy that was done a month ago by Dr. Meyer. Historical: - Allergies: 08:13 Neosporin ([id number]); hb - Home Meds: 08:13 quetiapine oral [Active]; Carbamazepine Oral [Active]; Buspirone Oral [Active]; hb levothyroxine oral [Active]; - PMHx: 08:13 Anxiety; Bipolar disorder; depressive disorder; Hypercholesterolemia; Hypertension; hb Hypothyroidism; - PSHx: 08:13 Cholecystectomy; hb - Immunization history:: Adult Immunizations up to date. - Infectious Disease History:: Denies. - Social history:: Smoking status: Patient denies any tobacco usage or history of. ROS: 08:23 Constitutional: Negative for fever, chills, and weight loss, sb4 08:23 Neuro: Positive for weakness, 08:23 Endocrine: Positive for per HPI, 08:23 All other systems are negative, Exam: 08:23 Head/Face: Normocephalic, atraumatic. Eyes: Extra-ocular motions intact. Periorbital sb4 areas with no swelling, redness, or edema. ENT: Mucous membranes moist. Cardiovascular: Regular rate and rhythm with a normal S1 and S2. Respiratory: No increased work of breathing, no retractions or nasal flaring. Skin: Warm, dry with normal turgor. Normal color with no rashes, no lesions, and no evidence of cellulitis. 08:23 Constitutional: The patient appears alert, awake, obese, 08:23 Abdomen/GI: Inspection: LORI drain right upper quadrant, with serosanguineous fluid in the drain. Mild erythema surrounding the drain insertion point, Palpation: abdomen is soft and non-tender, Vital Signs: 08:10 BP 154 / 101; Pulse 75; Resp 18; Temp 98.2; Pulse Ox 98% on R/A; Weight 112 kg; hb 12:34 BP 187 / 79; Pulse 74; Resp 19; Pulse Ox 100% on R/A; iw MDM: 08:02 Medical Screening Exam initiated sb4 08:24 Differential diagnosis: hypoglycemic episode, hypothyroidism, myxedema coma. 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 Meyer sb4 regarding LORI drain, states that she needs to follow-up in office to have it removed. Historians other than the Patient: Daughter/Son: daughter. 11:50 Data reviewed: vital signs, nurses notes, lab test result(s), I have discussed the sb4 patient's presentation/case with the attending Emergency Department Physician; and as a result, I will discharge patient. Counseling: I had a detailed discussion with the patient and/or guardian regarding the historical points, exam findings, and any diagnostic results supporting the discharge/admit diagnosis, the presence of at least one elevated blood pressure reading (>120/80) during this emergency department visit, lab results, the need for outpatient follow up, for definitive care, to return to the emergency department if symptoms worsen or persist or if there are any questions or concerns that arise at home. ED course: TSH is significantly elevated at 130 and T4 is less than 0.1. Patient does admit to being noncompliant with her medications. She is not hypotensive, bradycardic, hypothermic. She is A\T\O x 4. Will safely discharge home with reiteration of the importance of compliance with medication. 01/03 08:14 Order name: CBC with Diff; Complete Time: 09:15 sb4 01/03 08:14 Order name: CMP; Complete Time: 11:34 sb4 01/03 08:14 Order name: TSH; Complete Time: 11:34 sb4 01/03 08:14 Order name: UA Rfx Cole Cult if indicated; Complete Time: 10:51 sb4 01/03 08:15 Order name: Glucose, Ancillary Testing; Complete Time: 08:34 EDMS 01/03 08:37 Order name: COVID-19 Ag + Flu A+B Ag; Complete Time: 09:18 sb4 01/03 11:10 Order name: T4 Free; Complete Time: 11:34 EDMS 01/03 08:14 Order name: IV Saline Lock; Complete Time: 09:01 sb4 01/03 08:14 Order name: Labs collected and sent; Complete Time: 09: sb4 01/03 10:09 Order name: PO challenge; Complete Time: 10:34 sb4 Administered Medications: 09:02 Drug: NS 0.9% IV 1000 ml IV at 1 bolus Per protocol; to be given as a bolus over 60 hb minutes Route: IV; Rate: 1 bolus; Site: right antecubital; 12:35 Follow up: IV Status: Completed infusion iw Point of Care Testing: Blood Glucose: 08:04 Blood Glucose: 86 mg/dL; hb Ranges: Critical Glucose Levels:Adult <50 mg/dl or >400 mg/dl <40 mg/dl or >180 mg/dl Disposition: 13:58 Co-signature as Attending Physician, Francisco Rivera MD I reviewed the patient's care rn provided by the Advanced Practice Provider and agree with the diagnosis and treatment plan. 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 EDMS EDMS
--- NOTE | 2025-01-03 11:41 | ER ---
Nurse's Notes [facility] Name: Maxine Elias Age: 84 yrs Sex: Female : 1940 Arrival Date: 01/03/2025 Time: 07:54 Bed 7 Private MD: Diagnosis: Hypothyroidism, unspecified Presentation: 01/03 08:10 Chief complaint: Feels like blood sugar has been running low for the last 24 hours. [facility] drain noted, reports she had cholecystectomy [address] Meyer and was supposed to get drain removed 3 weeks ago but missed appointment due to not feeling well. BGL 86. Coronavirus screen: At this time, the client does not indicate any symptoms associated with coronavirus-19. Ebola Screen: No symptoms or risks identified at this time. Initial Sepsis Screen: Does the patient meet any 2 criteria? No. Patient's initial sepsis screen is negative. Does the patient have a suspected source of infection? No. Patient's initial sepsis screen is negative. Risk Assessment: Do you want to hurt yourself or someone else? Patient reports no desire to harm self or others. Onset of symptoms was January 03, 2025. 08:10 Method Of Arrival: Ambulatory 08:10 Acuity: SWAPNIL 3 hb Triage Assessment: 08:15 General: Appears in no apparent distress. obese, unkempt, Behavior is calm, hb cooperative. Pain: Denies pain. EENT: No signs and/or symptoms were reported regarding the EENT system. Neuro: Level of Consciousness is awake, alert, obeys commands, Oriented to person, place, time, situation. Cardiovascular: Patient's skin is warm and dry. Respiratory: Respiratory effort is even, unlabored, Respiratory pattern is regular, symmetrical. GI: No signs and/or symptoms were reported involving the gastrointestinal system. LORI drain. : No signs and/or symptoms were reported regarding the genitourinary system. Derm: Skin is pink, warm \T\ dry. Musculoskeletal: No signs and/or symptoms reported regarding the musculoskeletal system. Historical: - Allergies: 08:13 Neosporin ([id number]); hb - Home Meds: 08:13 quetiapine oral [Active]; Carbamazepine Oral [Active]; Buspirone Oral [Active]; hb levothyroxine oral [Active]; - PMHx: 08:13 Anxiety; Bipolar disorder; depressive disorder; Hypercholesterolemia; Hypertension; hb Hypothyroidism; - PSHx: 08:13 Cholecystectomy; hb - Immunization history:: Adult Immunizations up to date. - Infectious Disease History:: Denies. - Social history:: Smoking status: Patient denies any tobacco usage or history of. Screenin:16 [facility] ED Fall Risk Assessment (Adult) History of falling in the last 3 months, hb including since admission No falls in past 3 months (0 pts) Confusion or Disorientation No (0 pts) Intoxicated or Sedated No (0 pts) Impaired Gait Yes (1 pt) Mobility Assist Device Used Yes (1 pt) Altered Elimination Yes (1 pt) Score/Fall Risk Level 3 or more points = High Risk Oriented to surroundings, Maintained a safe environment, Educated pt \T\ family on fall prevention, incl call for assistance when getting out of bed. Abuse screen: Denies threats or abuse. Denies injuries from another. Nutritional screening: No deficits noted. Tuberculosis screening: No symptoms or risk factors identified. Assessment: 08:16 General: See triage assessment. hb 10:34 Reassessment: Patient appears in no apparent distress at this time. Patient and/or iw family updated on plan of care and expected duration. Pain level reassessed. pt assisted to bedside commode, urine specimen collected. Vital Signs: 08:10 BP 154 / 101; Pulse 75; Resp 18; Temp 98.2; Pulse Ox 98% on R/A; Weight 112 kg; hb 12:34 BP 187 / 79; Pulse 74; Resp 19; Pulse Ox 100% on R/A; iw ED Course: 07:56 Patient arrived in ED. ts1 08:02 Bhavana Bruno PA-C is PHCP. sb4 08:02 Francisco Rivera MD is Attending Physician. sb4 08:13 Triage completed. hb 08:15 Arm band placed on. hb 08:16 Patient has correct armband on for positive identification. Provided Education on: call hb light . 08:18 Glucose, Ancillary Testing Sent. hb 08:53 COVID-19 Ag + Flu A+B Ag Sent. em1 08:53 COVID swab sent to lab. Flu and/or RSV swab sent to lab. em1 08:57 Inserted saline lock: 20 gauge in right antecubital area, using aseptic technique. hb Blood collected. Flushed with 10 mL NS. 09:01 TSH Sent. hb 09:01 CBC with Diff Sent. hb 09:02 CMP Sent. hb 09:02 COVID-19 Ag + Flu A+B Ag Sent. hb 09:19 Joi Davila, RN is Primary Nurse. iw 11:40 Brody Espinoza MD is Referral Physician. sb4 11:40 Ray Kahn MD is Referral Physician. sb4 11:40 Referral Physician role handed off by Brody Espinoza MD sb4 11:40 Candido Meyer MD is Referral Physician. sb4 12:34 No provider procedures requiring assistance completed. IV discontinued, intact, iw bleeding controlled, No redness/swelling at site. Pressure dressing applied. Administered Medications: 09:02 Drug: NS 0.9% IV 1000 ml IV at 1 bolus Per protocol; to be given as a bolus over 60 hb minutes Route: IV; Rate: 1 bolus; Site: right antecubital; 12:35 Follow up: IV Status: Completed infusion iw Medication: 08:16 VIS not applicable for this client. hb Point of Care Testing: Blood Glucose: 08:04 Blood Glucose: 86 mg/dL; hb Ranges: Outcome: 11:40 Discharge ordered by . sb4 12:34 Discharged to home via wheelchair, with family, iw 12:34 Condition: good 12:34 Discharge instructions given to patient, family, Instructed on discharge instructions, follow up and referral plans. medication usage, Demonstrated understanding of instructions, follow-up care, medications, Prescriptions given X 1, 12:35 Patient left the ED. iw Signatures: Joi Davila RN RN iw Ad Meyer em1 Lydia Bahena RN RN aa5 Elaine Lewis RN RN Bhavana Bruno, PA-C PA-C sb4 Melina Contreras PAS PAS ts1 Corrections: (The following items were deleted from the chart) 08:51 08:47 Lydia Bahena RN is Primary Nurse. aaConnie badillo
[2025-01-03 12:39] VITALS: TEMP 98.2
[2025-01-03 12:41] VITALS: BP 187/79; O2SAT 100
== END 2025-01-03 12:35 | disposition home or self-care (01) ==
LOC: ER 07:54
DX: E16.2 Hypoglycemia, unspecified (principal); E03.9 Hypothyroidism, unspecified; F41.9 Anxiety disorder, unspecified; F32.A Depression, unspecified; E78.00 Pure hypercholesterolemia, unspecified; I10 Essential (primary) hypertension; Z11.52 Encounter for screening for COVID-19
CPT/HCPCS: 36415; 80053; 81003; 82947; 84439; 84443; 85025; 87428; 96360; 96361; 99284; J7030

== ENCOUNTER 2025-01-04 13:23 | Inpatient (IN) | payer OTHER ==
--- OUTSIDE RECORDS SUMMARY | 2025-01-04 13:26 | XMS REPORT | Continuity of Care Document ---
Author Name Unknown Address [address] [place] [address] Organization [facility] [place] Address [address] [place] [address] Support Name Relationship Address Phone TOM ODONNELL Daughter [address] [place] [address] Unavailable SHELLEY HERNANDEZ David FAIRA DA NESPERIER A CONDOMINIO DO GOLF II, BLOCO 1, NO. 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 Role Phone No MD, Pcp Primary [...] Date Source MEDICARE PART A AND B [id number] 2007 00:00:00 Problems Condition Name Condition Details Condition Category Status Onset Date Resolution Date Last Treatment Date Treating Clinician Comments Source Bipolar 1 disorder Bipolar 1 disorder Disease Active 05-13 00:00: 00 [facility] Bipolar disorder current episode depressed Bipolar disorder current episode depressed Disease Active 11-05 00:00: 00 [facility] Bipolar 1 disorder, manic, mild Bipolar 1 disorder, manic, mild Disease Active 09-02 00:00: 00 [facility] Generalize d anxiety disorder Generalize d anxiety disorder Disease Active 09-02 00:00: 00 [facility] 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, unspecifie d 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 Ordering Clinician Indication Dosage Frequency Signature (SIG) Comments Components Source carBAMazepi ne (TEGretol) 200 MG tablet 2020-04 00:00: 00 03-27 05:59 :00 No [id number] 600mg Take 3 tablets (600 mg total) by mouth every night. [facility] QUEtiapine (SEROquel) 400 MG tablet 2020-04 00:00: 00 03-27 05:59 :00 No [id number] 600mg Take 1.5 tablets (600 mg total) by mouth every night. TAKE 1 AND 1/2 TABLETS BY MOUTH AT BEDTIME [facility] busPIRone (Buspar) 30 MG tablet 2020-04 00:00: 00 03-27 05:59 :00 No [id number] 30mg Q.5D Take 1 tablet (30 mg total) by mouth 2 (two) times a day. [facility] escitalopra m (Lexapro) 20 MG tablet 2020-04 00:00: 00 03-27 05:59 :00 No [id number] 20mg QD Take 1 tablet (20 mg total) by mouth 1 (one) time each day. TAKE 1 TABLET BY MOUTH EVERY DAY [facility] LORazepam (Ativan) 2 MG tablet 12-26 00:00: 00 Yes [id number] Take 1/2 tablet by mouth once daily and I tablet every night at bed time [facility] busPIRone (Buspar) 15 MG tablet 12-23 00:00: 00 Yes [id number] 15mg Q.5D Take 1 tablet (15 mg total) by mouth 2 (two) times a day. [facility] levothyroxi ne (Synthroid, Levoxyl) 125 MCG tablet 20 00:00: 00 Yes 125ug QD Take 125 mcg by mouth 1 (one) time each day. [facility] promethazin e (Phenergan) 25 MG tablet 06-07 00:00: 00 Yes 25mg Q.[id number] 3D Take 25 mg by mouth 3 (three) times a day if needed. [facility] Folbic 2.5-25-2 MG tablet 06-07 00:00: 00 Yes 1{tbl} QD Take 1 tablet by mouth 1 (one) time each day. [facility] gabapentin (Neurontin) 300 MG capsule 05-19 00:00: 00 Yes [facility] triamcinolo ne (Kenalog) 0.1 % cream 2019-04 00:00: 00 Yes [facility] predniSONE (Deltasone) 10 MG tablet 2019-04 1 00:00: 00 Yes [facility] furosemide (Lasix) 40 MG tablet 2019-04 00:00: 00 Yes TK 1 T PO D [facility] fluocinonid e (Lidex) 0.05 % cream 12-03 00:00: 00 Yes MIKA TO AFFECTED AREA OF SKIN BID PRN [facility] famciclovir (Famvir) 500 MG tablet 11-12 00:00: 00 Yes TK 1 T PO TID [facility] gabapentin (Neurontin) 100 MG capsule 11-12 00:00: 00 Yes TK 1 C PO TID [facility] predniSONE (Deltasone) 20 MG tablet 11-12 00:00: 00 Yes TK 1 T PO D WF [facility] furosemide (Lasix) 20 MG tablet 10-27 00:00: 00 Yes TK 1 T PO D [facility] amoxicillin -clavulanat e (Augmentin) 875-125 MG tablet 10-11 00:00: 00 Yes 1{each} 1 each. [facility] clotrimazol e-betametha sone (Lotrisone) cream 10-11 00:00: 00 Yes THREE TIMES A DAY [facility] folic acid-pyrido xine-cyanoc obalamin (Folbic) 2.5-25-2 MG tablet 10-11 00:00: 00 Yes 1{tbl} 1 tablet. [facility] furosemide (Lasix) 20 MG tablet 10-11 00:00: 00 Yes 20mg 20 mg. [facility] amLODIPine (Norvasc) 5 MG tablet 10-04 00:00: 00 Yes 5mg 5 mg. [facility] cholecalcif arun (Vitamin D-3) 25 MCG (1000 UT) capsule 10-04 00:00: 00 Yes 3000U 3,000 Units. [facility] Coenzyme Q10 400 MG capsule 10-04 00:00: 00 Yes 2000mg 2,000 mg. [facility] cyanocobala min (Vitamin B-12) 1000 MCG/ML injection 10-04 00:00: 00 Yes 2000mg 2,000 mg. [facility] diphenhydrA MINE (Sominex) 25 MG tablet 10-04 00:00: 00 Yes 25mg 25 mg. [facility] naproxen sodium (Aleve) 220 MG tablet 10-04 00:00: 00 Yes 2{capsu le} 2 capsules. [facility] Cetirizine HCl (ZyrTEC ALLERGY) 10 MG capsule 09-24 00:00: 00 Yes [facility] fluticasone (Flonase Allergy Relief) 50 MCG/ACT nasal spray 09-24 00:00: 00 Yes [facility] levothyroxi ne (Levo-T) 112 MCG tablet 09-24 00:00: 00 Yes TAKE 1 TABLET DAILY DIRECTED. [facility] lisinopril 10 MG tablet 09-24 00:00: 00 Yes [facility] metoprolol tartrate (Lopressor) 50 MG tablet 09-24 00:00: 00 Yes [facility] Encounters Start Date/Time End Date/Time Encounter Type Admission Type Attending Clinicians Care Facility Care Department Encounter ID Source 2022-11-14 14:53:54 Outpatient [facility] [id number] [facility] 2022-10-31 10:14:32 Outpatient [facility] [id number] [facility] 2022-10-30 07:52:33 Outpatient [facility] [id number] [facility] 2022-10-17 09:34:49 Outpatient [facility] [id number] [facility] 2022-09-11 13:05:42 Outpatient [facility] [id number] [facility] 2022-08-01 10:44:15 Outpatient [facility] [id number] [facility] 2022-07-31 12:51:57 Outpatient [facility] [id number] [facility] 2022-06-20 12:17:44 Outpatient [facility] [id number] [facility] 2022-06-18 10:29:57 Outpatient [facility] [id number] [facility] 2022-02-13 09:40:18 Outpatient [facility] [id number] [facility] 2021-12-19 11:12:11 Outpatient [facility] [id number] [facility] 2021-10-06 16:06:12 Outpatient SANDY AUDIE [facility] [id number] [facility] 2021-10-05 10:11:08 Outpatient [facility] [id number] [facility] 2021-07-14 15:17:36 Outpatient SANDY AUDIE [facility] [id number] [facility] 2021-07-13 08:58:09 Outpatient [facility] [id number] [facility] 2021-06-29 15:31:07 Outpatient SANDY AUDIE [facility] [id number] [facility] 2021-02-24 16:40:48 Outpatient SANDY AUDIE [facility] [id number] [facility] 2021-01-27 16:28:44 Outpatient SANDY AUDIE [facility] [id number] [facility] 2020-10-24 15:29:38 Outpatient SANDY AUDIE [facility] [id number] [facility] 2020-10-21 16:30:14 Outpatient SANDY AUDIE [facility] [id number] [facility] 2020-09-09 16:40:45 Outpatient SANDY AUDIE [facility] [id number] [facility] 2020-08-20 02:51:59 Outpatient SANDY AUDIE [facility] [id number] [facility] 2025-03-24 10:30:00 2025-03-24 10:30:00 Outpatient MONICA GALINDO [facility] [id number] [facility] 2024-09-30 11:00:00 2024-09-30 11:22:23 Outpatient OMARI PIRES [facility] [id number] [facility] 2024-07-15 11:00:00 2024-07-15 11:00:00 Outpatient OMARI PIRES [facility] [id number] [facility] 2023-10-09 09:30:00 2023-10-09 09:55:07 Outpatient GROVER, VELASQUEZ [facility] [id number] [facility] 2023-09-04 11:00:00 2023-09-04 12:01:03 Outpatient ELIEZER CORTEZ [facility] [id number] [facility] 2023-07-31 11:00:00 2023-07-31 11:34:41 Outpatient GROVER, VELASQUEZ [facility] [id number] [facility] 2023-06-12 11:00:00 2023-06-12 11:53:37 Outpatient GROVER, VELASQUEZ [facility] [id number] [facility] 2023-03-13 11:00:00 2023-03-13 11:00:00 Outpatient GROVER, VELASQUEZ [facility] [id number] [facility] 2023-02-06 11:00:00 2023-02-06 11:00:00 Outpatient GROVER, VELASQUEZ [facility] [id number] [facility] 2023-01-02 11:00:00 2023-01-02 14:31:32 Outpatient GROVER, VELASQUEZ [facility] [id number] [facility] 2023-01-02 11:00:00 2023-01-02 11:00:00 Outpatient REDDY JENNI, LANDON [facility] [id number] [facility] 2022-11-21 10:15:00 2022-11-21 13:15:38 Outpatient REDDY JENNI, LANDON [facility] [id number] [facility] 2022-10-31 10:15:00 2022-10-31 10:15:00 Outpatient GROVER, VELASQUEZ [facility] [id number] [facility] 2022-10-31 10:15:00 2022-10-31 10:15:00 Outpatient BARRY JENNILANDON BESS [facility] [id number] [facility] 2022-09-12 11:00:00 2022-09-12 11:52:50 Outpatient ERICH GARY [facility] [id number] [facility] 2022-08-01 11:00:00 2022-08-01 14:49:47 Outpatient ERICH GARY [facility] [id number] [facility] 2022-06-20 11:00:00 2022-06-20 12:53:01 Outpatient ERICH GARY [facility] [id number] [facility] 2022-05-16 10:15:00 2022-05-16 14:46:57 Outpatient ERICH GARY [facility] [id number] [facility] 2022-04-18 11:00:00 2022-04-18 11:00:23 Outpatient ERICH GARY [facility] [id number] [facility] 2022-04-11 11:00:00 2022-04-11 11:00:00 Outpatient ERICH GARY [facility] [id number] [facility] 2022-02-14 11:00:00 2022-02-14 15:07:30 Outpatient ERICH GARY [facility] [id number] [facility] 2021-12-20 11:00:00 2021-12-20 14:26:09 Outpatient PRERNAANDI [facility] [id number] [facility] 2021-02-24 00:00:00 2021-02-24 00:00:00 Telephone Jessica Hickman, Jessica [facility] [id number] [facility] 2016-05-21 16:00:00 2016-05-21 16:00:00 Outpatient [facility] [id number] David Davis 2016-02-20 16:00:00 2016-02-20 16:00:00 Outpatient [facility] [id number] David Davis 2015-10-31 14:00:00 2015-10-31 14:00:00 Outpatient [facility] [id number] David coronado Ryan 2015-09-19 15:00:00 2015-09-19 15:00:00 Outpatient [facility] [id number] Dvaid coronado Ryan 2015-09-19 14:00:00 2015-09-19 14:00:00 Outpatient [facility] [id number] David coronado Ryan 2015-08-08 16:30:00 2015-08-08 16:30:00 Outpatient [facility] [id number] David coronado Ryan 2015-06-06 16:30:00 2015-06-06 16:30:00 Outpatient [facility] [id number] David coronado Ryan 2015-05-16 16:30:00 2015-05-16 16:30:00 Outpatient [facility] [id number] Briandasuellen cliff Davis 2015-04-04 14:00:00 2015-04-04 14:00:00 Outpatient [facility] [id number] Briandasuellen cliff Davis 2015-01-24 16:30:00 2015-01-24 16:30:00 Outpatient [facility] [id number] Briandasuellen cliff Davis 2014-11-22 14:00:00 2014-11-22 14:00:00 Outpatient [facility] [id number] David Davis 2014-09-30 14:00:00 2014-09-30 14:00:00 Outpatient [facility] [id number] David Davis
[2025-01-04] MEDS ORDERED: NA CHLORIDE 0.9% 500 ML ONE (13:59)
--- NOTE | 2025-01-04 14:05 | RAD REPORT ---
EXAMINATION: Head Brain Wo Cont CLINICAL INDICATION: Female, 84 years old.AMS TECHNIQUE: Axial CT images from the skull base to the vertex without intravenous contrast. Coronal an d sagittal reformatted images were created from the data set. One or more of the following dose reduction techniques were used: Automated exposure control, adjustment of the mA and/or kV according to patient size, and/or iterative reconstruction. Unless otherwise specified, incidental findings do not require dedicated imaging follow-up. [id number]. COMPARISON: No prior exams FINDINGS: INTRACRANIAL: No acute intracranial hemorrhage. No acute large vascular territory infarct. No hydroce phalus. No mass effect or midline shift. Mild chronic small vessel ischemic changes.Mild cerebral atrophy. VASCULATURE: No visualized abnormalities in the arteries or dural venous sinuses. SCALP/SKULL: No calvarial fracture identified. No acute soft tissue abnormality. SINUSES: Chronic mucoperiosteal thickening at the right maxillary sinus No significant mastoid fluid. IMPRESSION: No acute intracranial abnormality.
[2025-01-04] MEDS: LEVOTHYROXINE SODIUM 100 MCG VIAL IV ONE (14:15)
[2025-01-04 14:20] LABS: Absolute Lymphocytes (CBC) 1.3 K/uL (0.7-4.9); Hematocrit 38.6 % (36.0-45.0); Hemoglobin 13.3 g/dL (12.0-15.0); MCH 34.6 pg (27.0-35.0); MCHC 34.3 g/dL (32.0-36.0); MCV 100.7 fL (80-100); MPV 7.3 fL (7.6-11.3); Nucleated RBC Absolute Count 0.0 (0-0); Nucleated Red Blood Cells % 0.2 % (0-0); RBC Red Blood Cell Count 3.84 M/uL (3.86-4.86); White Blood Count 4.50 thou/uL (4.3-10.9)
[2025-01-04 14:47] LABS: Anion Gap 9.4 mEq/L (5.0-15.0); BUN Blood Urea Nitrogen 8.0 mg/dL (7-18); Glucose Level 112.0 mg/dL (74-106); Potassium 3.4 mEq/L (3.5-5.1)
[2025-01-04 14:57] LABS: Thyroid Stimulating Hormone 93.2 uIU/mL (0.358-3.740)
--- NOTE | 2025-01-04 16:00 | EDPHYS ---
Physician Documentation [facility] Name: Maxine Elias Age: 84 yrs Sex: Female : 1940 Arrival Date: 01/04/2025 Time: 13:23 Bed 16 Private MD: ED Physician Francisco Rivera HPI: 01/04 15:53 This 84 yrs old Female presents to ER via EMS with complaints of General Weakness. rn 15:53 Patient seen here yesterday for altered mental status and weakness, discharged and came rn back today with worsening symptoms. Patient noncompliant with multiple medications and diagnosed with hypothyroidism yesterday. Patient states he took possibly pill last night when she went home. No focal pain. Reports a tremor, weakness, confusion and states unable to take care of herself at home.. Historical: - Allergies: 13:32 Neosporin ([id number]); ss - PMHx: 13:32 Anxiety; Bipolar disorder; depressive disorder; Hypercholesterolemia; Hypertension; ss Hypothyroidism; - PSHx: 13:32 Cholecystectomy; ss - Immunization history:: Adult Immunizations unknown. - Infectious Disease History:: Denies. - Social history:: Smoking status: Patient denies any tobacco usage or history of. - Family history:: not pertinent. - Hospitalizations: : No recent hospitalization is reported. ROS: 15:53 Constitutional: Negative for fever, chills, and weight loss, Cardiovascular: Negative rn for chest pain, palpitations, and edema, Respiratory: Negative for shortness of breath, cough, wheezing, and pleuritic chest pain, Abdomen/GI: Negative for abdominal pain, diarrhea, and constipation, MS/Extremity: Negative for injury and deformity, Skin: Negative for injury, rash, and discoloration, Neuro: Negative for headache, numbness, tingling, and seizure, Exam: 15:53 Constitutional: This is a well developed, well nourished patient who is awake, alert, rn slow to respond, coarse tremor Head/Face: Normocephalic, atraumatic. Cardiovascular: Regular rate and rhythm. No pulse deficits. Respiratory: No increased work of breathing, no retractions or nasal flaring. Abdomen/GI: Soft, nontender MS/ Extremity: Pulses equal, no cyanosis. Neurovascular intact. Full, normal range of motion. Equal circumference. Neuro: Awake, slow to respond, GCS 15, oriented to person, place, time, and situation. Cranial nerves II-XII grossly intact. Motor strength 4/5 in all extremities. Coarse tremor Vital Signs: 13:32 BP 158 / 110; Pulse 73; Resp 16; Temp 99.3(O); Pulse Ox 99% ; Weight 83.91 kg; Height 5 db ft. 6 in. ; 15:32 BP 172 / 85; Pulse 67; Resp 12; Pulse Ox 100% on R/A; af3 16:33 BP 183 / 78; Pulse 70; Resp 13; Pulse Ox 97% on R/A; af3 13:32 Body Mass Index 29.86 (83.91 kg, 167.64 cm) db MDM: 13:30 Medical Screening Exam initiated rn 15:53 Differential Diagnosis: electrolyte abnormality, hypoglycemia, overdose, UTI, volume rn depletion, Hypothyroidism. Data reviewed: vital signs, nurses notes, lab test result(s), EKG, radiologic studies, CT scan, and as a result, I will admit patient. Consideration of Admission/Observation Patient was admitted/placed on observation. Escalation of care including admission/observation considered. Independent interpretation of the following test(s) in the Emergency Department CT Scan: My interpretation is CT head images negative for hemorrhage per my interpretation. court monitor: rate is 67 beats/min, Rhythm is normal sinus rhythm, regular, with no ectopy, Interpretation: normal rate, normal rhythm. Counseling: I had a detailed discussion with the patient and/or guardian regarding the historical points, exam findings, and any diagnostic results supporting the discharge/admit diagnosis, lab results, radiology results, the need for further work-up and treatment in the hospital. Response to treatment: the patient's symptoms have mildly improved after treatment, and as a result, I will admit patient. 15:53 ED course: Patient with severe hypothyroidism, improved with IV levothyroxine and rn fluids. No acute finding in CT head. Will admit to Dr. Kahn for altered mental status, weakness and hypothyroidism secondary to medication noncompliance. 01/04 13:39 Order name: CBC with Diff; Complete Time: 15:52 rn 01/04 13:39 Order name: Basic Metabolic Panel; Complete Time: 15:52 rn 01/04 13:39 Order name: TSH; Complete Time: 15:52 rn 01/04 13:39 Order name: T4 Free rn 01/04 15:00 Order name: T4 Free; Complete Time: 15:52 EDMS 01/04 13:39 Order name: CT Head Brain wo Cont; Complete Time: 14:10 rn 01/04 15:21 Order name: Case Management Consult [facility] 01/04 13:39 Order name: IV Start; Complete Time: 14:32 rn Administered Medications: 14:15 Drug: NS 0.9% IV 500 ml 500 ml IV at 1 bolus once; to be given as a bolus over 30 db minutes Volume: 500 ml; Route: IV; Rate: 1 bolus; Site: right antecubital; 15:00 Follow up: Response: No adverse reaction; IV Status: Completed infusion; IV Intake: af3 500ml 14:42 Drug: levothyroxine IV 200 mcg IV at calculated rate once Route: IV; Rate: calculated cm10 rate; Site: right antecubital; 15:30 Follow up: Response: No adverse reaction; IV Status: Completed infusion af3 Disposition: 15:53 Critical Care:. rn Disposition Summary: 01/04/25 16:00 Hospitalization Ordered Notes: Hospitalization Status: Inpatient Admission rn Provider: Ray Kahn rn Location: Telemetry/[facility] (Inpatient) rn Condition: Stable rn Problem: new rn Symptoms: have improved rn Bed/Room Type: Standard rn Room Assignment: 405(01/04/25 16:16) ss Diagnosis - Hypothyroidism, unspecified rn - Altered mental status, unspecified rn - Muscle weakness (generalized) rn Forms: - Medication Reconciliation Form rn - SBAR form rn - Leadership Thank You Letter rn pool time excluding procedures: 15:53 Critical care time: Bedside Care: 30 minutes, Consultation: 5 minutes. Total time: 35 rn minutes Signatures: Dispatcher [employer] EDMS Francisco Rivera MD MD rn Blanchard, Shelby RN RN ss Lindy Haines, RN Alanna Torres RN RN Ifeoma Torres RN af3 Corrections: (The following items were deleted from the chart) 16:16 16:00 rn ss
--- NOTE | 2025-01-04 16:00 | ER ---
Nurse's Notes [facility] Name: Maxine Elias Age: 84 yrs Sex: Female : 1940 Arrival Date: 01/04/2025 Time: 13:23 Bed 16 Private MD: Diagnosis: Hypothyroidism, unspecified;Altered mental status, unspecified;Muscle weakness (generalized) Presentation: 01/04 13:32 Chief complaint: EMS states: FEELS WEIRD SENSATION IN HEAD W/BOBBLE HEAD MOTION. FROM db HOME. REPORTS SEEN YESTERDAY. REPORTS TAKING MEDICATIONS FOR PSYCHIATRIC COMPLAINTS. Coronavirus screen: Client denies travel out of the [place] in the last 14 days. At this time, the client does not indicate any symptoms associated with coronavirus-19. Ebola Screen: Patient negative for fever greater than or equal to 101.5 degrees Fahrenheit, and additional compatible Ebola Virus Disease symptoms Patient denies exposure to infectious person. Patient denies travel to an Ebola-affected area in the 21 days before illness onset. No symptoms or risks identified at this time. Initial Sepsis Screen: Does the patient meet any 2 criteria? No. Patient's initial sepsis screen is negative. Does the patient have a suspected source of infection? No. Patient's initial sepsis screen is negative. Risk Assessment: Do you want to hurt yourself or someone else? Patient reports no desire to harm self or others. Onset of symptoms was January 04, 2025. 13:32 Method Of Arrival: EMS: [facility] db 13:32 Acuity: SWAPNIL 3 db 13:32 Care prior to arrival: Glucose check: 98. db Triage Assessment: 13:32 General: Appears in no apparent distress. comfortable, Behavior is calm, cooperative. db Pain: Denies pain. Neuro: Level of Consciousness is awake, alert, obeys commands, Oriented to person, place, time, situation. Historical: - Allergies: 13:32 Neosporin ([id number]); ss - PMHx: 13:32 Anxiety; Bipolar disorder; depressive disorder; Hypercholesterolemia; Hypertension; ss Hypothyroidism; - PSHx: 13:32 Cholecystectomy; ss - Immunization history:: Adult Immunizations unknown. - Infectious Disease History:: Denies. - Social history:: Smoking status: Patient denies any tobacco usage or history of. - Family history:: not pertinent. - Hospitalizations: : No recent hospitalization is reported. Screenin:00 [facility] ED Fall Risk Assessment (Adult) History of falling in the last 3 months, db including since admission No falls in past 3 months (0 pts) Confusion or Disorientation No (0 pts) Intoxicated or Sedated No (0 pts) Impaired Gait No (0 pts) Mobility Assist Device Used No (0 pt) Altered Elimination No (0 pt) Score/Fall Risk Level 0 - 2 = Low Risk Oriented to surroundings, Maintained a safe environment. Abuse screen: Denies threats or abuse. Denies injuries from another. Nutritional screening: No deficits noted. Tuberculosis screening: No symptoms or risk factors identified. Assessment: 13:41 Reassessment: SEE TRIAGE FOR INITIAL ASSESSMENT. db 14:43 General: Appears in no apparent distress. uncomfortable, well groomed, well developed, af3 Behavior is calm, cooperative, appropriate for age. Pain: Complains of pain in top of head and forehead Quality of pain is described as bobbing head, uncontrollable. Neuro: Level of Consciousness is awake, alert, obeys commands, Oriented to person, place, time, situation, Appropriate for age Reports headache. Cardiovascular: Patient's skin is warm and dry. Respiratory: Airway is patent Respiratory effort is even, unlabored, Respiratory pattern is regular, symmetrical. 15:32 Reassessment: Patient appears in no apparent distress at this time. No changes from af3 previously documented assessment. Patient and/or family updated on plan of care and expected duration. Pain level reassessed. Patient is alert, oriented x 3, equal unlabored respirations, skin warm/dry/pink. 16:34 Reassessment: Patient appears in no apparent distress at this time. No changes from af3 previously documented assessment. Patient and/or family updated on plan of care and expected duration. Pain level reassessed. Patient is alert, oriented x 3, equal unlabored respirations, skin warm/dry/pink. 17:30 Reassessment: Patient appears in no apparent distress at this time. No changes from af3 previously documented assessment. Patient and/or family updated on plan of care and expected duration. Pain level reassessed. Patient is alert, oriented x 3, equal unlabored respirations, skin warm/dry/pink. Vital Signs: 13:32 BP 158 / 110; Pulse 73; Resp 16; Temp 99.3(O); Pulse Ox 99% ; Weight 83.91 kg; Height 5 db ft. 6 in. ; 15:32 BP 172 / 85; Pulse 67; Resp 12; Pulse Ox 100% on R/A; af3 16:33 BP 183 / 78; Pulse 70; Resp 13; Pulse Ox 97% on R/A; af3 13:32 Body Mass Index 29.86 (83.91 kg, 167.64 cm) db ED Course: 13:24 Patient arrived in ED. bd 13:29 Francisco Rivera MD is Attending Physician. rn 13:32 Arm band placed on Patient placed in an exam room. db 13:38 Lindy Haines, RN is Primary Nurse. db 13:40 Triage completed. db 13:52 CT Head Brain wo Cont In Process Unspecified. EDMS 14:00 Patient has correct armband on for positive identification. Bed in low position. Call db light in reach. Side rails up X2. Pulse ox on. NIBP on. Warm blanket given. Pillow given. 14:00 Provided Education on: DISCHARGE AND FOLLOWUP. db 14:00 No provider procedures requiring assistance completed. db 14:10 Initial lab(s) drawn, by me, sent to lab. Inserted saline lock: 22 gauge in right db antecubital area, using aseptic technique. Blood collected. Flushed with 10 mL NS. 14:15 Report given to MARIAELENA LEAL PT MOVED TO ROOM 16. db 14:56 Ifeoma Gates, RN is Primary Nurse. af3 15:59 Ray Kahn MD is Hospitalizing Provider. rn 17:31 Patient admitted, IV remains in place. af3 Administered Medications: 14:15 Drug: NS 0.9% IV 500 ml 500 ml IV at 1 bolus once; to be given as a bolus over 30 db minutes Volume: 500 ml; Route: IV; Rate: 1 bolus; Site: right antecubital; 15:00 Follow up: Response: No adverse reaction; IV Status: Completed infusion; IV Intake: af3 500ml 14:42 Drug: levothyroxine IV 200 mcg IV at calculated rate once Route: IV; Rate: calculated cm10 rate; Site: right antecubital; 15:30 Follow up: Response: No adverse reaction; IV Status: Completed infusion af3 Medication: 14:00 VIS not applicable for this client. db Intake: 15:00 IV: 500ml; Total: 500ml. af3 Outcome: 16:00 Decision to Hospitalize by Provider. rn 17:30 Admitted to Tele accompanied by tech, via stretcher, room 405, with chart, af3 17:30 Condition: stable 17:30 Discharge instructions given to patient, Instructed on the need for admit, Demonstrated understanding of instructions, 17:32 Patient left the ED. af3 Signatures: Dispatcher [employer] EDMS Angelika Glaser Roman, MD MD rn Blanchard, Shelby, RN RN Lindy Murillo RN RN Alanna Olvrea RN RN cm10 Ifeoma Gates RN RN af3
--- NOTE | 2025-01-04 17:55 | P.HP ---
Patient History Date of Service: 01/04/25 Reason for admission: NOT FEELING GOOD History of Present Illness: MARVIN IS A MORBIDLY OBESE PATIENT WHO HAS NOT BEEN TAKING MEDS PROPERLY FOR YEARS, DOES NOT COME TO OFFICE ROUTINELY, HAS NOT TAKEN A BATH OR A SHOWER FOR YEARS SHE LIVES ALONE. SHE COMES WITH WEAKNESS, HER TSH IS VERY HIGH. SHE IS BACK TO HER BASELINE NOW WHEN I SEE HER HER ABDOMEN IS TENDER ON PALPATION. Allergies neomycin [Neomycin] Allergy (Severe, Verified 10/05/19 21:19) swelling of ear latex Allergy (Intermediate, Verified 10/05/19 21:19) Hives Latex, Natural Rubber Allergy (Intermediate, Verified 10/05/19 21:19) Itching gluten Allergy (Verified 10/05/19 21:19) diarrhea Home Medications: Carbamazepine [Tegretol] 600 mg PO BEDTIME 10/05/19 LORazepam [Lorazepam] 1 mg PO BID 10/05/19 Buspirone HCl [Buspar] 30 mg PO BID 03/04/23 Quetiapine Fumarate [Seroquel] 200 mg PO BEDTIME 03/05/23 Atorvastatin Calcium [Lipitor] 40 mg PO BEDTIME #30 tab 03/07/23 Metoprolol Tartrate [Lopressor*] 25 mg PO BID #60 tab 03/11/23 Escitalopram [Lexapro*] 20 mg PO DAILY 03/15/23 - Past Medical/Surgical History Diabetic: No -: seizure, HTN, Depression, Ulcers, anxiety, asthma, chronic diarrhea -: heart rhythm disorder. -: Hypercholesteremia. -: total hysterectomy -: Left knee sx -: left wrist tendon removed, - Social History Alcohol use: No CD- Drugs: No Caffeine use: Yes Review of Systems 10-point ROS is otherwise unremarkable General: Weakness, Malaise, As per HPI Physical Examination - Physical Exam General: Mild distress, Obese, Other (DRY SKIN, ALL OVER. HYPERTROPHIC NAILS. DRY HAIR.) HEENT: Atraumatic, PERRLA, Mucous membr. moist/pink, EOMI, Sclerae nonicteric Neck: Supple, 2+ carotid pulse no bruit, No LAD, Without JVD or thyroid abnormality Respiratory: Clear to auscultation bilaterally, Normal air movement Cardiovascular: Regular rate/rhythm, Normal S1 S2 Gastrointestinal: Normal bowel sounds, Tenderness (LLQ, MODERATE.) Musculoskeletal: No tenderness Integumentary: No rashes Neurological: Normal gait, Normal speech, Normal strength at 5/5 x4 extr, Normal tone, Normal affect Lymphatics: No axilla or inguinal lymphadenopathy - Studies Laboratory Data (last 24 hrs) 01/04/25 01/04/25 14:09 14:09 WBC 4.50 Hgb 13.3 Hct 38.6 Plt Count 329 Sodium 140 Potassium 3.4 L BUN 8 Creatinine 0.89 Glucose 112 H Assessment and Plan - Problems (Diagnosis) (1) Hypothyroid Current Visit: Yes Status: Chronic Plan: NOT TAKING MEDS DAILY NOT DOING LAB AND FU SHE SHOULD BE IN NH TODAY SHE SAYS BUT TOMORROW SHE WILL REFUSE. SHE HAS DONE THIS BEFORE. (2) Abdominal pain, LLQ Current Visit: Yes Status: Acute Plan: CT SCAN STAT START ABX IV RULE OUT CONSTIPATION. (3) Referred to director of social work for adult protection Current Visit: Yes Status: Chronic Plan: SHE HAS A SON IN [facility]. ONE DAUGHTER LOCALLY. SHE DOES NOT SEEM TO LISTEN TO ANYONE. SHE IS NOT ABLE TO TAKE CARE OF HERSELF REFER TO APS. (4) Hypothyroid Current Visit: No Status: Chronic Qualifiers: - Advance Directives Does patient have a Living Will: No Does patient have a Durable POA for Healthcare: No
[2025-01-04 18:37] VITALS: O2SAT 97
[2025-01-04] MEDS: NA CHLORIDE 0.9% 1,000 ML IV SCH (20:16)
[2025-01-04] MEDS: ONDANSETRON 4 MG/2 ML VIAL IV PRN (20:19)
--- NOTE | 2025-01-04 20:58 | RAD REPORT ---
EXAMINATION: CT Abdomen Pelvis W Contrast CLINICAL INDICATION: Female, 84 years old. ABDOMEN PAIN,PELVIC PAIN TECHNIQUE: CT abdomen and pelvis was performed, after the administration of IV contrast, as per [facility] protocol. Axial, sagittal and coronal reconstructions were obtained. One or more of the following dose reduction techniques were used: Automated exposure control, adjustment of the mA and k V according to patient size, and iterative reconstruction. Unless otherwise specified, incidental findings do not require dedicated imaging follow-up. COMPARISON: 11/26/2024 FINDINGS: LOWER CHEST: The visualized lung bases are clear. LIVER: Normal in size and contour. Multiple cystic lesions of the liver the largest is in segment 4A near the capsule measuring 4.6 cm, stable. No suspicious focal lesion. BILIARY SYSTEM: Status post cholecystectomy. Surgical drain present anterior to the cholecystectomy b ed. No residual fluid collections or inflammatory changes. SPLEEN: Normal size. No focal lesion. PANCREAS: No mass, ductal dilation, or shira-pancreatic fluid. ADRENALS: Normal; no mass. KIDNEYS: Normal size and contour. No hydronephrosis. URINARY BLADDER: Unremarkable. GASTROINTESTINAL TRACT: No evidence of free air, significant intra-abdominal free fluid, bowel obstru ction or abscess. APPENDIX: Normal appendix. LYMPH NODES: No lymphadenopathy. MUSCULOSKELETAL: No acute or suspicious osseous abnormality. ADDITIONAL FINDINGS: Diastasis recti. IMPRESSION: No residual collections, fluid, or inflammatory changes in the cholecystectomy bed or along the surgi avery drain present more anteriorly. Other incidental findings as above..
[2025-01-04] MEDS: TRAZODONE 50 MG TABLET PO SCH (21:00)
[2025-01-04] MEDS: QUETIAPINE 100MG TAB PO SCH (21:55)
[2025-01-04] MEDS: BUSPIRONE HCL 15 MG TABLET PO SCH (21:55)
[2025-01-04] MEDS: carBAMazepine 200 MG TAB PO SCH (21:55)
[2025-01-04] MEDS: ACETAMINOPHEN 500 MG TAB PO PRN (23:20)
[2025-01-05] MEDS: CEFOXITIN 2 GM in NA CHLORIDE 0.9% 100 ML IVPB SCH (00:36)
[2025-01-05] MEDS: LEVOTHYROXINE SOD 0.1 MG TAB PO SCH (05:39)
[2025-01-05 06:33] LABS: Absolute Lymphocytes (CBC) 1.2 K/uL (0.7-4.9); Hematocrit 35.3 % (36.0-45.0); Hemoglobin 12.1 g/dL (12.0-15.0); MCH 34.7 pg (27.0-35.0); MCHC 34.2 g/dL (32.0-36.0); MCV 101.6 fL (80-100); MPV 7.6 fL (7.6-11.3); Nucleated RBC Absolute Count 0.0 (0-0); Nucleated Red Blood Cells % 0.0 % (0-0); RBC Red Blood Cell Count 3.47 M/uL (3.86-4.86); White Blood Count 3.80 thou/uL (4.3-10.9)
[2025-01-05 07:28] LABS: ALT/SGPT 18 U/L (13-56); AST/SGOT 19 U/L (15-37); Albumin 2.8 g/dL (3.4-5.0); Albumin/Globulin Ratio 0.8 (1.1-1.8); Alkaline Phosphatase 88 U/L (45-117); Anion Gap 8.1 mEq/L (5.0-15.0); BUN Blood Urea Nitrogen 7 mg/dL (7-18); Bilirubin Indirect, Calculated 0.2 mg/dL (0.2-0.8); Globulin 3.3 g/dL (2.3-3.5); Glucose Level 111 mg/dL (74-106); HDL Cholesterol 49 mg/dL (40-60); LDL Cholesterol,Calc NonReport 159; Potassium 3.1 mEq/L (3.5-5.1)
[2025-01-05] MEDS: BUSPIRONE HCL 15 MG TABLET PO SCH (08:43)
--- NOTE | 2025-01-05 15:31 | CON ---
Date of Consultation: 01/05/2025 History Of Present Illness: This is the case of a female, Genet, admitted to the hospital and found the patient to have eugene and LORI drain for almost a month ago from surgery. She has not been able to follow up. She was advised to follow up in our office. She did not. Since she is here right no w, they asked me to take a look at the patient. Obviously, we are going to take this opportunity to get the LORI drain and eugene out. Past Medical History: Includes seizures, depression, anxiety, asthma, heart disease, high cholestero l. Past Surgical History: Include hysterectomy a little bit more than a month ago. She also had a chol ecystectomy for intractable right upper quadrant abdominal pain. Allergies: INCLUDE NEOMYCIN, LATEX, GLUTEN. Social History: She does not smoke. She does not drink alcohol. Review of Systems: No shortness of breath. No nausea, no vomiting. No dysuria, hematuria, hematochezia, or melena. Physical Examination: General: The patient is awake, alert. HEENT: Pupils are equal and reactive. Anicteric. Neck: Supple. Chest: Clear. Abdomen: Soft and depressible. No guarding, rebound, or peritoneal signs. LORI drain is intact. It is clear. Thomson are still there. No infection. No abscess. Extremities: Good capillary refill. Laboratory Data: Blood work shows a WBC count of 3.8, hemoglobin of 12.1, and chloride is 107. CAT scan with no other incidental findings. Plan: Now that she is here, we are going to get the LORI drain out, eugene out. Continue diet. Foll ow up in my office when discharged. MEE/JACKLYN Voice ID: [id number] Report ID: [id number]
[2025-01-05 16:42] VITALS: BMI 29.7
[2025-01-05] MEDS ORDERED: QUETIAPINE FUMARATE 400 MG PO SCH (21:00)
--- NOTE | 2025-01-05 21:30 | P.PN ---
Subjective Date of Service: 01/05/25 Chief Complaint: STABLE Subjective: No new changes IT WAS A SOCIAL ADMISSION FROM DAY ONE. SHE HAS NO NEW COMPLAINS BUT SHE REFUSES TO GO HOME. Review of Systems 10-point ROS is otherwise unremarkable General: Weakness, As per HPI Physical Examination - Vital Signs Temperature: 98.2 F Blood Pressure: 166/75 Pulse: 74 Respirations: 16 Pulse Ox (%): 97 - Physical Exam General: In no apparent distress, Oriented x3, Obese HEENT: Atraumatic, PERRLA, EOMI Neck: Supple, JVD not distended Respiratory: Clear to auscultation bilaterally, Normal air movement Cardiovascular: Regular rate/rhythm, Normal S1 S2 Gastrointestinal: Normal bowel sounds, No tenderness Musculoskeletal: No tenderness Integumentary: No rashes Neurological: Normal speech, Normal tone, Normal affect Lymphatics: No axilla or inguinal lymphadenopathy - Studies Medications List Reviewed: Yes Assessment And Plan - Current Problems (Diagnosis) (1) Hypothyroid Current Visit: Yes Status: Chronic Plan: NOT TAKING MEDS DAILY NOT DOING LAB AND FU SHE SHOULD BE IN NH TODAY SHE SAYS BUT TOMORROW SHE WILL REFUSE. SHE HAS DONE THIS BEFORE. THERE IS NOTHING ACUTE. SHE SHOULD GO HOME BUT SHE REFUSES TO GO HOME. SHE LIVES ALONE AND IN MY OPINION IT IS NOT GOOD FOR HER. SHE USUAL REFUSED NH TODAY. SHE HAS NOT TAKEN A BATH OR SHOWER FOR YEARS. SHE JUST CLEANS WITH A WASH RAGS DAILY. (2) Abdominal pain, LLQ Current Visit: Yes Status: Acute Plan: CT SCAN STAT START ABX IV RULE OUT CONSTIPATION. (3) Referred to social media developer for adult protection Current Visit: Yes Status: Chronic Plan: SHE HAS A SON IN [facility]. ONE DAUGHTER LOCALLY. SHE DOES NOT SEEM TO LISTEN TO ANYONE. SHE IS NOT ABLE TO TAKE CARE OF HERSELF REFER TO APS. (4) Hypothyroid Current Visit: No Status: Chronic Qualifiers:
[2025-01-05] MEDS: carBAMazepine 200 MG TAB PO SCH (22:14)
[2025-01-06] MEDS: POTASSIUM CL SA 10 MEQ TAB PO SCH (09:02)
--- NOTE | 2025-01-06 13:11 | P.PN ---
Subjective Date of Service: 01/06/25 Chief Complaint: STABLE IT WAS A SOCIAL ADMISSION FROM DAY ONE. SHE HAS NO NEW COMPLAINS BUT SHE REFUSES TO GO HOME. NO ACUTE CHANGES. WE ARE WAITING FOR DC PLANNING. SHE REFUSED TO GO HOME YEST. TODAY INSURANCE AGREED THAT THERE IS NO ACUTE REASON TO STAY AT HOSPITAL. Physical Examination - Vital Signs Temperature: 98.5 F Blood Pressure: 168/68 Pulse: 71 Respirations: 16 Pulse Ox (%): 96 - Studies Medications List Reviewed: Yes Assessment And Plan - Current Problems (Diagnosis) (1) Hypothyroid Current Visit: Yes Status: Chronic Plan: NOT TAKING MEDS DAILY NOT DOING LAB AND FU SHE SHOULD BE IN NH TODAY SHE SAYS BUT TOMORROW SHE WILL REFUSE. SHE HAS DONE THIS BEFORE. THERE IS NOTHING ACUTE. SHE SHOULD GO HOME BUT SHE REFUSES TO GO HOME. SHE LIVES ALONE AND IN MY OPINION IT IS NOT GOOD FOR HER. SHE USUAL REFUSED NH TODAY. SHE HAS NOT TAKEN A BATH OR SHOWER FOR YEARS. SHE JUST CLEANS WITH A WASH RAGS DAILY. (2) Abdominal pain, LLQ Current Visit: Yes Status: Acute Plan: CT SCAN STAT START ABX IV RULE OUT CONSTIPATION. (3) Referred to nursing home social worker for adult protection Current Visit: Yes Status: Chronic Plan: SHE HAS A SON IN [facility]. ONE DAUGHTER LOCALLY. SHE DOES NOT SEEM TO LISTEN TO ANYONE. SHE IS NOT ABLE TO TAKE CARE OF HERSELF REFER TO APS. (4) Hypothyroid Current Visit: No Status: Chronic Qualifiers:
[2025-01-06 14:45] LABS: Anion Gap 6.0 mEq/L (5.0-15.0); BUN Blood Urea Nitrogen 7.0 mg/dL (7-18); Glucose Level 117.0 mg/dL (74-106); Potassium 4.0 mEq/L (3.5-5.1)
[2025-01-06] MEDS: SUMATRIPTAN SUCCI 50 MG TAB PO PRN (14:51)
[2025-01-06 17:18] VITALS: BP 191/73; TEMP 98.6
== END 2025-01-06 18:04 | disposition home or self-care (01) | DRG 645 ==
LOC: ER 13:23 → ERHOLD 16:01 → 4TH 17:05
PROVIDERS: ADMIT Internal Medicine; ATTEND Internal Medicine
DX: E03.9 Hypothyroidism, unspecified (principal); E78.00 Pure hypercholesterolemia, unspecified; I10 Essential (primary) hypertension; F31.9 Bipolar disorder, unspecified; E66.01 Morbid (severe) obesity due to excess calories; Z60.2 Problems related to living alone; Z88.8 Allergy status to other drugs, medicaments and biological substances; Z91.148 Patient's other noncompliance with medication regimen for other reason; Z90.49 Acquired absence of other specified parts of digestive tract; Z68.29 Body mass index [BMI] 29.0-29.9, adult; Z91.040 Latex allergy status; Z79.899 Other long term (current) drug therapy; Z90.710 Acquired absence of both cervix and uterus
CPT/HCPCS: 36415; 70450; 74177; 80048; 80053; 80061; 80076; 81003; 82607; 82947; 83036; 84439; 84443; 85025; 87428; 96360; 96361; 96365; 97161; 97530; 99284; 99285; J0694; J2405; J7030; J7040; Q9967

== ENCOUNTER 2025-01-27 01:47 | Emergency (ER) | payer OTHER ==
--- OUTSIDE RECORDS SUMMARY | 2025-01-27 01:58 | XMS REPORT | Continuity of Care Document ---
Author Name Unknown Address [address] [facility] [address] [facility] [place] [address] [facility] [place] Address [address] [facility] [facility] [address] [place] [address] Support Name Relationship Address Phone TOM ODONNELL Daughter [address] [place] [address] Unavailable SHELLEY HERNANDEZ David FAIRA DA NESPERIER A CONDOMINIO DO GOLF II, BLOCO 1, NO. 1.3 VILAMOURA, Unavailable Care Team Providers Care [employer] Name Role Phone No MD, Pcp Primary [...] Date Source MEDICARE PART A AND B [id number] 2007 00:00:00 Problems Condition Name Condition Details Condition Category Status Onset Date Resolution Date Last Treatment Date Treating Clinician Comments Source Bipolar 1 disorder Bipolar 1 disorder Disease Active 05-13 00:00: 00 [facility] Bipolar disorder current episode depressed Bipolar disorder current episode depressed Disease Active 11-05 00:00: 00 [facility] Bipolar 1 disorder, manic, mild Bipolar 1 disorder, manic, mild Disease Active 09-02 00:00: 00 [facility] Generalize d anxiety disorder Generalize d anxiety disorder Disease Active 09-02 00:00: 00 [facility] 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, unspecifie d 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, unspecifie d Disease Active 09-02 00:00: 00 [facility] Hypothyroi dism Hypothyroi dism Disease Active 2016-04 0 00:00: 00 [facility] Social History Social Habit Start Date Stop Date Quantity Comments Source Sex Ass[birth year] At 1940 00:00:00 1940 00:00:00 [facility] Smoking Status Start Date Stop Date Source Tobacco smoking consumption unknown [facility] Medications Ordered Medication Name Filled Medication Name Start Date Stop Date Current Medication? Ordering Clinician Indication Dosage Frequency Signature (SIG) Comments Components Source carBAMazepi ne (TEGretol) 200 MG tablet 2020-04 00:00: 00 03-27 05:59 :00 No [id number] 600mg Take 3 tablets (600 mg total) by mouth every night. [facility] QUEtiapine (SEROquel) 400 MG tablet 2020-04 00:00: 00 03-27 05:59 :00 No [id number] 600mg Take 1.5 tablets (600 mg total) by mouth every night. TAKE 1 AND 1/2 TABLETS BY MOUTH AT BEDTIME [facility] busPIRone (Buspar) 30 MG tablet 2020-04 00:00: 00 03-27 05:59 :00 No [id number] 30mg Q.5D Take 1 tablet (30 mg total) by mouth 2 (two) times a day. [facility] escitalopra m (Lexapro) 20 MG tablet 2020-04 00:00: 00 03-27 05:59 :00 No [id number] 20mg QD Take 1 tablet (20 mg total) by mouth 1 (one) time each day. TAKE 1 TABLET BY MOUTH EVERY DAY [facility] LORazepam (Ativan) 2 MG tablet 12-26 00:00: 00 Yes [id number] Take 1/2 tablet by mouth once daily and I tablet every night at bed time [facility] busPIRone (Buspar) 15 MG tablet 12-23 00:00: 00 Yes [id number] 15mg Q.5D Take 1 tablet (15 mg total) by mouth 2 (two) times a day. [facility] levothyroxi ne (Synthroid, Levoxyl) 125 MCG tablet 20 00:00: 00 Yes 125ug QD Take 125 mcg by mouth 1 (one) time each day. [facility] promethazin e (Phenergan) 25 MG tablet 06-07 00:00: 00 Yes 25mg [id number] 3D Take 25 mg by mouth 3 (three) times a day if needed. [facility] Folbic 2.5-25-2 MG tablet 06-07 00:00: 00 Yes 1{tbl} QD Take 1 tablet by mouth 1 (one) time each day. [facility] gabapentin (Neurontin) 300 MG capsule 05-19 00:00: 00 Yes [facility] triamcinolo ne (Kenalog) 0.1 % cream 2019-04 00:00: 00 Yes [facility] predniSONE (Deltasone) 10 MG tablet 2019-04 1 00:00: 00 Yes [facility] furosemide (Lasix) 40 MG tablet 2019-04 00:00: 00 Yes TK 1 T PO D [facility] fluocinonid e (Lidex) 0.05 % cream 12-03 00:00: 00 Yes MIKA TO AFFECTED AREA OF SKIN BID PRN [facility] famciclovir (Famvir) 500 MG tablet 11-12 00:00: 00 Yes TK 1 T PO TID [facility] gabapentin (Neurontin) 100 MG capsule 11-12 00:00: 00 Yes TK 1 C PO TID [facility] predniSONE (Deltasone) 20 MG tablet 11-12 00:00: 00 Yes TK 1 T PO D WF [facility] furosemide (Lasix) 20 MG tablet 10-27 00:00: 00 Yes TK 1 T PO D [facility] amoxicillin -clavulanat e (Augmentin) 875-125 MG tablet 10-11 00:00: 00 Yes 1{each} 1 each. [facility] clotrimazol e-betametha sone (Lotrisone) cream 10-11 00:00: 00 Yes THREE TIMES A DAY [facility] folic acid-pyrido xine-cyanoc obalamin (Folbic) 2.5-25-2 MG tablet 10-11 00:00: 00 Yes 1{tbl} 1 tablet. [facility] furosemide (Lasix) 20 MG tablet 10-11 00:00: 00 Yes 20mg 20 mg. [facility] amLODIPine (Norvasc) 5 MG tablet 10-04 00:00: 00 Yes 5mg 5 mg. [facility] cholecalcif arun (Vitamin D-3) 25 MCG (1000 UT) capsule 10-04 00:00: 00 Yes 3000U 3,000 Units. [facility] Coenzyme Q10 400 MG capsule 10-04 00:00: 00 Yes 2000mg 2,000 mg. [facility] cyanocobala min (Vitamin B-12) 1000 MCG/ML injection 10-04 00:00: 00 Yes 2000mg 2,000 mg. [facility] diphenhydrA MINE (Sominex) 25 MG tablet 10-04 00:00: 00 Yes 25mg 25 mg. [facility] naproxen sodium (Aleve) 220 MG tablet 10-04 00:00: 00 Yes 2{capsu le} 2 capsules. [facility] Cetirizine HCl (ZyrTEC ALLERGY) 10 MG capsule 09-24 00:00: 00 Yes [facility] fluticasone (Flonase Allergy Relief) 50 MCG/ACT nasal spray 09-24 00:00: 00 Yes [facility] levothyroxi ne (Levo-T) 112 MCG tablet 09-24 00:00: 00 Yes TAKE 1 TABLET DAILY DIRECTED. [facility] lisinopril 10 MG tablet 09-24 00:00: 00 Yes [facility] metoprolol tartrate (Lopressor) 50 MG tablet 09-24 00:00: 00 Yes [facility] Encounters Start Date/Time End Date/Time Encounter Type Admission Type Attending Clinicians Care Facility Care Department Encounter ID Source 2022-11-14 14:53:54 Outpatient [facility] [id number] [facility] 2022-10-31 10:14:32 Outpatient [facility] [id number] [facility] 2022-10-30 07:52:33 Outpatient [facility] [id number] [facility] 2022-10-17 09:34:49 Outpatient [facility] [id number] [facility] 2022-09-11 13:05:42 Outpatient [facility] [id number] [facility] 2022-08-01 10:44:15 Outpatient [facility] [id number] [facility] 2022-07-31 12:51:57 Outpatient [facility] [id number] [facility] 2022-06-20 12:17:44 Outpatient [facility] [id number] [facility] 2022-06-18 10:29:57 Outpatient [facility] [id number] [facility] 2022-02-13 09:40:18 Outpatient [facility] [id number] [facility] 2021-12-19 11:12:11 Outpatient [facility] [id number] [facility] 2021-10-06 16:06:12 Outpatient SANDY AUDIE [facility] [id number] [facility] 2021-10-05 10:11:08 Outpatient [facility] [id number] [facility] 2021-07-14 15:17:36 Outpatient SANDY AUDIE [facility] [id number] [facility] 2021-07-13 08:58:09 Outpatient [facility] [id number] [facility] 2021-06-29 15:31:07 Outpatient SANDY AUDIE [facility] [id number] [facility] 2021-02-24 16:40:48 Outpatient SANDY AUDIE [facility] [id number] [facility] 2021-01-27 16:28:44 Outpatient SANDY AUDIE [facility] [id number] [facility] 2020-10-24 15:29:38 Outpatient SANDY AUDIE [facility] [id number] [facility] 2020-10-21 16:30:14 Outpatient SANDY AUDIE [facility] [id number] [facility] 2020-09-09 16:40:45 Outpatient SANDY AUDIE [facility] [id number] [facility] 2020-08-20 02:51:59 Outpatient SANDY AUDIE [facility] [id number] [facility] 2025-03-24 10:30:00 2025-03-24 10:30:00 Outpatient MONICA GALINDO [facility] [id number] [facility] 2024-09-30 11:00:00 2024-09-30 11:22:23 Outpatient OMARI PIRES [facility] [id number] [facility] 2024-07-15 11:00:00 2024-07-15 11:00:00 Outpatient OMARI PIRES [facility] [id number] [facility] 2023-10-09 09:30:00 2023-10-09 09:55:07 Outpatient GROVER, VELASQUEZ [facility] [id number] [facility] 2023-09-04 11:00:00 2023-09-04 12:01:03 Outpatient ELIEZER CORTEZ [facility] [id number] [facility] 2023-07-31 11:00:00 2023-07-31 11:34:41 Outpatient GROVER, VELASQUEZ [facility] [id number] [facility] 2023-06-12 11:00:00 2023-06-12 11:53:37 Outpatient GROVER, VELASQUEZ [facility] [id number] [facility] 2023-03-13 11:00:00 2023-03-13 11:00:00 Outpatient GROVER, VELASQUEZ [facility] [id number] [facility] 2023-02-06 11:00:00 2023-02-06 11:00:00 Outpatient GROVER, VELASQUEZ [facility] [id number] [facility] 2023-01-02 11:00:00 2023-01-02 14:31:32 Outpatient GROVER, VELASQUEZ [facility] [id number] [facility] 2023-01-02 11:00:00 2023-01-02 11:00:00 Outpatient REDDY JENNI, LANDON [facility] [id number] [facility] 2022-11-21 10:15:00 2022-11-21 13:15:38 Outpatient REDDY JENNI, LANDON [facility] [id number] [facility] 2022-10-31 10:15:00 2022-10-31 10:15:00 Outpatient GROVER, VELASQUEZ [facility] [id number] [facility] 2022-10-31 10:15:00 2022-10-31 10:15:00 Outpatient BARRY JENNILANDON BESS [facility] [id number] [facility] 2022-09-12 11:00:00 2022-09-12 11:52:50 Outpatient ERICH GARY [facility] [id number] [facility] 2022-08-01 11:00:00 2022-08-01 14:49:47 Outpatient ERICH GARY [facility] [id number] [facility] 2022-06-20 11:00:00 2022-06-20 12:53:01 Outpatient ERICH GARY [facility] [id number] [facility] 2022-05-16 10:15:00 2022-05-16 14:46:57 Outpatient ERICH GARY [facility] [id number] [facility] 2022-04-18 11:00:00 2022-04-18 11:00:23 Outpatient ERICH GARY [facility] [id number] [facility] 2022-04-11 11:00:00 2022-04-11 11:00:00 Outpatient ERICH GARY [facility] [id number] [facility] 2022-02-14 11:00:00 2022-02-14 15:07:30 Outpatient ERICH GARY [facility] [id number] [facility] 2021-12-20 11:00:00 2021-12-20 14:26:09 Outpatient PRERNAANDI [facility] [id number] [facility] 2021-02-24 00:00:00 2021-02-24 00:00:00 Telephone Jessica Hickman, Jessica [facility] [id number] [facility] 2016-05-21 16:00:00 2016-05-21 16:00:00 Outpatient [facility] [id number] David Davis 2016-02-20 16:00:00 2016-02-20 16:00:00 Outpatient [facility] [id number] David Davis 2015-10-31 14:00:00 2015-10-31 14:00:00 Outpatient [facility] [id number] David coronado Ryan 2015-09-19 15:00:00 2015-09-19 15:00:00 Outpatient [facility] [id number] David coronado Ryan 2015-09-19 14:00:00 2015-09-19 14:00:00 Outpatient [facility] [id number] David coronado Ryan 2015-08-08 16:30:00 2015-08-08 16:30:00 Outpatient [facility] [id number] David coronado Ryan 2015-06-06 16:30:00 2015-06-06 16:30:00 Outpatient [facility] [id number] David coronado Ryan 2015-05-16 16:30:00 2015-05-16 16:30:00 Outpatient [facility] [id number] Briandasuellen cliff Davis 2015-04-04 14:00:00 2015-04-04 14:00:00 Outpatient [facility] [id number] Briandasuellen cliff Davis 2015-01-24 16:30:00 2015-01-24 16:30:00 Outpatient [facility] [id number] Briandasuellen cliff Davis 2014-11-22 14:00:00 2014-11-22 14:00:00 Outpatient [facility] [id number] David Davis 2014-09-30 14:00:00 2014-09-30 14:00:00 Outpatient [facility] [id number] David Davis
[2025-01-27 03:02] LABS: Absolute Lymphocytes (CBC) 1.0 K/uL (0.7-4.9); Hematocrit 33.3 % (36.0-45.0); Hemoglobin 11.3 g/dL (12.0-15.0); MCH 34.3 pg (27.0-35.0); MCHC 33.8 g/dL (32.0-36.0); MCV 101.5 fL (80-100); MPV 8.2 fL (7.6-11.3); Nucleated RBC Absolute Count 0.0 (0-0); Nucleated Red Blood Cells % 0.3 % (0-0); RBC Red Blood Cell Count 3.28 M/uL (3.86-4.86); White Blood Count 4.10 thou/uL (4.3-10.9)
[2025-01-27 03:17] LABS: ALT/SGPT 69.0 U/L (13-56); AST/SGOT 49.0 U/L (15-37); Albumin 2.6 g/dL (3.4-5.0); Albumin/Globulin Ratio 0.7 (1.1-1.8); Alkaline Phosphatase 82.0 U/L (45-117); Anion Gap 12.3 mEq/L (5.0-15.0); BUN Blood Urea Nitrogen 10.0 mg/dL (7-18); Globulin 4.0 g/dL (2.3-3.5); Glucose Level 122.0 mg/dL (74-106); Lipase 30.0 U/L (13-75); Potassium 3.3 mEq/L (3.5-5.1); Thyroid Stimulating Hormone 0.057 uIU/mL (0.358-3.740)
--- NOTE | 2025-01-27 03:31 | EDPHYS ---
Physician Documentation [facility] Name: Maxine Elias Age: 84 yrs Sex: Female : 1940 Arrival Date: 01/27/2025 Time: 01:47 Bed 8 Private MD: ED Physician Rajinder Hardy HPI: 01/27 02:32 This 84 yrs old Female presents to ER via EMS with complaints of Low Blood Sugar. tt7 02:32 Patient reports a history of hypothyroidism and states that she is concerned that she tt7 has been having recurrent low blood sugar, she states that she keeps sugar pills at her bedside and has been needing to take them because she will wake up feeling clammy and weak. Past medical history includes hypertension, hyperlipidemia, hypothyroidism, anxiety, depression. She is not having any pain, fever, injury. Historical: - Allergies: 02:05 Neosporin ([id number]); br2 - PMHx: 02:05 Anxiety; Bipolar disorder; depressive disorder; Hypercholesterolemia; Hypertension; br2 Hypothyroidism; - PSHx: 02:05 Cholecystectomy; br2 - Immunization history:: Adult Immunizations up to date. - Infectious Disease History:: Denies. - Social history:: Smoking status: Patient/guardian denies using tobacco, Patient/guardian denies using alcohol, street drugs. ROS: 02:15 Constitutional: negative for fever. Cardiovascular: negative for chest pain. tt7 Respiratory: negative for shortness of breath. Abdomen/GI: negative for abdominal pain, nausea, vomiting, diarrhea. MS/Extremity: negative for injury and deformity. Skin: negative for rash. Neuro: negative for focal weakness. Exam: 02:15 Constitutional: vital signs reviewed, well appearing. Head/Face: normocephalic, tt7 atraumatic. Eyes: no conjunctival injection, anicteric sclerae. ENT: mucus membranes moist. Neck: trachea midline, no JVD, no meningismus. Chest/axilla: normal chest wall appearance and motion, nontender, no crepitus. Cardiovascular: regular rate and rhythm, no murmurs, no rubs, no lower extremity edema. Respiratory: normal respiratory effort, no accessory muscle use, lungs CTAB. Abdomen/GI: soft, nondistended, nontender, no guarding or rebound, negative Weaver's sign, no McBurney point tenderness. Back: normal ROM. Skin: warm, dry, intact, normal turgor, normal color, no rash. MS/ Extremity: normal ROM of extremities, no gross deformities. Neuro: alert and oriented with appropriate mental status, normal speech, follows commands, no focal neurologic deficits. Psych: appropriate mood and affect. Vital Signs: 02:02 BP 145 / 57; Pulse 104; Resp 18; Temp 98.8; Pulse Ox 97% ; Weight 112 kg; Height 5 ft. br2 6 in. ; Pain 0/10; 02:59 BP 152 / 56; Pulse 98; Resp 17; Temp 98.8; Pulse Ox 99% ; Pain 0/10; bm8 03:32 BP 156 / 55; Pulse 99; Resp 19; Temp 97.7(TE); Pulse Ox 99% ; nh2 02:02 Body Mass Index 39.85 (112.00 kg, 167.64 cm) br2 02:02 Pain Scale: Adult br2 02:59 Pain Scale: Adult bm8 MDM: 01:59 Medical Screening Exam initiated tt7 02:15 Differential Diagnosis Anemia, hypoglycemia, hyponatremia, acute renal failure, tt7 hypothyroidism. Data reviewed: vital signs, nurses notes, old medical records, lab test result(s), EKG. ED course: I independently interpreted the patient's EKG performed on 01/27/2025 at 0200. On my interpretation, EKG demonstrates sinus tachycardia, ventricular rate 103 bpm, left axis deviation, QRS duration 124 ms, normal ST segments, no STEMI. 03:27 ED course: Laboratory studies are overall reassuring, mild leukopenia with white blood tt7 cell count of 4100, mild anemia with hemoglobin of 11, chemistry shows mild elevation of liver enzymes which appears chronic, patient had recent cholecystectomy, not having any signs/symptoms of abdominal pain or choledocholithiasis, lipase normal, thyroid studies show a low TSH with moderately elevated T4, no concerning signs/symptoms that require immediate intervention, discussed results of the laboratory test with the patient and the need for close outpatient follow-up with her primary care physician regarding her thyroid medications, after completion of the patient's emergency department evaluation, I do not suspect a life-threatening or disabling process. Patient is medically stable and not in need of emergent medical intervention. I had a detailed discussion with the patient regarding the historical points, exam findings, emergency department evaluation, diagnostic results, and the discharge diagnosis. I instructed the patient on outpatient management of their condition. I discussed the need for outpatient follow-up with a primary care physician. I informed the patient on return precautions, including the need to return to the ED if symptoms do not improve, worsen, or if there are any questions or concerns that arise at home. The patient was discharged in stable condition. 01/27 02:09 Order name: CBC with Diff; Complete Time: 03: tt7 01/27 02:09 Order name: CMP; Complete Time: 03: tt7 01/27 02:09 Order name: Lipase; Complete Time: : tt7 01/27 02:09 Order name: TSH; Complete Time: : tt7 01/27 02:09 Order name: T4 Free; Complete Time: : tt7 01/27 02:09 Order name: IV Saline Lock; Complete Time: 02:20 tt7 01/27 02:09 Order name: Labs collected and sent; Complete Time: 02:20 tt7 Administered Medications: No medications were administered Disposition: 03:31 Co-signature as Attending Physician, Rajinder Hardy DO. tt7 Disposition Summary: 01/27/25 03:30 Discharge Ordered Notes: Location: Home tt7 Problem: new tt7 Symptoms: are unchanged tt7 Condition: Stable tt7 Diagnosis - Abnormal results of thyroid function studies tt7 Followup: tt7 - With: Emergency Department - When: As needed - Reason: Followup: tt7 - With: Ray Kahn MD - When: 1 - 2 days - Reason: Recheck today's complaints, Continuance of care, Re-evaluation by your physician Discharge Instructions: - Discharge Summary Sheet tt7 - Hypothyroidism tt7 Forms: - Medication Reconciliation Form tt7 - Antibiotic Education tt7 - Prescription Opioid Use tt7 - Patient Portal Instructions tt7 - Leadership Thank You Letter tt7 Signatures: Dispatcher [employer] Zeenat Mills RN RN br2 Rajinder Hardy DO DO tt7
--- NOTE | 2025-01-27 03:31 | ER ---
Nurse's Notes [facility] Name: Maxine Elias Age: 84 yrs Sex: Female : 1940 Arrival Date: 01/27/2025 Time: 01:47 Bed 8 Private MD: Diagnosis: Abnormal results of thyroid function studies Presentation: 01/27 02:02 Chief complaint: Patient states: PT ARRIVES TO ER VIA EMS DUE TO SHAKY AND NOT FEELING br2 RIGHT. PT STATES SHE HAD NAUSEA/VOMITING LAST NIGHT. DENIES F/D. FINGER STICK 127 PER EMS. PT C/O CHRONIC KNEE PAIN. Coronavirus screen: Client denies travel out of the [place] in the last 14 days. Ebola Screen: Patient denies exposure to infectious person. Initial Sepsis Screen: Does the patient meet any 2 criteria? No. Patient's initial sepsis screen is negative. Does the patient have a suspected source of infection? No. Patient's initial sepsis screen is negative. Risk Assessment: Do you want to hurt yourself or someone else? Patient reports no desire to harm self or others. Onset of symptoms is unknown. 02:02 Method Of Arrival: EMS: [facility] br2 02:02 Acuity: SWAPNIL 3 br2 Triage Assessment: 02:05 General: Appears in no apparent distress. comfortable, Behavior is calm, cooperative. br2 Pain: Complains of pain in right leg, lateral aspect of left knee and left knee. Historical: - Allergies: 02:05 Neosporin ([id number]); br2 - PMHx: 02:05 Anxiety; Bipolar disorder; depressive disorder; Hypercholesterolemia; Hypertension; br2 Hypothyroidism; - PSHx: 02:05 Cholecystectomy; br2 - Immunization history:: Adult Immunizations up to date. - Infectious Disease History:: Denies. - Social history:: Smoking status: Patient/guardian denies using tobacco, Patient/guardian denies using alcohol, street drugs. Screenin:09 [facility] ED Fall Risk Assessment (Adult) History of falling in the last 3 months, bm8 including since admission No falls in past 3 months (0 pts) Confusion or Disorientation No (0 pts) Intoxicated or Sedated No (0 pts) Impaired Gait Yes (1 pt) Mobility Assist Device Used Yes (1 pt) Altered Elimination No (0 pt) Score/Fall Risk Level 0 - 2 = Low Risk Oriented to surroundings, Maintained a safe environment, Educated pt \T\ family on fall prevention, incl call for assistance when getting out of bed, Hourly rounding (assess needs \T\ fall precautionary measures) done. Abuse screen: Denies threats or abuse. Denies injuries from another. Nutritional screening: No deficits noted. Tuberculosis screening: No symptoms or risk factors identified. Assessment: 03:00 Reassessment: Patient appears in no apparent distress at this time. Patient and/or bm8 family updated on plan of care and expected duration. Pain level reassessed. pt is resting with eyes closed breathing is even unlabored with symmetrical rise and fall of chest. NAD at this time. awaiting results. 03:38 Reassessment: Patient appears in no apparent distress at this time. Patient and/or bm8 family updated on plan of care and expected duration. Pain level reassessed. Patient denies pain at this time. Patient states feeling better. Patient states symptoms have improved. Vital Signs: 02:02 BP 145 / 57; Pulse 104; Resp 18; Temp 98.8; Pulse Ox 97% ; Weight 112 kg; Height 5 ft. br2 6 in. ; Pain 0/10; 02:59 BP 152 / 56; Pulse 98; Resp 17; Temp 98.8; Pulse Ox 99% ; Pain 0/10; bm8 03:32 BP 156 / 55; Pulse 99; Resp 19; Temp 97.7(TE); Pulse Ox 99% ; nh2 02:02 Body Mass Index 39.85 (112.00 kg, 167.64 cm) br2 02:02 Pain Scale: Adult br2 02:59 Pain Scale: Adult bm8 ED Course: 01:53 Patient arrived in ED. kmf 01:59 Rajinder Hardy DO is Attending Physician. tt7 02:05 Triage completed. br2 02:06 Arm band placed on right wrist. br2 02:08 Prateek Lackey, RN is Primary Nurse. bm8 02:08 Patient has correct armband on for positive identification. Placed in gown. Bed in low bm8 position. Call light in reach. Side rails up X2. Provided Education on: plan of care. Client placed on continuous cardiac and pulse oximetry monitoring. NIBP monitoring applied. media monitor on. Noise minimized. Warm blanket given. Pillow given. Head of bed elevated. 02:08 Missed attempt(s): 20 gauge in right antecubital area. Bleeding controlled, band aid bm8 applied, catheter tip intact. 02:19 Initial lab(s) drawn, by me, sent to lab. EKG done, by ED staff, reviewed by Rajinder Hardy DO. Inserted saline lock: 20 gauge in left forearm, using aseptic technique. ,using aseptic technique. ultrasound guided Blood collected. Flushed with 10 mL NS. Patient maintains SpO2 saturation greater than 95% on room air. 03:01 No provider procedures requiring assistance completed. bm8 03:30 Ray Kahn MD is Referral Physician. tt7 03:38 IV discontinued, intact, bleeding controlled, No redness/swelling at site. Pressure bm8 dressing applied. Administered Medications: No medications were administered Medication: 03:00 VIS not applicable for this client. bm8 Outcome: 03:30 Discharge ordered by MD. tt7 03:38 Discharged to home via wheelchair, bm8 03:38 Condition: stable 03:38 Discharge instructions given to patient, Instructed on discharge instructions, follow up and referral plans. no drinking with medication, no driving heavy equipment, medication usage, Demonstrated understanding of instructions, follow-up care, medications, 03:39 Patient left the ED. bm8 Signatures: Ruth Osuna [facility] Prateek Lackey RN RN bm8 Zeenat Birch RN RN br2 Nehemiah Calle Jr, RN RN nh2 Rajinder Hardy DO DO tt7 Corrections: (The following items were deleted from the chart) 02:07 02:02 Chief complaint: Patient states: PT ARRIVES TO ER VIA EMS DUE TO SHAKY AND NOT br2 FEELING RIGHT. PT STATES SHE HAD NAUSEA/VOMITING LAST NIGHT. DENIES F/D br2 02:10 02:02 Chief complaint: Patient states: PT ARRIVES TO ER VIA EMS DUE TO SHAKY AND NOT br2 FEELING RIGHT. PT STATES SHE HAD NAUSEA/VOMITING LAST NIGHT. DENIES F/D. FINGER STICK 127 PER EMS br2 03:38 03:32 BP 156 / 55; Pulse 99bpm; Resp 19bpm; Pulse Ox 99%; nh2 nh2
[2025-01-27 07:13] VITALS: O2SAT 99
[2025-01-27 07:14] VITALS: BP 156/55; TEMP 97.7
== END 2025-01-27 03:39 | disposition home or self-care (01) ==
LOC: ER 01:47
DX: R94.6 Abnormal results of thyroid function studies (principal)
CPT/HCPCS: 36415; 80053; 83690; 84439; 84443; 85025; 93005; 99285

== ENCOUNTER 2025-01-31 15:51 | Inpatient (IN) | payer OTHER ==
--- OUTSIDE RECORDS SUMMARY | 2025-01-31 15:54 | XMS REPORT | Continuity of Care Document ---
Author Name Unknown Address [address] [place] [address] Organization [facility] [place] Address [address] [place] [address] Support Name Relationship Address Phone TOM ODONNELL Daughter [address] [place] [address] Unavailable SHELLEY HERNANDEZ David FAIRA DA NESPERIER A CONDOMINIO DO GOLF II, BLOCO 1, NO. 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 Name Role Phone No MD, Pcp Primary [...] Date Source MEDICARE PART A AND B [id number] 2007 00:00:00 Problems Condition Name Condition Details Condition Category Status Onset Date Resolution Date Last Treatment Date Treating Clinician Comments Source Bipolar 1 disorder Bipolar 1 disorder Disease Active 05-13 00:00: 00 [facility] Bipolar disorder current episode depressed Bipolar disorder current episode depressed Disease Active 11-05 00:00: 00 [facility] Bipolar 1 disorder, manic, mild Bipolar 1 disorder, manic, mild Disease Active 09-02 00:00: 00 [facility] Generalize d anxiety disorder Generalize d anxiety disorder Disease Active 09-02 00:00: 00 [facility] 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, unspecifie d 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, unspecifie d Disease Active 09-02 00:00: 00 [facility] Hypothyroi dism Hypothyroi dism Disease Active 2016-04 0 00:00: 00 [facility] Social History Social Habit Start Date Stop Date Quantity Comments Source Sex Assigned At 1940 00:00:00 1940 00:00:00 [facility] Smoking Status Start Date Stop Date Source Tobacco smoking consumption unknown [facility] Medications Ordered Medication Name Filled Medication Name Start Date Stop Date Current Medication? Ordering Clinician Indication Dosage Frequency Signature (SIG) Comments Components Source carBAMazepi ne (TEGretol) 200 MG tablet 2020-04 00:00: 00 03-27 05:59 :00 No [id number] 600mg Take 3 tablets (600 mg total) by mouth every night. [facility] QUEtiapine (SEROquel) 400 MG tablet 2020-04 00:00: 00 03-27 05:59 :00 No [id number] 600mg Take 1.5 tablets (600 mg total) by mouth every night. TAKE 1 AND 1/2 TABLETS BY MOUTH AT BEDTIME [facility] busPIRone (Buspar) 30 MG tablet 2020-04 00:00: 00 03-27 05:59 :00 No [id number] 30mg Q.5D Take 1 tablet (30 mg total) by mouth 2 (two) times a day. [facility] escitalopra m (Lexapro) 20 MG tablet 2020-04 00:00: 00 03-27 05:59 :00 No [id number] 20mg QD Take 1 tablet (20 mg total) by mouth 1 (one) time each day. TAKE 1 TABLET BY MOUTH EVERY DAY [facility] LORazepam (Ativan) 2 MG tablet 12-26 00:00: 00 Yes [id number] Take 1/2 tablet by mouth once daily and I tablet every night at bed time [facility] busPIRone (Buspar) 15 MG tablet 12-23 00:00: 00 Yes [id number] 15mg Q.5D Take 1 tablet (15 mg total) by mouth 2 (two) times a day. [facility] levothyroxi ne (Synthroid, Levoxyl) 125 MCG tablet 20 00:00: 00 Yes 125ug QD Take 125 mcg by mouth 1 (one) time each day. [facility] promethazin e (Phenergan) 25 MG tablet 06-07 00:00: 00 Yes 25mg [id number] 3D Take 25 mg by mouth 3 (three) times a day if needed. [facility] Folbic 2.5-25-2 MG tablet 06-07 00:00: 00 Yes 1{tbl} QD Take 1 tablet by mouth 1 (one) time each day. [facility] gabapentin (Neurontin) 300 MG capsule 05-19 00:00: 00 Yes [facility] triamcinolo ne (Kenalog) 0.1 % cream 2019-04 00:00: 00 Yes [facility] predniSONE (Deltasone) 10 MG tablet 2019-04 1 00:00: 00 Yes [facility] furosemide (Lasix) 40 MG tablet 2019-04 00:00: 00 Yes TK 1 T PO D [facility] fluocinonid e (Lidex) 0.05 % cream 12-03 00:00: 00 Yes MIKA TO AFFECTED AREA OF SKIN BID PRN [facility] famciclovir (Famvir) 500 MG tablet 11-12 00:00: 00 Yes TK 1 T PO TID [facility] gabapentin (Neurontin) 100 MG capsule 11-12 00:00: 00 Yes TK 1 C PO TID [facility] predniSONE (Deltasone) 20 MG tablet 11-12 00:00: 00 Yes TK 1 T PO D WF [facility] furosemide (Lasix) 20 MG tablet 10-27 00:00: 00 Yes TK 1 T PO D [facility] amoxicillin -clavulanat e (Augmentin) 875-125 MG tablet 10-11 00:00: 00 Yes 1{each} 1 each. [facility] clotrimazol e-betametha sone (Lotrisone) cream 10-11 00:00: 00 Yes THREE TIMES A DAY [facility] folic acid-pyrido xine-cyanoc obalamin (Folbic) 2.5-25-2 MG tablet 10-11 00:00: 00 Yes 1{tbl} 1 tablet. [facility] furosemide (Lasix) 20 MG tablet 10-11 00:00: 00 Yes 20mg 20 mg. [facility] amLODIPine (Norvasc) 5 MG tablet 10-04 00:00: 00 Yes 5mg 5 mg. [facility] cholecalcif arun (Vitamin D-3) 25 MCG (1000 UT) capsule 10-04 00:00: 00 Yes 3000U 3,000 Units. [facility] Coenzyme Q10 400 MG capsule 10-04 00:00: 00 Yes 2000mg 2,000 mg. [facility] cyanocobala min (Vitamin B-12) 1000 MCG/ML injection 10-04 00:00: 00 Yes 2000mg 2,000 mg. [facility] diphenhydrA MINE (Sominex) 25 MG tablet 10-04 00:00: 00 Yes 25mg 25 mg. [facility] naproxen sodium (Aleve) 220 MG tablet 10-04 00:00: 00 Yes 2{capsu le} 2 capsules. [facility] Cetirizine HCl (ZyrTEC ALLERGY) 10 MG capsule 09-24 00:00: 00 Yes [facility] fluticasone (Flonase Allergy Relief) 50 MCG/ACT nasal spray 09-24 00:00: 00 Yes [facility] levothyroxi ne (Levo-T) 112 MCG tablet 09-24 00:00: 00 Yes TAKE 1 TABLET DAILY DIRECTED. [facility] lisinopril 10 MG tablet 09-24 00:00: 00 Yes [facility] metoprolol tartrate (Lopressor) 50 MG tablet 09-24 00:00: 00 Yes [facility] Encounters Start Date/Time End Date/Time Encounter Type Admission Type Attending Clinicians Care Facility Care Department Encounter ID Source 2022-11-14 14:53:[address] [facility] [id number] [facility] 2022-10-31 10:14:[address] [facility] [id number] [facility] 2022-10-30 07:52:[address] [facility] [id number] [facility] 2022-10-17 09:34:[address] [facility] [id number] [facility] 2022-09-11 13:05:[address] [facility] [id number] [facility] 2022-08-01 10:44:[address] [facility] [id number] [facility] 2022-07-31 12:51:[address] [facility] [id number] [facility] 2022-06-20 12:17:[address] [facility] [id number] [facility] 2022-06-18 10:29:[address] [facility] [id number] [facility] 2022-02-13 09:40:[address] [facility] [id number] [facility] 2021-12-19 11:12:[address] [facility] [id number] [facility] 2021-10-06 16:06:12 Outpatient SANDY AUDIE [facility] [id number] [facility] 2021-10-05 10:11:[address] [facility] [id number] [facility] 2021-07-14 15:17:36 Outpatient SANDY AUDIE [facility] [id number] [facility] 2021-07-13 08:58:[address] [facility] [id number] [facility] 2021-06-29 15:31:07 Outpatient SANDY AUDIE [facility] [id number] [facility] 2021-02-24 16:40:48 Outpatient SANDY AUDIE [facility] [id number] [facility] 2021-01-27 16:28:44 Outpatient SANDY AUDIE [facility] [id number] [facility] 2020-10-24 15:29:38 Outpatient SANDY AUDIE [facility] [id number] [facility] 2020-10-21 16:30:14 Outpatient SANDY AUDIE [facility] [id number] [facility] 2020-09-09 16:40:45 Outpatient SANDY AUDIE [facility] [id number] [facility] 2020-08-20 02:51:59 Outpatient SANDY AUDIE [facility] [id number] [facility] 2025-03-24 10:30:00 2025-03-24 10:30:00 Outpatient MONICA GALINDO [facility] [id number] [facility] 2024-09-30 11:00:00 2024-09-30 11:22:23 Outpatient OMARI PIRES [facility] [id number] [facility] 2024-07-15 11:00:00 2024-07-15 11:00:00 Outpatient OMARI PIRES [facility] [id number] [facility] 2023-10-09 09:30:00 2023-10-09 09:55:07 Outpatient GROVER, VELASQUEZ [facility] [id number] [facility] 2023-09-04 11:00:00 2023-09-04 12:01:03 Outpatient ELIEZER CORTEZ [facility] [id number] [facility] 2023-07-31 11:00:00 2023-07-31 11:34:41 Outpatient GROVER, VELASQUEZ [facility] [id number] [facility] 2023-06-12 11:00:00 2023-06-12 11:53:37 Outpatient GROVER, VELASQUEZ [facility] [id number] [facility] 2023-03-13 11:00:00 2023-03-13 11:00:00 Outpatient GROVER, VELASQUEZ [facility] [id number] [facility] 2023-02-06 11:00:00 2023-02-06 11:00:00 Outpatient GROVER, VELASQUEZ [facility] [id number] [facility] 2023-01-02 11:00:00 2023-01-02 14:31:32 Outpatient GROVER, VELASQUEZ [facility] [id number] [facility] 2023-01-02 11:00:00 2023-01-02 11:00:00 Outpatient REDDY JENNI, LANDON [facility] [id number] [facility] 2022-11-21 10:15:00 2022-11-21 13:15:38 Outpatient REDDY JENNI, LANDON [facility] [id number] [facility] 2022-10-31 10:15:00 2022-10-31 10:15:00 Outpatient GROVER, VELASQUEZ [facility] [id number] [facility] 2022-10-31 10:15:00 2022-10-31 10:15:00 Outpatient BARRY JENNILANDON BESS [facility] [id number] [facility] 2022-09-12 11:00:00 2022-09-12 11:52:50 Outpatient ERICH GARY [facility] [id number] [facility] 2022-08-01 11:00:00 2022-08-01 14:49:47 Outpatient ERICH GARY [facility] [id number] [facility] 2022-06-20 11:00:00 2022-06-20 12:53:01 Outpatient ERICH GARY [facility] [id number] [facility] 2022-05-16 10:15:00 2022-05-16 14:46:57 Outpatient ERICH GARY [facility] [id number] [facility] 2022-04-18 11:00:00 2022-04-18 11:00:23 Outpatient ERICH GARY [facility] [id number] [facility] 2022-04-11 11:00:00 2022-04-11 11:00:00 Outpatient ERICH GARY [facility] [id number] [facility] 2022-02-14 11:00:00 2022-02-14 15:07:30 Outpatient ERICH GARY [facility] [id number] [facility] 2021-12-20 11:00:00 2021-12-20 14:26:09 Outpatient PRERNAANDI [facility] [id number] [facility] 2021-02-24 00:00:00 2021-02-24 00:00:00 Telephone Jessica Hickman, Jessica [facility] [id number] [facility] 2016-05-21 16:00:00 2016-05-21 16:00:00 Outpatient [facility] [id number] David Davis 2016-02-20 16:00:00 2016-02-20 16:00:00 Outpatient [facility] [id number] David Davis 2015-10-31 14:00:00 2015-10-31 14:00:00 Outpatient [facility] [id number] David coronado Ryan 2015-09-19 15:00:00 2015-09-19 15:00:00 Outpatient [facility] [id number] David coronado Ryan 2015-09-19 14:00:00 2015-09-19 14:00:00 Outpatient [facility] [id number] David coronado Ryan 2015-08-08 16:30:00 2015-08-08 16:30:00 Outpatient [facility] [id number] David coronado Ryan 2015-06-06 16:30:00 2015-06-06 16:30:00 Outpatient [facility] [id number] David coronado Ryan 2015-05-16 16:30:00 2015-05-16 16:30:00 Outpatient [facility] [id number] Briandasuellen cliff Davis 2015-04-04 14:00:00 2015-04-04 14:00:00 Outpatient [facility] [id number] Briandasuellen cliff Davis 2015-01-24 16:30:00 2015-01-24 16:30:00 Outpatient [facility] [id number] Briandasuellen cliff Davis 2014-11-22 14:00:00 2014-11-22 14:00:00 Outpatient [facility] [id number] David Davis 2014-09-30 14:00:00 2014-09-30 14:00:00 Outpatient [facility] [id number] David Davis
[2025-01-31] MEDS ORDERED: LORazepam 2 MG/ML VIAL ONE (16:22)
[2025-01-31] MEDS ORDERED: NA CHLORIDE 0.9% 500 ML ONE (16:23)
[2025-01-31 16:45] LABS: PT Prothrombin Time 13.2 SECONDS (10-13.0); Protime INR 1.17
[2025-01-31 17:18] LABS: ALT/SGPT 49 U/L (13-56); Albumin 2.5 g/dL (3.4-5.0); Albumin/Globulin Ratio 0.7 (1.1-1.8); Alkaline Phosphatase 82 U/L (45-117); Anion Gap 11.4 mEq/L (5.0-15.0); BUN Blood Urea Nitrogen 9 mg/dL (7-18); Globulin 3.8 g/dL (2.3-3.5); Glucose Level 116 mg/dL (74-106); Lipase 32 U/L (13-75); NT PRO-BNP 2501 pg/mL (<450)
[2025-01-31 17:19] LABS: AST/SGOT 54 U/L (15-37); Bilirubin Indirect, Calculated 0.3 mg/dL (0.2-0.8); Magnesium 1.8 mg/dL (1.6-2.4); Potassium 4.4 mEq/L (3.5-5.1)
[2025-01-31 17:20] LABS: Troponin High Sensitivity 159.4 pg/mL (<58.9)
[2025-01-31 17:28] LABS: Absolute Lymphocytes (CBC) 0.9 K/uL (0.7-4.9); Hematocrit 34.4 % (36.0-45.0); Hemoglobin 11.6 g/dL (12.0-15.0); MCH 33.7 pg (27.0-35.0); MCHC 33.6 g/dL (32.0-36.0); MCV 100.2 fL (80-100); MPV 8.6 fL (7.6-11.3); Nucleated RBC Absolute Count 0.0 (0-0); Nucleated Red Blood Cells % 0.2 % (0-0); RBC Red Blood Cell Count 3.43 M/uL (3.86-4.86); White Blood Count 4.50 thou/uL (4.3-10.9)
--- NOTE | 2025-01-31 17:40 | RAD REPORT ---
EXAMINATION: ONE VIEW CHEST XR CLINICAL INDICATION: Female, 84 years old.,COUGH TECHNIQUE: Frontal chest projection is submitted. Examination is limited by patient positioning and t echnique. COMPARISON: 11/26/2024 FINDINGS: The lungs again show stable central interstitial prominence, although suboptimal inspiratory effort s omewhat limits evaluation. No pneumothorax or sizable effusion. The heart is normal in size. Mediastinal contours are unremarkable. IMPRESSION: Stable changes suggesting central congestion or CHF.
[2025-01-31] MEDS ORDERED: FAMOTIDINE 20 MG/2 ML VIAL IV ONE (17:41)
[2025-01-31] MEDS ORDERED: ASPIRIN 81 MG CHEWABLE TABLET ONE (17:41)
--- NOTE | 2025-01-31 17:48 | EDPHYS ---
Physician Documentation [facility] Name: Maxine Elias Age: 84 yrs Sex: Female : 1940 Arrival Date: 01/31/2025 Time: 15:51 Bed 16 Private MD: ED Physician Justin Ayoub HPI: 01/31 17:39 This 84 yrs old Female presents to ER via EMS with complaints of Medical jael Complaint. 17:39 The patient presents to the emergency department with nausea, vomiting, that is jael intermittent. Onset: The symptoms/episode began/occurred 2 day(s) ago. Possible causes: unknown. WEAK, ANXIOUS. Associated signs and symptoms: The patient has no apparent associated signs or symptoms. Severity of symptoms: At their worst the symptoms were mild moderate in the emergency department the symptoms have improved mildly. The patient has not experienced similar symptoms in the past. Historical: - Allergies: 16:00 Neosporin ([id number]); ap3 - PMHx: 16:00 Anxiety; Bipolar disorder; depressive disorder; Hypercholesterolemia; Hypertension; ap3 Hypothyroidism; - PSHx: 16:00 Cholecystectomy; ap3 - Immunization history:: Adult Immunizations up to date. - Infectious Disease History:: Denies. - Social history:: Smoking status: Patient denies any tobacco usage or history of. - Family history:: not pertinent. ROS: 17:39 Constitutional: Negative for fever, chills, and weight loss, Eyes: Negative for injury, jael pain, redness, and discharge, ENT: Negative for injury, pain, and discharge, Neck: Negative for injury, pain, and swelling, Cardiovascular: Negative for chest pain, palpitations, and edema, Respiratory: Negative for shortness of breath, cough, wheezing, and pleuritic chest pain, Back: Negative for injury and pain, : Negative for injury, bleeding, discharge, and swelling, MS/Extremity: Negative for injury and deformity, Skin: Negative for injury, rash, and discoloration, Neuro: Negative for headache, weakness, numbness, tingling, and seizure, Allergy/Immunology: Negative for hives, rash, and allergies, Endocrine: Negative for neck swelling, polydipsia, polyuria, polyphagia, and marked weight changes, Hematologic/Lymphatic: Negative for swollen nodes, abnormal bleeding, and unusual bruising, 17:39 Abdomen/GI: Negative for nausea and vomiting, 17:39 Psych: Positive for anxiety, Exam: 17:42 Constitutional: This is a well developed, well nourished patient who is awake, alert, jael and in no acute distress. Head/Face: Normocephalic, atraumatic. Eyes: Pupils equal round and reactive to light, extra-ocular motions intact. Lids and lashes normal. Conjunctiva and sclera are non-icteric and not injected. Cornea within normal limits. Periorbital areas with no swelling, redness, or edema. ENT: Nares patent. No nasal discharge, no septal abnormalities noted. Tympanic membranes are normal and external auditory canals are clear. Oropharynx with no redness, swelling, or masses, exudates, or evidence of obstruction, uvula midline. Mucous membranes moist. Neck: Trachea midline, no thyromegaly or masses palpated, and no cervical lymphadenopathy. Supple, full range of motion without nuchal rigidity, or vertebral point tenderness. No Meningismus. Chest/axilla: Normal chest wall appearance and motion. Nontender with no deformity. No lesions are appreciated. Cardiovascular: Regular rate and rhythm with a normal S1 and S2. No gallops, murmurs, or rubs. Normal PMI, no JVD. No pulse deficits. Respiratory: Lungs have equal breath sounds bilaterally, clear to auscultation and percussion. No rales, rhonchi or wheezes noted. No increased work of breathing, no retractions or nasal flaring. Abdomen/GI: Soft, non-tender, with normal bowel sounds. No distension or tympany. No guarding or rebound. No evidence of tenderness throughout. Back: No spinal tenderness. No costovertebral tenderness. Full range of motion. Skin: Warm, dry with normal turgor. Normal color with no rashes, no lesions, and no evidence of cellulitis. MS/ Extremity: Pulses equal, no cyanosis. Neurovascular intact. Full, normal range of motion., bilateral aka Neuro: Awake and alert, GCS 15, oriented to person, place, time, and situation. Cranial nerves II-XII grossly intact. Motor strength 5/5 in all extremities. Sensory grossly intact. Cerebellar exam normal. Normal gait. 17:42 ECG was reviewed by the Attending Physician. Vital Signs: 15:59 BP 178 / 73; Pulse 98; Resp 18; Temp 98.5; Pulse Ox 99% on R/A; Weight 79.38 kg; Height ap3 5 ft. 6 in. ; 16:07 BP 145 / 61; Pulse 86; Resp 18; Pulse Ox 98% on R/A; ap3 20:30 BP 139 / 56; Pulse 96; Resp 18; Pulse Ox 94% on R/A; af3 15:59 Body Mass Index 28.25 (79.38 kg, 167.64 cm) ap3 MDM: 16:00 Medical Screening Exam initiated jael 17:43 Differential diagnosis: Nonspecific abd pain, gastritis, cholecystitis, pancreatitis, jael appendicitis, diverticulitis, viral gastroenteritis, gastroenteritis. Differential Diagnosis altered mental status, sepsis, flu. Data reviewed: vital signs, nurses notes, lab test result(s), EKG, radiologic studies, CT scan, plain films. Consideration of Admission/Observation Patient was admitted/placed on observation. Escalation of care including admission/observation considered. I considered the following discharge prescriptions or medication management in the emergency department Medications were administered in the Emergency Department. See MAR. Independent interpretation of the following test(s) in the Emergency Department EKG: See my EKG interpretation above. Test considered but Not performed: Ultrasound NO 2 D ECHO. Historians other than the Patient: Daughter/Son: ROB. Care significantly affected by the following chronic conditions: Hypertension, Obesity, ANXIETY , BIPOLAR, HYPOTHYROID. Counseling: I had a detailed discussion with the patient and/or guardian regarding the historical points, exam findings, and any diagnostic results supporting the discharge/admit diagnosis, lab results, radiology results, the need for further work-up and treatment in the hospital. 01/31 16:06 Order name: Basic Metabolic Panel; Complete Time: 17:26 [facility] 01/31 16:06 Order name: CBC with Diff; Complete Time: 17:48 [facility] 01/31 16:06 Order name: LFT's; Complete Time: 17:26 [facility] 01/31 16:06 Order name: Magnesium; Complete Time: 17:26 [facility] 01/31 16:06 Order name: NT PRO-BNP; Complete Time: 17:26 [facility] 01/31 16:06 Order name: PT-INR; Complete Time: 17:14 01/31 16:06 Order name: Troponin HS; Complete Time: 17:26 [facility] 01/31 16:06 Order name: UA Rfx Cole Cult if indicated 01/31 16:06 Order name: Lipase; Complete Time: 17:26 [facility] 01/31 17:21 Order name: Tegretol Level ap3 01/31 18:41 Order name: CBC with Automated Diff EDMS 01/31 18:41 Order name: CBC with Automated Diff EDMS 01/31 18:41 Order name: Comprehensive Metabolic Panel EDMS 01/31 18:41 Order name: Comprehensive Metabolic Panel EDMS 01/31 18:41 Order name: Lipid Profile EDMS 01/31 18:41 Order name: Lipid Profile EDMS 01/31 18:41 Order name: Troponin High Sensitivity EDMS 01/31 18:41 Order name: Troponin High Sensitivity EDMS 01/31 18:41 Order name: Troponin High Sensitivity EDMS 01/31 18:41 Order name: Troponin High Sensitivity EDMS 01/31 16:06 Order name: XRAY Chest (1 view); Complete Time: 17:48 [facility] 01/31 17:26 Order name: CT Abd/Pelvis - Without Contrast 01/31 16:06 Order name: Cardiac monitoring; Complete Time: 16:07 jael 01/31 16:06 Order name: EKG - Nurse/Tech; Complete Time: 16:20 [facility] 01/31 16:06 Order name: IV Saline Lock; Complete Time: 16:18 [facility] 01/31 16:06 Order name: Labs collected and sent; Complete Time: 16:19 [facility] 01/31 16:06 Order name: O2 Per Protocol; Complete Time: 16:07 [facility] 01/31 16:06 Order name: O2 Sat Monitoring; Complete Time: 16:07 [facility] EC:42 Rate is 93 beats/min. Rhythm is regular. QRS [place] is Normal. [place] interval is normal. QRS jael interval is normal. QT interval is normal. No Q waves. T waves are Normal. No ST changes noted. Clinical impression: NSR w/ Non-specific ST/T Changes and No evidence of ischemia. Interpreted by me. Reviewed by me. Administered Medications: 16:34 Drug: Ativan IVP 1 mg IVP once Route: IVP; Site: right hand; ap3 20:32 Follow up: Response: No adverse reaction af3 16:34 Drug: NS 0.9% IV 500 ml 500 ml IV at 1 bolus once; to be given as a bolus over 30 ap3 minutes Volume: 500 ml; Route: IV; Rate: 1 bolus; Site: right hand; 20:31 Follow up: Response: No adverse reaction; IV Status: Completed infusion; IV Intake: af3 1000ml 17:49 Drug: Famotidine IVP 20 mg IVP once; dilute with 10 mL 0.9% NaCl; give over 2 minutes ap3 Route: IVP; Site: right hand; 20:31 Follow up: Response: No adverse reaction af3 17:49 Drug: Aspirin PO Chewable Tablet 162 mg PO once Route: PO; ap3 20:31 Follow up: Response: No adverse reaction af3 18:33 Drug: Enoxaparin Sub-Q 1 mg/kg Sub-Q once Route: Sub-Q; Site: abdomen; hb 20:31 Follow up: Response: No adverse reaction af3 Disposition Summary: 01/31/25 17:48 Hospitalization Ordered Notes: Hospitalization Status: Inpatient Admission jael Provider: Ray Kahn cha Location: Telemetry/[facility]Sur (Inpatient) jael Condition: Fair jael Problem: new jael Symptoms: have improved jael Bed/Room Type: Standard jael Room Assignment: 206(01/31/25 19:12) [facility] Diagnosis - Vomiting jael - Anxiety disorder, unspecified jael - Obesity, unspecified jael - Non ST elevation IN jael - Chronic combined systolic (congestive) and diastolic (congestive) heart failure jael Forms: - Medication Reconciliation Form jael - SBAR form jael - Leadership Thank You Letter jael Signatures: Dispatcher [employer] Justin Bailey MD MD cha Baxter, Heather RN RN Deidra Sandoval RN RN ap3 Ruht Osuna [facility] Ifoema Gates RN af3 Corrections: (The following items were deleted from the chart) 16:07 16:07 BASIC METABOLIC PANEL+C.LAB.BRZ ordered. EDMS EDMS 16:07 16:07 CBC+H.LAB.BRZ ordered. EDMS EDMS 16:07 16:07 HEPATIC FUNCTION+C.LAB.BRZ ordered. EDMS EDMS 16:07 16:07 MAGNESIUM+C.LAB.BRZ ordered. EDMS EDMS 16:07 16:07 PROBNP+C.LAB.BRZ ordered. EDMS EDMS 16:07 16:07 PROTIME (+INR)+COAG.LAB.BRZ ordered. EDMS EDMS 16: 16:07 Troponin High Sensitivity+C.LAB.BRZ ordered. EDMS EDMS 16: 16:07 UA Rfx Cole Cult if indicated+U.LAB.BRZ ordered. EDMS EDMS 16: 16:07 LIPASE+C.LAB.BRZ ordered. EDMS EDMS 16:07 16:07 Chest Single View+RAD.RAD.BRZ ordered. EDMS EDMS 17:26 17:26 Abdomen Pelvis Wo Con+CT.RAD.BRZ ordered. EDMS EDMS 19:12 17:48 jael kmf
--- NOTE | 2025-01-31 17:48 | ER ---
Nurse's Notes [facility] Name: Maxine Elias Age: 84 yrs Sex: Female : 1940 Arrival Date: 01/31/2025 Time: 15:51 Bed 16 Private MD: Diagnosis: Vomiting;Anxiety disorder, unspecified;Obesity, unspecified;Non ST elevation [place];Chronic combined systolic (congestive) and diastolic (congestive) heart failure Presentation: 01/31 15:59 Chief complaint: Patient states: she took her potassium pill this morning and is now ap3 feeling like she has tremors. Coronavirus screen: At this time, the client does not indicate any symptoms associated with coronavirus-19. Ebola Screen: No symptoms or risks identified at this time. Initial Sepsis Screen: Does the patient meet any 2 criteria? HR > 90 bpm. Does the patient have a suspected source of infection? No. Patient's initial sepsis screen is negative. Risk Assessment: Do you want to hurt yourself or someone else? Patient reports no desire to harm self or others. Onset of symptoms was January 31, 2025. 15:59 Method Of Arrival: EMS: [facility] ap3 15:59 Acuity: SWAPNIL 3 ap3 16:04 Care prior to arrival: Medication(s) given: zofran 4 mg, IV initiated. 20 GA, in the ap3 right hand. Triage Assessment: 16:03 General: Appears in no apparent distress. Behavior is calm, cooperative. Neuro: Level ap3 of Consciousness is awake, alert, obeys commands, Oriented to person, place, time, situation, Gait is was able to transfer from EMS stretcher to ER stretcher . Cardiovascular: Patient's skin is warm and dry. Respiratory: Airway is patent Respiratory effort is even, unlabored, Respiratory pattern is regular, symmetrical. GI: Reports nausea. Historical: - Allergies: 16:00 Neosporin ([id number]); ap3 - PMHx: 16:00 Anxiety; Bipolar disorder; depressive disorder; Hypercholesterolemia; Hypertension; ap3 Hypothyroidism; - PSHx: 16:00 Cholecystectomy; ap3 - Immunization history:: Adult Immunizations up to date. - Infectious Disease History:: Denies. - Social history:: Smoking status: Patient denies any tobacco usage or history of. - Family history:: not pertinent. Screenin:04 Abuse screen: Denies threats or abuse. Nutritional screening: No deficits noted. ap3 Tuberculosis screening: No symptoms or risk factors identified. 16:34 [facility] ED Fall Risk Assessment (Adult) History of falling in the last 3 months, ap3 including since admission No falls in past 3 months (0 pts) Confusion or Disorientation No (0 pts) Intoxicated or Sedated No (0 pts) Impaired Gait Yes (1 pt) Mobility Assist Device Used Yes (1 pt) Altered Elimination No (0 pt) Score/Fall Risk Level 0 - 2 = Low Risk Oriented to surroundings, Maintained a safe environment, Educated pt \T\ family on fall prevention, incl call for assistance when getting out of bed, Assessed \T\ reinforced patient's understanding of fall precautions, Used ambulatory aids as needed (educated on \T\ assisted with), Used gait belt as appropriate. Assessment: 19:25 General: Appears in no apparent distress. comfortable, well groomed, well developed, af3 Behavior is calm, cooperative, appropriate for age. 19:25 Pain: Denies pain. Neuro: Level of Consciousness is awake, alert, obeys commands, af3 Oriented to person, place, time, situation, Appropriate for age. Cardiovascular: Patient's skin is warm and dry. Respiratory: Airway is patent Respiratory effort is even, unlabored, Respiratory pattern is regular, symmetrical. Derm: Skin is intact, Skin is pink, warm \T\ dry. normal. Vital Signs: 15:59 BP 178 / 73; Pulse 98; Resp 18; Temp 98.5; Pulse Ox 99% on R/A; Weight 79.38 kg; Height ap3 5 ft. 6 in. ; 16:07 BP 145 / 61; Pulse 86; Resp 18; Pulse Ox 98% on R/A; ap3 20:30 BP 139 / 56; Pulse 96; Resp 18; Pulse Ox 94% on R/A; af3 15:59 Body Mass Index 28.25 (79.38 kg, 167.64 cm) ap3 ED Course: 15:54 Patient arrived in ED. cj3 16:00 Triage completed. ap3 16:00 Justin Ayoub MD is Attending Physician. jael 16:04 Client placed on continuous cardiac and pulse oximetry monitoring. NIBP monitoring ap3 applied. air sampling and monitoring on. Pulse ox on. NIBP on. Door closed. Noise minimized. Warm blanket given. 16:05 Patient has correct armband on for positive identification. Placed in gown. Bed in low ap3 position. Call light in reach. Side rails up X2. 16:05 Arm band placed on left wrist. ap3 16:07 Deidra Sandoval, MARIAELENA is Primary Nurse. ap3 16:20 Initial lab(s) drawn, by solar lab technician, sent to lab. ts3 17:32 XRAY Chest (1 view) In Process Unspecified. EDMS 17:46 Ray Kahn MD is Hospitalizing Provider. jael 17:57 CT Abd/Pelvis - Without Contrast In Process Unspecified. EDMS 20:35 No provider procedures requiring assistance completed. af3 20:36 Patient admitted, IV remains in place. af3 Administered Medications: 16:34 Drug: Ativan IVP 1 mg IVP once Route: IVP; Site: right hand; ap3 20:32 Follow up: Response: No adverse reaction af3 16:34 Drug: NS 0.9% IV 500 ml 500 ml IV at 1 bolus once; to be given as a bolus over 30 ap3 minutes Volume: 500 ml; Route: IV; Rate: 1 bolus; Site: right hand; 20:31 Follow up: Response: No adverse reaction; IV Status: Completed infusion; IV Intake: af3 1000ml 17:49 Drug: Famotidine IVP 20 mg IVP once; dilute with 10 mL 0.9% NaCl; give over 2 minutes ap3 Route: IVP; Site: right hand; 20:31 Follow up: Response: No adverse reaction af3 17:49 Drug: Aspirin PO Chewable Tablet 162 mg PO once Route: PO; ap3 20:31 Follow up: Response: No adverse reaction af3 18:33 Drug: Enoxaparin Sub-Q 1 mg/kg Sub-Q once Route: Sub-Q; Site: abdomen; hb 20:31 Follow up: Response: No adverse reaction af3 Medication: 20:33 VIS not applicable for this client. af3 Intake: 20:31 IV: 1000ml; Total: 1000ml. af3 Outcome: 17:48 Decision to Hospitalize by Provider. jael 20:35 Admitted to Med/surg accompanied by tech, via stretcher, room 206, with chart, af3 20:35 Condition: stable 20:35 Instructed on the need for admit, Demonstrated understanding of instructions, 20:36 Patient left the ED. af3 Signatures: Dispatcher [employer] EDJustin Girard MD MD cha Baxter, Heather, RN Deidra Kingsley RN RN ap3 Ifeoma Gates RN RN af3 Shanell Kwon 3 Rosa Miller 3
[2025-01-31] MEDS ORDERED: ENOXAPARIN 80 MG/0.8 ML SQ ONE (18:18)
--- NOTE | 2025-01-31 18:32 | RAD REPORT ---
EXAMINATION: CT Abdomen Pelvis Wo Contrast CLINICAL INDICATION: Female, 84 years old. NAUSEA / VOMITING TECHNIQUE: CT abdomen and pelvis was performed, without IV contrast, as per department protocol. Axia l, sagittal and coronal reconstructions were obtained. One or more of the following dose reduction techniques were used: Automated exposure control, adjustment of the mA and kV according to the patien t size, and iterative reconstruction. Unless otherwise specified, incidental findings do not require dedicated imaging follow-up. COMPARISON: 01/04/2025 FINDINGS: The lack of intravenous contrast limits the sensitivity of this exam for evaluation of solid visceral organs, vascular structures, and retroperitoneum. LOWER CHEST: Small layering pleural effusions larger on the right, new since the prior exam.. LIVER: Patchy regions of hypoattenuation throughout the right liver lobe appear more pronounced than on prior exam, and are not well characterized. Numerous well-circumscribed fluid density lesions largest in segment 4A measuring 4.3 cm, stable. BILIARY SYSTEM: Status post cholecystectomy. SPLEEN: Normal size. No focal lesion. PANCREAS: No mass, ductal dilation, or shira-pancreatic fluid. ADRENALS: Normal; no mass. KIDNEYS AND URETERS: Normal size and contour. No hydronephrosis. URINARY BLADDER: Normal contour. GASTROINTESTINAL TRACT: No evidence of bowel obstruction, significant free fluid, free air or abscess . APPENDIX: Appendix not visualized, but no inflammatory changes in region of appendix. LYMPH NODES: No lymphadenopathy. MUSCULOSKELETAL: No acute or suspicious osseous abnormality. Advanced bilateral hip joint degenerativ e changes worse on the right, stable. ADDITIONAL FINDINGS: Mild diffuse body wall edema.. IMPRESSION: New small pleural effusions larger on the right. Patchy regions of hypoattenuation within the right liver lobe, may reflect heterogeneous regions of f atty infiltration, although appear slightly more pronounced than on prior contrast-enhanced exams. These can be better evaluated by liver protocol MRI if clinically indicated. Other stable findings as above.
--- NOTE | 2025-01-31 18:36 | P.HP ---
Certification for Inpatient Patient admitted to: Observation With expected LOS: <2 Midnights Practitioner: I am a practitioner with admitting privileges, knowledge of patient current condition, hospital course, and medical plan of care. Services: Services provided to patient in accordance with Admission requirements found in Title 42 Section 412.3 of the Code of Federal Regulations Patient History Date of Service: 02/01/25 Reason for admission: NSTEMI History of Present Illness: 84 yrs old Female with past medical history of anxiety, bipolar disorder, depression hypertension, hypercholesterolemia, hypothyroidism, obesity presents to ER via EMS with nausea, vomiting, which is intermittent. The symptoms began/occurred 2 days ago. Patient also complains of some chest discomfort which is retrosternal radiating to the left arm associated with mild shortness of breath. Denies any fever or chills. No sick contacts Patient was assessed in the ER and was found to have NSTEMI and was admitted for further management Allergies neomycin [Neomycin] Allergy (Severe, Verified 10/05/19 21:19) swelling of ear latex Allergy (Intermediate, Verified 10/05/19 21:19) Hives Latex, Natural Rubber Allergy (Intermediate, Verified 10/05/19 21:19) Itching gluten Allergy (Verified 10/05/19 21:19) diarrhea Home medications list reviewed: Yes Home Medications: Carbamazepine [Tegretol] 400 mg PO BEDTIME 10/05/19 Buspirone HCl [Buspar] 30 mg PO BID 03/04/23 Quetiapine Fumarate [Seroquel] 400 mg PO BEDTIME 03/05/23 Levothyroxine [Synthroid*] 300 mg PO DAILY #90 tab 01/05/25 - Past Medical/Surgical History Diabetic: No Past Medical History: Reviewed- Non-Contributory -: seizure, HTN, Depression, Ulcers, anxiety, asthma, chronic diarrhea -: heart rhythm disorder. -: Hypercholesteremia. Past Surgical History: Reviewed- Non-Contributory -: total hysterectomy -: Left knee sx -: left wrist tendon removed, - Social History Smoking Status: Never smoker Alcohol use: No CD- Drugs: No Caffeine use: Yes Review of Systems 10-point ROS is otherwise unremarkable Physical Examination - Vital Signs Temperature: 98.6 F Blood Pressure: 132/60 Pulse: 108 Respirations: 18 Pulse Ox (%): 94 - Physical Exam General: Alert, In no apparent distress, Oriented x3, Obese HEENT: Atraumatic, Normocephalic Neck: Supple Respiratory: Clear to auscultation bilaterally, Normal air movement Cardiovascular: Regular rate/rhythm, Normal S1 S2 Capillary refill: <2 Seconds Gastrointestinal: Soft and benign, Non-distended, W/out hepatosplenomegaly Musculoskeletal: No clubbing Integumentary: No rashes Neurological: Other (Alert awake nonfocal) Lymphatics: No axilla or inguinal lymphadenopathy - Studies Laboratory Data (last 24 hrs) 01/31/25 01/31/25 01/31/25 16:17 16:17 16:17 WBC 4.50 Hgb 11.6 L Hct 34.4 L Plt Count 246 PT 13.2 H INR 1.17 Sodium 139 Potassium 4.4 BUN 9 Creatinine 0.57 Glucose 116 H Magnesium 1.8 Total Bilirubin 0.5 AST 54 H ALT 49 Alkaline Phosphatase 82 Lipase 32 Assessment and Plan - Plan NSTEMI Will trend cardiac enzymes Will monitor telemetry Started on aspirin and statin EKG did not show any acute changes suggestive of ischemia Patient denies any chest pain at the time of interview Will get an echocardiogram Cardiology consult Acute on chronic CHF possibly systolic/diastolic Monitor closely on telemetry Started on aggressive diuresis X-ray findings consistent with CHF Oxygen supplementation as needed Will try to wean down oxygen requirement Will obtain an echocardiogram Hypertension Antihypertensives titrated Continue home medications and titrate as needed Hyperlipidemia Continue statin anxiety Depression History of bipolar disorder Continue home medications and titrate as needed GI/DVT prophylaxis Advanced directive full code Discharge Plan: Home Plan to discharge in: 48 Hours - Advance Directives Does patient have a Living Will: No Does patient have a Durable POA for Healthcare: No - Code Status/Comfort Care Code Status: Full Code Time Spent Managing Pts Care (In Minutes): 48
[2025-01-31 20:32] LABS: Urine Microscopic Reflex YN NO UMIC
[2025-01-31 21:26] VITALS: BMI 28.2
[2025-01-31] MEDS: carBAMazepine 200 MG TAB PO SCH (22:35)
[2025-01-31] MEDS: QUETIAPINE 100MG TAB PO SCH (22:35)
[2025-01-31] MEDS: ALPRAZOLAM 0.25 MG TABLET PO PRN (22:35)
[2025-01-31] MEDS: BUSPIRONE HCL 15 MG TABLET PO SCH (22:35)
[2025-01-31] MEDS: ACETAMINOPHEN 325 MG TABLET PO PRN (23:48)
[2025-02-01 05:07] LABS: Absolute Lymphocytes (CBC) 1.1 K/uL (0.7-4.9); Hematocrit 30.3 % (36.0-45.0); Hemoglobin 10.5 g/dL (12.0-15.0); MCH 34.7 pg (27.0-35.0); MCHC 34.8 g/dL (32.0-36.0); MCV 99.5 fL (80-100); MPV 7.6 fL (7.6-11.3); Nucleated RBC Absolute Count 0.0 (0-0); Nucleated Red Blood Cells % 0.1 % (0-0); RBC Red Blood Cell Count 3.04 M/uL (3.86-4.86); White Blood Count 3.50 thou/uL (4.3-10.9)
[2025-02-01] MEDS: LEVOTHYROXINE SOD 0.1 MG TAB PO SCH (05:08)
[2025-02-01 05:24] LABS: ALT/SGPT 43.0 U/L (13-56); AST/SGOT 29.0 U/L (15-37); Albumin 2.3 g/dL (3.4-5.0); Albumin/Globulin Ratio 0.7 (1.1-1.8); Alkaline Phosphatase 69.0 U/L (45-117); Anion Gap 8.8 mEq/L (5.0-15.0); BUN Blood Urea Nitrogen 8.0 mg/dL (7-18); Globulin 3.5 g/dL (2.3-3.5); Glucose Level 101.0 mg/dL (74-106); HDL Cholesterol 29.0 mg/dL (40-60); LDL Cholesterol, Calculated 77.0 mg/dL (<130); LDL Cholesterol,Calc NonReport 77.0; Potassium 3.8 mEq/L (3.5-5.1)
[2025-02-01] MEDS: FUROSEMIDE 20 MG/ 2ML VIAL IV SCH (08:47)
[2025-02-01] MEDS: ASPIRIN EC 81 MG TAB PO SCH (08:47)
[2025-02-01] MEDS: ENOXAPARIN 40 MG/0.4 ML SQ SCH (08:47)
[2025-02-01] MEDS ORDERED: HEPA 1000U/500MLS 2,000 UNIT/1,000 ML BAG IV ONE (10:14)
[2025-02-01] MEDS ORDERED: HEPARIN 10,000 UNIT/10 ML VIAL IV ONE ×3 (10:15→16:37)
[2025-02-01] MEDS ORDERED: LIDOCAINE 1% 20 ML MDV ONE (10:15)
[2025-02-01] MEDS ORDERED: HEPARIN 5000 UNIT/ML 1 ML VIAL ONE (10:15)
[2025-02-01] MEDS ORDERED: TICAGRELOR 90 MG TABLET PO ONE (10:15)
[2025-02-01] MEDS ORDERED: ATROPINE SULF 1 MG/10 ML SYR IV ONE ×3 (10:15→21:02)
[2025-02-01] MEDS ORDERED: CLOPIDOGREL 75 MG TABLET ONE (10:15)
--- NOTE | 2025-02-01 10:38 | P.CNS ---
Date of Consult: 02/01/25 Chief Complaint: NSTEMI History of Present Illness: Patient with PMH of HTN, HLD, Presented with nausea and vomiting, cardiology were consulted for NSTEMI, patient report occasional chest pressure sensation last for few minutes, radiate to mid chest, denies any other cardiac symptoms. Allergies neomycin [Neomycin] Allergy (Severe, Verified 10/05/19 21:19) swelling of ear latex Allergy (Intermediate, Verified 10/05/19 21:19) Hives Latex, Natural Rubber Allergy (Intermediate, Verified 10/05/19 21:19) Itching gluten Allergy (Verified 10/05/19 21:19) diarrhea Home medications list reviewed: Yes Home Medications: Carbamazepine [Tegretol] 400 mg PO BEDTIME 10/05/19 Buspirone HCl [Buspar] 30 mg PO BID 03/04/23 Quetiapine Fumarate [Seroquel] 400 mg PO BEDTIME 03/05/23 Levothyroxine [Synthroid*] 300 mg PO DAILY #90 tab 01/05/25 - Past Medical/Surgical History Diabetic: No -: seizure, HTN, Depression, Ulcers, anxiety, asthma, chronic diarrhea -: heart rhythm disorder. -: Hypercholesteremia. -: total hysterectomy -: Left knee sx -: left wrist tendon removed, - Social History Smoking Status: Former smoker Alcohol use: No CD- Drugs: No Caffeine use: Yes Review of Systems 10-point ROS is otherwise unremarkable Physical Examination Temp Pulse Resp BP Pulse Ox 97.7 F 96 H 15 153/65 H 94 02/01/25 08:00 02/01/25 08:47 02/01/25 08:00 02/01/25 08:47 02/01/25 08:00 General: Alert, In no apparent distress HEENT: Atraumatic, PERRLA, Mucous membr. moist/pink, EOMI, Sclerae nonicteric Neck: Supple, 2+ carotid pulse no bruit, No LAD, Without JVD or thyroid abnormality Respiratory: Clear to auscultation bilaterally, Normal air movement Cardiovascular: Regular rate/rhythm, Normal S1 S2 Gastrointestinal: Normal bowel sounds, No tenderness Musculoskeletal: No tenderness Integumentary: No rashes Neurological: Normal gait, Normal speech, Normal tone, Normal affect Lymphatics: No axilla or inguinal lymphadenopathy Laboratory Data (last 24 hrs) 01/31/25 01/31/25 01/31/25 16:17 16:17 16:17 WBC 4.50 Hgb 11.6 L Hct 34.4 L Plt Count 246 PT 13.2 H INR 1.17 Sodium 139 Potassium 4.4 BUN 9 Creatinine 0.57 Glucose 116 H Magnesium 1.8 Total Bilirubin 0.5 AST 54 H ALT 49 Alkaline Phosphatase 82 Lipase 32 - Problems (1) NSTEMI (non-ST elevated myocardial infarction) Current Visit: Yes Status: Acute Plan: Patient with multiple risk factors for CAD, She had a stress test recently that shown anteroseptal infarct. NPO for coronary angiogram ASA 81 mg daily Lipitor 40 mg daily (2) HTN (hypertension) Current Visit: No Status: Chronic Plan: continue lasix 20 mg IV BID, Then switch to lasix 20 mg daily add Lisinopril 10 mg daily
[2025-02-01] MEDS ORDERED: NA CHLORIDE 0.9% 500 ML ONE ×5 (10:45→18:51)
[2025-02-01] MEDS ORDERED: FENTANYL CITR 100 MCG/2 ML ONE ×2 (10:45→12:02)
[2025-02-01] MEDS ORDERED: MIDAZOLAM HCL 2 MG/2 ML INJ ONE ×4 (10:45→15:38)
[2025-02-01] MEDS ORDERED: ONDANSETRON 4 MG/2 ML VIAL ONE ×2 (12:34→13:24)
[2025-02-01] MEDS ORDERED: Phenylephrine HCl 10 MG/ML 1 ML VIAL ONE ×2 (12:48→15:07)
[2025-02-01] MEDS: ONDANSETRON 4 MG/2 ML VIAL IV PRN (13:29)
[2025-02-01 13:40] VITALS: TEMP 98
[2025-02-01] MEDS ORDERED: NITROGLYCERIN 0.4 MG/TAB SL ONE (13:46)
[2025-02-01] MEDS: MORPHINE 4 MG/ML SYR ONE (13:56)
[2025-02-01] MEDS: MORPHINE 2 MG/ML SYR IV PRN (14:04)
[2025-02-01] MEDS ORDERED: PROMETHAZINE INJ 25 MG/ML AMP IM ONE (14:41)
[2025-02-01] MEDS ORDERED: NA CHLORIDE 0.9% 1,000 ML IV SCH (15:00)
[2025-02-01] MEDS ORDERED: NALOXONE 0.4 MG/ML VIAL ONE (15:21)
[2025-02-01] MEDS ORDERED: NOREPINEPHRINE 4 MG in D5W 250 ML IV SCH (16:00)
[2025-02-01] MEDS ORDERED: NOREPINEPHRINE BITARTRATE/D5W 4 MG/250 ML BAG IV SCH (16:00)
[2025-02-01] MEDS ORDERED: NOREPINEPHRINE 4 MG/4 ML VIAL ONE (16:23)
[2025-02-01] MEDS ORDERED: MORPHINE 4 MG/ML SYR IV PRN (16:33)
[2025-02-01 17:25] LABS: Blood O2 Saturation 90.5 % (92.0-98.5)
[2025-02-01 17:43] VITALS: BP 77/46; O2SAT 97
[2025-02-01] MEDS ORDERED: D5W 1,000 ML with NA BICARB 8.4% 100 MEQ IV SCH (18:00)
--- NOTE | 2025-02-01 18:29 | P.DS ---
Admission Date: 01/31/25 Discharge Date: 02/01/25 Reason for Admission: NSTEMI Brief History of Present Illness: 84 yrs old Female with past medical history of anxiety, bipolar disorder, depression hypertension, hypercholesterolemia, hypothyroidism, obesity presented to the ER via EMS with a complaint of intermittent nausea, vomiting of 2 days duration. Patient also complained of some chest discomfort which is retrosternal radiating to the left arm associated with shortness of breath. In the ER patient troponinbe elevated to 159. Patient was admitted for further management of NSTEMI. Hospital Course: Diagnosis NSTEMI Coronary artery disease Cardiac arrest with PEA Cardiogenic shock. Acute on chronic diastolic heart failure Morbid obesity Acute respiratory failure with hypoxia. Patient troponin trended up to 171. She was evaluated by cardiology Dr. Block who performed cardiac catheterization and 2 coronary artery stented, final cardiac cath report is pending. I was called to evaluate patient in the PACU because patient became profoundly hypotensive after the cardiac catheterization and developed altered mental status. Patient was given 1 L normal saline bolus however during the resuscitation process patient became unresponsive, and bradycardic, and then pulseless. CODE BLUE was called ACLS carried out, patient was intubated, patient given multiple rounds of epinephrine, multiple rounds of bicarb, atropine, developed V. tach during ACLS and was shocked 1 time, and then given IV amiodarone. Continue neoepinephrine drip started. There was ROSC after 25 minutes of ACLS. Patient remained unresponsive. She was taking the cardiac suite for annual cardiac cath and consideration for Impella. Patient later transfered to [facility] for further management. Vital Signs/Physical Exam: Temp Pulse Resp BP Pulse Ox 98 F 88 24 H 77/46 L 92 02/01/25 13:37 02/01/25 15:00 02/01/25 15:00 02/01/25 15:00 02/01/25 14:04 Laboratory Data at Discharge: WBC 3.50 thou/uL (4.3-10.9) L 02/01/25 04:36 Hgb 10.5 g/dL (12.0-15.0) L D 02/01/25 04:36 Hct 30.3 % (36.0-45.0) L 02/01/25 04:36 Plt Count 229 thou/uL (152-406) 02/01/25 04:36 PT 13.2 SECONDS (10-13.0) H 01/31/25 16:17 INR 1.17 01/31/25 16:17 Sodium 142 mEq/L (136-145) 02/01/25 04:36 Potassium 3.8 mEq/L (3.5-5.1) D 02/01/25 04:36 BUN 8 mg/dL (7-18) 02/01/25 04:36 Creatinine 0.60 mg/dL (0.55-1.02) 02/01/25 04:36 Glucose 101 mg/dL (74-106) 02/01/25 04:36 Magnesium 1.8 mg/dL (1.6-2.4) 01/31/25 16:17 Total Bilirubin 0.5 mg/dL (0.2-1.0) 02/01/25 04:36 AST 29 U/L (15-37) 02/01/25 04:36 ALT 43 U/L (13-56) 02/01/25 04:36 Alkaline Phosphatase 69 U/L (45-117) 02/01/25 04:36 Triglycerides 154 mg/dL (<150) H 02/01/25 04:36 Cholesterol 137 mg/dL (<200) 02/01/25 04:36 HDL Cholesterol 29 mg/dL (40-60) L 02/01/25 04:36 Cholesterol/HDL Ratio 4.72 02/01/25 04:36 Lipase 32 U/L (13-75) 01/31/25 16:17 Home Medications: Carbamazepine [Tegretol] 400 mg PO BEDTIME 10/05/19 Buspirone HCl [Buspar] 30 mg PO BID 03/04/23 Quetiapine Fumarate [Seroquel] 400 mg PO BEDTIME 03/05/23 Levothyroxine [Synthroid*] 300 mg PO DAILY #90 tab 01/05/25 Followup: Ray Kahn MD [Primary Care Provider] - 1-2 Weeks Time spent managing pt's care (in minutes): 48
[2025-02-01] MEDS ORDERED: VASOPRESSIN IV SCH (19:00)
[2025-02-01] MEDS ORDERED: NA CHLORIDE 0.9% IV SCH (19:00)
[2025-02-01] MEDS ORDERED: NOREPINEPHRINE 16 MG in Dextrose 5%-Water 500 ML IV SCH (19:00)
[2025-02-01 19:08] LABS: Base Excess, VBG -8.7 mmol/L (-2.0-3.0); HCO3, Venous Blood Gas 17.6 mmol/L (21.0-29.0); O2 Saturation, VBG 99.7 % (40.0-70.0); PCO2, Venous Blood Gas 35 mmHg (41-51); PH, Venous Blood Gas 7.31 (7.32-7.42); PO2, Venous Blood Gas 214 mmHg (25-40)
--- NOTE | 2025-02-01 19:59 | P.PN ---
Date of Service: 02/01/25 CODE BLUE note Went to see the patient Patient was hypotensive after fluids. Started on Levophed and titrated. Patient was intubated, Placed on mechanical ventilator support. Blood pressure was still dropping Patient went into cardiac arrest. Resuscitation efforts was started with chest compressions and multiple medications including epi soda bicarb and calcium chloride. ACLS protocol used. In spite of the efforts patient did not make it and clinically Discharge diagnoses : Cardiorespiratory arrest Acute hypoxic respiratory failure Cardiogenic shock Coronary Artery Disease Acute encephalopathy
[2025-02-01] MEDS ORDERED: ATORVASTATIN 40 MG TAB PO SCH (21:00)
[2025-02-01] MEDS ORDERED: TICAGRELOR 90 MG TABLET PO SCH (21:00)
[2025-02-01] MEDS ORDERED: D5W 250 ML IV ONE (21:02)
[2025-02-01] MEDS ORDERED: EPINEPHrine 1 MG/10 ML SYR IV ONE ×2 (21:02)
[2025-02-01] MEDS ORDERED: EPINEPHRINE/PF 1 MG/ML AMP IV ONE (21:02)
[2025-02-01] MEDS ORDERED: AMIODARONE HCL 150 MG/3 ML INJ IV ONE (21:02)
[2025-02-01] MEDS ORDERED: D50W 25 GM/50 ML SYRINGE IV ONE (21:02)
[2025-02-01] MEDS ORDERED: SOD BICARB 8.4% PEDI 10 mEq/10 mL SYR IVP ONE (21:02)
--- NOTE | 2025-02-02 02:45 | OP ---
Date of Procedure: 02/01/2025 Surgeon: Chinmay Block Procedures Performed: 1. Selective coronary angiogram. 2. PCI of the LAD into diagonal with Synergy 2.5 x 20 mm drug-eluting stent. 3. PCI of LAD [place] with Synergy 2.5 x 32 mm drug-eluting stent. Indication For Procedure: Unstable angina, non ST elevation NH. Complications: None. Estimated Blood Loss: Less than 50 cc. Access: Right radial, closed by TR band. Sedation Time: 90 minutes with 5 mg of Versed and 150 mg of fentanyl. Description Of Procedure: After risks, benefits, and alternatives were explained to the patient, the patient agreed to proceed with procedure and signed informed consent. The patient was brought back to the prosthetic lab technician, prepped and draped in sterile fashion. Time-out was performed. Sedation was admini stered. Next, right radial access was obtained using ultrasound-guided micropuncture technique. Tig er 4 catheter was advanced over a J-wire to the aortic root. Selective angiogram was done using that catheter and that catheter was later exchanged with an EBU3.0 mm guide. Heparin was administered an d ACT was therapeutic. First, Runthrough wire was passed across the LAD into diagonal 1 and then sec ond Runthrough wire passed from the LAD [place]. We pre-dilated the diagonal 1 lesions with an NC 2.0 followed by an NC 2.75 mm balloon. Next, we pre-dilated the mid LAD lesion with an NC 2.0 followed by a 2.75 mm balloon. Next, we placed stent from the LAD into diagonal 1, Synergy 2.5 x 20 mm drug-e luting stent, postdilated the stent with an NC 2.75 mm balloon. After that, we re-crossed from the d iagonal 1 into the LAD and we pre-dilated the mid LAD lesion with an NC 2.0 followed by 2.75 mm ballo ons. Then, we placed the stent from the proximal to mid LAD across the diagonal stent into [place] t [employer]chn[employer]. That stent is a Synergy 2.5 x 32 mm drug-eluting stent. Repeat cine angiogram showing GILMER I 0 flow into the diagonal, so micro catheters and Fielder XT wire was used to re-cross into the diag onal from the LAD stent and we pre-dilated that lesion with an NC 2.0 mm balloon followed by an NC 2. 75 mm balloon. Final kissing balloon inflation was done with 2 NC 2.75 mm balloons and we optimized the LAD stent with an NC 3.0 mm balloon. The patient was having chest pains during the procedure, bu t it got better at the end of the procedure. Repeat angiogram shows LINDA-3 flow, so wires was remove d. Catheter was removed over a J-wire and sheath was removed. TR band was applied and the patient w as moved back to Recovery in stable condition. Findings: 1. Left main normal. 2. LAD, severe heavily calcified mid LAD 99% disease, status post PCI with Synergy 2.5 x 32 mm drug-e luting stent. 3. Diagonal 1, large artery, almost dual LAD system with severe ostial to proximal 99% calcified dise ase, status post PCI with Synergy 2.5 x 20 mm drug-eluting stent. Then, mid diagonal got 90% disease . Unable to dilate that, so we left it for medical treatment. 4. Left circ; mild luminal irregularities. 5. RCA; mid 20 to 30% disease and mild luminal irregularities. Assessment And Plan: Significant heavily calcified mid LAD and ostial to proximal diagonal disease, status post PCI with 2 Synergy stents in a [place] technique. Plan: 1. Aspirin 81 mg daily for life. 2. Brilinta 180 mg p.o. x1 was given in the prosthetic lab technician, continue Brilinta 90 mg p.o. b.i.d. for 12 brenda hs. 3. Continue aggressive medical treatment for CAD. CLAUDIA/JACKLYN Voice ID: [id number] Report ID: [id number]
--- NOTE | 2025-02-02 04:00 | OP ---
Date of Procedure: 02/01/2025 Surgeon: Chinmay Block Procedure Performed: Impella insertion with selective coronary angiogram of the left coronary system. Indication For Procedure: The patient is status post PCI bifurcations of the LAD diagonal. The patient decompensated back to Recovery. She went into PEA arrest. Intubation was happened. CPR was done for 30 minutes and the patient was brought back emergently to the metallurgical laboratory assistant for revisiting the stent that we placed earlier and left ventricular assistive device. Complications: None. Estimated Blood Loss: Less than 50 cc. Access: Right common femoral artery, sheath secured in place. Sedation: The patient is already sedated with Versed. Description Of Procedure: After risks and benefits were explained to family, they agreed to proceed with the procedure. The patient was brought back urgently to the metallurgical laboratory assistant. Right groin access was obtained using ultrasound- guided micropuncture technique. We pre-dilated the right groin sheath through the Impella sheath. Impella was inserted and secured in place into the LV cavity. Impella gave good cardiac output. Also, we advanced an EBU 3.0 mm guide for the selective angiogram of the left coronary system. At the end of procedure, catheter was secured in place. Impella was secured in place. Also, we obtained right IJ access as the patient had central line placed. Findings: 1. Left main is normal. 2. LAD, mid stent is patent with LINDA-3 flow. 3. Diagonal 1 stent is patent with LINDA-3 flow. Assessment And Plan: Cardiac arrest, most likely secondary to cardiac stunning and pulmonary edema. The patient had an Impella placed and stabilized in place and central line was also placed and plan is to move the patient out to intensive care for higher level of care. She will be transferred to [facility]. CLAUDIA/JACKLYN Voice ID: [id number] Report ID: [id number] BROWN
== END 2025-02-01 21:03 | disposition expired | DRG 321 ==
LOC: ER 15:51 → 2ND 18:36
PROVIDERS: ADMIT Family Medicine; ATTEND Internal Medicine
PROC: 027035Z Dilation of Coronary Artery, One Artery with Two Drug-eluting Intraluminal Devices, Percutaneous Approach (ICD-10-PCS; principal; 2025-02-01)
PROC: 4A023N7 Measurement of Cardiac Sampling and Pressure, Left Heart, Percutaneous Approach (ICD-10-PCS; 2025-02-01)
PROC: B2111ZZ Fluoroscopy of Multiple Coronary Arteries using Low Osmolar Contrast (ICD-10-PCS; 2025-02-01)
PROC: 3E033XZ Introduction of Vasopressor into Peripheral Vein, Percutaneous Approach (ICD-10-PCS; 2025-02-01)
PROC: 4A033R1 Measurement of Arterial Saturation, Peripheral, Percutaneous Approach (ICD-10-PCS; 2025-02-01)
PROC: 5A12012 Performance of Cardiac Output, Single, Manual (ICD-10-PCS; 2025-02-01)
DX: I21.4 Non-ST elevation (NSTEMI) myocardial infarction (principal); I50.33 Acute on chronic diastolic (congestive) heart failure; J96.01 Acute respiratory failure with hypoxia; G93.40 Encephalopathy, unspecified; I47.20 Ventricular tachycardia, unspecified; I11.0 Hypertensive heart disease with heart failure; F41.9 Anxiety disorder, unspecified; E66.9 Obesity, unspecified; E03.9 Hypothyroidism, unspecified; F31.9 Bipolar disorder, unspecified; I46.9 Cardiac arrest, cause unspecified; E66.01 Morbid (severe) obesity due to excess calories; E78.00 Pure hypercholesterolemia, unspecified; I25.10 Atherosclerotic heart disease of native coronary artery without angina pectoris; Z88.8 Allergy status to other drugs, medicaments and biological substances; Z90.49 Acquired absence of other specified parts of digestive tract; Z68.28 Body mass index [BMI] 28.0-28.9, adult; Z79.890 Hormone replacement therapy; Z79.899 Other long term (current) drug therapy; Z90.710 Acquired absence of both cervix and uterus; Z87.891 Personal history of nicotine dependence
CPT/HCPCS: 33990; 36415; 36600; 71045; 74176; 76937; 80048; 80053; 80061; 80076; 80156; 81003; 82803; 82805; 82947; 83690; 83735; 83880; 84484; 85025; 85347; 85610; 92950; 93005; 93454; 96361; 96372; 96374; 96375; 99152; 99153; 99285; C1725; C1887; C1893; C9600; C9601; J0169; J0282; J0461; J1644; J1650; J1938; J2003; J2250; J2312; J2371; J2405; J3010; J7040; J7060; Q9966; Q9967